=== PATIENT | male | born 1935 | race Caucasian/White ===

== ENCOUNTER → 2017-06-28 | Outpatient (CLI) | payer MEDICARE ==
--- NOTE | 2017-06-28 10:22 | US ---
EXAMINATION TYPE: US kidneys/renal and bladder DATE OF EXAM: 06/28/2017 COMPARISON: NONE CLINICAL HISTORY: Hematuria R31.9. Patient stated had hematuria few weeks ago; self catheterizes x 1 2 years due to bladder muscle weakness. EXAM MEASUREMENTS: Right Kidney: 13.3 x 8.0 x 5.9cm Left Kidney: 11.1 x 4.9 x 6.0cm Post Void Residual Volume: (not assessed as patient self catheterizes and did not bring equipment to do so) Right Kidney: enlarged with multiple renal cysts and largest at lower pole = 6.8 x 42 x 4.1cm Left Kidney: multiple renal cysts with largest at lower pole = 5.3 x 4.5 x 3.7cm; hyperechoic paralle l wall calcification noted at lower pole suspected vascular. Bladder: enlarges prostate is noted posterior wall Bilateral Jets seen: no, only right jet was seen multiple times There is enlarged prostate gland bulging into bladder base. There are multiple simple appearing cysts scattered throughout both kidneys. IMPRESSION: Enlarged prostate gland consistent with BPH. No significant finding is seen to account for patient's symptoms. Multiple simple appearing cysts are scattered throughout both kidneys.
== END | disposition home or self-care (01) ==
LOC: RADUSWWP 09:23
PROVIDERS: ATTEND Urology
DX: N28.1 Cyst of kidney, acquired (principal); N40.0 Benign prostatic hyperplasia without lower urinary tract symptoms
CPT/HCPCS: 76770

== ENCOUNTER 2019-09-27 15:28 | Inpatient (IN) | payer MEDICARE ==
[2019-09-27] MEDS ORDERED: ONDANSETRON 4 MG/2 ML VIAL IVP STA ×2 (16:01→16:33)
[2019-09-27] MEDS ORDERED: SODIUM CHLORIDE 0.9% 2,000 ML IV STA (16:01)
[2019-09-27 16:22] LABS: MCHC 32.3 g/dL (31.0-37.0); MCV 95.8 fL (80.0-100.0); Mean Platelet Volume 8.6; Platelet Count 327 k/uL (150-450); RBC 6.58 m/uL (4.30-5.90); RDW 12.2 % (11.5-15.5); WBC 17.8 k/uL (3.8-10.6)
[2019-09-27 16:24] LABS: HGB 20.4 gm/dL (13.0-17.5)
[2019-09-27 16:30] LABS: Albumin 5.1 g/dL (3.5-5.0); Calcium 11.3 mg/dL (8.4-10.2); Potassium 4.3 mmol/L (3.5-5.1); Total Bilirubin 1.6 mg/dL (0.2-1.3); Total Protein 8.7 g/dL (6.3-8.2)
--- NOTE | 2019-09-27 16:44 | ED ---
General Adult HPI - General Chief complaint: Weakness Stated complaint: Weakness, Abd pain Time Seen by Provider: 09/27/19 15:30 Source: patient, RN notes reviewed, old records reviewed Mode of arrival: EMS Limitations: no limitations - History of Present Illness Initial comments: This is a 83-year-old male presents emergency room complaining of persistent vomiting since Tuesday night. Patient denies any diarrhea. Patient states the only abdominal surgeries had in the past as an inguinal hernia 40 years ago. Patient denies any chest pain or difficulty breathing. Patient states he is very lightheaded if he gets up. Patient states he has some abdominal pain but is mostly epigastric abdominal pain. Patient denies any dysuria hematuria urinary frequency. Patient denies any recent fever or chills. Patient states he just has epigastric abdominal pain with persistent uncontrollable vomiting. - Related Data Allergies Allergy/AdvReac Type Severity Reaction Status Date / Time No Known Allergies Allergy Verified 09/27/19 16:07 Review of Systems ROS Statement: Those systems with pertinent positive or pertinent negative responses have been documented in the HPI. ROS Other: All systems not noted in ROS Statement are negative. Past Medical History Past Medical History: Hyperlipidemia, Hypertension History of Any Multi-Drug Resistant Organisms: None Reported Additional Past Surgical History / Comment(s): cyst removed. Past Psychological History: No Psychological Hx Reported Smoking Status: Current every day smoker Past Alcohol Use History: None Reported Past Drug Use History: None Reported General Exam - General Exam Comments Initial Comments: GENERAL: Patient is well-developed and well-nourished. Patient is nontoxic and well- hydrated and is in moderate distress ENT: Neck is soft and supple. No significant lymphadenopathy is noted. Oropharynx is clear. Moist mucous membranes. Neck has full range of motion without eliciting any pain. EYES: The sclera were anicteric and conjunctiva were pink and moist. Extraocular movements were intact and pupils were equal round and reactive to light. Eyelids were unremarkable. PULMONARY: Unlabored respirations. Good breath sounds bilaterally. No audible rales rhonchi or wheezing was noted. CARDIOVASCULAR: There is a regular rate and rhythm without any murmurs gallops or rubs. ABDOMEN: Mild epigastric abdominal pain SKIN: Skin is clear with no lesions or rashes and otherwise unremarkable. NEUROLOGIC: Patient is alert and oriented x3. Cranial nerves II through XII are grossly intact. Motor and sensory are also intact. Normal speech, volume and content. Symmetrical smile. MUSCULOSKELETAL: Normal extremities with adequate strength and full range of motion. LYMPHATICS: No significant lymphadenopathy is noted PSYCHIATRIC: Normal psychiatric evaluation. . Patient has a large right-sided inguinal hernia Limitations: no limitations Course Vital Signs 09/27/19 09/27/19 09/27/19 15:31 15:45 16:32 Temperature 97.4 F L Pulse Rate 93 110 H Respiratory 20 24 26 H Rate Blood Pressure 84/53 68/57 O2 Sat by Pulse 92 L Oximetry 09/27/19 09/27/19 09/27/19 16:39 17:42 18:12 Temperature 96.8 F L 97.4 F L Pulse Rate 84 93 82 Respiratory 30 H 20 18 Rate Blood Pressure 97/57 88/40 107/53 O2 Sat by Pulse 93 L 96 96 Oximetry 09/27/19 09/27/19 09/27/19 18:21 18:43 19:00 Temperature Pulse Rate 90 92 93 Respiratory 20 20 20 Rate Blood Pressure 118/61 108/57 107/62 O2 Sat by Pulse 97 95 98 Oximetry Medical Decision Making - Medical Decision Making EKG shows a sinus rhythm with frequent premature ventricular complexes 92 bpm SD interval is 156 dresses 76 QT interval 376 QTC is 464. Computed tomography scan of the abdomen and pelvis shows small bowel instruction with an incarcerated hernia on the right but no strangulation noted. I could reduce most of the hernia on the right and the patient was relatively comfortable why did the procedure. I spoke with Dr. Zelaya he agreed to see the patient in the hospital. Spoke with Dr. Anderson he also agreed to see the patient hospital. I wrote admitting orders. - Lab Data Result diagrams: 09/27/19 15:45 09/27/19 15:45 Lab Results 09/27/19 09/27/19 09/27/19 Range/Units 15:45 15:45 15:45 WBC 17.8 H (3.8-10.6) k/uL RBC 6.58 H (4.30-5.90) m/uL Hgb 20.4 H* (13.0-17.5) gm/dL Hct 63.0 H* (39.0-53.0) % MCV 95.8 (80.0-100.0) fL MCH 31.0 (25.0-35.0) pg MCHC 32.3 (31.0-37.0) g/dL RDW 12.2 (11.5-15.5) % Plt Count 327 (150-450) k/uL Neutrophils % (Manual) 71 % Band Neutrophils % 15 % Lymphocytes % (Manual) 7 % Monocytes % (Manual) 7 % Neutrophils # (Manual) 15.30 H (1.3-7.7) k/uL Lymphocytes # (Manual) 1.25 (1.0-4.8) k/uL Monocytes # (Manual) 1.25 H (0-1.0) k/uL Nucleated RBCs 0 (0-0) /100 WBC Manual Slide Review Performed PT (9.0-12.0) sec INR (<1.2) APTT (22.0-30.0) sec Sodium 145 (137-145) mmol/L Potassium 4.3 (3.5-5.1) mmol/L Chloride 101 (98-107) mmol/L Carbon Dioxide 22 (22-30) mmol/L Anion Gap 22 mmol/L BUN 36 H (9-20) mg/dL Creatinine 2.67 H (0.66-1.25) mg/dL Est GFR (CKD-EPI)AfAm 25 (>60 ml/min/1.73 sqM) Est GFR (CKD-EPI)NonAf 21 (>60 ml/min/1.73 sqM) Glucose 135 H (74-99) mg/dL Lactic Ac Sepsis Rflx Plasma Lactic Acid Ramsey 7.2 H* (0.7-2.0) mmol/L Calcium 11.3 H (8.4-10.2) mg/dL Total Bilirubin 1.6 H (0.2-1.3) mg/dL AST 24 (17-59) U/L ALT 14 (4-49) U/L Alkaline Phosphatase 103 (38-126) U/L Total Protein 8.7 H (6.3-8.2) g/dL Albumin 5.1 H (3.5-5.0) g/dL Amylase 144 H (30-110) U/L Lipase 114 (23-300) U/L Urine Color Urine Appearance (Clear) Urine pH (5.0-8.0) Ur Specific [place] (1.001-1.035) Urine Protein (Negative) Urine Glucose (UA) (Negative) Urine Ketones (Negative) Urine Blood (Negative) Urine Nitrite (Negative) Urine Bilirubin (Negative) Urine Urobilinogen (<2.0) mg/dL Ur Leukocyte Esterase (Negative) Urine RBC (0-5) /hpf Urine WBC (0-5) /hpf Ur Squamous Epith Cells (0-4) /hpf Urine Bacteria (None) /hpf Gastric Occult Blood (Negative) 09/27/19 09/27/19 09/27/19 Range/Units 16:20 16:35 16:35 WBC (3.8-10.6) k/uL RBC (4.30-5.90) m/uL Hgb (13.0-17.5) gm/dL Hct (39.0-53.0) % MCV (80.0-100.0) fL MCH (25.0-35.0) pg MCHC (31.0-37.0) g/dL RDW (11.5-15.5) % Plt Count (150-450) k/uL Neutrophils % (Manual) % Band Neutrophils % % Lymphocytes % (Manual) % Monocytes % (Manual) % Neutrophils # (Manual) (1.3-7.7) k/uL Lymphocytes # (Manual) (1.0-4.8) k/uL Monocytes # (Manual) (0-1.0) k/uL Nucleated RBCs (0-0) /100 WBC Manual Slide Review PT 11.0 (9.0-12.0) sec INR 1.0 (<1.2) APTT 23.5 (22.0-30.0) sec Sodium (137-145) mmol/L Potassium (3.5-5.1) mmol/L Chloride (98-107) mmol/L Carbon Dioxide (22-30) mmol/L Anion Gap mmol/L BUN (9-20) mg/dL Creatinine (0.66-1.25) mg/dL Est GFR (CKD-EPI)AfAm (>60 ml/min/1.73 sqM) Est GFR (CKD-EPI)NonAf (>60 ml/min/1.73 sqM) Glucose (74-99) mg/dL Lactic Ac Sepsis Rflx Y Plasma Lactic Acid Ramsey (0.7-2.0) mmol/L Calcium (8.4-10.2) mg/dL Total Bilirubin (0.2-1.3) mg/dL AST (17-59) U/L ALT (4-49) U/L Alkaline Phosphatase (38-126) U/L Total Protein (6.3-8.2) g/dL Albumin (3.5-5.0) g/dL Amylase (30-110) U/L Lipase (23-300) U/L Urine Color Yellow Urine Appearance Cloudy (Clear) Urine pH 5.5 (5.0-8.0) Ur Specific [place] 1.024 (1.001-1.035) Urine Protein 1+ H (Negative) Urine Glucose (UA) Negative (Negative) Urine Ketones Negative (Negative) Urine Blood Moderate H (Negative) Urine Nitrite Positive (Negative) Urine Bilirubin Negative (Negative) Urine Urobilinogen <2.0 (<2.0) mg/dL Ur Leukocyte Esterase Large H (Negative) Urine RBC 125 H (0-5) /hpf Urine WBC 49 H (0-5) /hpf Ur Squamous Epith Cells 1 (0-4) /hpf Urine Bacteria Rare H (None) /hpf Gastric Occult Blood (Negative) 09/27/19 Range/Units 20:12 WBC (3.8-10.6) k/uL RBC (4.30-5.90) m/uL Hgb (13.0-17.5) gm/dL Hct (39.0-53.0) % MCV (80.0-100.0) fL MCH (25.0-35.0) pg MCHC (31.0-37.0) g/dL RDW (11.5-15.5) % Plt Count (150-450) k/uL Neutrophils % (Manual) % Band Neutrophils % % Lymphocytes % (Manual) % Monocytes % (Manual) % Neutrophils # (Manual) (1.3-7.7) k/uL Lymphocytes # (Manual) (1.0-4.8) k/uL Monocytes # (Manual) (0-1.0) k/uL Nucleated RBCs (0-0) /100 WBC Manual Slide Review PT (9.0-12.0) sec INR (<1.2) APTT (22.0-30.0) sec Sodium (137-145) mmol/L Potassium (3.5-5.1) mmol/L Chloride (98-107) mmol/L Carbon Dioxide (22-30) mmol/L Anion Gap mmol/L BUN (9-20) mg/dL Creatinine (0.66-1.25) mg/dL Est GFR (CKD-EPI)AfAm (>60 ml/min/1.73 sqM) Est GFR (CKD-EPI)NonAf (>60 ml/min/1.73 sqM) Glucose (74-99) mg/dL Lactic Ac Sepsis Rflx Plasma Lactic Acid [place] (0.7-2.0) mmol/L Calcium (8.4-10.2) mg/dL Total Bilirubin (0.2-1.3) mg/dL AST (17-59) U/L ALT (4-49) U/L Alkaline Phosphatase (38-126) U/L Total Protein (6.3-8.2) g/dL Albumin (3.5-5.0) g/dL Amylase (30-110) U/L Lipase (23-300) U/L Urine Color Urine Appearance (Clear) Urine pH (5.0-8.0) Ur Specific [place] (1.001-1.035) Urine Protein (Negative) Urine Glucose (UA) (Negative) Urine Ketones (Negative) Urine Blood (Negative) Urine Nitrite (Negative) Urine Bilirubin (Negative) Urine Urobilinogen (<2.0) mg/dL Ur Leukocyte Esterase (Negative) Urine RBC (0-5) /hpf Urine WBC (0-5) /hpf Ur Squamous Epith Cells (0-4) /hpf Urine Bacteria (None) /hpf Gastric Occult Blood Positive (Negative) Disposition Clinical Impression: Small bowel obstruction, Incarcerated inguinal hernia, Dehydration, Renal insufficiency Disposition: ADMITTED IP TO THIS HOSP Is patient prescribed a controlled substance at d/c from ED?: No Referrals: Zack Rao MD [Primary Care Provider] - 1-2 days Time of Disposition: 20:32
[2019-09-27 17:03] LABS: Partial Thromboplastin Time 23.5 sec (22.0-30.0)
[2019-09-27 17:06] LABS: Appearance,Urine Cloudy (Clear); Bacteria,Urine Rare /hpf; Bilirubin,Urine Negative (Negative); Blood,Urine Moderate (Negative); Color,Urine Yellow; Glucose,Urine (UA) Negative (Negative); Ketones,Urine Negative (Negative); Leukocyte Esterase,Urine Large (Negative); Nitrite,Urine Positive (Negative); PH, Urine 5.5 (5.0-8.0); Protein,Urine 1+ (Negative); RBC,Urine 125 /hpf (0-5); Specific Gravity,Urine 1.024 (1.001-1.035); Squamous Epithelial Cell,Urine 1 /hpf (0-4); Urobilinogen,Urine <2.0 mg/dL (<2.0); WBC,Urine 49 /hpf (0-5)
[2019-09-27 17:16] LABS: Band Neutrophils % 15 %; Lymphocytes # (M) 1.25 k/uL (1.0-4.8); Monocytes # (M) 1.25 k/uL (0-1.0); Neutrophils % (M) 71 %; Nucleated Red Blood Cells 0 /100 WBC (0-0); Total Cells Counted 100
[2019-09-27] MEDS ORDERED: SODIUM CHLORIDE 0.9% 1,000 ML IV ONE ×3 (18:13→20:49)
--- NOTE | 2019-09-27 19:03 | CT ---
EXAMINATION TYPE: CT abdomen pelvis wo con DATE OF EXAM: 09/27/2019 COMPARISON: None HISTORY: Epigastric pain. CT DLP: 659 mGycm Automated exposure control for dose reduction was used. TECHNIQUE: Helical acquisition of images was performed from the lung bases through the pelvis. FINDINGS: Within the limitations of noncontrast CT, the following observations are made. LUNG BASES: No acute findings. Left and right coronary calcifications and mitral and aortic valve plane calcifications noted. LIVER/GB: No significant abnormality is appreciated. PANCREAS: No significant abnormality is seen. SPLEEN: No significant abnormality is seen. ADRENALS: No significant abnormality is seen. KIDNEYS: No acute process, but multifocal renal cysts noted. BOWEL: There is moderate marked gastric distention with a gas fluid level. The jejunum and ileum smal l bowel loops are dilated from 3.5 cm to 5.0 cm. This is secondary to incarcerated right inguinal her niation of several bowel loops, including the ileocecal anastomosis. There is no evidence of bowel wall thickening. No pneumatosis. No pneumoperitoneum. No peritoneal fluid. The ascending colon, transverse colon, descending colon and right colon is collapsed. There is left i nguinal herniation of a sigmoid loop of bowel which has normal appearance. This appears incarcerated but not strangulated. RETROPERITONEAL ADENOPATHY: None visualized REPRODUCTIVE ORGANS: No significant abnormality is seen URINARY BLADDER: No significant abnormality is seen. PELVIC ADENOPATHY: None visualized. OSSEOUS STRUCTURES: No significant abnormality is seen. Just now discussed results with ordering provider. IMPRESSION: MODERATE-MARKED SMALL BOWEL OBSTRUCTION SECONDARY TO RIGHT INGUINAL HERNIATION.
--- NOTE | 2019-09-27 20:07 | XR ---
EXAMINATION: XR chest 1V DATE AND TIME: 09/27/2019 7:22 PM CLINICAL INDICATION: PHH; NG placement TECHNIQUE: AP upright portable COMPARISON: 07/18/2014 FINDINGS: NG tube is present, coursing over the expected thoracic esophagus and over the body and fundus of the stomach, to have its tip superimposed over the left frontal margin. Pleural spaces are negative. There is a mild bilateral interstitial pattern noted which appears coarsened, suggesting chronic inte rstitial lung change. However, clinical exclusion of mild interstitial phase pulmonary edema is reque sted. Mildly enlarged cardiac silhouette and tortuosity of the thoracic aorta noted. No acute skeletal findings. No pneumoperitoneum; dilated small bowel loops noted. IMPRESSION: NG-tube.
[2019-09-27 21:19] LABS: HCT 53.6 % (39.0-53.0); HGB 17.6 gm/dL (13.0-17.5); MCH 31.2 pg (25.0-35.0); MCHC 32.9 g/dL (31.0-37.0); MCV 94.8 fL (80.0-100.0); Mean Platelet Volume 9.1; Platelet Count 246 k/uL (150-450); RBC 5.65 m/uL (4.30-5.90); RDW 12.4 % (11.5-15.5); WBC 3.8 k/uL (3.8-10.6)
[2019-09-27 21:45] LABS: Band Neutrophils % 16 %; Lymphocytes # (M) 0.76 k/uL (1.0-4.8); Monocytes # (M) 0.23 k/uL (0-1.0); Neutrophils % (M) 58 %; Nucleated Red Blood Cells 0 /100 WBC (0-0); Total Cells Counted 100
[2019-09-28] MEDS ORDERED: HYDROmorphone 0.5 MG/0.5 ML SYRINGE IVP PRN (08:55)
[2019-09-28] MEDS ORDERED: ONDANSETRON 4 MG/2 ML VIAL IVP PRN (08:56)
--- NOTE | 2019-09-28 08:58 | P.GSCN ---
<Mohini Brown - Last Filed: 09/28/19 08:53> History of Present Illness Consult date: 09/28/19 Reason for Consult: small bowel obstruction Requesting physician: Enrrique Ramirez History of present illness: CHIEF COMPLAINT: abdominal pain HISTORY OF PRESENT ILLNESS: 83-year-old male who presents to emergency room chief complaint abdominal pain. Patient reports he has been having bilateral lower quadrant abdominal pain since Tuesday. He reports he began vomiting on Tuesday. He states he thought it would go away on its own so he waited to come to the emergency room, however he was still throwing up yesterday and finally decided to come to the ER for evaluation. Patient reports history of right inguinal hernia for approximately 5 years and states it has never caused him any problems in the past so he did not seek surgical evaluation to have it repaired. PAST MEDICAL HISTORY: See list. PAST SURGICAL HISTORY: See list. SOCIAL HISTORY: No illicit drug use. REVIEW OF SYSTEMS: CONSTITUTIONAL: Denies fever or chills. HEENT: Denies blurred vision, vision changes, or eye pain. Denies hemoptysis CARDIOVASCULAR: Denies chest pain or pressure. RESPIRATORY: No shortness of breath. GASTROINTESTINAL: Refer to HPI for pertinent findings HEMATOLOGIC: Denies bleeding disorders. GENITOURINARY: Denies any blood in urine. SKIN: Denies pruitis. Denies rash. PHYSICAL EXAM: VITAL SIGNS: Reviewed. GENERAL: Well-developed in no acute distress. HEENT: No sclera icterus. Extraocular movements grossly intact. Moist buccal mucosa. Head is atraumatic, normocephalic. ABDOMEN: NG tube to low intermittent suction with bilious drainage. Soft. Nondistended. Tenderness with palpation to right lower quadrant. Large right inguinal hernia noted. NEUROLOGIC: Alert and oriented. Cranial nerves II through XII grossly intact. LABORATORY DATA: WBC 3.8. Hemoglobin 17.6. Platelet count 246. Lactic acid 2.3. Repeat 1.7. Sodium 145. Potassium 4.3. BUN 36. Creatinine 2.67. IMAGING: CT abdomen and pelvis: Moderate-marked small bowel obstruction secondary to right inguinal hernia. ASSESSMENT: 1. Abdominal pain 2. Nausea and vomiting 3. Small bowel obstruction secondary to incarcerated right inguinal hernia PLAN: NPO. Continue IV fluids GI/DVT prophylaxis Pain control. Continue IV Dilaudid PRN. Patient to undergo repair of incarcerated right recurrent inguinal hernia with possible mesh today with Dr. Zelaya Nurse practitioner note has been reviewed by physician. Signing provider agrees with the documented findings, assessment, and plan of care. Past Medical History Past Medical History: Hyperlipidemia, Hypertension History of Any Multi-Drug Resistant Organisms: None Reported Additional Past Surgical History / Comment(s): cyst removed. Past Anesthesia/Blood Transfusion Reactions: No Reported Reaction Past Psychological History: No Psychological Hx Reported Smoking Status: Current every day smoker Past Alcohol Use History: None Reported Past Drug Use History: None Reported Medications and Allergies Home Medications Medication Instructions Recorded Confirmed Type Ascorbic Acid [Vitamin C] 1,000 mg PO DAILY 09/27/19 09/27/19 History Aspirin EC [Ecotrin Low Dose] 81 mg PO DAILY 09/27/19 09/27/19 History Calcium Carbonate [Calcium] 600 mg PO DAILY 09/27/19 09/27/19 History Cyanocobalamin (Vitamin B-12) 1,000 mcg PO DAILY 09/27/19 09/27/19 History [Vitamin B-12] Lisinopril [Zestril] 20 mg PO DAILY 09/27/19 09/27/19 History Magnesium(Unknown Dose) 1 tab PO DAILY 09/27/19 09/27/19 History Tatum-3 Fatty Acids/Fish Oil [Fish 1 cap PO DAILY 09/27/19 09/27/19 History Oil 1,000 mg Softgel] Simvastatin 40 mg PO HS 09/27/19 09/27/19 History Thiamine [Vitamin B-1] 100 mg PO DAILY 09/27/19 09/27/19 History Allergies Allergy/AdvReac Type Severity Reaction Status Date / Time No Known Allergies Allergy Verified 09/27/19 20:41 Surgical - Exam Vital Signs Temp Pulse Resp BP Pulse Ox 97.4 F L 93 20 84/53 92 L 09/27/19 15:31 09/27/19 15:31 09/27/19 15:31 09/27/19 15:31 09/27/19 15:31 Results - Labs 09/27/19 20:54 09/27/19 15:45 Abnormal Lab Results - Last 24 Hours (Table) 09/27/19 09/27/19 09/27/19 Range/Units 15:45 15:45 15:45 WBC 17.8 H (3.8-10.6) k/uL RBC 6.58 H (4.30-5.90) m/uL Hgb 20.4 H* (13.0-17.5) gm/dL Hct 63.0 H* (39.0-53.0) % Neutrophils # (Manual) 15.30 H (1.3-7.7) k/uL Lymphocytes # (Manual) (1.0-4.8) k/uL Monocytes # (Manual) 1.25 H (0-1.0) k/uL BUN 36 H (9-20) mg/dL Creatinine 2.67 H (0.66-1.25) mg/dL Glucose 135 H (74-99) mg/dL Plasma Lactic Acid Ramsey 7.2 H* (0.7-2.0) mmol/L Calcium 11.3 H (8.4-10.2) mg/dL Total Bilirubin 1.6 H (0.2-1.3) mg/dL Total Protein 8.7 H (6.3-8.2) g/dL Albumin 5.1 H (3.5-5.0) g/dL Amylase 144 H (30-110) U/L Urine Protein (Negative) Urine Blood (Negative) Ur Leukocyte Esterase (Negative) Urine RBC (0-5) /hpf Urine WBC (0-5) /hpf Urine Bacteria (None) /hpf 09/27/19 09/27/19 09/27/19 Range/Units 16:20 20:37 20:54 WBC (3.8-10.6) k/uL RBC (4.30-5.90) m/uL Hgb 17.6 H (13.0-17.5) gm/dL Hct 53.6 H (39.0-53.0) % Neutrophils # (Manual) (1.3-7.7) k/uL Lymphocytes # (Manual) 0.76 L (1.0-4.8) k/uL Monocytes # (Manual) (0-1.0) k/uL BUN (9-20) mg/dL Creatinine (0.66-1.25) mg/dL Glucose (74-99) mg/dL Plasma Lactic Acid Ramsey 4.3 H* (0.7-2.0) mmol/L Calcium (8.4-10.2) mg/dL Total Bilirubin (0.2-1.3) mg/dL Total Protein (6.3-8.2) g/dL Albumin (3.5-5.0) g/dL Amylase (30-110) U/L Urine Protein 1+ H (Negative) Urine Blood Moderate H (Negative) Ur Leukocyte Esterase Large H (Negative) Urine RBC 125 H (0-5) /hpf Urine WBC 49 H (0-5) /hpf Urine Bacteria Rare H (None) /hpf 09/28/19 Range/Units 00:35 WBC (3.8-10.6) k/uL RBC (4.30-5.90) m/uL Hgb (13.0-17.5) gm/dL Hct (39.0-53.0) % Neutrophils # (Manual) (1.3-7.7) k/uL Lymphocytes # (Manual) (1.0-4.8) k/uL Monocytes # (Manual) (0-1.0) k/uL BUN (9-20) mg/dL Creatinine (0.66-1.25) mg/dL Glucose (74-99) mg/dL Plasma Lactic Acid Ramsey 2.3 H* (0.7-2.0) mmol/L Calcium (8.4-10.2) mg/dL Total Bilirubin (0.2-1.3) mg/dL Total Protein (6.3-8.2) g/dL Albumin (3.5-5.0) g/dL Amylase (30-110) U/L Urine Protein (Negative) Urine Blood (Negative) Ur Leukocyte Esterase (Negative) Urine RBC (0-5) /hpf Urine WBC (0-5) /hpf Urine Bacteria (None) /hpf Microbiology - Last 24 Hours (Table) 09/27/19 16:20 Urine Culture - Preliminary Urine,Voided Diabetes panel 09/27/19 Range/Units 15:45 Sodium 145 (137-145) mmol/L Potassium 4.3 (3.5-5.1) mmol/L Chloride 101 (98-107) mmol/L Carbon Dioxide 22 (22-30) mmol/L BUN 36 H (9-20) mg/dL Creatinine 2.67 H (0.66-1.25) mg/dL Glucose 135 H (74-99) mg/dL Calcium 11.3 H (8.4-10.2) mg/dL AST 24 (17-59) U/L ALT 14 (4-49) U/L Alkaline Phosphatase 103 (38-126) U/L Total Protein 8.7 H (6.3-8.2) g/dL Albumin 5.1 H (3.5-5.0) g/dL Calcium panel 09/27/19 Range/Units 15:45 Calcium 11.3 H (8.4-10.2) mg/dL Albumin 5.1 H (3.5-5.0) g/dL Pituitary panel 09/27/19 Range/Units 15:45 Sodium 145 (137-145) mmol/L Potassium 4.3 (3.5-5.1) mmol/L Chloride 101 (98-107) mmol/L Carbon Dioxide 22 (22-30) mmol/L BUN 36 H (9-20) mg/dL Creatinine 2.67 H (0.66-1.25) mg/dL Glucose 135 H (74-99) mg/dL Calcium 11.3 H (8.4-10.2) mg/dL Adrenal panel 09/27/19 Range/Units 15:45 Sodium 145 (137-145) mmol/L Potassium 4.3 (3.5-5.1) mmol/L Chloride 101 (98-107) mmol/L Carbon Dioxide 22 (22-30) mmol/L BUN 36 H (9-20) mg/dL Creatinine 2.67 H (0.66-1.25) mg/dL Glucose 135 H (74-99) mg/dL Calcium 11.3 H (8.4-10.2) mg/dL Total Bilirubin 1.6 H (0.2-1.3) mg/dL AST 24 (17-59) U/L ALT 14 (4-49) U/L Alkaline Phosphatase 103 (38-126) U/L Total Protein 8.7 H (6.3-8.2) g/dL Albumin 5.1 H (3.5-5.0) g/dL <Elio Zelaya - Last Filed: 09/28/19 11:32> History of Present Illness History of present illness: As above. 9-year-old male with intractable vomiting. Patient states he has had this recurrent right inguinal hernia for several years. Has had increasing size and pain recently. Over the last 3-4 days has had intractable vomiting and pain. CAT scan shows small bowel obstruction which appears to be in the right hernia sac. This is a very large hernia. On exam unable to reduce. Small moderate sized reducible hernia on the left-hand side containing colon without obstruction. Overlying skin on the right side appears free of erythema, tenderness is mild to moderate. Options reviewed with the patient. Recommend repair recurrent incarcerated right inguinal hernia with possible mesh, possible bowel resection, possible need for laparotomy. We'll plan likely orchiectomy at the time of the procedure given the large size of this hernia. Risks of bleeding, infection, recurrence, bladder and bowel injury, numbness, nerve injury were discussed with the patient. The patient understands and wishes to proceed. Surgical - Exam Vital Signs Temp Pulse Resp BP Pulse Ox 97.4 F L 93 20 84/53 92 L 09/27/19 15:31 09/27/19 15:31 09/27/19 15:31 09/27/19 15:31 09/27/19 15:31 Results - Labs 09/27/19 20:54 09/27/19 15:45 Abnormal Lab Results - Last 24 Hours (Table) 09/27/19 09/27/19 09/27/19 Range/Units 15:45 15:45 15:45 WBC 17.8 H (3.8-10.6) k/uL RBC 6.58 H (4.30-5.90) m/uL Hgb 20.4 H* (13.0-17.5) gm/dL Hct 63.0 H* (39.0-53.0) % Neutrophils # (Manual) 15.30 H (1.3-7.7) k/uL Lymphocytes # (Manual) (1.0-4.8) k/uL Monocytes # (Manual) 1.25 H (0-1.0) k/uL BUN 36 H (9-20) mg/dL Creatinine 2.67 H (0.66-1.25) mg/dL Glucose 135 H (74-99) mg/dL Plasma Lactic Acid Ramsey 7.2 H* (0.7-2.0) mmol/L Calcium 11.3 H (8.4-10.2) mg/dL Total Bilirubin 1.6 H (0.2-1.3) mg/dL Total Protein 8.7 H (6.3-8.2) g/dL Albumin 5.1 H (3.5-5.0) g/dL Amylase 144 H (30-110) U/L Urine Protein (Negative) Urine Blood (Negative) Ur Leukocyte Esterase (Negative) Urine RBC (0-5) /hpf Urine WBC (0-5) /hpf Urine Bacteria (None) /hpf 09/27/19 09/27/19 09/27/19 Range/Units 16:20 20:37 20:54 WBC (3.8-10.6) k/uL RBC (4.30-5.90) m/uL Hgb 17.6 H (13.0-17.5) gm/dL Hct 53.6 H (39.0-53.0) % Neutrophils # (Manual) (1.3-7.7) k/uL Lymphocytes # (Manual) 0.76 L (1.0-4.8) k/uL Monocytes # (Manual) (0-1.0) k/uL BUN (9-20) mg/dL Creatinine (0.66-1.25) mg/dL Glucose (74-99) mg/dL Plasma Lactic Acid Ramsey 4.3 H* (0.7-2.0) mmol/L Calcium (8.4-10.2) mg/dL Total Bilirubin (0.2-1.3) mg/dL Total Protein (6.3-8.2) g/dL Albumin (3.5-5.0) g/dL Amylase (30-110) U/L Urine Protein 1+ H (Negative) Urine Blood Moderate H (Negative) Ur Leukocyte Esterase Large H (Negative) Urine RBC 125 H (0-5) /hpf Urine WBC 49 H (0-5) /hpf Urine Bacteria Rare H (None) /hpf 09/28/19 Range/Units 00:35 WBC (3.8-10.6) k/uL RBC (4.30-5.90) m/uL Hgb (13.0-17.5) gm/dL Hct (39.0-53.0) % Neutrophils # (Manual) (1.3-7.7) k/uL Lymphocytes # (Manual) (1.0-4.8) k/uL Monocytes # (Manual) (0-1.0) k/uL BUN (9-20) mg/dL Creatinine (0.66-1.25) mg/dL Glucose (74-99) mg/dL Plasma Lactic Acid Ramsey 2.3 H* (0.7-2.0) mmol/L Calcium (8.4-10.2) mg/dL Total Bilirubin (0.2-1.3) mg/dL Total Protein (6.3-8.2) g/dL Albumin (3.5-5.0) g/dL Amylase (30-110) U/L Urine Protein (Negative) Urine Blood (Negative) Ur Leukocyte Esterase (Negative) Urine RBC (0-5) /hpf Urine WBC (0-5) /hpf Urine Bacteria (None) /hpf Microbiology - Last 24 Hours (Table) 09/27/19 16:20 Urine Culture - Preliminary Urine,Voided Diabetes panel 09/27/19 Range/Units 15:45 Sodium 145 (137-145) mmol/L Potassium 4.3 (3.5-5.1) mmol/L Chloride 101 (98-107) mmol/L Carbon Dioxide 22 (22-30) mmol/L BUN 36 H (9-20) mg/dL Creatinine 2.67 H (0.66-1.25) mg/dL Glucose 135 H (74-99) mg/dL Calcium 11.3 H (8.4-10.2) mg/dL AST 24 (17-59) U/L ALT 14 (4-49) U/L Alkaline Phosphatase 103 (38-126) U/L Total Protein 8.7 H (6.3-8.2) g/dL Albumin 5.1 H (3.5-5.0) g/dL Calcium panel 09/27/19 Range/Units 15:45 Calcium 11.3 H (8.4-10.2) mg/dL Albumin 5.1 H (3.5-5.0) g/dL Pituitary panel 09/27/19 Range/Units 15:45 Sodium 145 (137-145) mmol/L Potassium 4.3 (3.5-5.1) mmol/L Chloride 101 (98-107) mmol/L Carbon Dioxide 22 (22-30) mmol/L BUN 36 H (9-20) mg/dL Creatinine 2.67 H (0.66-1.25) mg/dL Glucose 135 H (74-99) mg/dL Calcium 11.3 H (8.4-10.2) mg/dL Adrenal panel 09/27/19 Range/Units 15:45 Sodium 145 (137-145) mmol/L Potassium 4.3 (3.5-5.1) mmol/L Chloride 101 (98-107) mmol/L Carbon Dioxide 22 (22-30) mmol/L BUN 36 H (9-20) mg/dL Creatinine 2.67 H (0.66-1.25) mg/dL Glucose 135 H (74-99) mg/dL Calcium 11.3 H (8.4-10.2) mg/dL Total Bilirubin 1.6 H (0.2-1.3) mg/dL AST 24 (17-59) U/L ALT 14 (4-49) U/L Alkaline Phosphatase 103 (38-126) U/L Total Protein 8.7 H (6.3-8.2) g/dL Albumin 5.1 H (3.5-5.0) g/dL
[2019-09-28] MEDS ORDERED: SODIUM CHLORIDE 0.9% 1,000 ML IV SCH (09:00)
[2019-09-28] MEDS: PANTOPRAZOLE 40 MG/10 ML VIAL IVP SCH (09:38)
[2019-09-28] MEDS: SODIUM CHLORIDE 0.9% 1,000 ML IV SCH ×2 (11:49→23:32)
[2019-09-28] MEDS ORDERED: IV FLUID CONTINUATION 800 ML IV ONE (13:53)
[2019-09-28] MEDS ORDERED: ALBUTEROL NEBULIZED 2.5 MG/3 ML INHALATION STA (14:09)
--- NOTE | 2019-09-28 15:31 | P.HPIM ---
History of Present Illness H&P Date: 09/28/19 Chief Complaint: Vomiting since Tuesday night This is an 83-year-old male patient of Dr. Rao with past medical history of hypertension, hyperlipidemia, chronic urinary retention for 10 years status post recath at home, tobacco use and dependence. Patient states he started having vomiting on Tuesday as well as lower abdominal pain. He denies having any shortness of breath, no chest pain. He denies having any diarrhea. Patient came into [facility] emergency center for evaluation where he was found to be afebrile, blood pressure initially 84/53, heart rate 93-110, pulse ox 92% on room air. WBC 17.8, hemoglobin 20.4. BUN 36 creatinine 2.67, lactic acid 7.2, total bilirubin 1.6, AST 24, ALT 14, alkaline phosphatase 103, amylase 144. Urinalysis moderate blood, leukoesterase large, RBCs 124 WBC 49. Stool for occult blood positive. CAT scan of the abdomen and pelvis revealed moderately marked small bowel obstruction secondary to right inguinal hernia. Patient was made nothing by mouth, IV fluids were started and consult with Dr. gonzalez with plan for repair of incarcerated right inguinal hernia this afternoon. Family members are at bedside and have been updated. Review of Systems Constitutional: Reports poor appetite, Denies chills, Denies fatigue, Denies fever Eyes: denies blurred vision, denies pain Ears, nose, mouth and throat: Denies dysphagia, Denies headache, Denies nasal congestion, Denies nasal discharge, Denies sore throat Cardiovascular: Denies chest pain, Denies dyspnea on exertion, Denies edema, Denies shortness of breath Respiratory: Denies cough, Denies cough with sputum, Denies dyspnea, Denies sleep apnea Gastrointestinal: Reports abdominal pain, Reports loss of appetite, Reports nausea, Reports vomiting, Denies diarrhea Genitourinary: Reports urinary retention, Denies dysuria Musculoskeletal: Denies frequent falls, Denies gait dysfunction, Denies muscle weakness, Denies myalgias Integumentary: Denies pruritus, Denies rash, Denies wounds Neurological: Denies change in mentation, Denies change in speech, Denies numbness, Denies weakness Psychiatric: Denies anxiety, Denies depression Endocrine: Denies fatigue, Denies weight change Past Medical History Past Medical History: Hyperlipidemia, Hypertension History of Any Multi-Drug Resistant Organisms: None Reported Additional Past Surgical History / Comment(s): cyst removed. Past Anesthesia/Blood Transfusion Reactions: No Reported Reaction Past Psychological History: No Psychological Hx Reported Smoking Status: Current every day smoker Past Alcohol Use History: None Reported Additional Past Alcohol Use History / Comment(s): Patient is a smoker of one pack per day since he was 21 years of age. He states he drinks 1 beer per week. No marijuana use or illicit drug use. Patient lives at home alone. Past Drug Use History: None Reported - Past Family History Father Additional Family Medical History / Comment(s): Patient is adopted and does not know any history on his parents or siblings. Patient has 2 daughters and one has diverticulitis Medications and Allergies Home Medications Medication Instructions Recorded Confirmed Type Ascorbic Acid [Vitamin C] 1,000 mg PO DAILY 09/27/19 09/27/19 History Aspirin EC [Ecotrin Low Dose] 81 mg PO DAILY 09/27/19 09/27/19 History Calcium Carbonate [Calcium] 600 mg PO DAILY 09/27/19 09/27/19 History Cyanocobalamin (Vitamin B-12) 1,000 mcg PO DAILY 09/27/19 09/27/19 History [Vitamin B-12] Lisinopril [Zestril] 20 mg PO DAILY 09/27/19 09/27/19 History Magnesium(Unknown Dose) 1 tab PO DAILY 09/27/19 09/27/19 History Dugger-3 Fatty Acids/Fish Oil [Fish 1 cap PO DAILY 09/27/19 09/27/19 History Oil 1,000 mg Softgel] Simvastatin 40 mg PO HS 09/27/19 09/27/19 History Thiamine [Vitamin B-1] 100 mg PO DAILY 09/27/19 09/27/19 History Allergies Allergy/AdvReac Type Severity Reaction Status Date / Time No Known Allergies Allergy Verified 09/27/19 20:41 Physical Exam Vitals: Vital Signs Temp Pulse Pulse Resp BP BP Pulse Ox 09/28/19 08:44 98.2 F 102 H 20 135/52 91 L 09/28/19 01:50 98.9 F 89 18 153/77 91 L 09/28/19 00:00 96 18 09/27/19 22:43 98.4 F 102 H 17 106/63 90 L 09/27/19 22:20 101 H 20 90/50 93 L 09/27/19 21:50 103 H 20 120/61 95 09/27/19 21:18 98.9 F 76 18 129/68 96 09/27/19 19:00 93 20 107/62 98 09/27/19 18:43 92 20 108/57 95 09/27/19 18:21 90 20 118/61 97 09/27/19 18:12 82 18 107/53 96 09/27/19 17:42 97.4 F L 93 20 88/40 96 09/27/19 16:39 96.8 F L 84 30 H 97/57 93 L 09/27/19 16:32 110 H 26 H 68/57 09/27/19 15:45 24 09/27/19 15:31 97.4 F L 93 20 84/53 92 L Intake and Output 09/27/19 09/28/19 09/28/19 22:59 06:59 14:59 Other: Voiding Method Urinal # Voids 0 Weight 77.111 kg Gen: This is an 83-year-old male. He is resting in bed appears to be comfortable and in no acute distress. HEENT: Head is atraumatic, normocephalic. Pupils equal, round. Sclerae is anicteric. Oral mucous membranes dry. NECK: Supple. No JVD. No lymphadenopathy. No thyromegaly. LUNGS: Clear to auscultation. No wheezes or rhonchi. No intercostal retractions. HEART: Regular rate and rhythm. No murmur. ABDOMEN: Soft. Bowel sounds are present. No masses. Right lower quadrant tenderness. EXTREMITIES: No pedal edema. No calf tenderness. Dorsalis pedis palpated bilaterally. NEUROLOGICAL: Patient is awake, alert and oriented x3. Cranial nerves 2 through 12 are grossly intact. Results CBC & Chem 7: 09/27/19 20:54 09/27/19 15:45 Labs: Abnormal Lab Results - Last 24 Hours (Table) 09/27/19 09/27/19 09/27/19 Range/Units 15:45 15:45 15:45 WBC 17.8 H (3.8-10.6) k/uL RBC 6.58 H (4.30-5.90) m/uL Hgb 20.4 H* (13.0-17.5) gm/dL Hct 63.0 H* (39.0-53.0) % Neutrophils # (Manual) 15.30 H (1.3-7.7) k/uL Lymphocytes # (Manual) (1.0-4.8) k/uL Monocytes # (Manual) 1.25 H (0-1.0) k/uL BUN 36 H (9-20) mg/dL Creatinine 2.67 H (0.66-1.25) mg/dL Glucose 135 H (74-99) mg/dL Plasma Lactic Acid Ramsey 7.2 H* (0.7-2.0) mmol/L Calcium 11.3 H (8.4-10.2) mg/dL Total Bilirubin 1.6 H (0.2-1.3) mg/dL Total Protein 8.7 H (6.3-8.2) g/dL Albumin 5.1 H (3.5-5.0) g/dL Amylase 144 H (30-110) U/L Urine Protein (Negative) Urine Blood (Negative) Ur Leukocyte Esterase (Negative) Urine RBC (0-5) /hpf Urine WBC (0-5) /hpf Urine Bacteria (None) /hpf 09/27/19 09/27/19 09/27/19 Range/Units 16:20 20:37 20:54 WBC (3.8-10.6) k/uL RBC (4.30-5.90) m/uL Hgb 17.6 H (13.0-17.5) gm/dL Hct 53.6 H (39.0-53.0) % Neutrophils # (Manual) (1.3-7.7) k/uL Lymphocytes # (Manual) 0.76 L (1.0-4.8) k/uL Monocytes # (Manual) (0-1.0) k/uL BUN (9-20) mg/dL Creatinine (0.66-1.25) mg/dL Glucose (74-99) mg/dL Plasma Lactic Acid Ramsey 4.3 H* (0.7-2.0) mmol/L Calcium (8.4-10.2) mg/dL Total Bilirubin (0.2-1.3) mg/dL Total Protein (6.3-8.2) g/dL Albumin (3.5-5.0) g/dL Amylase (30-110) U/L Urine Protein 1+ H (Negative) Urine Blood Moderate H (Negative) Ur Leukocyte Esterase Large H (Negative) Urine RBC 125 H (0-5) /hpf Urine WBC 49 H (0-5) /hpf Urine Bacteria Rare H (None) /hpf 09/28/19 Range/Units 00:35 WBC (3.8-10.6) k/uL RBC (4.30-5.90) m/uL Hgb (13.0-17.5) gm/dL Hct (39.0-53.0) % Neutrophils # (Manual) (1.3-7.7) k/uL Lymphocytes # (Manual) (1.0-4.8) k/uL Monocytes # (Manual) (0-1.0) k/uL BUN (9-20) mg/dL Creatinine (0.66-1.25) mg/dL Glucose (74-99) mg/dL Plasma Lactic Acid Ramsey 2.3 H* (0.7-2.0) mmol/L Calcium (8.4-10.2) mg/dL Total Bilirubin (0.2-1.3) mg/dL Total Protein (6.3-8.2) g/dL Albumin (3.5-5.0) g/dL Amylase (30-110) U/L Urine Protein (Negative) Urine Blood (Negative) Ur Leukocyte Esterase (Negative) Urine RBC (0-5) /hpf Urine WBC (0-5) /hpf Urine Bacteria (None) /hpf Microbiology - Last 24 Hours (Table) 09/27/19 16:20 Urine Culture - Preliminary Urine,Voided Thrombosis Risk Factor Assmnt - DVT/VTE Prophylaxis DVT/VTE Prophylaxis: Pharmacologic Prophylaxis ordered - Choose All That Apply Any of the Below Risk Factors Present?: No Other Risk Factors: Yes Each Risk Factor Represents 3 Points: Age 75 years or older Other congenital or acquired thrombophilia - If yes, enter type in comment: No Thrombosis Risk Factor Assessment Total Risk Factor Score: 3 Thrombosis Risk Factor Assessment Level: Moderate Risk Assessment and Plan Plan: 1. Small bowel obstruction secondary to right inguinal hernia. Patient has been seen by Dr. Zelaya with plan for surgical intervention this afternoon. Patient is currently nothing by mouth, IV fluids increased 125 mL per hour. 2. Acute kidney injury secondary to vomiting and poor oral intake. Hold lisinopril. Avoid nephrotoxic agents. Continue IV fluid 125 mL per hour. 3. Lactic acidosis secondary to acute kidney injury. 4. Possible Acute urinary tract infection secondary to self catheterization. Urine culture in progress. 5. Hypertension. Lisinopril on hold. 6. GI prophylaxis. Protonix. 7. DVT prophylaxis. Heparin subcu 8. Tobacco use and dependence. Nicotine patch. 9. Chronic urinary retention with self-catheterization. Castro catheter to be placed possibly during OR. Initial attempt was unsuccessful. Patient will be admitted to the hospital for a minimum of 3 night stay. Discharge plan: To be determined. Most likely return home. Impression and plan of care have been directed as dictated by the signing physician. Kinsey De Anda nurse practitioner acting as scribe for signing physician.
[2019-09-28] MEDS: HEPARIN SODIUM,PORCINE 5,000 UNIT/ML 1 ML VIAL SQ SCH (15:38)
[2019-09-28] MEDS ORDERED: ROCURONIUM BROMIDE 10 MG/ML 10 ML VIAL IV ONE (15:55)
[2019-09-28] MEDS ORDERED: PHENYLEPHRINE-0.9% NACL SYG 1 MG/10 ML SYRINGE ONE (15:55)
[2019-09-28] MEDS ORDERED: SUCCINYLCHOLINE CHLORIDE VIAL 200 MG/10 ML VIAL IV ONE (15:55)
[2019-09-28] MEDS ORDERED: NEOSTIGMINE 1 MG/ML 10 ML VIAL ONE (15:55)
[2019-09-28] MEDS ORDERED: ePHEDrine SULFATE/0.9% NACL/PF 50 MG/5 ML SYRINGE IV ONE (15:55)
[2019-09-28] MEDS ORDERED: fentaNYL (PF) 50 MCG/ML 2 ML AMP ONE (15:55)
[2019-09-28] MEDS ORDERED: PROPOFOL 10 MG/ML 20 ML VIAL IV ONE (15:55)
[2019-09-28] MEDS ORDERED: HYDROmorphone (PF) 1 MG/ML ONE (15:55)
[2019-09-28] MEDS ORDERED: GLYCOPYRROLATE 0.2 MG/ML 2 ML VIAL ONE (15:55)
[2019-09-28] MEDS ORDERED: LIDOCAINE 1% INJ 10MG/ML (20 ML MDV) ONE (15:55)
[2019-09-28] MEDS ORDERED: HEPARIN SODIUM,PORCINE 5,000 UNIT/ML 1 ML VIAL SQ ONE (15:57)
[2019-09-28] MEDS ORDERED: LACTATED RINGERS 1,000 ML IV ONE ×2 (15:58→17:09)
[2019-09-28] MEDS ORDERED: SODIUM CHLORIDE 0.9% 100 ML with ceFAZolin 2,000 MG IV ONE ×2 (16:00)
[2019-09-28] MEDS ORDERED: NALOXONE 0.4 MG/ML 1 ML VIAL IV PRN (18:34)
--- NOTE | 2019-09-28 18:40 | P.OP ---
Date of Procedure: 09/28/19 Procedure(s) Performed: PREOPERATIVE DIAGNOSIS: Recurrent right incarcerated inguinal hernia with bowel obstruction POSTOPERATIVE DIAGNOSIS: Same PROCEDURE: Right colectomy, repair recurrent right inguinal hernia with orchiectomy SURGEON: Nathalie EBL: 50 mL ANESTHESIA: Gen. COMPLICATIONS: None OPERATIVE PROCEDURE: Patient was placed on the operating table in the supine position. A Castro catheter was placed. He was placed under general anesthesia prior to that. The abdomen and groin was prepped thoroughly. An oblique incision was then made through a portion of the previous scar in the right inguinal region. Dissection through the subcutaneous tissues took place using electrocautery. The large hernia sac was brought out through the operative incision site. The testicle was brought out along with this. The hernia sac was dissected away from the surrounding fat. There was scar tissue here from previous repair. The hernia sac was opened. The patient's distal ileum and cecum with ascending colon were present within the hernia. The obstruction was present about 5 cm proximal to the ileocecal valve. Initially I removed a small portion of the small intestine dividing the bowel distal and proximal to the obstruction site. However following that I was not satisfied that we had enough small bowel at the terminal ileum to make an anastomosis. I then chose to divide the ascending colon in the mid aspect of the ascending colon. The vasculature to the ileum cecum and ascending colon was divided using both the LigaSure device and also silk ties. The specimen was passed off the field. Following that a [id number] anastomosis took place between the ileum and ascending colon. The antimesenteric portion of the staple line was excised and the linear stapler was fired along the antimesenteric border. The remaining defect was closed using a TX 60 device. The bowel was then able to be reduced back into the peritoneal cavity. The patient's large hernia sac was then ligated using 2 separate running locking #2 Ethibond sutures. This was performed in 2 separate layers. In doing so the gonadal vessels were divided. The testicle was sent off to the lab as part of our hernia sac. Following that a Bassini type repair took place by reapproximated the conjoined tendon to the Jayden's ligament using interrupted [id number] Ethibond sutures. The external oblique was then reapproximated using a running 3-0 Vicryl stitch. The operative site was irrigated. No bleeding was seen. A drain was placed into the scrotal sac exiting superiorly and laterally. This is sutured to the skin using a 3-0 silk stitch. The subcutaneous tissues were closed using 3-0 Vicryl sutures. The skin was closed using jose g. A sterile dressing was applied. DISPOSITION: Stable to recovery room
[2019-09-28 18:47] LABS: Glucose,Whole Blood 96 mg/dL (75-99)
[2019-09-28] MEDS ORDERED: ACETAMINOPHEN IV (For NPO) 1,000 MG in EMPTY BAG 1 BAG IVPB ONE (19:00)
[2019-09-28 19:34] LABS: ABG Base Excess -6.6 mmol/L; ABG HCO3 23 mmol/L (21-25); ABG Oxygen Saturation 97.3 % (94-97); ABG PCO2 69 mmHg (35-45); ABG PO2 123 mmHg (83-108); ABG TCO2 25 mmol/L (19-24); Allen Test Performed? Yes
--- NOTE | 2019-09-28 19:42 | XR ---
EXAMINATION TYPE: XR chest 1V DATE OF EXAM: 09/28/2019 COMPARISON: Yesterday HISTORY: Tube placement TECHNIQUE: Single view FINDINGS: There is endotracheal tube 3.5 cm from the jazzmine. There is nasogastric tube in the stomach . There is some patchy airspace consolidation right lower lobe. Heart appears shifted slightly to the right side. There are chest leads. IMPRESSION: There is some consolidation and atelectasis in the right lower lobe that is worse than ex am yesterday. No definite heart failure.
[2019-09-28 19:51] LABS: ABG PH 7.12 (7.35-7.45)
[2019-09-28 19:54] LABS: Glucose,Whole Blood 94 mg/dL (75-99)
[2019-09-28 20:00] LABS: HCT 44.8 % (39.0-53.0); Hypochromasia Slight; MCH 30.1 pg (25.0-35.0); MCHC 30.5 g/dL (31.0-37.0); MCV 98.7 fL (80.0-100.0); Mean Platelet Volume 9.2; Platelet Count 207 k/uL (150-450); RBC 4.53 m/uL (4.30-5.90); RDW 12.6 % (11.5-15.5); WBC 13.5 k/uL (3.8-10.6)
[2019-09-28 20:03] LABS: HGB 13.7 gm/dL (13.0-17.5)
[2019-09-28 20:04] LABS: Potassium 5.1 mmol/L (3.5-5.1)
[2019-09-28] MEDS ORDERED: PROPOFOL 1,000 MG in EMPTY BAG 1 BAG IV SCH (20:15)
[2019-09-28 20:42] LABS: Band Neutrophils % 42 %; Lymphocytes # (M) 1.08 k/uL (1.0-4.8); Metamyelocytes # (M) 0.41 k/uL (0); Metamyelocytes % 3 %; Monocytes # (M) 0.81 k/uL (0-1.0); Neutrophils % (M) 42 %; Nucleated Red Blood Cells 0 /100 WBC (0-0); Total Cells Counted 200
[2019-09-28 21:01] LABS: Albumin 2.4 g/dL (3.5-5.0); Calcium 7.4 mg/dL (8.4-10.2); Potassium 5.2 mmol/L (3.5-5.1); Total Bilirubin 0.4 mg/dL (0.2-1.3); Total Protein 4.7 g/dL (6.3-8.2)
[2019-09-28] MEDS: LACTATED RINGERS 1,000 ML IV SCH ×3 (21:50→23:32)
[2019-09-28] MEDS: PIPERACILLIN-TAZOBACTAM 3.375 GM in SODIUM CHLORIDE 0.9% 100 ML IVPB SCH (23:07)
[2019-09-28] MEDS: CHLORHEXIDINE GLUCONATE 15 ML CUP MUCOUS MEM SCH (23:34)
[2019-09-29] MEDS ORDERED: ACETAMINOPHEN IV (For NPO) 1,000 MG in EMPTY BAG 1 BAG IVPB ONE
[2019-09-29] MEDS: LACTATED RINGERS 1,000 ML IV SCH ×6 (00:04→01:31)
[2019-09-29] MEDS: HEPARIN SODIUM,PORCINE 5,000 UNIT/ML 1 ML VIAL SQ SCH ×3 (01:07→17:19)
[2019-09-29] MEDS: metroNIDAZOLE-NS PMX 500 MG in SALINE 1 100ML.BAG IVPB SCH ×3 (01:08→17:18)
[2019-09-29 04:27] LABS: ABG Base Excess -2.9 mmol/L; ABG HCO3 22 mmol/L (21-25); ABG Oxygen Saturation 93.5 % (94-97); ABG PCO2 37 mmHg (35-45); ABG PH 7.39 (7.35-7.45); ABG PO2 66 mmHg (83-108); ABG TCO2 23 mmol/L (19-24); Allen Test Performed? Yes
[2019-09-29 05:46] LABS: HCT 39.9 % (39.0-53.0); HGB 12.7 gm/dL (13.0-17.5); Hypochromasia Slight; MCH 30.9 pg (25.0-35.0); MCHC 31.8 g/dL (31.0-37.0); MCV 97.1 fL (80.0-100.0); Mean Platelet Volume 9.2; Platelet Count 202 k/uL (150-450); RBC 4.11 m/uL (4.30-5.90); RDW 12.6 % (11.5-15.5); WBC 12.4 k/uL (3.8-10.6)
[2019-09-29 06:06] LABS: Albumin 2.3 g/dL (3.5-5.0); Calcium 7.2 mg/dL (8.4-10.2); Magnesium 1.7 mg/dL (1.6-2.3); Potassium 4.6 mmol/L (3.5-5.1); Total Bilirubin 0.5 mg/dL (0.2-1.3); Total Protein 4.5 g/dL (6.3-8.2)
--- NOTE | 2019-09-29 06:07 | XR ---
EXAMINATION TYPE: XR chest 1V portable DATE OF EXAM: 09/29/2019 HISTORY: Tube placement. REFERENCE: Previous study dated 09/28/2019. FINDINGS: The patient is ET tube is been withdrawn. Its tip is now 4.8 cm in the jazzmine. An NG tube i s in place. Its tip is barely within the stomach and should likely be advanced. There is worsening right basilar airspace disease. There is atelectatic change present at the left marguerite ng base. The heart is enlarged. There is a small, developing right pleural effusion. IMPRESSION: WORSENING RIGHT BASILAR AIRSPACE DISEASE WITH A SMALL, CONCOMITANT EFFUSION.
[2019-09-29] MEDS: SODIUM CHLORIDE 0.9% 1,000 ML IV SCH ×3 (07:02→18:48)
[2019-09-29] MEDS: NOREPINEPHRINE 4 MG in SODIUM CHLORIDE 0.9% 250 ML IV SCH ×2 (07:22→17:19)
--- NOTE | 2019-09-29 08:22 | P.CNPUL ---
History of Present Illness Consult date: 09/29/19 Chief complaint: Acute respiratory failure following bowel surgery History of present illness: An 83-year-old male patient intubated on a mechanical ventilator, currently postop day #1 following a right colectomy, right inguinal hernia repair with orchiectomy. The patient came into the hospital with bowel obstruction and was diagnosed having a recurrent right incarcerated inguinal hernia with bowel obstruction. He underwent his surgery yesterday. Postop, he was extubated but he was quite lethargic and he was having significant respiratory distress and he was given a blood gas that showed respiratory acidosis with a pH of 7.12 with a pCO2 of 69 and pO2 123. Based on that, the patient was reintubated. This morning, the patient is was resuscitated. Overnight he was hypotensive and he was started on pressors with norepinephrine infusion. He was given a total of 6 L of IV fluids in the form of normal saline and his pressors currently running at 0.05 g per KG per minute. He is warm. There is adequate pulses in all 4 extremities. His blood pressures improved. He is currently assist-control mode rate of 26 with a tidal volume of 500 and an FiO2 of 50% with a PEEP of 5. Chest x-ray from this morning shows that ET tube is around 2 cm above the jazzmine. The patient has a right lower lobe consolidation which was seen on pr evious chest films. He has also underlying COPD. OG tube is in a good location. He is renal failure. The chronicity of this kidney injury is not known. The patient's creatinine is at 3.0. He is producing urine output in the order of 50 mL an hour. Currently on a combination of Zosyn and Flagyl. He is on propofol which is running at 25 g per KG per minute. Review of Systems ROS unobtainable: due to endotracheal tube Past Medical History Past Medical History: COPD, Hyperlipidemia, Hypertension History of Any Multi-Drug Resistant Organisms: None Reported Additional Past Surgical History / Comment(s): cyst removed. Past Anesthesia/Blood Transfusion Reactions: No Reported Reaction Past Psychological History: No Psychological Hx Reported Smoking Status: Current every day smoker Past Alcohol Use History: None Reported Additional Past Alcohol Use History / Comment(s): Patient is a smoker of one pack per day since he was 21 years of age. He states he drinks 1 beer per week. No marijuana use or illicit drug use. Patient lives at home alone. Past Drug Use History: None Reported - Past Family History Father Additional Family Medical History / Comment(s): Patient is adopted and does not know any history on his parents or siblings. Patient has 2 daughters and one has diverticulitis Medications and Allergies Home Medications Medication Instructions Recorded Confirmed Type Ascorbic Acid [Vitamin C] 1,000 mg PO DAILY 09/27/19 09/27/19 History Aspirin EC [Ecotrin Low Dose] 81 mg PO DAILY 09/27/19 09/27/19 History Calcium Carbonate [Calcium] 600 mg PO DAILY 09/27/19 09/27/19 History Cyanocobalamin (Vitamin B-12) 1,000 mcg PO DAILY 09/27/19 09/27/19 History [Vitamin B-12] Lisinopril [Zestril] 20 mg PO DAILY 09/27/19 09/27/19 History Magnesium(Unknown Dose) 1 tab PO DAILY 09/27/19 09/27/19 History [place]-3 Fatty Acids/Fish Oil [Fish 1 cap PO DAILY 09/27/19 09/27/19 History Oil 1,000 mg Softgel] Simvastatin 40 mg PO HS 09/27/19 09/27/19 History Thiamine [Vitamin B-1] 100 mg PO DAILY 09/27/19 09/27/19 History Allergies Allergy/AdvReac Type Severity Reaction Status Date / Time No Known Allergies Allergy Verified 09/27/19 20:41 Physical Exam Vitals: Vital Signs Temp Pulse Pulse Resp BP BP Pulse Ox 09/29/19 07:00 68 26 H 120/62 94 L 09/29/19 06:00 68 26 H 117/71 96 09/29/19 05:00 72 26 H 99/56 97 09/29/19 04:00 98.2 F 74 26 H 105/59 97 09/29/19 03:00 70 26 H 85/48 98 09/29/19 02:00 66 26 H 92/49 98 09/29/19 01:00 70 26 H 67/34 99 09/29/19 00:00 97.7 F 68 26 H 75/37 100 09/28/19 23:00 64 26 H 75/44 99 09/28/19 22:11 66 26 H 95 09/28/19 14:40 94 09/28/19 14:33 92 09/28/19 14:06 18 90 L 09/28/19 14:02 98.9 F 92 17 105/56 80 L 09/28/19 08:44 98.2 F 102 H 20 135/52 91 L Intake and Output 09/28/19 09/29/19 09/29/19 22:59 06:59 14:59 Intake Total 4800 1000 125 Output Total 250 1090 100 Balance 4550 -90 25 Intake: IV 4800 1000 125 0.9 1000 125 Lactated Ringers 3500 Output: Urine 200 1090 100 Straight 800 Estimated Blood Loss 50 Other: Voiding Method Indwelling Catheter Weight 78.2 kg Appearance is calm comfortable likely distress intubated on a mechanical ventilator well sedated fortransfer the mechanical ventilator. Head exam was generally normal. There was no scleral icterus or corneal arcus. Mucous membranes were moist. Neck was supple and without jugular venous distension, thyromegaly, or carotid bruits. Carotids were easily palpable bilaterally. There was no adenopathy. Orogastric and orotracheal tube are both in place. Lungs breath other are equal and symmetrical bilaterally. No significant c rackles or wheezes or rhonchi this point in time. Cardiac exam revealed the PMI to be normally situated and sized. The rhythm was regular and no extrasystoles were noted during several minutes of auscultation. The first and second heart sounds were normal and physiologic splitting of the second heart sound was noted. There were no murmurs, rubs, clicks, or gallops. Abdominal exam revealed absence bowel sounds. The abdomen was soft, non-tender, and without masses, organomegaly, or appreciable enlargement of the abdominal aorta. She has intermittent abdominal incision which is in his right groin area. The wound is which is dry clean and intact and the patient is a JAGJIT drain in the right lower quadrant. Neurologically the patient is sedated, comfortable no acute distress and he withdraws to deep painful stimulation. Pupils are equal and reactive to light. Examination of the skin revealed no evidence of significant rashes, suspicious appearing nevi or other concerning lesions. Results - Laboratory Findings CBC and BMP: 09/29/19 04:51 09/29/19 04:51 ABG WBC 12.4 k/uL (3.8-10.6) H 09/29/19 04:51 RBC 4.11 m/uL (4.30-5.90) L 09/29/19 04:51 Hgb 12.7 gm/dL (13.0-17.5) L 09/29/19 04:51 Hct 39.9 % (39.0-53.0) 09/29/19 04:51 MCV 97.1 fL (80.0-100.0) 09/29/19 04:51 MCH 30.9 pg (25.0-35.0) 09/29/19 04:51 MCHC 31.8 g/dL (31.0-37.0) 09/29/19 04:51 RDW 12.6 % (11.5-15.5) 09/29/19 04:51 Plt Count 202 k/uL (150-450) 09/29/19 04:51 Neutrophils % (Manual) 42 % 09/28/19 19:14 Band Neutrophils % 42 % 09/28/19 19:14 Lymphocytes % (Manual) 8 % 09/28/19 19:14 Monocytes % (Manual) 6 % 09/28/19 19:14 Metamyelocytes % 3 % 09/28/19 19:14 Neutrophils # (Manual) 11.30 k/uL (1.3-7.7) H 09/28/19 19:14 Lymphocytes # (Manual) 1.08 k/uL (1.0-4.8) 09/28/19 19:14 Monocytes # (Manual) 0.81 k/uL (0-1.0) 09/28/19 19:14 Metamyelocytes # (Man) 0.41 k/uL (0) H 09/28/19 19:14 Nucleated RBCs 0 /100 WBC (0-0) 09/28/19 19:14 Manual Slide Review Performed 09/28/19 19:14 Hypochromasia Slight 09/29/19 04:51 PT 11.0 sec (9.0-12.0) 09/27/19 16:35 INR 1.0 (<1.2) 09/27/19 16:35 APTT 23.5 sec (22.0-30.0) 09/27/19 16:35 Sample Site rrad 09/29/19 04:19 ABG pH 7.39 (7.35-7.45) 09/29/19 04:19 ABG pCO2 37 mmHg (35-45) 09/29/19 04:19 ABG pO2 66 mmHg (83-108) L 09/29/19 04:19 ABG HCO3 22 mmol/L (21-25) 09/29/19 04:19 ABG Total CO2 23 mmol/L (19-24) 09/29/19 04:19 ABG O2 Saturation 93.5 % (94-97) L 09/29/19 04:19 ABG Base Excess -2.9 mmol/L 09/29/19 04:19 Jair Test Yes 09/29/19 04:19 FiO2 50 % 09/29/19 04:19 Sodium 142 mmol/L (137-145) 09/29/19 04:51 Potassium 4.6 mmol/L (3.5-5.1) 09/29/19 04:51 Chloride 112 mmol/L (98-107) H 09/29/19 04:51 Carbon Dioxide 20 mmol/L (22-30) L 09/29/19 04:51 Anion Gap 10 mmol/L 09/29/19 04:51 BUN 69 mg/dL (9-20) H 09/29/19 04:51 Creatinine 3.03 mg/dL (0.66-1.25) H 09/29/19 04:51 Est GFR (CKD-EPI)AfAm 21 (>60 ml/min/1.73 sqM) 09/29/19 04:51 Est GFR (CKD-EPI)NonAf 18 (>60 ml/min/1.73 sqM) 09/29/19 04:51 Glucose 109 mg/dL (74-99) H 09/29/19 04:51 POC Glucose (mg/dL) 94 mg/dL (75-99) 09/28/19 19:52 POC Glu Film Processor ID Gayle Garcia 09/28/19 19:52 Lactic Ac Sepsis Rflx Y 09/28/19 01:18 Plasma Lactic Acid Ramsey 1.7 mmol/L (0.7-2.0) 09/28/19 05:07 Calcium 7.2 mg/dL (8.4-10.2) L 09/29/19 04:51 Phosphorus 4.0 mg/dL (2.5-4.5) 09/29/19 04:51 Magnesium 1.7 mg/dL (1.6-2.3) 09/29/19 04:51 Total Bilirubin 0.5 mg/dL (0.2-1.3) 09/29/19 04:51 AST 27 U/L (17-59) 09/29/19 04:51 ALT 14 U/L (4-49) 09/29/19 04:51 Alkaline Phosphatase 57 U/L (38-126) 09/29/19 04:51 Total Protein 4.5 g/dL (6.3-8.2) L 09/29/19 04:51 Albumin 2.3 g/dL (3.5-5.0) L 09/29/19 04:51 Amylase 144 U/L (30-110) H 09/27/19 15:45 Lipase 114 U/L (23-300) 09/27/19 15:45 Urine Color Yellow 09/27/19 16:20 Urine Appearance Cloudy (Clear) 09/27/19 16:20 Urine pH 5.5 (5.0-8.0) 09/27/19 16:20 Ur Specific [place] 1.024 (1.001-1.035) 09/27/19 16:20 Urine Protein 1+ (Negative) H 09/27/19 16:20 Urine Glucose (UA) Negative (Negative) 09/27/19 16:20 Urine Ketones Negative (Negative) 09/27/19 16:20 Urine Blood Moderate (Negative) H 09/27/19 16:20 Urine Nitrite Positive (Negative) 09/27/19 16:20 Urine Bilirubin Negative (Negative) 09/27/19 16:20 Urine Urobilinogen <2.0 mg/dL (<2.0) 09/27/19 16:20 Ur Leukocyte Esterase Large (Negative) H 09/27/19 16:20 Urine RBC 125 /hpf (0-5) H 09/27/19 16:20 Urine WBC 49 /hpf (0-5) H 09/27/19 16:20 Ur Squamous Epith Cells 1 /hpf (0-4) 09/27/19 16:20 Urine Bacteria Rare /hpf (None) H 09/27/19 16:20 Gastric Occult Blood Positive (Negative) 09/27/19 20:12 PT/INR, D-dimer PT 11.0 sec (9.0-12.0) 09/27/19 16:35 INR 1.0 (<1.2) 09/27/19 16:35 Abnormal lab findings: Abnormal Labs 09/27/19 09/27/19 09/27/19 15:45 15:45 15:45 WBC 17.8 H RBC 6.58 H Hgb 20.4 H* Hct 63.0 H* MCHC Neutrophils # (Manual) 15.30 H Lymphocytes # (Manual) Monocytes # (Manual) 1.25 H Metamyelocytes # (Man) ABG pH ABG pCO2 ABG pO2 ABG Total CO2 ABG O2 Saturation Potassium Chloride Carbon Dioxide BUN 36 H Creatinine 2.67 H Glucose 135 H Plasma Lactic Acid Ramsey 7.2 H* Calcium 11.3 H Total Bilirubin 1.6 H Total Protein 8.7 H Albumin 5.1 H Amylase 144 H Urine Protein Urine Blood Ur Leukocyte Esterase Urine RBC Urine WBC Urine Bacteria 09/27/19 09/27/19 09/27/19 16:20 20:37 20:54 WBC RBC Hgb 17.6 H Hct 53.6 H MCHC Neutrophils # (Manual) Lymphocytes # (Manual) 0.76 L Monocytes # (Manual) Metamyelocytes # (Man) ABG pH ABG pCO2 ABG pO2 ABG Total CO2 ABG O2 Saturation Potassium Chloride Carbon Dioxide BUN Creatinine Glucose Plasma Lactic Acid Ramsey 4.3 H* Calcium Total Bilirubin Total Protein Albumin Amylase Urine Protein 1+ H Urine Blood Moderate H Ur Leukocyte Esterase Large H Urine RBC 125 H Urine WBC 49 H Urine Bacteria Rare H 09/28/19 09/28/19 09/28/19 00:35 19:14 19:14 WBC 13.5 H RBC Hgb Hct MCHC 30.5 L Neutrophils # (Manual) 11.30 H Lymphocytes # (Manual) Monocytes # (Manual) Metamyelocytes # (Man) 0.41 H ABG pH ABG pCO2 ABG pO2 ABG Total CO2 ABG O2 Saturation Potassium Chloride 113 H Carbon Dioxide 21 L BUN Creatinine Glucose Plasma Lactic Acid Ramsey 2.3 H* Calcium Total Bilirubin Total Protein Albumin Amylase Urine Protein Urine Blood Ur Leukocyte Esterase Urine RBC Urine WBC Urine Bacteria 09/28/19 09/28/19 09/29/19 19:14 19:31 04:19 WBC RBC Hgb Hct MCHC Neutrophils # (Manual) Lymphocytes # (Manual) Monocytes # (Manual) Metamyelocytes # (Man) ABG pH 7.12 L* ABG pCO2 69 H ABG pO2 123 H 66 L ABG Total CO2 25 H ABG O2 Saturation 97.3 H 93.5 L Potassium 5.2 H Chloride 114 H Carbon Dioxide 21 L BUN 67 H Creatinine 3.11 H Glucose 102 H Plasma Lactic Acid Ramsey Calcium 7.4 L Total Bilirubin Total Protein 4.7 L Albumin 2.4 L Amylase Urine Protein Urine Blood Ur Leukocyte Esterase Urine RBC Urine WBC Urine Bacteria 09/29/19 09/29/19 04:51 04:51 WBC 12.4 H RBC 4.11 L Hgb 12.7 L Hct MCHC Neutrophils # (Manual) Lymphocytes # (Manual) Monocytes # (Manual) Metamyelocytes # (Man) ABG pH ABG pCO2 ABG pO2 ABG Total CO2 ABG O2 Saturation Potassium Chloride 112 H Carbon Dioxide 20 L BUN 69 H Creatinine 3.03 H Glucose 109 H Plasma Lactic Acid Ramsey Calcium 7.2 L Total Bilirubin Total Protein 4.5 L Albumin 2.3 L Amylase Urine Protein Urine Blood Ur Leukocyte Esterase Urine RBC Urine WBC Urine Bacteria - Diagnostic Findings Chest x-ray: image reviewed Assessment and Plan Plan: 1 exploratory laparotomy, right inguinal hernia repair and right orchiectomy and right colectomy. The patient is postop day #1 2 abdominal pain and bowel obstruction secondary to above 3 acute hypoxic/hypercapnic respiratory failure following abdominal surgery. The patient to be intubated in the recovery and currently still intubated on a mechanical ventilator with improved oxygenation and acid base status 4 right lower lobe consolidation consider aspiration pneumonia 5 kidney failure, chronicity is unknown. Consider chronic kidney disease. The patient's creatinine stable at 3.0 and the patient is nonoliguric at this point 6 hypotension improved with fluid resuscitation. Consider intravascular volume depletion/dehydration. Consider sepsis 7 acute lactic acidosis, improved 8 gram-negative UTI currently on IV Zosyn 9 hypertension history of 10 hyperlipidemia, history of 11 chronic smoker Plan Continue normal saline today to 1 25 mL an hour Sedation holiday Check weaning parameters and assess candidacy to wean Continue bronchodilators Continue IV Zosyn and Flagyl Obtain sputum Gram stain and culture Abdominal wound is dry clean and intact and we'll keep the patient nothing by mouth for now Continue vent support until further notice regarding possible weaning and extubation today Monitor renal function Obtain echocardiogram We'll continue to follow Time with Patient: Greater than 30
--- NOTE | 2019-09-29 08:53 | P.PN ---
Subjective Progress Note Date: 09/29/19 Principal diagnosis: Incarcerated right inguinal hernia Patient remains in the ICU. He was extubated immediately postop however was reintubated in the recovery room and remained on the ventilator overnight. Patient was having episodes of hypotension and acidosis. Improving this morning. Better urine output. Spoke with pulmonary. They plan probable attempts at extubation today. Labs noted. He is sedated currently. Objective - Vital Signs Vital signs: Vital Signs Temp 98.2 F 09/29/19 04:00 Pulse 68 09/29/19 07:00 Resp 26 H 09/29/19 07:00 BP 120/62 09/29/19 07:00 Pulse Ox 94 L 09/29/19 07:00 Intake & Output 09/28/19 09/29/19 09/29/19 18:59 06:59 18:59 Intake Total 1500 4500 125 Output Total 650 1090 100 Balance 850 3410 25 Weight 78.2 kg Intake: IV 1500 4500 125 0.9 1000 125 Lactated Ringers 3500 Output: Urine 600 1090 100 Straight 400 800 Estimated Blood Loss 50 Other: Voiding Method Self-Catheterization Indwelling Catheter # Voids 3 - Exam Abdomen: Soft, mild distention, dressing clean and dry, drain with serosanguineous output, mild tenderness - Labs CBC & Chem 7: 09/29/19 04:51 09/29/19 04:51 Labs: Abnormal Lab Results - Last 24 Hours (Table) 09/28/19 09/28/19 09/28/19 Range/Units 19:14 19:14 19:14 WBC 13.5 H (3.8-10.6) k/uL RBC (4.30-5.90) m/uL Hgb (13.0-17.5) gm/dL MCHC 30.5 L (31.0-37.0) g/dL Neutrophils # (Manual) 11.30 H (1.3-7.7) k/uL Metamyelocytes # (Man) 0.41 H (0) k/uL ABG pH (7.35-7.45) ABG pCO2 (35-45) mmHg ABG pO2 (83-108) mmHg ABG Total CO2 (19-24) mmol/L ABG O2 Saturation (94-97) % Potassium 5.2 H (3.5-5.1) mmol/L Chloride 113 H 114 H (98-107) mmol/L Carbon Dioxide 21 L 21 L (22-30) mmol/L BUN 67 H (9-20) mg/dL Creatinine 3.11 H (0.66-1.25) mg/dL Glucose 102 H (74-99) mg/dL Calcium 7.4 L (8.4-10.2) mg/dL Total Protein 4.7 L (6.3-8.2) g/dL Albumin 2.4 L (3.5-5.0) g/dL 09/28/19 09/29/19 09/29/19 Range/Units 19:31 04:19 04:51 WBC 12.4 H (3.8-10.6) k/uL RBC 4.11 L (4.30-5.90) m/uL Hgb 12.7 L (13.0-17.5) gm/dL MCHC (31.0-37.0) g/dL Neutrophils # (Manual) (1.3-7.7) k/uL Metamyelocytes # (Man) (0) k/uL ABG pH 7.12 L* (7.35-7.45) ABG pCO2 69 H (35-45) mmHg ABG pO2 123 H 66 L (83-108) mmHg ABG Total CO2 25 H (19-24) mmol/L ABG O2 Saturation 97.3 H 93.5 L (94-97) % Potassium (3.5-5.1) mmol/L Chloride (98-107) mmol/L Carbon Dioxide (22-30) mmol/L BUN (9-20) mg/dL Creatinine (0.66-1.25) mg/dL Glucose (74-99) mg/dL Calcium (8.4-10.2) mg/dL Total Protein (6.3-8.2) g/dL Albumin (3.5-5.0) g/dL 09/29/19 Range/Units 04:51 WBC (3.8-10.6) k/uL RBC (4.30-5.90) m/uL Hgb (13.0-17.5) gm/dL MCHC (31.0-37.0) g/dL Neutrophils # (Manual) (1.3-7.7) k/uL Metamyelocytes # (Man) (0) k/uL ABG pH (7.35-7.45) ABG pCO2 (35-45) mmHg ABG pO2 (83-108) mmHg ABG Total CO2 (19-24) mmol/L ABG O2 Saturation (94-97) % Potassium (3.5-5.1) mmol/L Chloride 112 H (98-107) mmol/L Carbon Dioxide 20 L (22-30) mmol/L BUN 69 H (9-20) mg/dL Creatinine 3.03 H (0.66-1.25) mg/dL Glucose 109 H (74-99) mg/dL Calcium 7.2 L (8.4-10.2) mg/dL Total Protein 4.5 L (6.3-8.2) g/dL Albumin 2.3 L (3.5-5.0) g/dL Microbiology - Last 24 Hours (Table) 09/27/19 16:20 Urine Culture - Preliminary Urine,Voided Gram Neg Bacilli Assessment and Plan (1) Incarcerated inguinal hernia Narrative/Plan: 9-year-old male status post right colectomy through right incarcerated inguinal hernia with repair inguinal hernia. Doing better at this time. Keep nothing by mouth with nasogastric tube to suction. Weaning trials this morning. Continue IV antibiotics. Current Visit: Yes Status: Acute Code(s): K40.30 - UNIL INGUINAL HERNIA, W OBST, W/O GANGR, NOT SPCF RECUR SNOMED Code(s): 102217660
[2019-09-29 09:18] LABS: Band Neutrophils % 22 %; Lymphocytes # (M) 1.49 k/uL (1.0-4.8); Metamyelocytes # (M) 0.12 k/uL (0); Metamyelocytes % 1 %; Monocytes # (M) 0.74 k/uL (0-1.0); Myelocytes # (M) 0.12 k/uL (0); Myelocytes % 1 %; Neutrophils % (M) 60 %; Nucleated Red Blood Cells 0 /100 WBC (0-0); Total Cells Counted 200
[2019-09-29] MEDS: PANTOPRAZOLE 40 MG/10 ML VIAL IVP SCH (09:20)
[2019-09-29] MEDS: CHLORHEXIDINE GLUCONATE 15 ML CUP MUCOUS MEM SCH ×2 (09:20→21:35)
[2019-09-29] MEDS: NICOTINE 21MG/24HR PATCH TRANSDERM SCH (11:23)
[2019-09-29] MEDS: PIPERACILLIN-TAZOBACTAM 3.375 GM in SODIUM CHLORIDE 0.9% 100 ML IVPB SCH ×2 (11:23→23:14)
[2019-09-29 11:43] LABS: ABG Base Excess -2.9 mmol/L; ABG HCO3 23 mmol/L (21-25); ABG Oxygen Saturation 96.7 % (94-97); ABG PCO2 42 mmHg (35-45); ABG PH 7.34 (7.35-7.45); ABG PO2 90 mmHg (83-108); ABG TCO2 24 mmol/L (19-24); Allen Test Performed? Yes
[2019-09-29] MEDS: IPRATROPIUM-ALBUTEROL 3 ML NEB INHALATION SCH ×4 (11:59→23:23)
--- NOTE | 2019-09-29 13:22 | P.PN ---
Subjective Progress Note Date: 09/29/19 This is an 83-year-old male patient of Dr. Rao with past medical history of hypertension, hyperlipidemia, chronic urinary retention for 10 years status post recath at home, tobacco use and dependence. Patient states he started having vomiting on Tuesday as well as lower abdominal pain. He denies having any shortness of breath, no chest pain. He denies having any diarrhea. Patient came into [facility] emergency center for evaluation where he was found to be afebrile, blood pressure initially 84/53, heart rate 93-110, pulse ox 92% on room air. WBC 17.8, hemoglobin 20.4. BUN 36 creatinine 2.67, lactic acid 7.2, total bilirubin 1.6, AST 24, ALT 14, alkaline phosphatase 103, amylase 144. Urinalysis moderate blood, leukoesterase large, RBCs 124 WBC 49. Stool for occult blood positive. CAT scan of the abdomen and pelvis revealed moderately marked small bowel obstruction secondary to right inguinal hernia. Patient was made nothing by mouth, IV fluids were started and consult with Dr. gonzalez with plan for repair of incarcerated right inguinal hernia this afternoon. Family members are at bedside and have been updated. 09/29: Patient is currently intubated in ICU with NG tube in place. Patient has been weaned from sedation at this time. He is able to answer questions by shaking his head and nodding. Patient is anxious to write to communicate with family and staff. Daughters are at the bedside. Patient is able to answer majority of questions appropriately. Anticipate to be extubated sometime today. Patient has a JAGJIT drain in place a 20 mL of output, NG tube with 140 mL of output over the night. He continues to have dark urine. Blood pressure 114/69, pulse rate 84, 97% on mechanical intubation. The CBC 12.4, hemoglobin 12.7, potassium 4.6, BUN 69, creatinine 3.03. Patient has been a pack to 2 pack-a-day smoker for the last 50+ years. Family is requesting a nicotine patch at this time. Review Of Systems: Constitutional: No fever, no chills, no night sweats. No weight change. No weakness, fatigue or lethargy. No daytime sleepiness. EENT: No headache. No blurred vision or double vision, no loss of vision. No loss of Hearing, Lungs: No shortness of breath, Cardiovascular: No chest pain, no lower extremity edema. No palpitations. Abdominal: no abdominal discomfort. No nausea, vomiting. no diarrhea. No constipation. Musculoskeletal: No myalgias. No muscle weakness, no gait dysfunction, no frequent falls. No back pain. No neck pain. Neurologic: No aphasia. No facial droop. No change in mentation. No headache. No paralysis. No paresthesia. Psychiatric: No depression. No anxiety. No mood swings. Objective - Vital Signs Vital signs: Vital Signs Temp 98.8 F 09/29/19 08:00 Pulse 84 09/29/19 12:00 Resp 25 H 09/29/19 12:00 BP 114/69 09/29/19 12:00 Pulse Ox 97 09/29/19 12:00 Intake & Output 09/28/19 09/29/19 09/29/19 18:59 06:59 18:59 Intake Total 1500 4500 1061.993 Output Total 650 1090 400 Balance 850 3410 661.993 Weight 78.2 kg Intake: IV 1500 4500 950 0.9 1000 125 Lactated Ringers 3500 Piperacillin-Tazobactam 3 100 .375 gm In Sodium Chloride 0.9% 100 ml @ 25 mls/hr IVPB Q12H [facility] Rx# :[id number] Sodium Chloride 0.9% 1, 625 000 ml @ 125 mls/hr IV . Q8H [facility] Rx#:[id number] metroNIDAZOLE-NS PMX 500 100 mg In Saline 1 100ml.bag @ 100 mls/hr IVPB Q8HR [facility] Rx#:[id number] Intake, IV Titration 111.993 Amount Norepinephrine 4 mg In 52.834 Sodium Chloride 0.9% 250 ml @ 0.05 MCG/KG/MIN 14. 69 mls/hr IV .[id number] [facility] Rx#:[id number] Propofol 1,000 mg In 59.159 Empty Bag 1 bag @ Titrate IV .Q0M [facility] Rx#: [id number] Output: Urine 600 1090 400 Straight 400 800 Estimated Blood Loss 50 Other: Voiding Method Self-Catheterization Indwelling Catheter # Voids 3 - Exam General Appearance: Alert, cooperative, no distress, appears stated age. Neck HEENT: Supple, no lymphadenopathy, no thyroid enlargement, no carotid bruits. Orogastric and tracheal tubes are in place Lungs: Clear to auscultation without crackles or wheezes no rhonchi, no deformity. Chest Wall: Chest wall normal expansion with deep inspiration no tenderness and no deformity was found on exam, no costochondral pain or discomfort. Heart: Regular rate and rhythm, S1, S2 normal, no murmur, rub or gallop. Back: Symmetric, no curvature, ROM normal, no CVA tenderness. Abdomen: Soft, non-tender, no rebound or rigidity, no hepatosplenomegaly. Abdominal incision and right groin area, dry clean and intact, JAGIJT drain in the right lower quadrant Extremities: Extremities normal, atraumatic, no cyanosis 1+ edema bilateral lower extremities Pulses: 2+ and symmetric. Skin: Skin color, texture, tugor normal, no rashes or lesions. Neurologic: Alert oriented x3 cranial nerves II through XII intact, no motor deficit, no abnormal balance or gait - Labs CBC & Chem 7: 09/29/19 04:51 09/29/19 04:51 Labs: Abnormal Lab Results - Last 24 Hours (Table) 09/28/19 09/28/19 09/28/19 Range/Units 19:14 19:14 19:14 WBC 13.5 H (3.8-10.6) k/uL RBC (4.30-5.90) m/uL Hgb (13.0-17.5) gm/dL MCHC 30.5 L (31.0-37.0) g/dL Neutrophils # (Manual) 11.30 H (1.3-7.7) k/uL Metamyelocytes # (Man) 0.41 H (0) k/uL Myelocytes # (Manual) (0) k/uL ABG pH (7.35-7.45) ABG pCO2 (35-45) mmHg ABG pO2 (83-108) mmHg ABG Total CO2 (19-24) mmol/L ABG O2 Saturation (94-97) % Potassium 5.2 H (3.5-5.1) mmol/L Chloride 113 H 114 H (98-107) mmol/L Carbon Dioxide 21 L 21 L (22-30) mmol/L BUN 67 H (9-20) mg/dL Creatinine 3.11 H (0.66-1.25) mg/dL Glucose 102 H (74-99) mg/dL Calcium 7.4 L (8.4-10.2) mg/dL Total Protein 4.7 L (6.3-8.2) g/dL Albumin 2.4 L (3.5-5.0) g/dL 09/28/19 09/29/19 09/29/19 Range/Units 19:31 04:19 04:51 WBC 12.4 H (3.8-10.6) k/uL RBC 4.11 L (4.30-5.90) m/uL Hgb 12.7 L (13.0-17.5) gm/dL MCHC (31.0-37.0) g/dL Neutrophils # (Manual) 10.10 H (1.3-7.7) k/uL Metamyelocytes # (Man) 0.12 H (0) k/uL Myelocytes # (Manual) 0.12 H (0) k/uL ABG pH 7.12 L* (7.35-7.45) ABG pCO2 69 H (35-45) mmHg ABG pO2 123 H 66 L (83-108) mmHg ABG Total CO2 25 H (19-24) mmol/L ABG O2 Saturation 97.3 H 93.5 L (94-97) % Potassium (3.5-5.1) mmol/L Chloride (98-107) mmol/L Carbon Dioxide (22-30) mmol/L BUN (9-20) mg/dL Creatinine (0.66-1.25) mg/dL Glucose (74-99) mg/dL Calcium (8.4-10.2) mg/dL Total Protein (6.3-8.2) g/dL Albumin (3.5-5.0) g/dL 09/29/19 09/29/19 Range/Units 04:51 11:35 WBC (3.8-10.6) k/uL RBC (4.30-5.90) m/uL Hgb (13.0-17.5) gm/dL MCHC (31.0-37.0) g/dL Neutrophils # (Manual) (1.3-7.7) k/uL Metamyelocytes # (Man) (0) k/uL Myelocytes # (Manual) (0) k/uL ABG pH 7.34 L (7.35-7.45) ABG pCO2 (35-45) mmHg ABG pO2 (83-108) mmHg ABG Total CO2 (19-24) mmol/L ABG O2 Saturation (94-97) % Potassium (3.5-5.1) mmol/L Chloride 112 H (98-107) mmol/L Carbon Dioxide 20 L (22-30) mmol/L BUN 69 H (9-20) mg/dL Creatinine 3.03 H (0.66-1.25) mg/dL Glucose 109 H (74-99) mg/dL Calcium 7.2 L (8.4-10.2) mg/dL Total Protein 4.5 L (6.3-8.2) g/dL Albumin 2.3 L (3.5-5.0) g/dL Microbiology - Last 24 Hours (Table) 09/29/19 01:10 Sputum Culture - Preliminary Sputum 09/27/19 16:20 Urine Culture - Preliminary Urine,Voided Gram Neg Bacilli Assessment and Plan Plan: 1. Exploratory laparotomy, right humeral hernia repair with right orchiectomy and right colectomy. Patient is postop day 1. Continue JAGJIT drain, an NG tube. Patient will give sedation holiday possible extubation today. 2. Small bowel obstruction secondary to right inguinal hernia. Surgical intervention performed as noted above 3. Acute kidney injury secondary to vomiting and poor oral intake. Hold lisinopril. Avoid nephrotoxic agents. Continue IV fluid 125 mL per hour. 4. Lactic acidosis secondary to acute kidney injury. 5. Possible Acute urinary tract infection secondary to self catheterization. Urine culture in progress. 6. Hypertension. Lisinopril on hold. 7. Tobacco use and dependence. Nicotine patch. 8. Chronic urinary retention with self-catheterization. Castro catheter to be placed possibly during OR. Initial attempt was unsuccessful. 9. GI prophylaxis. Protonix. 10. DVT prophylaxis. Heparin subcu Patient will be admitted to the hospital for a minimum of 3 night stay. Discharge plan: To be determined. Most likely return home. Impression and plan of care have been directed as dictated by the signing physician. Charissa Glasgow nurse practitioner acting as scribe for signing physician.
[2019-09-29] MEDS ORDERED: DILTIAZEM DRIP BOLUS FROM BAG 1 MG SOLN IV STA (22:50)
[2019-09-29] MEDS ORDERED: DILTIAZEM 125 MG in SODIUM CHLORIDE 0.9% 100 ML IV SCH (23:00)
[2019-09-30] MEDS: HEPARIN SODIUM,PORCINE 5,000 UNIT/ML 1 ML VIAL SQ SCH ×4 (00:59→23:27)
[2019-09-30] MEDS: metroNIDAZOLE-NS PMX 500 MG in SALINE 1 100ML.BAG IVPB SCH ×4 (01:07→23:27)
[2019-09-30] MEDS: SODIUM CHLORIDE 0.9% 1,000 ML IV SCH ×3 (03:10→18:00)
[2019-09-30 05:09] LABS: Basophils # (A) 0.1 k/uL (0-0.2); Basophils % (A) 1 %; Eosinophils # (A) 0.1 k/uL (0-0.7); Eosinophils % (A) 1 %; HCT 40.7 % (39.0-53.0); HGB 12.7 gm/dL (13.0-17.5); Hypochromasia Slight; Lymphocytes # (A) 0.6 k/uL (1.0-4.8); Lymphocytes % (A) 6 %; MCH 30.6 pg (25.0-35.0); MCHC 31.2 g/dL (31.0-37.0); MCV 98.1 fL (80.0-100.0); Mean Platelet Volume 9.3; Monocytes # (A) 0.4 k/uL (0-1.0); Monocytes % (A) 4 %; Neutrophils # (A) 9.2 k/uL (1.3-7.7); Neutrophils % (A) 88 %; Platelet Count 144 k/uL (150-450); RBC 4.14 m/uL (4.30-5.90); RDW 12.8 % (11.5-15.5); WBC 10.5 k/uL (3.8-10.6)
[2019-09-30 05:24] LABS: Calcium 7.6 mg/dL (8.4-10.2)
[2019-09-30 05:30] LABS: Potassium 4.6 mmol/L (3.5-5.1)
[2019-09-30] MEDS: IPRATROPIUM-ALBUTEROL 3 ML NEB INHALATION SCH ×5 (05:37→20:38)
--- NOTE | 2019-09-30 05:54 | XR ---
EXAMINATION TYPE: XR chest 1V portable DATE OF EXAM: 09/30/2019 HISTORY: Tube placement. REFERENCE: Previous study dated 09/29/2019. FINDINGS: The patient has been extubated. The patient is NG tube remains in place. There is continuing right basilar airspace disease and there is developing left basilar airspace dise ase. Heart size is obscured. I suspect a right-sided effusion. IMPRESSION: WORSENING BIBASILAR AIRSPACE DISEASE, WORSE ON THE RIGHT THAN THE LEFT.
[2019-09-30] MEDS: NICOTINE 21MG/24HR PATCH TRANSDERM SCH (08:20)
[2019-09-30] MEDS: PANTOPRAZOLE 40 MG/10 ML VIAL IVP SCH (08:21)
--- NOTE | 2019-09-30 09:44 | P.PN ---
Subjective Progress Note Date: 09/30/19 An 83-year-old male patient intubated on a mechanical ventilator, currently postop day #1 following a right colectomy, right inguinal hernia repair with orchiectomy. The patient came into the hospital with bowel obstruction and was diagnosed having a recurrent right incarcerated inguinal hernia with bowel obstruction. He underwent his surgery yesterday. Postop, he was extubated but he was quite lethargic and he was having significant respiratory distress and he was given a blood gas that showed respiratory acidosis with a pH of 7.12 with a pCO2 of 69 and pO2 123. Based on that, the patient was reintubated. This morning, the patient is was resuscitated. Overnight he was hypotensive and he was started on pressors with norepinephrine infusion. He was given a total of 6 L of IV fluids in the form of normal saline and his pressors currently running at 0.05 g per KG per minute. He is warm. There is adequate pulses in all 4 extremities. His blood pressures improved. He is currently assist-control mode rate of 26 with a tidal volume of 500 and an FiO2 of 50% with a PEEP of 5. Chest x-ray from this morning shows that ET tube is around 2 cm above the jazzmine. The patient has a right lower lobe consolidation which was seen on previous chest films. He has also underlying COPD. OG tube is in a good location. He is renal failure. The chronicity of this kidney injury is not known. The patient's creatinine is at 3.0. He is producing urine output in the order of 50 mL an hour. Currently on a combination of Zosyn and Flagyl. He is on propofol which is running at 25 g per KG per minute. The patient is seen today 09/30/2019 in follow-up in the intensive care unit. He was successfully extubated yesterday. He is postoperative day #2 following a right colectomy, right inguinal hernia repair with orchiectomy. He is doing quite well. He is currently sitting up in a chair at the bedside. Awake and alert in no acute distress. He did have a episode of atrial fibrillation with RVR and was initiated on Cardizem drip at 5 mg per hour. He is back in normal sinus rhythm. Echocardiogram and TSH levels are pending. His chest x-ray does show increased right lower lobe pneumonia as well. Sputum sample is pending. He needs increased encouragement regarding the use of the incentive spirometer. He has a loose nonproductive cough. He is maintaining good O2 saturations in the 90s on 4 L/m per nasal cannula. Urine culture was positive for E. coli. Sputum culture reveals no growth. White count 10.5. Hemoglobin 12.7. Creatinine 1.95. Remains on Zosyn and Flagyl. Heparin for DVT prophylaxis. Objective - Vital Signs Vital signs: Vital Signs Temp 97.8 F 09/30/19 08:00 Pulse 80 09/30/19 09:22 Resp 33 H 09/30/19 09:00 BP 133/73 09/30/19 09:00 Pulse Ox 95 09/30/19 09:00 Intake & Output 09/29/19 09/30/19 09/30/19 18:59 06:59 18:59 Intake Total 2011.993 1700 475 Output Total 1020 1780 275 Balance 991.993 -80 200 Weight 80.7 kg Intake: IV 1900 1700 475 0.9 125 Piperacillin-Tazobactam 3 200 100 .375 gm In Sodium Chloride 0.9% 100 ml @ 25 mls/hr IVPB Q12H [facility] Rx# :[id number] Sodium Chloride 0.9% 1, 1375 1500 375 000 ml @ 125 mls/hr IV . Q8H [facility] Rx#:[id number] metroNIDAZOLE-NS PMX 500 200 100 100 mg In Saline 1 100ml.bag @ 100 mls/hr IVPB Q8HR [facility] Rx#:[id number] Intake, IV Titration 111.993 Amount Norepinephrine 4 mg In 52.834 Sodium Chloride 0.9% 250 ml @ 0.05 MCG/KG/MIN 14. 69 mls/hr IV .[id number] [facility] Rx#:[id number] Propofol 1,000 mg In 59.159 Empty Bag 1 bag @ Titrate IV .Q0M [facility] Rx#: [id number] Output: Drainage 55 Right Lower Abdomen 55 Urine 1020 1725 275 Other: Voiding Method Indwelling Catheter Indwelling Catheter Indwelling Catheter - Exam Appearance: Awake and alert sitting up in a chair at the bedside. Pleasant 83-year-old gentleman. On 4 L nasal cannula.. Head exam was generally normal. There was no scleral icterus or corneal arcus. Mucous membranes were moist. Neck was supple and without jugular venous distension, thyromegaly, or carotid bruits. Carotids were easily palpable bilaterally. There was no adenopathy. Orogastric and orotracheal tube are both in place. Lungs breath other are equal and symmetrical bilaterally. Scattered crackles and rhonchi more so on the right lung base Cardiac exam revealed the PMI to be normally situated and sized. The rhythm was regular and no extrasystoles were noted during several minutes of auscultation. The first and second heart sounds were normal and physiologic splitting of the second heart sound was noted. There were no murmurs, rubs, clicks, or gallops. Abdominal exam revealed absence bowel sounds. The abdomen was soft, non-tender, and without masses, organomegaly, or appreciable enlargement of the abdominal aorta. Dressing dry and intact, abdominal incision which is in his right groin area. The wound is which is dry clean and intact and the patient is a JAGJIT drain in the right lower quadrant. Neurologically the patient is awake alert oriented 3, comfortable no acute distress. Pupils are equal and reactive to light. Examination of the skin revealed no evidence of significant rashes, suspicious appearing nevi or other concerning lesions. - Labs CBC & Chem 7: 09/30/19 04:38 09/30/19 04:38 Labs: Abnormal Lab Results - Last 24 Hours (Table) 09/29/19 09/30/19 09/30/19 Range/Units 11:35 04:38 04:38 RBC 4.14 L (4.30-5.90) m/uL Hgb 12.7 L (13.0-17.5) gm/dL Plt Count 144 L (150-450) k/uL Neutrophils # 9.2 H (1.3-7.7) k/uL Lymphocytes # 0.6 L (1.0-4.8) k/uL ABG pH 7.34 L (7.35-7.45) Sodium 146 H (137-145) mmol/L Chloride 121 H (98-107) mmol/L Carbon Dioxide 18 L (22-30) mmol/L BUN 57 H (9-20) mg/dL Creatinine 1.95 H (0.66-1.25) mg/dL Glucose 66 L (74-99) mg/dL Calcium 7.6 L (8.4-10.2) mg/dL Microbiology - Last 24 Hours (Table) 09/27/19 16:20 Urine Culture - Final Urine,Voided Escherichia coli 09/29/19 01:10 Gram Stain - Preliminary Sputum Sputum Culture - Preliminary Assessment and Plan Assessment: 1 exploratory laparotomy, right inguinal hernia repair and right orchiectomy and right colectomy. The patient is postop day #2 2 abdominal pain and bowel obstruction secondary to above 3 acute hypoxic/hypercapnic respiratory failure following abdominal surgery. The patient to be intubated in the recovery and successfully extubated yesterday 4 right lower lobe consolidation consider aspiration pneumonia 5 kidney failure, chronicity is unknown. Consider chronic kidney disease. The patient's creatinine stable at 1.95 and the patient is nonoliguric at this point 6 hypotension improved with fluid resuscitation. Consider intravascular volume depletion/dehydration. Consider sepsis 7 acute lactic acidosis, improved 8 gram-negative UTI secondary to E. coli currently on IV Zosyn 9 hypertension history of 10 hyperlipidemia, history of 11 chronic smoker Plan The patient was seen and evaluated by Dr. Montes. Chest x-ray and labs reviewed. There is continued right lower lobe consolidation. Continued on Zosyn. Brief episode of atrial fibrillation with RVR. Currently on a Cardizem drip at 5 mg per hour. Back in normal sinus rhythm. Echocardiogram Check TSH Obtain sputum sample Increase his activity as tolerated Increase use of the incentive spirometer and cough and deep breathing exercises We'll continue to follow and make further recommendations based on his clinical status I, the cosigning physician, performed a history & physical examination of the patient. Lungs sounds scattered rhonchi more so in the right lung base with some crackles.. Maintaining good O2 saturations in the 90s on 4 L/m per nasal cannula. I discussed the assessment and plan of care with my nurse practitioner, Jessenia Douglas. I attest to the above note as dictated by her.
--- NOTE | 2019-09-30 09:58 | P.PN ---
Subjective Progress Note Date: 09/30/19 Principal diagnosis: Incarcerated right inguinal hernia Patient was extubated yesterday around noon. Today complaining of only mild shortness of breath. White blood cell count normal at 10.5. Creatinine improved at 1.9. No bowel function thus far. Nasogastric tube remains in place. JAGJIT draining serosanguineous. He is currently sitting up in a chair. Objective - Vital Signs Vital signs: Vital Signs Temp 97.8 F 09/30/19 08:00 Pulse 80 09/30/19 09:33 Resp 33 H 09/30/19 09:00 BP 133/73 09/30/19 09:00 Pulse Ox 95 09/30/19 09:00 Intake & Output 09/29/19 09/30/19 09/30/19 18:59 06:59 18:59 Intake Total 2011.993 1700 475 Output Total 1020 1780 275 Balance 991.993 -80 200 Weight 80.7 kg Intake: IV 1900 1700 475 0.9 125 Piperacillin-Tazobactam 3 200 100 .375 gm In Sodium Chloride 0.9% 100 ml @ 25 mls/hr IVPB Q12H [facility] Rx# :[id number] Sodium Chloride 0.9% 1, 1375 1500 375 000 ml @ 125 mls/hr IV . Q8H [facility] Rx#:[id number] metroNIDAZOLE-NS PMX 500 200 100 100 mg In Saline 1 100ml.bag @ 100 mls/hr IVPB Q8HR [facility] Rx#:[id number] Intake, IV Titration 111.993 Amount Norepinephrine 4 mg In 52.834 Sodium Chloride 0.9% 250 ml @ 0.05 MCG/KG/MIN 14. 69 mls/hr IV .[id number] [facility] Rx#:[id number] Propofol 1,000 mg In 59.159 Empty Bag 1 bag @ Titrate IV .Q0M [facility] Rx#: [id number] Output: Drainage 55 Right Lower Abdomen 55 Urine 1020 1725 275 Other: Voiding Method Indwelling Catheter Indwelling Catheter Indwelling Catheter - Exam Abdomen: Soft, mild distention, dressing clean and dry, JAGJIT drain intact - Labs CBC & Chem 7: 09/30/19 04:38 09/30/19 04:38 Labs: Abnormal Lab Results - Last 24 Hours (Table) 01/08/0809/30/19 09/30/19 Range/Units 11:35 04:38 04:38 RBC 4.14 L (4.30-5.90) m/uL Hgb 12.7 L (13.0-17.5) gm/dL Plt Count 144 L (150-450) k/uL Neutrophils # 9.2 H (1.3-7.7) k/uL Lymphocytes # 0.6 L (1.0-4.8) k/uL ABG pH 7.34 L (7.35-7.45) Sodium 146 H (137-145) mmol/L Chloride 121 H (98-107) mmol/L Carbon Dioxide 18 L (22-30) mmol/L BUN 57 H (9-20) mg/dL Creatinine 1.95 H (0.66-1.25) mg/dL Glucose 66 L (74-99) mg/dL Calcium 7.6 L (8.4-10.2) mg/dL Microbiology - Last 24 Hours (Table) 09/27/19 16:20 Urine Culture - Final Urine,Voided Escherichia coli 09/29/19 01:10 Gram Stain - Preliminary Sputum Sputum Culture - Preliminary Assessment and Plan (1) Incarcerated inguinal hernia Narrative/Plan: Continue pulmonary toilet. Continue IV antibiotics. Keep nothing by mouth. Continue nasogastric tube to suction. Current Visit: Yes Status: Acute Code(s): K40.30 - UNIL INGUINAL HERNIA, W OBST, W/O GANGR, NOT SPCF RECUR SNOMED Code(s): 302775064
[2019-09-30 09:59] LABS: Phosphorus 3.4 mg/dL (2.5-4.5)
[2019-09-30] MEDS: PIPERACILLIN-TAZOBACTAM 3.375 GM in SODIUM CHLORIDE 0.9% 100 ML IVPB SCH ×2 (10:48→18:00)
[2019-09-30] MEDS: NOREPINEPHRINE 4 MG in SODIUM CHLORIDE 0.9% 250 ML IV SCH (10:49)
--- NOTE | 2019-09-30 13:17 | P.PN ---
Subjective Progress Note Date: 09/30/19 This is an 83-year-old male patient of Dr. Rao with past medical history of hypertension, hyperlipidemia, chronic urinary retention for 10 years status post recath at home, tobacco use and dependence. Patient states he started having vomiting on Tuesday as well as lower abdominal pain. He denies having any shortness of breath, no chest pain. He denies having any diarrhea. Patient came into [facility] emergency center for evaluation where he was found to be afebrile, blood pressure initially 84/53, heart rate 93-110, pulse ox 92% on room air. WBC 17.8, hemoglobin 20.4. BUN 36 creatinine 2.67, lactic acid 7.2, total bilirubin 1.6, AST 24, ALT 14, alkaline phosphatase 103, amylase 144. Urinalysis moderate blood, leukoesterase large, RBCs 124 WBC 49. Stool for occult blood positive. CAT scan of the abdomen and pelvis revealed moderately marked small bowel obstruction secondary to right inguinal hernia. Patient was made nothing by mouth, IV fluids were started and consult with Dr. gonzalez with plan for repair of incarcerated right inguinal hernia this afternoon. Family members are at bedside and have been updated. 09/29: Patient is currently intubated in ICU with NG tube in place. Patient has been weaned from sedation at this time. He is able to answer questions by shaking his head and nodding. Patient is anxious to write to communicate with family and staff. Daughters are at the bedside. Patient is able to answer majority of questions appropriately. Anticipate to be extubated sometime today. Patient has a JAGJIT drain in place a 20 mL of output, NG tube with 140 mL of output over the night. He continues to have dark urine. Blood pressure 114/69, pulse rate 84, 97% on mechanical intubation. The CBC 12.4, hemoglobin 12.7, potassium 4.6, BUN 69, creatinine 3.03. Patient has been a pack to 2 pack-a-day smoker for the last 50+ years. Family is requesting a nicotine patch at this time. 09/30: Patient has been extubated. He is currently sitting up in a chair with NG tube in place. Patient states that he is unable to pass gas at this time. His pulse ox continued to be sluggish. He is able to questions appropriately. Patient is requesting to have some chocolate milk. He has no other complaints or concerns at this time. NG tube drainage continues to be clear. Patient remained afebrile and hemodynamically stable. W BC 10.5, hemoglobin 12.7, potassium 4.6, BUN 57, creatinine 1.95, TSH 0.688 Review Of Systems: Constitutional: No fever, no chills, no night sweats. No weight change. No weakness, fatigue or lethargy. No daytime sleepiness. EENT: No headache. No blurred vision or double vision, no loss of vision. No loss of Hearing, Lungs: No shortness of breath, Cardiovascular: No chest pain, no lower extremity edema. No palpitations. Abdominal: no abdominal discomfort. No nausea, vomiting. no diarrhea. No constipation. Musculoskeletal: No myalgias. No muscle weakness, no gait dysfunction, no frequent falls. No back pain. No neck pain. Neurologic: No aphasia. No facial droop. No change in mentation. No headache. No paralysis. No paresthesia. Psychiatric: No depression. No anxiety. No mood swings. Objective - Vital Signs Vital signs: Vital Signs Temp 97.9 F 09/30/19 12:00 Pulse 84 09/30/19 12:59 Resp 33 H 09/30/19 12:00 BP 139/67 09/30/19 12:00 Pulse Ox 93 L 09/30/19 12:00 Intake & Output 09/29/19 09/30/19 09/30/19 18:59 06:59 18:59 Intake Total 2011.993 1700 980 Output Total 1020 1780 605 Balance 991.993 -80 375 Weight 80.7 kg Intake: IV 1900 1700 950 0.9 125 Piperacillin-Tazobactam 3 200 100 100 .375 gm In Sodium Chloride 0.9% 100 ml @ 25 mls/hr IVPB Q12H [facility] Rx# :[id number] Sodium Chloride 0.9% 1, 1375 1500 750 000 ml @ 125 mls/hr IV . Q8H [facility] Rx#:[id number] metroNIDAZOLE-NS PMX 500 200 100 100 mg In Saline 1 100ml.bag @ 100 mls/hr IVPB Q8HR [facility] Rx#:[id number] Intake, IV Titration 111.993 Amount Norepinephrine 4 mg In 52.834 Sodium Chloride 0.9% 250 ml @ 0.05 MCG/KG/MIN 14. 69 mls/hr IV .[id number] [facility] Rx#:[id number] Propofol 1,000 mg In 59.159 Empty Bag 1 bag @ Titrate IV .Q0M [facility] Rx#: [id number] Oral 30 Output: Drainage 55 50 Right Lower Abdomen 55 50 Urine 1020 1725 555 Other: Voiding Method Indwelling Catheter Indwelling Catheter Indwelling Catheter - Exam General Appearance: Alert, cooperative, no distress, appears stated age. Neck HEENT: Supple, no lymphadenopathy, no thyroid enlargement, no carotid b ruits. Orogastric is in place Lungs: Clear to auscultation without crackles or wheezes no rhonchi, no deformity. Chest Wall: Chest wall normal expansion with deep inspiration no tenderness and no deformity was found on exam, no costochondral pain or discomfort. Heart: Regular rate and rhythm, S1, S2 normal, no murmur, rub or gallop. Back: Symmetric, no curvature, ROM normal, no CVA tenderness. Abdomen: Soft, non-tender, no rebound or rigidity, no hepatosplenomegaly. Abdominal incision and right groin area, dry clean and intact, JAGJIT drain in the right lower quadrant Extremities: Extremities normal, atraumatic, no cyanosis 1+ edema bilateral lower extremities Pulses: 2+ and symmetric. Skin: Skin color, texture, tugor normal, no rashes or lesions. Neurologic: Alert oriented x3 cranial nerves II through XII intact, no motor deficit, no abnormal balance or gait - Labs CBC & Chem 7: 09/30/19 04:38 09/30/19 04:38 Labs: Abnormal Lab Results - Last 24 Hours (Table) 09/30/19 09/30/19 Range/Units 04:38 04:38 RBC 4.14 L (4.30-5.90) m/uL Hgb 12.7 L (13.0-17.5) gm/dL Plt Count 144 L (150-450) k/uL Neutrophils # 9.2 H (1.3-7.7) k/uL Lymphocytes # 0.6 L (1.0-4.8) k/uL Sodium 146 H (137-145) mmol/L Chloride 121 H (98-107) mmol/L Carbon Dioxide 18 L (22-30) mmol/L BUN 57 H (9-20) mg/dL Creatinine 1.95 H (0.66-1.25) mg/dL Glucose 66 L (74-99) mg/dL Calcium 7.6 L (8.4-10.2) mg/dL Microbiology - Last 24 Hours (Table) 09/27/19 16:20 Urine Culture - Final Urine,Voided Escherichia coli 09/29/19 01:10 Gram Stain - Preliminary Sputum Sputum Culture - Preliminary Assessment and Plan Plan: 1. Exploratory laparotomy, right humeral hernia repair with right orchiectomy and right colectomy. Patient is postop day 2. Continue JAGJIT drain, an NG tube. 2. Small bowel obstruction secondary to right inguinal hernia. Surgical intervention performed as noted above 3. Acute kidney injury secondary to vomiting and poor oral intake. Hold lisinopril. Avoid nephrotoxic agents. Continue IV fluid 125 mL per hour. 4. Lactic acidosis secondary to acute kidney injury. 5. Possible Acute urinary tract infection secondary to self catheterization. Urine culture shows E. coli. Zosyn 6. Hypertension. Lisinopril on hold. 7. Tobacco use and dependence. Nicotine patch. 8. Chronic urinary retention with self-catheterization. Castro catheter in place. 9. GI prophylaxis. Protonix. 10. DVT prophylaxis. Heparin subcu Patient will be admitted to the hospital for a minimum of 3 night stay. Discharge plan: To be determined. Most likely return home. Impression and plan of care have been directed as dictated by the signing physician. Charissa Glasgow nurse practitioner acting as scribe for signing physician.
--- NOTE | 2019-09-30 15:55 | ECHOF ---
Referral Reason:AF with RVR MEASUREMENTS -------- HEIGHT: 172.7 cm WEIGHT: 80.3 kg BP: 139/67 RVIDd: 3.0 cm (< 3.3) IVSd: 1.2 cm (0.6 - 1.1) LVIDd: 4.9 cm (3.9 - 5.3) LVPWd: 1.3 cm (0.6 - 1.1) IVSs: 1.7 cm LVIDs: 3.2 cm LVPWs: 1.6 cm LA Diam: 2.9 cm (2.7 - 3.8) LAESV Index (A-L): 28.57 ml/m Ao Diam: 3.6 cm (2.0 - 3.7) AV Cusp: 2.0 cm (1.5 - 2.6) MV EXCURSION: 13.970 mm (> 18.000) MV EF SLOPE: 71 mm/s (70 - 150) EPSS: 1.6 cm MV E Danny: 1.11 m/s MV DecT: 176 ms MV A Danny: 0.91 m/s MV E/A Ratio: 1.21 RAP: 5.00 mmHg RVSP: 30.88 mmHg FINDINGS -------- Sinus rhythm with extra systolic beats. This was a technically adequate study. The left ventricular size is normal. There is mild concentric left ventricular hypertrophy. Overa ll left ventricular systolic function is normal with, an EF between 55 - 60 %. The right ventricle is normal in size. The left atrium is mildly dilated. The right atrium is normal in size. Interatrial and interventricular septum intact. There is mild aortic valve sclerosis. There is mild aortic regurgitation. The mitral valve leaflets are mildly thickened. Mild mitral annular calcification present. There is trace to mild mitral regurgitation. Mild tricuspid regurgitation present. Right ventricular systolic pressure is normal at < 35 mmHg. The pulmonic valve was not well visualized. The aortic root size is normal. Normal inferior vena cava with normal inspiratory collapse consistent with estimated right atrial pre ssure of 5 mmHg. There is no pericardial effusion. CONCLUSIONS -------- 1. Sinus rhythm with extra systolic beats. 2. This was a technically adequate study. 3. The left ventricular size is normal. 4. There is mild concentric left ventricular hypertrophy. 5. Overall left ventricular systolic function is normal with, an EF between 55 - 60 %. 6. The right ventricle is normal in size. 7. The left atrium is mildly dilated. 8. The right atrium is normal in size. 9. Interatrial and interventricular septum intact. 10. There is mild aortic valve sclerosis. 11. There is mild aortic regurgitation. 12. The mitral valve leaflets are mildly thickened. 13. Mild mitral annular calcification present. 14. There is trace to mild mitral regurgitation. 15. Mild tricuspid regurgitation present. 16. Right ventricular systolic pressure is normal at < 35 mmHg. 17. The pulmonic valve was not well visualized. 18. The aortic root size is normal. 19. Normal inferior vena cava with normal inspiratory collapse consistent with estimated right atrial pressure of 5 mmHg. 20. There is no pericardial effusion. [employer] ACT OFFICER: Elen Velazco RDCS
[2019-10-01] MEDS: IPRATROPIUM-ALBUTEROL 3 ML NEB INHALATION SCH ×7 (00:30→19:06)
[2019-10-01] MEDS ORDERED: DEXTROSE 5% IN WATER 100 ML with AMIODARONE 150 MG IV ONE (00:30)
[2019-10-01] MEDS ORDERED: AMIODARONE 360 MG in DEXTROSE 5% IN WATER 200 ML IV ONE ×2 (01:00)
[2019-10-01] MEDS: PIPERACILLIN-TAZOBACTAM 3.375 GM in SODIUM CHLORIDE 0.9% 100 ML IVPB SCH ×3 (01:02→17:42)
[2019-10-01] MEDS: SODIUM CHLORIDE 0.9% 1,000 ML IV SCH ×2 (01:02→12:24)
[2019-10-01 05:12] LABS: Basophils % (A) 0 %; Eosinophils # (A) 0.1 k/uL (0-0.7); Eosinophils % (A) 1 %; HCT 41.8 % (39.0-53.0); HGB 13.1 gm/dL (13.0-17.5); Hypochromasia Slight; Lymphocytes % (A) 9 %; MCH 30.6 pg (25.0-35.0); MCHC 31.3 g/dL (31.0-37.0); MCV 97.8 fL (80.0-100.0); Mean Platelet Volume 9.2; Monocytes # (A) 0.5 k/uL (0-1.0); Monocytes % (A) 4 %; Neutrophils # (A) 9.2 k/uL (1.3-7.7); Neutrophils % (A) 84 %; Platelet Count 175 k/uL (150-450); RBC 4.27 m/uL (4.30-5.90); RDW 12.6 % (11.5-15.5); WBC 10.9 k/uL (3.8-10.6)
[2019-10-01 05:25] LABS: Calcium 8.2 mg/dL (8.4-10.2); Potassium 3.7 mmol/L (3.5-5.1)
[2019-10-01] MEDS: NOREPINEPHRINE 4 MG in SODIUM CHLORIDE 0.9% 250 ML IV SCH ×2 (07:04→23:07)
[2019-10-01] MEDS: AMIODARONE 300 MG in DEXTROSE 5% IN WATER 250 ML IV SCH ×4 (07:19→17:38)
[2019-10-01] MEDS ORDERED: Potassium Replacement Protocol 1 EACH MISC MISCELLANE PRN (07:54)
[2019-10-01] MEDS ORDERED: POTASSIUM BICARBONATE/CIT AC 20 MEQ TABLET.EFF NG-TUBE SCH (08:00)
--- NOTE | 2019-10-01 09:25 | XR ---
EXAMINATION TYPE: XR chest 1V portable DATE OF EXAM: 10/01/2019 COMPARISON: Prior chest x-ray 09/30/2019 HISTORY: Tube placement, abnormal chest x-ray TECHNIQUE: Single frontal view of the chest is obtained. FINDINGS: There is a nasogastric tube present with the distal tip overlying the left upper quadrant. No evident pneumothorax. Pleural parenchymal changes are similar to prior exam. Heart size is not si gnificantly changed. Interstitium is increased. Possible right pleural effusion. Aorta is dense. Cent ral vascularity appears prominent. IMPRESSION: Findings are similar to prior exam. Correlate for pneumonia, atelectasis, difficult to e xclude effusion. Correlate for possible pulmonary artery hypertension.
[2019-10-01] MEDS: metroNIDAZOLE-NS PMX 500 MG in SALINE 1 100ML.BAG IVPB SCH ×3 (09:53→23:27)
[2019-10-01] MEDS: NICOTINE 21MG/24HR PATCH TRANSDERM SCH (09:53)
[2019-10-01] MEDS: PANTOPRAZOLE 40 MG/10 ML VIAL IVP SCH (09:53)
[2019-10-01] MEDS: HEPARIN SODIUM,PORCINE 5,000 UNIT/ML 1 ML VIAL SQ SCH ×3 (09:53→23:27)
--- NOTE | 2019-10-01 11:16 | P.PN ---
<KevinMohini Alley - Last Filed: 10/01/19 11:12> Subjective Progress Note Date: 10/01/19 CHIEF COMPLAINT: abdominal pain HISTORY OF PRESENT ILLNESS: Patient is status post right colectomy and repair of recurrent right inguinal hernia with orchiectomy performed on 09/28/2019. Yen angel examined this morning the intensive care unit. He is sitting up in the chair. He denies abdominal pain. NG tube was accidentally removed by patient this morning. He reports passing flatus. Denies abdominal bloating. No bowel movement. He has been tolerating ice chips. Dressings CDI. JAGJIT with serosanguineous drainage. WBC 10.9. Hemoglobin 13.1. He is afebrile. PHYSICAL EXAM: VITAL SIGNS: Reviewed. GENERAL: Well-developed in no acute distress. HEENT: No sclera icterus. Extraocular movements grossly intact. Moist buccal mucosa. Head is atraumatic, normocephalic. ABDOMEN: Soft. Nondistended. Appropriate surgical tenderness. Dressing CDI. JAGJIT with serosanguineous drainage NEUROLOGIC: Alert and oriented. Cranial nerves II through XII grossly intact. ASSESSMENT: 1. Abdominal pain 2. Nausea and vomiting 3. Small bowel obstruction secondary to incarcerated right inguinal hernia, status post right colectomy and repair of recurrent right inguinal hernia with orchiectomy PLAN: Keep NG out for now. Begin sips of clear liquids. Pain control Incentive spirometer GI/DVT prophylaxis Activity as tolerated Monitor JAGJIT drain output. Nurse practitioner note has been reviewed by physician. Signing provider agrees with the documented findings, assessment, and plan of care. Objective - Vital Signs Vital signs: Vital Signs Temp 98 F 10/01/19 08:00 Pulse 85 10/01/19 11:00 Resp 22 10/01/19 11:00 BP 170/84 10/01/19 11:00 Pulse Ox 91 L 10/01/19 11:00 Intake & Output 09/30/19 10/01/19 10/01/19 18:59 06:59 18:59 Intake Total 1930 1825.000 825 Output Total 1360 1280 380 Balance 570 545.000 445 Weight 90 kg Intake: IV 1900 1700 825 Piperacillin-Tazobactam 3 200 100 .375 gm In Sodium Chloride 0.9% 100 ml @ 25 mls/hr IVPB Q12H [facility] Rx# :[id number] Piperacillin-Tazobactam 3 100 .375 gm In Sodium Chloride 0.9% 100 ml @ 25 mls/hr IVPB Q8H [facility] Rx#: [id number] Sodium Chloride 0.9% 1, 1500 1500 625 000 ml @ 125 mls/hr IV . Q8H [facility] Rx#:[id number] metroNIDAZOLE-NS PMX 500 200 100 100 mg In Saline 1 100ml.bag @ 100 mls/hr IVPB Q8HR [facility] Rx#:[id number] Intake, IV Titration 125.000 Amount Diltiazem 125 mg In 125.000 Sodium Chloride 0.9% 100 ml @ Per Protocol IV .Q0M [facility] Rx#:[id number] Oral 30 Output: Gastric Drainage 100 Drainage 50 50 Right Lower Abdomen 50 50 Urine 1310 1180 330 Other: Voiding Method Indwelling Catheter Indwelling Catheter Indwelling Catheter - Labs CBC & Chem 7: 10/01/19 04:27 10/01/19 04:27 Labs: Abnormal Lab Results - Last 24 Hours (Table) 10/01/19 10/01/19 Range/Units 04:27 04:27 WBC 10.9 H (3.8-10.6) k/uL RBC 4.27 L (4.30-5.90) m/uL Neutrophils # 9.2 H (1.3-7.7) k/uL Sodium 149 H (137-145) mmol/L Chloride 122 H (98-107) mmol/L Carbon Dioxide 21 L (22-30) mmol/L BUN 39 H (9-20) mg/dL Creatinine 1.47 H (0.66-1.25) mg/dL Glucose 110 H (74-99) mg/dL Calcium 8.2 L (8.4-10.2) mg/dL Microbiology - Last 24 Hours (Table) 09/29/19 01:10 Gram Stain - Final Sputum Sputum Culture - Final Escherichia coli <Elio Zelaya - Last Filed: 10/01/19 16:49> Subjective As above. Patient's nasogastric tube came out. Mild shortness of breath. Possible developing right lower lobe pneumonia. Denies pain. Mild bloating. No bowel movement or flatus. Continue clears for now. Daily Dulcolax suppositories. Objective - Vital Signs Vital signs: Vital Signs Temp 97.5 F L 10/01/19 16:00 Pulse 86 10/01/19 16:00 Resp 26 H 10/01/19 16:00 BP 144/83 10/01/19 16:00 Pulse Ox 91 L 10/01/19 16:00 Intake & Output 09/30/19 10/01/19 10/01/19 18:59 06:59 18:59 Intake Total 1930 7350.732 2576 Output Total 1360 1280 1445 Balance 570 545.000 -340 Weight 90 kg 90 kg Intake: IV 1900 1700 1105 Dextrose 5% in Water 1, 180 000 ml @ 100 mls/hr IV . Q10H [facility] Rx#:[id number] Piperacillin-Tazobactam 3 200 100 .375 gm In Sodium Chloride 0.9% 100 ml @ 25 mls/hr IVPB Q12H [facility] Rx# :[id number] Piperacillin-Tazobactam 3 100 .375 gm In Sodium Chloride 0.9% 100 ml @ 25 mls/hr IVPB Q8H [facility] Rx#: [id number] Sodium Chloride 0.9% 1, 1500 1500 625 000 ml @ 125 mls/hr IV . Q8H [facility] Rx#:[id number] metroNIDAZOLE-NS PMX 500 200 100 200 mg In Saline 1 100ml.bag @ 100 mls/hr IVPB Q8HR [facility] Rx#:[id number] Intake, IV Titration 125.000 Amount Diltiazem 125 mg In 125.000 Sodium Chloride 0.9% 100 ml @ Per Protocol IV .Q0M [facility] Rx#:[id number] Oral 30 Output: Gastric Drainage 100 Drainage 50 50 Right Lower Abdomen 50 50 Urine 1310 1180 1395 Other: Voiding Method Indwelling Catheter Indwelling Catheter Indwelling Catheter - Labs CBC & Chem 7: 10/01/19 04:27 10/01/19 04:27 Labs: Abnormal Lab Results - Last 24 Hours (Table) 10/01/19 10/01/19 Range/Units 04:27 04:27 WBC 10.9 H (3.8-10.6) k/uL RBC 4.27 L (4.30-5.90) m/uL Neutrophils # 9.2 H (1.3-7.7) k/uL Sodium 149 H (137-145) mmol/L Chloride 122 H (98-107) mmol/L Carbon Dioxide 21 L (22-30) mmol/L BUN 39 H (9-20) mg/dL Creatinine 1.47 H (0.66-1.25) mg/dL Glucose 110 H (74-99) mg/dL Calcium 8.2 L (8.4-10.2) mg/dL Microbiology - Last 24 Hours (Table) 09/29/19 01:10 Gram Stain - Final Sputum Sputum Culture - Final Escherichia coli Assessment and Plan (1) Incarcerated inguinal hernia Current Visit: Yes Status: Acute Code(s): K40.30 - UNIL INGUINAL HERNIA, W OBST, W/O GANGR, NOT SPCF RECUR SNOMED Code(s): 166835638
--- NOTE | 2019-10-01 12:01 | P.PN ---
Subjective Progress Note Date: 10/01/19 Principal diagnosis: exploratory laparotomy, right inguinal hernia repair and right orchiectomy and right colectomy. The patient is postop day #3 An 83-year-old male patient intubated on a mechanical ventilator, currently postop day #1 following a right colectomy, right inguinal hernia repair with orchiectomy. The patient came into the hospital with bowel obstruction and was diagnosed having a recurrent right incarcerated inguinal hernia with bowel obstruction. He underwent his surgery yesterday. Postop, he was extubated but he was quite lethargic and he was having significant respiratory distress and he was given a blood gas that showed respiratory acidosis with a pH of 7.12 with a pCO2 of 69 and pO2 123. Based on that, the patient was reintubated. This morning, the patient is was resuscitated. Overnight he was hypotensive and he was started on pressors with norepinephrine infusion. He was given a total of 6 L of IV fluids in the form of normal saline and his pressors currently running at 0.05 g per KG per minute. He is warm. There is adequate pulses in all 4 extremities. His blood pressures improved. He is currently assist-control mode rate of 26 with a tidal volume of 500 and an FiO2 of 50% with a PEEP of 5. Chest x-ray from this morning shows that ET tube is around 2 cm above the jazzmine. The patient has a right lower lobe consolidation which was seen on previous chest films. He has also underlying COPD. OG tube is in a good location. He is renal failure. The chronicity of this kidney injury is not known. The patient's creatinine is at 3.0. He is producing urine output in the order of 50 mL an hour. Currently on a combination of Zosyn and Flagyl. He is on propofol which is running at 25 g per KG per minute. The patient is seen today 09/30/2019 in follow-up in the intensive care unit. He was successfully extubated yesterday. He is postoperative day #2 following a right colectomy, right inguinal hernia repair with orchiectomy. He is doing quite well. He is currently sitting up in a chair at the bedside. Awake and alert in no acute distress. He did have a episode of atrial fibrillation with RVR and was initiated on Cardizem drip at 5 mg per hour. He is back in normal sinus rhythm. Echocardiogram and TSH levels are pending. His chest x-ray does show increased right lower lobe pneumonia as well. Sputum sample is pending. He needs increased encouragement regarding the use of the incentive spirometer. He has a loose nonproductive cough. He is maintaining good O2 saturations in the 90s on 4 L/m per nasal cannula. Urine culture was positive for E. coli. Sputum culture reveals no growth. White count 10.5. Hemoglobin 12.7. Creatinine 1.95. Remains on Zosyn and Flagyl. Heparin for DVT prophylaxis. Patient was reevaluated today on 10/01/2019, patient remains in the ICU, continues to have significant right lower lobe consolidation/pneumonia, felt to be most likely secondary to aspiration pneumonia. He was extubated a few days ago, he is on 4 L nasal cannula. Patient is not requiring any pressors, he is hemodynamically stable, remains on broad-spectrum antibiotics for presumptive aspiration pneumonia and abdominal sepsis. CBC showed WBC count of 10.9 hemoglobin is 13.1, sodium is high at 149 BUN is down to 39 and creatinine is down to 1.47, improving. Overall the patient seems to be demonstrating steady improvement. Chest x-ray remains a bit concerning to me. Objective - Vital Signs Vital signs: Vital Signs Temp 98 F 10/01/19 08:00 Pulse 85 10/01/19 11:00 Resp 22 10/01/19 11:00 BP 170/84 10/01/19 11:00 Pulse Ox 91 L 10/01/19 11:00 Intake & Output 09/30/19 10/01/19 10/01/19 18:59 06:59 18:59 Intake Total 1930 1825.000 825 Output Total 1360 1280 380 Balance 570 545.000 445 Weight 90 kg 90 kg Intake: IV 1900 1700 825 Piperacillin-Tazobactam 3 200 100 .375 gm In Sodium Chloride 0.9% 100 ml @ 25 mls/hr IVPB Q12H [facility] Rx# :[id number] Piperacillin-Tazobactam 3 100 .375 gm In Sodium Chloride 0.9% 100 ml @ 25 mls/hr IVPB Q8H [facility] Rx#: [id number] Sodium Chloride 0.9% 1, 1500 1500 625 000 ml @ 125 mls/hr IV . Q8H [facility] Rx#:[id number] metroNIDAZOLE-NS PMX 500 200 100 100 mg In Saline 1 100ml.bag @ 100 mls/hr IVPB Q8HR [facility] Rx#:[id number] Intake, IV Titration 125.000 Amount Diltiazem 125 mg In 125.000 Sodium Chloride 0.9% 100 ml @ Per Protocol IV .Q0M [facility] Rx#:[id number] Oral 30 Output: Gastric Drainage 100 Drainage 50 50 Right Lower Abdomen 50 50 Urine 1310 1180 330 Other: Voiding Method Indwelling Catheter Indwelling Catheter Indwelling Catheter - Exam Physical Exam: Revealed a 83-year-old white male in no distress. On 4 L nasal cannula. Head: Atraumatic normocephalic. HEENT:[Neck is supple.] [No neck masses.] [No thyromegaly.] [No JVD.] PERRLA, EOMI, no icterus, no thyromegaly. Chest: [Crackles and rhonchi noted bilaterally. Especially at the right base. Symmetrical chest expansion..] Cardiac Exam: [Normal S1 and S2, no S3 gallop, 2/6 systolic murmur thought the precordium. Abdomen: he abdomen was soft, non-tender, and without masses, organomegaly, or appreciable enlargement of the abdominal aorta. Dressing dry and intact, abdominal incision which is in his right groin area. The wound is which is dry clean and intact and the patient is a JAGJIT drain in the right lower quadrant. Extremities: [No clubbing, no edema, no cyanosis.] Neurological Exam: [No focal neurologic deficit.] Alert and oriented 3. Psychiatric: Normal mood affect and normal mental status examination. Skin: No rashes. Lymphatics: No lymphadenopathy. - Labs CBC & Chem 7: 10/01/19 04:27 10/01/19 04:27 Labs: Abnormal Lab Results - Last 24 Hours (Table) 10/01/19 10/01/19 Range/Units 04:27 04:27 WBC 10.9 H (3.8-10.6) k/uL RBC 4.27 L (4.30-5.90) m/uL Neutrophils # 9.2 H (1.3-7.7) k/uL Sodium 149 H (137-145) mmol/L Chloride 122 H (98-107) mmol/L Carbon Dioxide 21 L (22-30) mmol/L BUN 39 H (9-20) mg/dL Creatinine 1.47 H (0.66-1.25) mg/dL Glucose 110 H (74-99) mg/dL Calcium 8.2 L (8.4-10.2) mg/dL Microbiology - Last 24 Hours (Table) 09/29/19 01:10 Gram Stain - Final Sputum Sputum Culture - Final Escherichia coli Assessment and Plan Assessment: Impression: Status post exploratory laparotomy, right inguinal hernia repair and right orchiectomy as well as right colectomy postoperative day #3. Acute bowel obstruction on presentation. Acute hypoxic and hypercapnic respiratory failure following abdominal surgery, and strongly suspect aspiration pneumonia. Acute aspiration pneumonia Acute kidney injury, unknown whether the patient had chronic kidney disease. E. coli urinary tract infection Hypertension Dyslipidemia Suspect underlying chronic obstructive pulmonary disease, patient is a chronic smoker. Recommendation: Discussed and reviewed the chest x-ray findings with the patient, still quite concerning to me. Continue antibiotics as ordered Continue amiodarone for atrial fibrillation Continue to monitor in the ICU. Increase activity as tolerated Increase incentive spirometry and encourage deep coughing and deep breathing Not quite ready for to transfer out of the ICU. We'll continue to follow. Monitor daily chest x-rays Time with Patient: Less than 30
[2019-10-01] MEDS ORDERED: FUROSEMIDE 10 MG/ML 4 ML VIAL IV STA (13:18)
[2019-10-01] MEDS: DEXTROSE 5% IN WATER 1,000 ML IV SCH ×2 (13:19→22:14)
[2019-10-01] MEDS ORDERED: ALBUTEROL NEBULIZED 2.5 MG/3 ML INHALATION PRN (13:44)
--- NOTE | 2019-10-01 14:51 | P.PN ---
Subjective Progress Note Date: 10/01/19 This is an 83-year-old male patient of Dr. Rao with past medical history of hypertension, hyperlipidemia, chronic urinary retention for 10 years status post recath at home, tobacco use and dependence. Patient states he started having vomiting on Tuesday as well as lower abdominal pain. He denies having any shortness of breath, no chest pain. He denies having any diarrhea. Patient came into [facility] emergency center for evaluation where he was found to be afebrile, blood pressure initially 84/53, heart rate 93-110, pulse ox 92% on room air. WBC 17.8, hemoglobin 20.4. BUN 36 creatinine 2.67, lactic acid 7.2, total bilirubin 1.6, AST 24, ALT 14, alkaline phosphatase 103, amylase 144. Urinalysis moderate blood, leukoesterase large, RBCs 124 WBC 49. Stool for occult blood positive. CAT scan of the abdomen and pelvis revealed moderately marked small bowel obstruction secondary to right inguinal hernia. Patient was made nothing by mouth, IV fluids were started and consult with Dr. Zelaya with plan for repair of incarcerated right inguinal hernia this afternoon. Family members are at bedside and have been updated. 09/29: Patient is currently intubated in ICU with NG tube in place. Patient has been weaned from sedation at this time. He is able to answer questions by shaking his head and nodding. Patient is anxious to write to communicate with family and staff. Daughters are at the bedside. Patient is able to answer majority of questions appropriately. Anticipate to be extubated sometime today. Patient has a JAGJIT drain in place a 20 mL of output, NG tube with 140 mL of output over the night. He continues to have dark urine. Blood pressure 114/69, pulse rate 84, 97% on mechanical intubation. The CBC 12.4, hemoglobin 12.7, potassium 4.6, BUN 69, creatinine 3.03. Patient has been a pack to 2 pack-a-day smoker for the last 50+ years. Family is requesting a nicotine patch at this time. 09/30: Patient has been extubated. He is currently sitting up in a chair with NG tube in place. Patient states that he is unable to pass gas at this time. His pulse ox continued to be sluggish. He is able to questions appropriately. Patient is requesting to have some chocolate milk. He has no other complaints or concerns at this time. NG tube drainage continues to be clear. Patient remained afebrile and hemodynamically stable. W BC 10.5, hemoglobin 12.7, potassium 4.6, BUN 57, creatinine 1.95, TSH 0.688 10/01: Patient remains in the intensive care unit. He did go into A. fib with RVR and was started on amiodarone drip. Within the last hour, patient has been de-sating status post a dose of Lasix IV was ordered for this morning and we will also add in a dose of IV Lasix for this evening. Solu-Medrol added for 3 doses and Pulmicort. Castro catheter is in place. Patient has been hemodynamically stable, blood pressure is stable. No vasopressors. WBC 10.9, hemoglobin 13.1, sodium 149, BUN 39 creatinine 1.47. Chest x-ray reveals similar findings. Correlate for pneumonia, atelectasis, difficult to exclude effusion. Correlate for possible pulmonary artery hypertension. General surgery has cleared the patient for sips of clear liquids. Dr. Edwards is following the patient. Review Of Systems: Constitutional: No fever, no chills, no night sweats. No weight change. No weakness, fatigue or lethargy. No daytime sleepiness. EENT: No headache. No blurred vision or double vision, no loss of vision. No loss of Hearing, Lungs: Reports shortness of breath, denies cough Cardiovascular: No chest pain, no lower extremity edema. Reports palpitations. Abdominal: no abdominal discomfort. No nausea, vomiting. no diarrhea. No constipation. , Reports poor appetite Musculoskeletal: No myalgias. No muscle weakness, no gait dysfunction, no frequent falls. No back pain. No neck pain. Neurologic: No aphasia. No facial droop. No change in mentation. No headache. No paralysis. No paresthesia. Psychiatric: No depression. No anxiety. No mood swings. Objective - Vital Signs Vital signs: Vital Signs Temp 98 F 10/01/19 12:00 Pulse 92 10/01/19 13:00 Resp 18 10/01/19 13:00 BP 139/77 10/01/19 13:00 Pulse Ox 91 L 10/01/19 13:22 Intake & Output 09/30/19 10/01/19 10/01/19 18:59 06:59 18:59 Intake Total 1930 1825.000 945 Output Total 1360 1280 505 Balance 570 545.000 440 Weight 90 kg 90 kg Intake: IV 1900 1700 945 Dextrose 5% in Water 1, 120 000 ml @ 100 mls/hr IV . Q10H JEREMIA[facility] Rx#:[id number] Piperacillin-Tazobactam 3 200 100 .375 gm In Sodium Chloride 0.9% 100 ml @ 25 mls/hr IVPB Q12H [facility]ER[facility] Rx# :[id number] Piperacillin-Tazobactam 3 100 .375 gm In Sodium Chloride 0.9% 100 ml @ 25 mls/hr IVPB Q8H JEREMIA[facility] Rx#: [id number] Sodium Chloride 0.9% 1, 1500 1500 625 000 ml @ 125 mls/hr IV . Q8H JEREMIA[facility] Rx#:[id number] metroNIDAZOLE-NS PMX 500 200 100 100 mg In Saline 1 100ml.bag @ 100 mls/hr IVPB Q8HR [facility]ER[facility]IA[facility] Rx#:[id number] Intake, IV Titration 125.000 Amount Diltiazem 125 mg In 125.000 Sodium Chloride 0.9% 100 ml @ Per Protocol IV .Q0M JEREMIA[facility] Rx#:[id number] Oral 30 Output: Gastric Drainage 100 Drainage 50 50 Right Lower Abdomen 50 50 Urine 1310 1180 455 Other: Voiding Method Indwelling Catheter Indwelling Catheter Indwelling Catheter - Exam General Appearance: Alert, cooperative, no distress, appears stated age. Neck HEENT: Supple, no lymphadenopathy, no thyroid enlargement, no carotid bruits. Orogastric is in place Lungs: Right-sided wheezing, diminished on the left side. Chest Wall: Chest wall normal expansion with deep inspiration no tenderness and no deformity was found on exam, no costochondral pain or discomfort. Heart: Regular rate and rhythm, S1, S2 normal, no murmur, rub or gallop. Back: Symmetric, no curvature, ROM normal, no CVA tenderness. Abdomen: Soft, non-tender, no rebound or rigidity, no hepatosplenomegaly. Abdo caesar incision and right groin area, dry clean and intact, JAGJIT drain in the right lower quadrant Extremities: Extremities normal, atraumatic, no cyanosis 1+ edema bilateral lower extremities Pulses: 2+ and symmetric. Skin: Skin color, texture, tugor normal, no rashes or lesions. Neurologic: Alert oriented x3 cranial nerves II through XII intact, no motor deficit, no abnormal balance or gait - Labs CBC & Chem 7: 10/01/19 04:27 10/01/19 04:27 Labs: Abnormal Lab Results - Last 24 Hours (Table) 10/01/19 10/01/19 Range/Units 04:27 04:27 WBC 10.9 H (3.8-10.6) k/uL RBC 4.27 L (4.30-5.90) m/uL Neutrophils # 9.2 H (1.3-7.7) k/uL Sodium 149 H (137-145) mmol/L Chloride 122 H (98-107) mmol/L Carbon Dioxide 21 L (22-30) mmol/L BUN 39 H (9-20) mg/dL Creatinine 1.47 H (0.66-1.25) mg/dL Glucose 110 H (74-99) mg/dL Calcium 8.2 L (8.4-10.2) mg/dL Microbiology - Last 24 Hours (Table) 09/29/19 01:10 Gram Stain - Final Sputum Sputum Culture - Final Escherichia coli Assessment and Plan Plan: 1. Small bowel obstruction secondary to right inguinal hernia status post exploratory laparotomy, right inguinal hernia repair with right orchiectomy and right colectomy. Consult with Dr. Nathalie khan. Patient start sips of clear liquids. Patient is on Zosyn and Flagyl. 2. Acute kidney injury secondary to vomiting and poor oral intake. Hold lisinopril. Avoid nephrotoxic agents. Continue IV fluid 125 mL per hour. 3. Lactic acidosis secondary to acute kidney injury. 4. Acute E. coli urinary tract infection secondary to self catheterization. Urine culture in progress. Patient is on Zosyn and Flagyl. 5. Hypertension. Lisinopril on hold. 6. GI prophylaxis. Protonix. 7. DVT prophylaxis. Heparin subcu 8. Tobacco use and dependence. Nicotine patch. 9. Chronic urinary retention with self-catheterization. Castro catheter in place. 10. Low pulse ox, possibly related to COPD, status post IV Lasix 1 and repeat dose ordered at night. Added Solu-Medrol for 3 doses and Pulmicort. Discharge plan: To be determined. Most likely return home. Impression and plan of care have been directed as dictated by the signing physician. Kinsey De Anda nurse practitioner acting as scribe for signing physician.
[2019-10-01] MEDS: methylPREDNISolone SOD SUCCI 125 MG/2 ML VIAL IV SCH ×2 (15:50→23:28)
[2019-10-01] MEDS: BISACODYL 10 MG SUPP RECTAL SCH (17:38)
[2019-10-01] MEDS: BUDESONIDE 0.5 MG/2 ML NEBU INHALATION SCH (19:06)
[2019-10-01] MEDS: FUROSEMIDE 10 MG/ML 4 ML VIAL IV SCH (20:33)
[2019-10-02] MEDS ORDERED: DEXTROSE 5% IN WATER 250 ML with AMIODARONE 300 MG IV ONE (02:11)
[2019-10-02] MEDS: PIPERACILLIN-TAZOBACTAM 3.375 GM in SODIUM CHLORIDE 0.9% 100 ML IVPB SCH ×3 (02:15→17:46)
[2019-10-02 05:17] LABS: Basophils # (A) 0.1 k/uL (0-0.2); Basophils % (A) 1 %; Eosinophils % (A) 0 %; HCT 46.3 % (39.0-53.0); HGB 13.8 gm/dL (13.0-17.5); Hypochromasia Marked; Lymphocytes # (A) 0.4 k/uL (1.0-4.8); Lymphocytes % (A) 5 %; MCH 29.8 pg (25.0-35.0); MCHC 29.8 g/dL (31.0-37.0); MCV 100.1 fL (80.0-100.0); Mean Platelet Volume 9.1; Monocytes # (A) 0.4 k/uL (0-1.0); Monocytes % (A) 5 %; Neutrophils # (A) 6.9 k/uL (1.3-7.7); Neutrophils % (A) 89 %; Platelet Count 177 k/uL (150-450); RBC 4.62 m/uL (4.30-5.90); RDW 12.7 % (11.5-15.5); WBC 7.7 k/uL (3.8-10.6)
[2019-10-02 05:28] LABS: Calcium 8.3 mg/dL (8.4-10.2); Potassium 4.3 mmol/L (3.5-5.1)
[2019-10-02] MEDS: BUDESONIDE 0.5 MG/2 ML NEBU INHALATION SCH ×2 (08:21→18:57)
[2019-10-02] MEDS: IPRATROPIUM-ALBUTEROL 3 ML NEB INHALATION SCH ×4 (08:21→18:57)
--- NOTE | 2019-10-02 08:50 | XR ---
EXAMINATION TYPE: XR chest 1V portable DATE OF EXAM: 10/02/2019 COMPARISON: Prior chest x-ray 10/01/2019 HISTORY: Tube removal, abnormal chest x-ray TECHNIQUE: Single frontal view of the chest is obtained. FINDINGS: NG tube has been removed. No evident pneumothorax. Heart is obscured but likely stable in size. Pleural parenchymal changes are not significantly changed. There are overlying cardiac leads. P atient is rotated. IMPRESSION: Interval tube removal. Correlate for pneumonia, pulmonary edema and congestive heart radha lure not excluded.
[2019-10-02] MEDS: DEXTROSE 5% IN WATER 1,000 ML IV SCH ×2 (09:31→17:46)
[2019-10-02] MEDS: methylPREDNISolone SOD SUCCI 125 MG/2 ML VIAL IV SCH (09:40)
[2019-10-02] MEDS: metroNIDAZOLE-NS PMX 500 MG in SALINE 1 100ML.BAG IVPB SCH ×2 (09:40→16:18)
[2019-10-02] MEDS: PANTOPRAZOLE 40 MG/10 ML VIAL IVP SCH (09:41)
[2019-10-02] MEDS: NICOTINE 21MG/24HR PATCH TRANSDERM SCH (09:41)
[2019-10-02] MEDS: BISACODYL 10 MG SUPP RECTAL SCH (09:41)
[2019-10-02] MEDS: HEPARIN SODIUM,PORCINE 5,000 UNIT/ML 1 ML VIAL SQ SCH ×2 (09:41→16:16)
[2019-10-02] MEDS ORDERED: FUROSEMIDE 10 MG/ML 4 ML VIAL IV STA (11:05)
--- NOTE | 2019-10-02 12:35 | P.PN ---
Subjective Progress Note Date: 10/02/19 Principal diagnosis: exploratory laparotomy, right inguinal hernia repair and right orchiectomy and right colectomy. The patient is postop day #4 An 83-year-old male patient intubated on a mechanical ventilator, currently postop day #1 following a right colectomy, right inguinal hernia repair with orchiectomy. The patient came into the hospital with bowel obstruction and was diagnosed having a recurrent right incarcerated inguinal hernia with bowel obstruction. He underwent his surgery yesterday. Postop, he was extubated but he was quite lethargic and he was having significant respiratory distress and he was given a blood gas that showed respiratory acidosis with a pH of 7.12 with a pCO2 of 69 and pO2 123. Based on that, the patient was reintubated. This morning, the patient is was resuscitated. Overnight he was hypotensive and he was started on pressors with norepinephrine infusion. He was given a total of 6 L of IV fluids in the form of normal saline and his pressors currently running at 0.05 g per KG per minute. He is warm. There is adequate pulses in all 4 extremities. His blood pressures improved. He is currently assist-control mode rate of 26 with a tidal volume of 500 and an FiO2 of 50% with a PEEP of 5. Chest x-ray from this morning shows that ET tube is around 2 cm above the jazzmine. The patient has a right lower lobe consolidation which was seen on previous chest films. He has also underlying COPD. OG tube is in a good location. He is renal failure. The chronicity of this kidney injury is not known. The patient's creatinine is at 3.0. He is producing urine output in the order of 50 mL an hour. Currently on a combination of Zosyn and Flagyl. He is on propofol which is running at 25 g per KG per minute. The patient is seen today 09/30/2019 in follow-up in the intensive care unit. He was successfully extubated yesterday. He is postoperative day #2 following a right colectomy, right inguinal hernia repair with orchiectomy. He is doing quite well. He is currently sitting up in a chair at the bedside. Awake and alert in no acute distress. He did have a episode of atrial fibrillation with RVR and was initiated on Cardizem drip at 5 mg per hour. He is back in normal sinus rhythm. Echocardiogram and TSH levels are pending. His chest x-ray does show increased right lower lobe pneumonia as well. Sputum sample is pending. He needs increased encouragement regarding the use of the incentive spirometer. He has a loose nonproductive cough. He is maintaining good O2 saturations in the 90s on 4 L/m per nasal cannula. Urine culture was positive for E. coli. Sputum culture reveals no growth. White count 10.5. Hemoglobin 12.7. Creatinine 1.95. Remains on Zosyn and Flagyl. Heparin for DVT prophylaxis. Patient was reevaluated today on 10/01/2019, patient remains in the ICU, continues to have significant right lower lobe consolidation/pneumonia, felt to be most likely secondary to aspiration pneumonia. He was extubated a few days ago, he is on 4 L nasal cannula. Patient is not requiring any pressors, he is hemodynamically stable, remains on broad-spectrum antibiotics for presumptive aspiration pneumonia and abdominal sepsis. CBC showed WBC count of 10.9 hemoglobin is 13.1, sodium is high at 149 BUN is down to 39 and creatinine is down to 1.47, improving. Overall the patient seems to be demonstrating steady improvement. Chest x-ray remains a bit concerning to me. Reevaluated today on 10/02/2019, patient remains in the ICU, his overall pulmonary status is marginal, continues to have significant right lower lobe consolidation, and possibly some component of interstitial edema. Or aspiration pneumonia. Patient is on nonrebreather mask. Denies any shortness of breath, denies any cough no wheezing no fever no chills no hemoptysis and no chest pain. He is hemodynamically stable. WBC count is 7.7 hemoglobin is 13.8. Sodium remains elevated 149 BUN is 36 coming down and the creatinine is 1.38 coming down steadily. Objective - Vital Signs Vital signs: Vital Signs Temp 97.3 F L 10/02/19 12:00 Pulse 85 10/02/19 12:18 Resp 22 10/02/19 12:00 BP 155/74 10/02/19 12:00 Pulse Ox 96 10/02/19 12:00 Intake & Output 10/01/19 10/02/19 10/02/19 18:59 06:59 18:59 Intake Total 1395 440 320 Output Total 2019 7609 995 Balance -896 -0 -011 Weight 90 kg 81 kg Intake: IV 1145 440 320 Dextrose 5% in Water 1, 220 240 120 000 ml @ 100 mls/hr IV . Q10H [facility]ER[facility] Rx#:[id number] Piperacillin-Tazobactam 3 100 100 100 .375 gm In Sodium Chloride 0.9% 100 ml @ 25 mls/hr IVPB Q8H [facility] Rx#: [id number] Sodium Chloride 0.9% 1, 625 000 ml @ 125 mls/hr IV . Q8H [facility]ER[facility] Rx#:[id number] metroNIDAZOLE-NS PMX 500 200 100 100 mg In Saline 1 100ml.bag @ 100 mls/hr IVPB Q8HR [facility]ER[facility]IA[facility] Rx#:[id number] Intake, IV Titration 250 Amount Amiodarone 300 mg In 250 Dextrose 5% in Water 250 ml @ 0.5 MG/MIN 25 mls/hr IV .Q10H [facility]ER[facility]IA[facility] Rx#: [id number] Output: Drainage 100 40 30 Right Lower Abdomen 100 40 30 Urine 1920 2460 545 Other: Voiding Method Indwelling Catheter Indwelling Catheter Indwelling Catheter - Exam Physical Exam: Revealed a 83-year-old white male on nonrebreather mask. Head: Atraumatic normocephalic. HEENT:[Neck is supple.] [No neck masses.] [No thyromegaly.] [No JVD.] PERRLA, EOMI, no icterus, no thyromegaly. Chest: [Crackles persist bilaterally. Right more so than left] Cardiac Exam: [Normal S1 and S2, no S3 gallop, 2/6 systolic murmur thought the precordium. Abdomen: he abdomen was soft, non-tender, and without masses, organomegaly, or appreciable enlargement of the abdominal aorta. Dressing dry and intact, abdominal incision which is in his right groin area. The wound is which is dry clean and intact and the patient is a JAGJIT drain in the right lower quadrant. Extremities: [No clubbing, no edema, no cyanosis.] Neurological Exam: [No focal neurologic deficit.] Alert and oriented 3. Psychiatric: Normal mood affect and normal mental status examination. Skin: No rashes. Lymphatics: No lymphadenopathy. - Labs CBC & Chem 7: 10/02/19 04:27 10/02/19 04:27 Labs: Abnormal Lab Results - Last 24 Hours (Table) 10/02/19 10/02/19 Range/Units 04:27 04:27 MCV 100.1 H (80.0-100.0) fL MCHC 29.8 L (31.0-37.0) g/dL Lymphocytes # 0.4 L (1.0-4.8) k/uL Sodium 149 H (137-145) mmol/L Chloride 117 H (98-107) mmol/L BUN 36 H (9-20) mg/dL Creatinine 1.38 H (0.66-1.25) mg/dL Glucose 171 H (74-99) mg/dL Calcium 8.3 L (8.4-10.2) mg/dL Microbiology - Last 24 Hours (Table) 09/29/19 01:10 Gram Stain - Final Sputum Sputum Culture - Final Escherichia coli Assessment and Plan Assessment: Impression: Status post exploratory laparotomy, right inguinal hernia repair and right orchiectomy as well as right colectomy postoperative day #4 Acute bowel obstruction on presentation. Acute hypoxic and hypercapnic respiratory failure unexpected. Mostly secondary to aspiration pneumonia. Acute aspiration pneumonia Acute kidney injury, unknown whether the patient had chronic kidney disease. E. coli urinary tract infection Hypertension Dyslipidemia Suspect underlying chronic obstructive pulmonary disease, patient is a chronic smoker. Recommendation: Continue oxygen and titrate accordingly. Continue antibiotics Continue amiodarone for atrial fibrillation Continue to monitor in the ICU. Physical therapy. Continue incentive spirometry deep coughing and deep breathing Not quite ready for to transfer out of the ICU. We'll continue to follow. Time with Patient: Less than 30
--- NOTE | 2019-10-02 14:14 | P.PN ---
Subjective Progress Note Date: 10/02/19 This is an 83-year-old male patient of Dr. Rao with past medical history of hypertension, hyperlipidemia, chronic urinary retention for 10 years status post recath at home, tobacco use and dependence. Patient states he started having vomiting on Tuesday as well as lower abdominal pain. He denies having any shortness of breath, no chest pain. He denies having any diarrhea. Patient came into [facility] emergency center for evaluation where he was found to be afebrile, blood pressure initially 84/53, heart rate 93-110, pulse ox 92% on room air. WBC 17.8, hemoglobin 20.4. BUN 36 creatinine 2.67, lactic acid 7.2, total bilirubin 1.6, AST 24, ALT 14, alkaline phosphatase 103, amylase 144. Urinalysis moderate blood, leukoesterase large, RBCs 124 WBC 49. Stool for occult blood positive. CAT scan of the abdomen and pelvis revealed moderately marked small bowel obstruction secondary to right inguinal hernia. Patient was made nothing by mouth, IV fluids were started and consult with Dr. Zelaya with plan for repair of incarcerated right inguinal hernia this afternoon. Family members are at bedside and have been updated. 09/29: Patient is currently intubated in ICU with NG tube in place. Patient has been weaned from sedation at this time. He is able to answer questions by shaking his head and nodding. Patient is anxious to write to communicate with family and staff. Daughters are at the bedside. Patient is able to answer majority of questions appropriately. Anticipate to be extubated sometime today. Patient has a JAGJIT drain in place a 20 mL of output, NG tube with 140 mL of output over the night. He continues to have dark urine. Blood pressure 114/69, pulse rate 84, 97% on mechanical intubation. The CBC 12.4, hemoglobin 12.7, potassium 4.6, BUN 69, creatinine 3.03. Patient has been a pack to 2 pack-a-day smoker for the last 50+ years. Family is requesting a nicotine patch at this time. 09/30: Patient has been extubated. He is currently sitting up in a chair with NG tube in place. Patient states that he is unable to pass gas at this time. His pulse ox continued to be sluggish. He is able to questions appropriately. Patient is requesting to have some chocolate milk. He has no other complaints or concerns at this time. NG tube drainage continues to be clear. Patient remained afebrile and hemodynamically stable. W BC 10.5, hemoglobin 12.7, potassium 4.6, BUN 57, creatinine 1.95, TSH 0.688 10/01: Patient remains in the intensive care unit. He did go into A. fib with RVR and was started on amiodarone drip. Within the last hour, patient has been de-sating status post a dose of Lasix IV was ordered for this morning and we will also add in a dose of IV Lasix for this evening. Solu-Medrol added for 3 doses and Pulmicort. Castro catheter is in place. Patient has been hemodynamically stable, blood pressure is stable. No vasopressors. WBC 10.9, hemoglobin 13.1, sodium 149, BUN 39 creatinine 1.47. Chest x-ray reveals similar findings. Correlate for pneumonia, atelectasis, difficult to exclude effusion. Correlate for possible pulmonary artery hypertension. General surgery has cleared the patient for sips of clear liquids. Dr. Edwards is following the patient. 10/02: Patient remains in the intensive care unit, afebrile, heart rate 77, blood pressure 155/74, patient is currently on a nonrebreather pulse oxing 96%. Patient received 1 dose of IV Lasix this morning. He has been on amiodarone drip was started by Dr. Montes on the weekend. There is no cardiology consult in place and we will add a cardiology consult at this time. Patient has been cleared for a clear liquid diet by general surgery. Repeat chest x-ray reveals interval tube removal. Correlate for pneumonia, pulmonary edema or congestive heart failure not excluded. Patient is on Zosyn and Flagyl. WBC 7.7, hemoglobin 13.8, sodium 149, BUN 36 and creatinine 1.38. Patient is raised Sheen 800 on incentive spirometry. personnel monitor is a sinus rhythm. Review Of Systems: Constitutional: No fever, no chills, no night sweats. No weight change. reports generalized weakness, fatigue or lethargy. No daytime sleepiness. EENT: No headache. No blurred vision or double vision, no loss of vision. No loss of Hearing, Lungs: Reports shortness of breath, denies cough Cardiovascular: No chest pain, no lower extremity edema. Reports palpitations. Abdominal: no abdominal discomfort. No nausea, vomiting. no diarrhea. No co nstipation. , Reports poor appetite Musculoskeletal: No myalgias. No muscle weakness, no gait dysfunction, no frequent falls. No back pain. No neck pain. Neurologic: No aphasia. No facial droop. No change in mentation. No headache. No paralysis. No paresthesia. Psychiatric: No depression. No anxiety. No mood swings. Objective - Vital Signs Vital signs: Vital Signs Temp 97.3 F L 10/02/19 12:00 Pulse 85 10/02/19 12:18 Resp 22 10/02/19 12:00 BP 155/74 10/02/19 12:00 Pulse Ox 96 10/02/19 12:00 Intake & Output 10/01/19 10/02/19 10/02/19 18:59 06:59 18:59 Intake Total 1395 440 320 Output Total 2019 5239 575 Balance -625 -2060 -255 Weight 90 kg 81 kg Intake: IV 1145 440 320 Dextrose 5% in Water 1, 220 240 120 000 ml @ 100 mls/hr IV . Q10H JEREMIA[facility] Rx#:[id number] Piperacillin-Tazobactam 3 100 100 100 .375 gm In Sodium Chloride 0.9% 100 ml @ 25 mls/hr IVPB Q8H JER[facility] Rx#: [id number] Sodium Chloride 0.9% 1, 625 000 ml @ 125 mls/hr IV . Q8H JEREMIA[facility] Rx#:[id number] metroNIDAZOLE-NS PMX 500 200 100 100 mg In Saline 1 100ml.bag @ 100 mls/hr IVPB Q8HR JEREMIA[facility] Rx#:[id number] Intake, IV Titration 250 Amount Amiodarone 300 mg In 250 Dextrose 5% in Water 250 ml @ 0.5 MG/MIN 25 mls/hr IV .Q10H JEREMIAH Rx#: [id number] Output: Drainage 100 40 30 Right Lower Abdomen 100 40 30 Urine 1920 2460 545 Other: Voiding Method Indwelling Catheter Indwelling Catheter Indwelling Catheter - Exam General Appearance: Alert, cooperative, no distress, appears stated age. Neck HEENT: Supple, no lymphadenopathy, no thyroid enlargement, no carotid bruits. Lungs: Right-sided wheezing, diminished on the left side. Chest Wall: Chest wall normal expansion with deep inspiration no tenderness and no deformity was found on exam, no costochondral pain or discomfort. Heart: Regular rate and rhythm, S1, S2 normal, no murmur, rub or gallop. Back: Symmetric, no curvature, ROM normal, no CVA tenderness. Abdomen: Soft, non-tender, no rebound or rigidity, no hepatosplenomegaly. Abdominal incision and right groin area, dry clean and intact, JAGJIT drain in the right lower quadrant Extremities: Extremities normal, atraumatic, no cyanosis 1+ edema bilateral lower extremities Pulses: 2+ and symmetric. Skin: Skin color, texture, tugor normal, no rashes or lesions. Neurologic: Alert oriented x3 cranial nerves II through XII intact, no motor deficit, no abnormal balance or gait - Labs CBC & Chem 7: 10/02/19 04:27 10/02/19 04:27 Labs: Abnormal Lab Results - Last 24 Hours (Table) 10/02/19 10/02/19 Range/Units 04:27 04:27 MCV 100.1 H (80.0-100.0) fL MCHC 29.8 L (31.0-37.0) g/dL Lymphocytes # 0.4 L (1.0-4.8) k/uL Sodium 149 H (137-145) mmol/L Chloride 117 H (98-107) mmol/L BUN 36 H (9-20) mg/dL Creatinine 1.38 H (0.66-1.25) mg/dL Glucose 171 H (74-99) mg/dL Calcium 8.3 L (8.4-10.2) mg/dL Microbiology - Last 24 Hours (Table) 09/29/19 01:10 Gram Stain - Final Sputum Sputum Culture - Final Escherichia coli Assessment and Plan Plan: 1. Small bowel obstruction secondary to right inguinal hernia status post exploratory laparotomy, right inguinal hernia repair with right orchiectomy and right colectomy. Consult with Dr. Nathalie khan. Patient start sips of clear liquids. Patient is on Zosyn and Flagyl. 2. Acute kidney injury secondary to vomiting and poor oral intake. Hold lisinopril. Avoid nephrotoxic agents. Continue IV fluid 125 mL per hour. 3. Lactic acidosis secondary to acute kidney injury. 4. Acute E. coli urinary tract infection secondary to self catheterization. Urine culture in progress. Patient is on Zosyn and Flagyl. 5. Hypertension. Lisinopril on hold. 6. GI prophylaxis. Protonix. 7. DVT prophylaxis. Heparin subcu 8. Tobacco use and dependence. Nicotine patch. 9. Chronic urinary retention with self-catheterization. Catsro catheter in place. 10. Acute hypoxic and hypercapnic respiratory failure secondary to aspiration pneumonia. Continue Zosyn, Solu-Medrol for 3 doses and Pulmicort. 11. Onset atrial fibrillation, paroxysmal atrial fibrillation. Patient is on amiodarone drip that was started on the weekend. Consult will be placed with cardiology for recommendations for medications. Discharge plan: To be determined. Most likely return home. Impression and plan of care have been directed as dictated by the signing physician. Kinsey De Anda nurse practitioner acting as scribe for signing physician.
[2019-10-02] MEDS: AMIODARONE 300 MG in DEXTROSE 5% IN WATER 250 ML IV SCH ×2 (14:43)
[2019-10-02] MEDS: NOREPINEPHRINE 4 MG in SODIUM CHLORIDE 0.9% 250 ML IV SCH (16:13)
[2019-10-02] MEDS ORDERED: DEXTROSE 5% IN WATER 100 ML with AMIODARONE 150 MG IV ONE (17:10)
--- NOTE | 2019-10-02 18:34 | P.PN ---
Subjective Progress Note Date: 10/02/19 Principal diagnosis: Incarcerated right inguinal hernia Patient doing fairly well today. He had a large bowel movement. Complains of mild abdominal discomfort he says slightly increased from yesterday. White blood cell count 7.7. Had another episode today of atrial fibrillation with rapid ventricular response. Shortness of breath about the same. Tolerating some of his full liquids. Objective - Vital Signs Vital signs: Vital Signs Temp 97.3 F L 10/02/19 16:00 Pulse 137 H 10/02/19 18:00 Resp 18 10/02/19 18:00 BP 166/88 10/02/19 18:00 Pulse Ox 95 10/02/19 18:00 Intake & Output 10/01/19 10/02/19 10/02/19 18:59 06:59 18:59 Intake Total 3010 455 1654 Output Total 2020 9462 2325 Balance -625 -2060 -1285 Weight 90 kg 81 kg Intake: IV 1145 440 540 Dextrose 5% in Water 1, 220 240 240 000 ml @ 20 mls/hr IV . Q24H [facility]ER[facility] Rx#:[id number] Piperacillin-Tazobactam 3 100 100 200 .375 gm In Sodium Chloride 0.9% 100 ml @ 25 mls/hr IVPB Q8H [facility]ER[facility] Rx#: [id number] Sodium Chloride 0.9% 1, 625 000 ml @ 125 mls/hr IV . Q8H [facility]EREM[facility] Rx#:[id number] metroNIDAZOLE-NS PMX 500 200 100 100 mg In Saline 1 100ml.bag @ 100 mls/hr IVPB Q8HR JER[facility] Rx#:[id number] Intake, IV Titration 250 Amount Amiodarone 300 mg In 250 Dextrose 5% in Water 250 ml @ 0.5 MG/MIN 25 mls/hr IV .Q10H JEREMIA[facility] Rx#: [id number] Oral 500 Output: Drainage 100 40 30 Right Lower Abdomen 100 40 30 Urine 1920 2460 2295 Other: Voiding Method Indwelling Catheter Indwelling Catheter Indwelling Catheter - Exam Abdomen: Soft, mild distention, mild tenderness at incision site dressing clean and dry - Labs CBC & Chem 7: 10/02/19 04:27 10/02/19 04:27 Labs: Abnormal Lab Results - Last 24 Hours (Table) 10/02/19 10/02/19 Range/Units 04:27 04:27 MCV 100.1 H (80.0-100.0) fL MCHC 29.8 L (31.0-37.0) g/dL Lymphocytes # 0.4 L (1.0-4.8) k/uL Sodium 149 H (137-145) mmol/L Chloride 117 H (98-107) mmol/L BUN 36 H (9-20) mg/dL Creatinine 1.38 H (0.66-1.25) mg/dL Glucose 171 H (74-99) mg/dL Calcium 8.3 L (8.4-10.2) mg/dL Assessment and Plan (1) Incarcerated inguinal hernia Narrative/Plan: Overall patient doing fairly well. Will advance diet for tomorrow morning. Continue optimizing pulmonary status. Continue physical therapy. Current Visit: Yes Status: Acute Code(s): K40.30 - UNIL INGUINAL HERNIA, W OBST, W/O GANGR, NOT SPCF RECUR SNOMED Code(s): 464654871
[2019-10-02] MEDS: FUROSEMIDE 10 MG/ML 4 ML VIAL IV SCH (20:32)
[2019-10-03] MEDS: HEPARIN SODIUM,PORCINE 5,000 UNIT/ML 1 ML VIAL SQ SCH ×2 (00:42→07:56)
[2019-10-03] MEDS: metroNIDAZOLE-NS PMX 500 MG in SALINE 1 100ML.BAG IVPB SCH ×4 (00:43→23:13)
[2019-10-03] MEDS: AMIODARONE 300 MG in DEXTROSE 5% IN WATER 250 ML IV SCH ×6 (00:43→21:40)
[2019-10-03] MEDS: PIPERACILLIN-TAZOBACTAM 3.375 GM in SODIUM CHLORIDE 0.9% 100 ML IVPB SCH ×3 (02:09→18:04)
[2019-10-03 05:18] LABS: Basophils # (A) 0.1 k/uL (0-0.2); Basophils % (A) 1 %; Eosinophils # (A) 0.1 k/uL (0-0.7); Eosinophils % (A) 0 %; HGB 13.5 gm/dL (13.0-17.5); Lymphocytes # (A) 0.8 k/uL (1.0-4.8); Lymphocytes % (A) 6 %; MCH 29.4 pg (25.0-35.0); MCHC 30.8 g/dL (31.0-37.0); MCV 95.6 fL (80.0-100.0); Mean Platelet Volume 9.2; Monocytes # (A) 0.8 k/uL (0-1.0); Monocytes % (A) 6 %; Neutrophils # (A) 11.2 k/uL (1.3-7.7); Neutrophils % (A) 85 %; Platelet Count 173 k/uL (150-450); RDW 12.6 % (11.5-15.5); WBC 13.1 k/uL (3.8-10.6)
[2019-10-03 05:32] LABS: Calcium 8.1 mg/dL (8.4-10.2); Potassium 3.1 mmol/L (3.5-5.1)
[2019-10-03] MEDS: POTASSIUM CHLORIDE ER 20 MEQ TAB.ER PO SCH ×2 (06:17→07:55)
[2019-10-03] MEDS ORDERED: DILTIAZEM DRIP BOLUS FROM BAG 1 MG SOLN IV ONE (07:14)
[2019-10-03] MEDS ORDERED: DILTIAZEM 125 MG in SODIUM CHLORIDE 0.9% 100 ML IV SCH (07:15)
[2019-10-03] MEDS: NICOTINE 21MG/24HR PATCH TRANSDERM SCH (07:55)
[2019-10-03] MEDS: PANTOPRAZOLE 40 MG/10 ML VIAL IVP SCH (07:56)
--- NOTE | 2019-10-03 08:07 | CONS ---
CONSULTATION REASON FOR CONSULTATION: Atrial fib, rapid ventricular rate. Mr. Deandre Wooten is an 83-year-old gentleman who came in with what seems to be a bowel obstruction, went on to have surgery for a recurrent right incarcerated inguinal hernia with bowel obstruction. He had extensive surgery including orchiectomy. Postoperatively, he has been in and out of atrial fibrillation, but since the last 24 hours he seems to be at least in a persistent atrial fib with a fairly rapid ventricular rate and I am seeing him in this regard. His thyroid functions are normal. Echo from the of this month revealed preserved systolic function without pulmonary hypertension. This patient does have a past medical history that includes hypertension and hyperlipidemia. At the time of my evaluation, he is comfortable. Denies any chest pain. He does feel some palpitations. Heart rate is in the 140s atrial fib with a rapid ventricular rate. PAST MEDICAL HISTORY: Hypertension, hyperlipidemia, status post surgery for incarcerated right inguinal hernia including bowel obstruction. PHYSICAL EXAMINATION: Blood pressure is 128/70, pulse rate about 138 per minute. HEENT: Unremarkable. Fundus was not examined by me. NECK: Supple. There is JVD of 1 cm. No carotid bruit. HEART: Exam reveals S1, S2 with tachycardia. There is a short systolic murmur at the base. LUNGS: Reveal diminished air entry. ABDOMEN: Is soft. LOWER EXTREMITIES: Reveal diminished pulses. CENTRAL NERVOUS SYSTEM: Generalized weakness. No focal deficits. IMPRESSION: 1. Atrial fibrillation, rapid ventricular rate. 2. Hypokalemia. 3. Status post right inguinal hernia repair for incarcerated hernia and bowel obstruction. RECOMMENDATIONS: I am recommending that we supplement potassium. Continue the IV amiodarone which he received additional bolus yesterday. I am also recommending 10 mg of Cardizem bolus with 10 mg drip. Hopefully this will bring his heart rate down in the 120s, which would be acceptable under the circumstances. Discussed my thoughts in detail with the patient. Thank you very much for the consult. MMODL / IJN: [id number] /
[2019-10-03] MEDS: BISACODYL 10 MG SUPP RECTAL SCH (08:14)
[2019-10-03] MEDS: IPRATROPIUM-ALBUTEROL 3 ML NEB INHALATION SCH ×4 (08:39→20:07)
[2019-10-03] MEDS: BUDESONIDE 0.5 MG/2 ML NEBU INHALATION SCH ×2 (08:39→20:07)
--- NOTE | 2019-10-03 08:42 | XR ---
EXAMINATION TYPE: XR chest 1V portable DATE OF EXAM: 10/03/2019 COMPARISON: Prior chest x-ray 10/02/2019 HISTORY: Abnormal chest x-ray TECHNIQUE: Single frontal view of the chest is obtained. FINDINGS: Pleural-parenchymal changes are similar to prior exam. Heart size is obscured but thought to be enlarged. Aorta is dense. There are overlying cardiac leads. IMPRESSION: There is not a significant interval change. Correlate for congestive heart failure, volu me overload, pneumonia
[2019-10-03] MEDS: NOREPINEPHRINE 4 MG in SODIUM CHLORIDE 0.9% 250 ML IV SCH (10:07)
--- NOTE | 2019-10-03 10:41 | US ---
EXAMINATION TYPE: US chest DATE OF EXAM: 10/03/2019 COMPARISON: CXR same date CLINICAL HISTORY: Markings for thoracentesis by pulmonary staff. Pleural effusion TECHNIQUE: Targeted ultrasound of the posterior lower bilateral hemithoraces EXAM MEASUREMENTS: Right Pleural Effusion pocket size: 5.4 cm Right skin surface to fluid distance: 3.2 cm Right side marked for possible thoracentesis outside the dept. Pulmonologists are able to review the images in the patient?s EMR. No significant effusion noted on the left. IMPRESSIONS: Right pleural effusion
--- NOTE | 2019-10-03 12:16 | XR ---
EXAMINATION TYPE: XR chest 1V portable DATE OF EXAM: 10/03/2019 COMPARISON: 10/03/2019 INDICATION: Right thoracentesis TECHNIQUE: Single frontal view of the chest is obtained. FINDINGS: The heart size is normal. The pulmonary vasculature is normal. There is consolidation to the right mid and lower lung field compatible with the resolving atelectasi s. Underlying pneumonia could be considered. Previous right pleural effusion has largely resolved . N o pneumothorax is evident post thoracentesis. IMPRESSION: 1. No pneumothorax postthoracentesis. 2. Resolving infiltrate to the right lung and left base.
--- NOTE | 2019-10-03 12:44 | P.PN ---
Subjective Progress Note Date: 10/03/19 Principal diagnosis: exploratory laparotomy, right inguinal hernia repair and right orchiectomy and right colectomy. The patient is postop day #5 An 83-year-old male patient intubated on a mechanical ventilator, currently postop day #1 following a right colectomy, right inguinal hernia repair with orchiectomy. The patient came into the hospital with bowel obstruction and was diagnosed having a recurrent right incarcerated inguinal hernia with bowel obstruction. He underwent his surgery yesterday. Postop, he was extubated but he was quite lethargic and he was having significant respiratory distress and he was given a blood gas that showed respiratory acidosis with a pH of 7.12 with a pCO2 of 69 and pO2 123. Based on that, the patient was reintubated. This morning, the patient is was resuscitated. Overnight he was hypotensive and he was started on pressors with norepinephrine infusion. He was given a total of 6 L of IV fluids in the form of normal saline and his pressors currently running at 0.05 g per KG per minute. He is warm. There is adequate pulses in all 4 extremities. His blood pressures improved. He is currently assist-control mode rate of 26 with a tidal volume of 500 and an FiO2 of 50% with a PEEP of 5. Chest x-ray from this morning shows that ET tube is around 2 cm above the jazzmine. The patient has a right lower lobe consolidation which was seen on previous chest films. He has also underlying COPD. OG tube is in a good location. He is renal failure. The chronicity of this kidney injury is not known. The patient's creatinine is at 3.0. He is producing urine output in the order of 50 mL an hour. Currently on a combination of Zosyn and Flagyl. He is on propofol which is running at 25 g per KG per minute. The patient is seen today 09/30/2019 in follow-up in the intensive care unit. He was successfully extubated yesterday. He is postoperative day #2 following a right colectomy, right inguinal hernia repair with orchiectomy. He is doing quite well. He is currently sitting up in a chair at the bedside. Awake and alert in no acute distress. He did have a episode of atrial fibrillation with RVR and was initiated on Cardizem drip at 5 mg per hour. He is back in normal sinus rhythm. Echocardiogram and TSH levels are pending. His chest x-ray does show increased right lower lobe pneumonia as well. Sputum sample is pending. He needs increased encouragement regarding the use of the incentive spirometer. He has a loose nonproductive cough. He is maintaining good O2 saturations in the 90s on 4 L/m per nasal cannula. Urine culture was positive for E. coli. Sputum culture reveals no growth. White count 10.5. Hemoglobin 12.7. Creatinine 1.95. Remains on Zosyn and Flagyl. Heparin for DVT prophylaxis. Patient was reevaluated today on 10/01/2019, patient remains in the ICU, continues to have significant right lower lobe consolidation/pneumonia, felt to be most likely secondary to aspiration pneumonia. He was extubated a few days ago, he is on 4 L nasal cannula. Patient is not requiring any pressors, he is hemodynamically stable, remains on broad-spectrum antibiotics for presumptive aspiration pneumonia and abdominal sepsis. CBC showed WBC count of 10.9 hemoglobin is 13.1, sodium is high at 149 BUN is down to 39 and creatinine is down to 1.47, improving. Overall the patient seems to be demonstrating steady improvement. Chest x-ray remains a bit concerning to me. Reevaluated today on 10/02/2019, patient remains in the ICU, his overall pulmonary status is marginal, continues to have significant right lower lobe consolidation, and possibly some component of interstitial edema. Or aspiration pneumonia. Patient is on nonrebreather mask. Denies any shortness of breath, denies any cough no wheezing no fever no chills no hemoptysis and no chest pain. He is hemodynamically stable. WBC count is 7.7 hemoglobin is 13.8. Sodium remains elevated 149 BUN is 36 coming down and the creatinine is 1.38 coming down steadily. Patient was reevaluated today on 10/03/2019, remains in the ICU, presently in atrial fibrillation with RVR, placed on amiodarone and on Cardizem drip by cardiology. He is also on heparin. When I saw him earlier today, I reviewed his chest x-ray and there is evidence of good sized right-sided pleural effusion, performed ultrasound-guided thoracentesis, and I was able to retrieve 850 mL of fluid from the right pleural space slightly serosanguineous but seems to be likely transudative in nature labs are pending on the fluid. Clinically the patient is better, remains on high flow nasal cannula, O2 saturation is marginal. And again he is in atrial fibrillation with RVR at present WBC count is 13.1 hemoglobin is 13.5 electrolyte showed low potassium of 3.1 being corrected as per protocol. Renal functioning remains marginal but improved compared to a few days ago, creatinine is 1.41. Objective - Vital Signs Vital signs: Vital Signs Temp 98 F 10/03/19 08:00 Pulse 141 H 10/03/19 12:36 Resp 22 10/03/19 11:00 BP 128/82 10/03/19 11:00 Pulse Ox 92 L 10/03/19 11:00 Intake & Output 10/02/19 10/03/19 10/03/19 18:59 06:59 18:59 Intake Total 1040 690 215.833 Output Total 2325 2550 360 Balance -1285 -1860 -144.167 Weight 79.5 kg Intake: IV 540 440 200 Dextrose 5% in Water 1, 240 240 100 000 ml @ 20 mls/hr IV . Q24H [facility] Rx#:[id number] Piperacillin-Tazobactam 3 200 100 .375 gm In Sodium Chloride 0.9% 100 ml @ 25 mls/hr IVPB Q8H [facility] Rx#: [id number] metroNIDAZOLE-NS PMX 500 100 100 100 mg In Saline 1 100ml.bag @ 100 mls/hr IVPB Q8HR [facility] Rx#:[id number] Intake, IV Titration 250 15.833 Amount Amiodarone 300 mg In 250 Dextrose 5% in Water 250 ml @ 0.5 MG/MIN 25 mls/hr IV .Q10H [facility] Rx#: [id number] Diltiazem 125 mg In 15.833 Sodium Chloride 0.9% 100 ml @ 10 MG/HR 10 mls/hr IV .[id number] [facility]ER[facility]IA[facility] Rx#: [id number] Oral 500 Output: Drainage 30 40 Right Lower Abdomen 30 40 Urine 2295 2550 320 Other: Voiding Method Indwelling Catheter Indwelling Catheter Indwelling Catheter - Exam Physical Exam: Revealed a 83-year-old white male on high flow nasal cannula, in no distress. Head: Atraumatic normocephalic. HEENT:[Neck is supple.] [No neck masses.] [No thyromegaly.] [No JVD.] PERRLA, EOMI, no icterus, no thyromegaly. Chest: [Crackles persist bilaterally. Right more so than left] Cardiac Exam: Irregular irregular rhythm. [Normal S1 and S2, no S3 gallop, 2/6 systolic murmur thought the precordium. Abdomen: abdomen was soft, non-tender, and without masses, organomegaly, or appreciable enlargement of the abdominal aorta. Dressing dry and intact, abdominal incision which is in his right groin area. The wound is which is dry clean and intact and the patient is a JAGJIT drain in the right lower quadrant. Extremities: [No clubbing, no edema, no cyanosis.] Neurological Exam: [No focal neurologic deficit.] Alert and oriented 3. Psychiatric: Normal mood affect and normal mental status examination. Skin: No rashes. Lymphatics: No lymphadenopathy. - Labs CBC & Chem 7: 10/03/19 05:06 10/03/19 05:06 Labs: Abnormal Lab Results - Last 24 Hours (Table) 10/03/19 10/03/19 Range/Units 05:06 05:06 WBC 13.1 H (3.8-10.6) k/uL MCHC 30.8 L (31.0-37.0) g/dL Neutrophils # 11.2 H (1.3-7.7) k/uL Lymphocytes # 0.8 L (1.0-4.8) k/uL Potassium 3.1 L (3.5-5.1) mmol/L Chloride 110 H (98-107) mmol/L BUN 39 H (9-20) mg/dL Creatinine 1.41 H (0.66-1.25) mg/dL Glucose 152 H (74-99) mg/dL Calcium 8.1 L (8.4-10.2) mg/dL Assessment and Plan Assessment: Impression: Status post exploratory laparotomy, right inguinal hernia repair and right orchiectomy as well as right colectomy postoperative day # 5 Acute bowel obstruction on presentation. Acute hypoxic and hypercapnic respiratory failure unexpected. Mostly secondary to aspiration pneumonia. Acute aspiration pneumonia, significantly improved appearance of the chest x-ray after right-sided thoracentesis be Acute kidney injury, unknown whether the patient had chronic kidney disease. Atrial fibrillation with RVR, being addressed by cardiology. E. coli urinary tract infection Hypertension Dyslipidemia Suspect underlying chronic obstructive pulmonary disease, patient is a chronic smoker. Right pleural effusion, status post thoracentesis on 10/03/2019 Recommendation: Right thoracentesis was performed. Continue oxygen and titrate accordingly. Continue antibiotics Continue amiodarone for atrial fibrillation, continue Cardizem drip as per cardiology. Continue to monitor in the ICU. Physical therapy. Continue incentive spirometry deep coughing and deep breathing We'll continue to monitor in the ICU We'll continue to follow. Time with Patient: Less than 30
--- NOTE | 2019-10-03 12:49 | PCN ---
PROCEDURE NOTE PROCEDURE NOTE: Right-sided thoracentesis. PREOPERATIVE DIAGNOSIS: Pleural effusion. POSTOPERATIVE DIAGNOSIS: Pleural effusion. ANESTHESIA USED: 2 mL of 1% lidocaine. PROCEDURE: The patient was placed in a sitting upright position, the area below the right scapula was prepared in a sterile fashion and drapes were applied. To remind you, the area was earlier localized by ultrasound guidance. After adequate topical lidocaine applied in the area of the eighth intercostal space and tip of the scapula, a 26-gauge needle was inserted into the pleural space and the fluid was localized with the needle. Then a small tiny incision was made, and a standard thoracentesis catheter and needle were used, advanced into the pleural space until fluid was obtained. Then the catheter was advanced over the needle and the needle was pulled out of the pleural space. Freely flowing fluid was removed, the fluid was slightly serosanguineous, and roughly 850 mL of fluid was drained from the right pleural space. The fluid was sent for different diagnostic studies. No evidence of any immediate complications. Chest x-ray done showed no evidence of pneumothorax. MMODL / IJN: [id number] /
--- NOTE | 2019-10-03 13:17 | P.PN ---
Subjective Progress Note Date: 10/03/19 Principal diagnosis: Incarcerated right inguinal hernia Patient doing about the same today. Denies abdominal pain. Had a large liquid stool this morning. Tolerating regular food. Remains tachycardic. He had 8 50 mL pulled out of the right pleural cavity today. JAGJIT drain 50 mL. White blood cell count 13.1 today. Objective - Vital Signs Vital signs: Vital Signs Temp 98 F 10/03/19 12:00 Pulse 156 H 10/03/19 13:00 Resp 22 10/03/19 13:00 BP 133/84 10/03/19 13:00 Pulse Ox 94 L 10/03/19 13:00 Intake & Output 10/02/19 10/03/19 10/03/19 18:59 06:59 18:59 Intake Total 1040 690 255.833 Output Total 2325 2550 460 Balance -1285 -1860 -204.167 Weight 79.5 kg Intake: IV 540 440 240 Dextrose 5% in Water 1, 240 240 140 000 ml @ 20 mls/hr IV . Q24H [facility] Rx#:[id number] Piperacillin-Tazobactam 3 200 100 .375 gm In Sodium Chloride 0.9% 100 ml @ 25 mls/hr IVPB Q8H [facility] Rx#: [id number] metroNIDAZOLE-NS PMX 500 100 100 100 mg In Saline 1 100ml.bag @ 100 mls/hr IVPB Q8HR [facility] Rx#:[id number] Intake, IV Titration 250 15.833 Amount Amiodarone 300 mg In 250 Dextrose 5% in Water 250 ml @ 0.5 MG/MIN 25 mls/hr IV .Q10H [facility] Rx#: [id number] Diltiazem 125 mg In 15.833 Sodium Chloride 0.9% 100 ml @ 10 MG/HR 10 mls/hr IV .[id number] [facility] Rx#: [id number] Oral 500 Output: Drainage 30 40 Right Lower Abdomen 30 40 Urine 2295 2550 420 Other: Voiding Method Indwelling Catheter Indwelling Catheter Indwelling Catheter - Exam Abdomen: Soft, minimal distention, mild tympany, nontender, dressing clean and dry - Labs CBC & Chem 7: 10/03/19 05:06 10/03/19 05:06 Labs: Abnormal Lab Results - Last 24 Hours (Table) 10/03/19 10/03/19 Range/Units 05:06 05:06 WBC 13.1 H (3.8-10.6) k/uL MCHC 30.8 L (31.0-37.0) g/dL Neutrophils # 11.2 H (1.3-7.7) k/uL Lymphocytes # 0.8 L (1.0-4.8) k/uL Potassium 3.1 L (3.5-5.1) mmol/L Chloride 110 H (98-107) mmol/L BUN 39 H (9-20) mg/dL Creatinine 1.41 H (0.66-1.25) mg/dL Glucose 152 H (74-99) mg/dL Calcium 8.1 L (8.4-10.2) mg/dL Assessment and Plan (1) Incarcerated inguinal hernia Narrative/Plan: Continue regular diet. Increase activity as tolerated. Continue trying to convert out of A. fib. Will follow. Current Visit: Yes Status: Acute Code(s): K40.30 - UNIL INGUINAL HERNIA, W OBST, W/O GANGR, NOT SPCF RECUR SNOMED Code(s): 682227571
[2019-10-03] MEDS: ESMOLOL IN SODIUM CHLORIDE PMX 2.5 GM in SALINE 1 250ML.BAG IV SCH ×2 (13:23→19:01)
[2019-10-03] MEDS: HEPARIN SOD,PORK IN 0.45% NACL 25,000 UNIT in 0.45% NACL 1 250ML.BAG IV SCH (13:30)
--- NOTE | 2019-10-03 13:56 | P.PN ---
Subjective Progress Note Date: 10/03/19 This is an 83-year-old male patient of Dr. Rao with past medical history of hypertension, hyperlipidemia, chronic urinary retention for 10 years status post recath at home, tobacco use and dependence. Patient states he started having vomiting on Tuesday as well as lower abdominal pain. He denies having any shortness of breath, no chest pain. He denies having any diarrhea. Patient came into [facility] emergency center for evaluation where he was found to be afebrile, blood pressure initially 84/53, heart rate 93-110, pulse ox 92% on room air. WBC 17.8, hemoglobin 20.4. BUN 36 creatinine 2.67, lactic acid 7.2, total bilirubin 1.6, AST 24, ALT 14, alkaline phosphatase 103, amylase 144. Urinalysis moderate blood, leukoesterase large, RBCs 124 WBC 49. Stool for occult blood positive. CAT scan of the abdomen and pelvis revealed moderately marked small bowel obstruction secondary to right inguinal hernia. Patient was made nothing by mouth, IV fluids were started and consult with Dr. Zelaya with plan for repair of incarcerated right inguinal hernia this afternoon. Family members are at bedside and have been updated. 09/29: Patient is currently intubated in ICU with NG tube in place. Patient has been weaned from sedation at this time. He is able to answer questions by shaking his head and nodding. Patient is anxious to write to communicate with family and staff. Daughters are at the bedside. Patient is able to answer majority of questions appropriately. Anticipate to be extubated sometime today. Patient has a JAGJIT drain in place a 20 mL of output, NG tube with 140 mL of output over the night. He continues to have dark urine. Blood pressure 114/69, pulse rate 84, 97% on mechanical intubation. The CBC 12.4, hemoglobin 12.7, potassium 4.6, BUN 69, creatinine 3.03. Patient has been a pack to 2 pack-a-day smoker for the last 50+ years. Family is requesting a nicotine patch at this time. 09/30: Patient has been extubated. He is currently sitting up in a chair with NG tube in place. Patient states that he is unable to pass gas at this time. His pulse ox continued to be sluggish. He is able to questions appropriately. Patient is requesting to have some chocolate milk. He has no other complaints or concerns at this time. NG tube drainage continues to be clear. Patient remained afebrile and hemodynamically stable. W BC 10.5, hemoglobin 12.7, potassium 4.6, BUN 57, creatinine 1.95, TSH 0.688 10/01: Patient remains in the intensive care unit. He did go into A. fib with RVR and was started on amiodarone drip. Within the last hour, patient has been de-sating status post a dose of Lasix IV was ordered for this morning and we will also add in a dose of IV Lasix for this evening. Solu-Medrol added for 3 doses and Pulmicort. Castro catheter is in place. Patient has been hemodynamically stable, blood pressure is stable. No vasopressors. WBC 10.9, hemoglobin 13.1, sodium 149, BUN 39 creatinine 1.47. Chest x-ray reveals similar findings. Correlate for pneumonia, atelectasis, difficult to exclude effusion. Correlate for possible pulmonary artery hypertension. General surgery has cleared the patient for sips of clear liquids. Dr. Edwards is following the patient. 10/02: Patient remains in the intensive care unit, afebrile, heart rate 77, blood pressure 155/74, patient is currently on a nonrebreather pulse oxing 96%. Patient received 1 dose of IV Lasix this morning. He has been on amiodarone drip was started by Dr. Montes on the weekend. There is no cardiology consult in place and we will add a cardiology consult at this time. Patient has been cleared for a clear liquid diet by general surgery. Repeat chest x-ray reveals interval tube removal. Correlate for pneumonia, pulmonary edema or congestive heart failure not excluded. Patient is on Zosyn and Flagyl. WBC 7.7, hemoglobin 13.8, sodium 149, BUN 36 and creatinine 1.38. Patient is raised Sheen 800 on incentive spirometry. 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 10/03: Repeat chest x-ray reveals no significant change. Correlate for conge stive heart failure, volume overload, pneumonia. Dr. Hayes has ordered an ultrasound of the chest and he is status post thoracentesis with removal of 850 mL. Lasix will be discontinued.. Patient has been seen by Dr. THU Edwards with plan to continue IV amiodarone and recommended a 10 mg Cardizem bolus with 10 mg drip and started on heparin drip. Patient's heart rate has been running in the 140s and 150s and he is scheduled for SHIRA and cardioversion tomorrow. Blood pressure 120/82, pulse ox 93% on high flow nasal cannula. Patient's diet has been advanced to low fiber this morning by Dr. Zelaya. Patient states that he is not sleeping. Melatonin added. Review Of Systems: Constitutional: No fever, no chills, no night sweats. No weight change. reports generalized weakness, fatigue or lethargy. No daytime sleepiness. EENT: No headache. No blurred vision or double vision, no loss of vision. No loss of Hearing, Lungs: Reports shortness of breath, denies cough Cardiovascular: No chest pain, no lower extremity edema. Reports palpitations. Abdominal: no abdominal discomfort. No nausea, vomiting. no diarrhea. No constipation. , Reports poor appetite Musculoskeletal: No myalgias. No muscle weakness, no gait dysfunction, no frequent falls. No back pain. No neck pain. Neurologic: No aphasia. No facial droop. No change in mentation. No headache. No paralysis. No paresthesia. Psychiatric: No depression. No anxiety. No mood swings. Reports insomnia Objective - Vital Signs Vital signs: Vital Signs Temp 98 F 10/03/19 08:00 Pulse 140 H 10/03/19 08:52 Resp 22 10/03/19 08:00 BP 154/86 10/03/19 08:00 Pulse Ox 96 10/03/19 08:00 Intake & Output 10/02/19 10/03/19 10/03/19 18:59 06:59 18:59 Intake Total 1040 690 140 Output Total 3298 2550 175 Balance -1285 -1860 -35 Weight 79.5 kg Intake: IV 540 440 140 Dextrose 5% in Water 1, 240 240 40 000 ml @ 20 mls/hr IV . Q24H [facility] Rx#:[id number] Piperacillin-Tazobactam 3 200 100 .375 gm In Sodium Chloride 0.9% 100 ml @ 25 mls/hr IVPB Q8H [facility] Rx#: [id number] metroNIDAZOLE-NS PMX 500 100 100 100 mg In Saline 1 100ml.bag @ 100 mls/hr IVPB Q8HR [facility] Rx#:[id number] Intake, IV Titration 250 Amount Amiodarone 300 mg In 250 Dextrose 5% in Water 250 ml @ 0.5 MG/MIN 25 mls/hr IV .Q10H [facility] Rx#: [id number] Oral 500 Output: Drainage 30 40 Right Lower Abdomen 30 40 Urine 2295 2550 135 Other: Voiding Method Indwelling Catheter Indwelling Catheter Indwelling Catheter - Exam General Appearance: Alert, cooperative, no distress, appears stated age. Neck HEENT: Supple, no lymphadenopathy, no thyroid enlargement, no carotid bruits. Lungs: Right-sided wheezing, diminished on the left side. Chest Wall: Chest wall normal expansion with deep inspiration no tenderness and no deformity was found on exam, no costochondral pain or discomfort. Heart: Irregular rate and rhythm, S1, S2 normal, no murmur, rub or gallop. Heart monitor atrial fibrillation with rate 140s and 150s Back: Symmetric, no curvature, ROM normal, no CVA tenderness. Abdomen: Soft, non-tender, no rebound or rigidity, no hepatosplenomegaly. Abdominal incision and right groin area, dry clean and intact, JAGJIT drain in the right lower quadrant Extremities: Extremities normal, atraumatic, no cyanosis 1+ edema bilateral lower extremities Pulses: 2+ and symmetric. Skin: Skin color, texture, tugor normal, no rashes or lesions. Neurologic: Alert oriented x3 cranial nerves II through XII intact, no motor deficit, no abnormal balance or gait - Labs CBC & Chem 7: 10/03/19 05:06 10/03/19 05:06 Labs: Abnormal Lab Results - Last 24 Hours (Table) 10/03/19 10/03/19 Range/Units 05:06 05:06 WBC 13.1 H (3.8-10.6) k/uL MCHC 30.8 L (31.0-37.0) g/dL Neutrophils # 11.2 H (1.3-7.7) k/uL Lymphocytes # 0.8 L (1.0-4.8) k/uL Potassium 3.1 L (3.5-5.1) mmol/L Chloride 110 H (98-107) mmol/L BUN 39 H (9-20) mg/dL Creatinine 1.41 H (0.66-1.25) mg/dL Glucose 152 H (74-99) mg/dL Calcium 8.1 L (8.4-10.2) mg/dL Assessment and Plan Plan: 1. Small bowel obstruction secondary to right inguinal hernia status post exploratory laparotomy, right inguinal hernia repair with right orchiectomy and right colectomy. Consult with Dr. Zelaya appreciated. Diet advance to low fiber. Patient is on Zosyn and Flagyl. 2. Acute kidney injury secondary to vomiting and poor oral intake. Hold lisinopril. Avoid nephrotoxic agents. 3. Lactic acidosis secondary to acute kidney injury. 4. Acute E. coli urinary tract infection secondary to self catheterization. Urine culture in progress. Patient is on Zosyn and Flagyl. 5. Hypertension. Lisinopril on hold. 6. GI prophylaxis. Protonix. 7. DVT prophylaxis. Heparin subcu 8. Tobacco use and dependence. Nicotine patch. 9. Chronic urinary retention with self-catheterization. Castro catheter in place. 10. Acute hypoxic and hypercapnic respiratory failure secondary to aspiration pneumonia and pleural effusion status post thoracentesis. Continue Zosyn. 11. Onset atrial fibrillation, paroxysmal atrial fibrillation, uncontrolled rate. Patient is on amiodarone drip and Cardizem drip. Cardiology consult appreciated. Patient is scheduled for SHIRA and cardioversion tomorrow. 12. Suspected COPD. Discharge plan: To be determined. Most likely return home. Impression and plan of care have been directed as dictated by the signing physician. Kinsey De Anda nurse practitioner acting as scribe for signing ph ysician.
[2019-10-03 17:08] LABS: Appearance,BF Cloudy; Color,BF Yellow; Nucleated Cells, Body Fluid 22 /uL; RBC, Body Fluid 1255 /uL
[2019-10-03 17:10] LABS: Mononuclear WBC,Body Fluid 25 %; Polynuclear WBC,Body Fluid 75 %; Total Cells Counted,Body Fluid 100
[2019-10-03] MEDS: MELATONIN 3 MG TABLET PO SCH (20:29)
[2019-10-03] MEDS ORDERED: HEPARIN SODIUM,PORCINE 5,000 UNIT/ML 1 ML VIAL IV PRN (22:56)
[2019-10-04 01:47] LABS: Glucose, BF Source Pleural Fluid; Glucose, Body Fluid 196 mg/dL
[2019-10-04] MEDS: PIPERACILLIN-TAZOBACTAM 3.375 GM in SODIUM CHLORIDE 0.9% 100 ML IVPB SCH ×3 (02:46→19:18)
[2019-10-04] MEDS: NOREPINEPHRINE 4 MG in SODIUM CHLORIDE 0.9% 250 ML IV SCH ×2 (02:58→20:27)
[2019-10-04] MEDS: DEXTROSE 5% IN WATER 1,000 ML IV SCH ×2 (03:31→19:09)
[2019-10-04 05:38] LABS: Basophils % (A) 0 %; Eosinophils # (A) 0.1 k/uL (0-0.7); Eosinophils % (A) 0 %; HCT 44.4 % (39.0-53.0); HGB 14.3 gm/dL (13.0-17.5); Hypochromasia Slight; Lymphocytes # (A) 1.3 k/uL (1.0-4.8); Lymphocytes % (A) 8 %; MCHC 32.3 g/dL (31.0-37.0); Mean Platelet Volume 9.6; Monocytes # (A) 0.5 k/uL (0-1.0); Monocytes % (A) 3 %; Neutrophils # (A) 14.2 k/uL (1.3-7.7); Neutrophils % (A) 87 %; Platelet Count 245 k/uL (150-450); RBC 4.62 m/uL (4.30-5.90); RDW 12.6 % (11.5-15.5); WBC 16.3 k/uL (3.8-10.6)
[2019-10-04] MEDS ORDERED: AMIODARONE 300 MG in DEXTROSE 5% IN WATER 250 ML IV SCH ×2 (05:45)
[2019-10-04 06:09] LABS: Calcium 7.9 mg/dL (8.4-10.2); Potassium 3.9 mmol/L (3.5-5.1)
--- NOTE | 2019-10-04 07:56 | XR ---
EXAMINATION TYPE: XR chest 1V portable DATE OF EXAM: 10/04/2019 COMPARISON: 10/03/2019 HISTORY: Shortness of breath TECHNIQUE: Single frontal view of the chest is obtained. FINDINGS: A persistent extensive interstitial pattern bilateral consolidation and pleural effusion g reater on the right. Heart size stable. Underlying COPD suspected. Linear lucency along the medial ma rgin of the right lung. IMPRESSION: 1. COPD with bilateral infiltrate and pleural effusion correlate for pneumonia versus CHF. Underlying neoplasm in the right lung excluded. 2. There is a linear lucency along the medial margin of the right lung. Recommend PA and lateral view s of the chest to exclude a anterior small pneumothorax.
[2019-10-04] MEDS: IPRATROPIUM-ALBUTEROL 3 ML NEB INHALATION SCH ×4 (08:41→20:15)
[2019-10-04] MEDS: BUDESONIDE 0.5 MG/2 ML NEBU INHALATION SCH ×2 (08:41→20:15)
[2019-10-04] MEDS: ESMOLOL IN SODIUM CHLORIDE PMX 2.5 GM in SALINE 1 250ML.BAG IV SCH ×2 (09:03→20:27)
[2019-10-04] MEDS: metroNIDAZOLE-NS PMX 500 MG in SALINE 1 100ML.BAG IVPB SCH ×2 (09:03→16:58)
[2019-10-04] MEDS: NICOTINE 21MG/24HR PATCH TRANSDERM SCH (09:03)
[2019-10-04] MEDS: BISACODYL 10 MG SUPP RECTAL SCH (09:04)
[2019-10-04] MEDS: PANTOPRAZOLE 40 MG/10 ML VIAL IVP SCH (09:04)
--- NOTE | 2019-10-04 09:11 | PN ---
PROGRESS NOTE Mr. Deandre Wooten is in atrial fib, rate about 120 to 130 on esmolol drip and amiodarone drip. Hemodynamically stable. He has been in persistent rhythm of this nature for 48 hours. He is on heparin for 24 hours. I am recommending a transesophageal echo and electrical cardioversion. Hopefully, Dr. Ella Deng will perform procedure today. I discussed the details of the procedure, rationale risks, benefits and options. Patient understands and wishes to proceed. Blood pressure is 120/70, pulse rate is about 130 per minute, irregular. JVD of 1 cm. No carotid bruit. S1, S2 with tachycardia noted. Short systolic murmur noted. Lungs reveal diminished air entry. Abdomen and lower extremity exam is unchanged. PLAN: We are planning for SHIRA and electrical cardioversion today. MMODL / IJN: [id number] /
[2019-10-04] MEDS ORDERED: PROPOFOL 10 MG/ML 20 ML VIAL IV ONE (11:50)
[2019-10-04] MEDS ORDERED: DEXTROSE 5% IN WATER 100 ML with AMIODARONE 150 MG IV ONE (12:01)
[2019-10-04] MEDS ORDERED: AMIODARONE 360 MG in DEXTROSE 5% IN WATER 200 ML IV ONE ×2 (12:01)
--- NOTE | 2019-10-04 12:01 | P.PN ---
<Mohini Brown Alley - Last Filed: 10/04/19 11:49> Subjective Progress Note Date: 10/04/19 CHIEF COMPLAINT: abdominal pain HISTORY OF PRESENT ILLNESS: Patient is status post right colectomy and repair of recurrent right inguinal hernia with orchiectomy performed on 09/28/2019. Yen angel examined this morning the intensive care unit. He reports shortness of breath this morning. On 15L NC. NPO for SHIRA today, but was previously tolerating diet. No nausea or vomiting. WBC 16.3. PHYSICAL EXAM: VITAL SIGNS: Reviewed. GENERAL: Well-developed in no acute distress-mildly SOB. HEENT: No sclera icterus. Extraocular movements grossly intact. Moist buccal mucosa. Head is atraumatic, normocephalic. ABDOMEN: Soft. Minimal distention. Appropriate surgical tenderness. Dressing CDI. JAGJIT with serosanguineous drainage NEUROLOGIC: Alert and oriented. Cranial nerves II through XII grossly intact. ASSESSMENT: 1. Abdominal pain 2. Nausea and vomiting 3. Small bowel obstruction secondary to incarcerated right inguinal hernia, status post right colectomy and repair of recurrent right inguinal hernia with orchiectomy PLAN: NPO for SHIRA today. May resume regular diet after. Pain control Incentive spirometer GI/DVT prophylaxis Activity as tolerated Monitor JAGJIT drain output. Nurse practitioner note has been reviewed by physician. Signing provider agrees with the documented findings, assessment, and plan of care. Objective - Vital Signs Vital signs: Vital Signs Temp 97.7 F 10/04/19 08:00 Pulse 122 H 10/04/19 09:00 Resp 20 10/04/19 09:00 BP 115/76 10/04/19 09:00 Pulse Ox 95 10/04/19 09:00 Intake & Output 10/03/19 10/04/19 10/04/19 18:59 06:59 18:59 Intake Total 605.833 932.22 160 Output Total 750 670 120 Balance -144.167 262.22 40 Weight 79.5 kg 80.9 kg Intake: IV 340 340 160 Dextrose 5% in Water 1, 240 240 60 000 ml @ 20 mls/hr IV . Q24H [facility] Rx#:[id number] metroNIDAZOLE-NS PMX 500 100 100 100 mg In Saline 1 100ml.bag @ 100 mls/hr IVPB Q8HR [facility] Rx#:[id number] Intake, IV Titration 265.833 592.22 Amount Amiodarone 300 mg In 250 Dextrose 5% in Water 250 ml @ 0.5 MG/MIN 25 mls/hr IV .Q10H [facility] Rx#: [id number] Diltiazem 125 mg In 15.833 Sodium Chloride 0.9% 100 ml @ 10 MG/HR 10 mls/hr IV .[id number] [facility] Rx#: [id number] Esmolol in Sodium 250.000 250.00 Chloride Pmx 2.5 gm In Saline 1 250ml.bag @ 50 MCG/KG/MIN 23.85 mls/hr IV .[id number] [facility] Rx#: [id number] Heparin Sod,Pork in 0.45% 92.22 NaCl 25,000 unit In 0.45 % NaCl 1 250ml.bag @ 12 UNITS/KG/HR 9.54 mls/hr IV .Q24H [facility] Rx#: [id number] Output: Drainage 40 Right Lower Abdomen 40 Urine 710 670 120 Other: Voiding Method Indwelling Catheter Indwelling Catheter # Bowel Movements 1 - Labs CBC & Chem 7: 10/04/19 05:20 10/04/19 05:20 Labs: Abnormal Lab Results - Last 24 Hours (Table) 10/03/19 10/04/19 10/04/19 Range/Units 21:45 05:20 05:20 WBC 16.3 H (3.8-10.6) k/uL Neutrophils # 14.2 H (1.3-7.7) k/uL APTT 38.6 H 49.9 H (22.0-30.0) sec Chloride (98-107) mmol/L BUN (9-20) mg/dL Creatinine (0.66-1.25) mg/dL Glucose (74-99) mg/dL Calcium (8.4-10.2) mg/dL 10/04/19 Range/Units 05:20 WBC (3.8-10.6) k/uL Neutrophils # (1.3-7.7) k/uL APTT (22.0-30.0) sec Chloride 112 H (98-107) mmol/L BUN 42 H (9-20) mg/dL Creatinine 1.29 H (0.66-1.25) mg/dL Glucose 141 H (74-99) mg/dL Calcium 7.9 L (8.4-10.2) mg/dL Microbiology - Last 24 Hours (Table) 10/03/19 15:00 Gram Stain - Preliminary Pleural Fluid Body Fluid Culture - Preliminary <LulElio moreland - Last Filed: 10/04/19 18:27> Subjective As above. Patient denies abdominal pain. Tolerating diet. 2 bowel movement so far today. SHIRA thus far seems to be successful. Continue ICU observation. Resume physical therapy now that heart rate controlled. Objective - Vital Signs Vital signs: Vital Signs Temp 97.7 F 10/04/19 08:00 Pulse 68 10/04/19 13:17 Resp 20 10/04/19 09:00 BP 115/76 10/04/19 09:00 Pulse Ox 95 10/04/19 09:00 Intake & Output 10/03/19 10/04/19 10/04/19 18:59 06:59 18:59 Intake Total 605.833 932.22 317.78 Output Total 750 670 120 Balance -144.167 262.22 197.78 Weight 79.5 kg 80.9 kg Intake: IV 340 340 160 Dextrose 5% in Water 1, 240 240 60 000 ml @ 20 mls/hr IV . Q24H [facility] Rx#:[id number] metroNIDAZOLE-NS PMX 500 100 100 100 mg In Saline 1 100ml.bag @ 100 mls/hr IVPB Q8HR [facility] Rx#:[id number] Intake, IV Titration 265.833 592.22 157.78 Amount Amiodarone 300 mg In 250 Dextrose 5% in Water 250 ml @ 0.5 MG/MIN 25 mls/hr IV .Q10H [facility] Rx#: [id number] Diltiazem 125 mg In 15.833 Sodium Chloride 0.9% 100 ml @ 10 MG/HR 10 mls/hr IV .[id number] [facility] Rx#: [id number] Esmolol in Sodium 250.000 250.00 Chloride Pmx 2.5 gm In Saline 1 250ml.bag @ 50 MCG/KG/MIN 23.85 mls/hr IV .[id number] [facility] Rx#: [id number] Heparin Sod,Pork in 0.45% 92.22 157.78 NaCl 25,000 unit In 0.45 % NaCl 1 250ml.bag @ 12 UNITS/KG/HR 9.54 mls/hr IV .Q24H [facility] Rx#: [id number] Output: Drainage 40 Right Lower Abdomen 40 Urine 710 670 120 Other: Voiding Method Indwelling Catheter Indwelling Catheter # Bowel Movements 1 - Labs CBC & Chem 7: 10/04/19 05:20 10/04/19 05:20 Labs: Abnormal Lab Results - Last 24 Hours (Table) 10/03/19 10/04/19 10/04/19 Range/Units 21:45 05:20 05:20 WBC 16.3 H (3.8-10.6) k/uL Neutrophils # 14.2 H (1.3-7.7) k/uL APTT 38.6 H 49.9 H (22.0-30.0) sec Chloride (98-107) mmol/L BUN (9-20) mg/dL Creatinine (0.66-1.25) mg/dL Glucose (74-99) mg/dL Calcium (8.4-10.2) mg/dL 10/04/19 Range/Units 05:20 WBC (3.8-10.6) k/uL Neutrophils # (1.3-7.7) k/uL APTT (22.0-30.0) sec Chloride 112 H (98-107) mmol/L BUN 42 H (9-20) mg/dL Creatinine 1.29 H (0.66-1.25) mg/dL Glucose 141 H (74-99) mg/dL Calcium 7.9 L (8.4-10.2) mg/dL Microbiology - Last 24 Hours (Table) 10/03/19 15:00 Gram Stain - Preliminary Pleural Fluid Body Fluid Culture - Preliminary Assessment and Plan (1) Incarcerated inguinal hernia Current Visit: Yes Status: Acute Code(s): K40.30 - UNIL INGUINAL HERNIA, W OBST, W/O GANGR, NOT SPCF RECUR SNOMED Code(s): 374917061
--- NOTE | 2019-10-04 12:15 | P.PN ---
Subjective Progress Note Date: 10/04/19 Principal diagnosis: exploratory laparotomy, right inguinal hernia repair and right orchiectomy and right colectomy. The patient is postop day #6 An 83-year-old male patient intubated on a mechanical ventilator, currently postop day #1 following a right colectomy, right inguinal hernia repair with orchiectomy. The patient came into the hospital with bowel obstruction and was diagnosed having a recurrent right incarcerated inguinal hernia with bowel obstruction. He underwent his surgery yesterday. Postop, he was extubated but he was quite lethargic and he was having significant respiratory distress and he was given a blood gas that showed respiratory acidosis with a pH of 7.12 with a pCO2 of 69 and pO2 123. Based on that, the patient was reintubated. This morning, the patient is was resuscitated. Overnight he was hypotensive and he was started on pressors with norepinephrine infusion. He was given a total of 6 L of IV fluids in the form of normal saline and his pressors currently running at 0.05 g per KG per minute. He is warm. There is adequate pulses in all 4 extremities. His blood pressures improved. He is currently assist-control mode rate of 26 with a tidal volume of 500 and an FiO2 of 50% with a PEEP of 5. Chest x-ray from this morning shows that ET tube is around 2 cm above the jazzmine. The patient has a right lower lobe consolidation which was seen on previous chest films. He has also underlying COPD. OG tube is in a good location. He is renal failure. The chronicity of this kidney injury is not known. The patient's creatinine is at 3.0. He is producing urine output in the order of 50 mL an hour. Currently on a combination of Zosyn and Flagyl. He is on propofol which is running at 25 g per KG per minute. The patient is seen today 09/30/2019 in follow-up in the intensive care unit. He was successfully extubated yesterday. He is postoperative day #2 following a right colectomy, right inguinal hernia repair with orchiectomy. He is doing quite well. He is currently sitting up in a chair at the bedside. Awake and alert in no acute distress. He did have a episode of atrial fibrillation with RVR and was initiated on Cardizem drip at 5 mg per hour. He is back in normal sinus rhythm. Echocardiogram and TSH levels are pending. His chest x-ray does show increased right lower lobe pneumonia as well. Sputum sample is pending. He needs increased encouragement regarding the use of the incentive spirometer. He has a loose nonproductive cough. He is maintaining good O2 saturations in the 90s on 4 L/m per nasal cannula. Urine culture was positive for E. coli. Sputum culture reveals no growth. White count 10.5. Hemoglobin 12.7. Creatinine 1.95. Remains on Zosyn and Flagyl. Heparin for DVT prophylaxis. Patient was reevaluated today on 10/01/2019, patient remains in the ICU, continues to have significant right lower lobe consolidation/pneumonia, felt to be most likely secondary to aspiration pneumonia. He was extubated a few days ago, he is on 4 L nasal cannula. Patient is not requiring any pressors, he is hemodynamically stable, remains on broad-spectrum antibiotics for presumptive aspiration pneumonia and abdominal sepsis. CBC showed WBC count of 10.9 hemoglobin is 13.1, sodium is high at 149 BUN is down to 39 and creatinine is down to 1.47, improving. Overall the patient seems to be demonstrating steady improvement. Chest x-ray remains a bit concerning to me. Reevaluated today on 10/02/2019, patient remains in the ICU, his overall pulmonary status is marginal, continues to have significant right lower lobe consolidation, and possibly some component of interstitial edema. Or aspiration pneumonia. Patient is on nonrebreather mask. Denies any shortness of breath, denies any cough no wheezing no fever no chills no hemoptysis and no chest pain. He is hemodynamically stable. WBC count is 7.7 hemoglobin is 13.8. Sodium remains elevated 149 BUN is 36 coming down and the creatinine is 1.38 coming down steadily. Patient was reevaluated today on 10/03/2019, remains in the ICU, presently in atrial fibrillation with RVR, placed on amiodarone and on Cardizem drip by cardiology. He is also on heparin. When I saw him earlier today, I reviewed his chest x-ray and there is evidence of good sized right-sided pleural effusion, performed ultrasound-guided thoracentesis, and I was able to retrieve 850 mL of fluid from the right pleural space slightly serosanguineous but seems to be likely transudative in nature labs are pending on the fluid. Clinically the patient is better, remains on high flow nasal cannula, O2 saturation is marginal. And again he is in atrial fibrillation with RVR at present WBC count is 13.1 hemoglobin is 13.5 electrolyte showed low potassium of 3.1 being corrected as per protocol. Renal functioning remains marginal but improved compared to a few days ago, creatinine is 1.41. Reevaluated today on 10/04/2019. Patient remains on high flow nasal cannula at 15 L/m. Relatively asymptomatic. No cough no wheezing no shortness of breath no chest pain. Continues to have atrial fibrillation with RVR in spite of maximal therapy presently on amiodarone drip and esmolol drip. Patient will undergo SHIRA and cardioversion by cardiology today. This is pending. Chest x- ray is showing reactivity will a the right pleural effusion. And some cons olidation in the right midlung. It is mostly consistent with congestive heart failure. The pleural effusion was transudative in nature hence it is cardiogenic unless for otherwise. CBC is relatively normal today. Hemoglobin is 14.3 electrolytes are normal renal profile showed a BUN of 42 creatinine of 1.29, steadily improving since admission Objective - Vital Signs Vital signs: Vital Signs Temp 97.7 F 10/04/19 08:00 Pulse 122 H 10/04/19 09:00 Resp 20 10/04/19 09:00 BP 115/76 10/04/19 09:00 Pulse Ox 95 10/04/19 09:00 Intake & Output 10/03/19 10/04/19 10/04/19 18:59 06:59 18:59 Intake Total 605.833 932.22 160 Output Total 750 670 120 Balance -144.167 262.22 40 Weight 79.5 kg 80.9 kg Intake: IV 340 340 160 Dextrose 5% in Water 1, 240 240 60 000 ml @ 20 mls/hr IV . Q24H JEREMIAH Rx#:[id number] metroNIDAZOLE-NS PMX 500 100 100 100 mg In Saline 1 100ml.bag @ 100 mls/hr IVPB Q8HR JEREMIAH Rx#:[id number] Intake, IV Titration 265.833 592.22 Amount Amiodarone 300 mg In 250 Dextrose 5% in Water 250 ml @ 0.5 MG/MIN 25 mls/hr IV .Q10H JEREMIAH Rx#: [id number] Diltiazem 125 mg In 15.833 Sodium Chloride 0.9% 100 ml @ 10 MG/HR 10 mls/hr IV .[id number] JEREMIAH Rx#: [id number] Esmolol in Sodium 250.000 250.00 Chloride Pmx 2.5 gm In Saline 1 250ml.bag @ 50 MCG/KG/MIN 23.85 mls/hr IV .[id number] JEREMIAH Rx#: [id number] Heparin Sod,Pork in 0.45% 92.22 NaCl 25,000 unit In 0.45 % NaCl 1 250ml.bag @ 12 UNITS/KG/HR 9.54 mls/hr IV .Q24H JEREMIAH Rx#: [id number] Output: Drainage 40 Right Lower Abdomen 40 Urine 710 670 120 Other: Voiding Method Indwelling Catheter Indwelling Catheter # Bowel Movements 1 - Exam Physical Exam: Revealed a 83-year-old white male on high flow nasal cannula, in no distress. Head: Atraumatic normocephalic. HEENT:[Neck is supple.] [No neck masses.] [No thyromegaly.] [No JVD.] PERRLA, EOMI, no icterus, no thyromegaly. Chest: [Minimal fine crackles at the right base, diminished breath sounds at the left base Cardiac Exam: Tachycardic, Irregular irregular rhythm. [Normal S1 and S2, no S3 gallop, 2/6 systolic murmur thought the precordium. Abdomen: abdomen was soft, non-tender, and without masses, organomegaly, or appreciable enlargement of the abdominal aorta. Dressing dry and intact, abdominal incision which is in his right groin area. The wound is which is dry clean and intact and the patient is a JAGJIT drain in the right lower quadrant. Extremities: [No clubbing, no edema, no cyanosis.] Neurological Exam: [No focal neurologic deficit.] Alert and oriented 3. Psychiatric: Normal mood affect and normal mental status examination. Skin: No rashes. Lymphatics: No lymphadenopathy. - Labs CBC & Chem 7: 10/04/19 05:20 10/04/19 05:20 Labs: Abnormal Lab Results - Last 24 Hours (Table) 10/03/19 10/04/19 10/04/19 Range/Units 21:45 05:20 05:20 WBC 16.3 H (3.8-10.6) k/uL Neutrophils # 14.2 H (1.3-7.7) k/uL APTT 38.6 H 49.9 H (22.0-30.0) sec Chloride (98-107) mmol/L BUN (9-20) mg/dL Creatinine (0.66-1.25) mg/dL Glucose (74-99) mg/dL Calcium (8.4-10.2) mg/dL 10/04/19 Range/Units 05:20 WBC (3.8-10.6) k/uL Neutrophils # (1.3-7.7) k/uL APTT (22.0-30.0) sec Chloride 112 H (98-107) mmol/L BUN 42 H (9-20) mg/dL Creatinine 1.29 H (0.66-1.25) mg/dL Glucose 141 H (74-99) mg/dL Calcium 7.9 L (8.4-10.2) mg/dL Microbiology - Last 24 Hours (Table) 10/03/19 15:00 Gram Stain - Preliminary Pleural Fluid Body Fluid Culture - Preliminary Assessment and Plan Assessment: Impression: Status post exploratory laparotomy, right inguinal hernia repair and right orchiectomy as well as right colectomy postoperative day #6 Acute bowel obstruction on presentation. Acute hypoxic and hypercapnic respiratory failure unexpected. Mostly secondary to aspiration pneumonia. Acute aspiration pneumonia, significantly improved appearance of the chest x-ray after right-sided thoracentesis be Acute kidney injury, unknown whether the patient had chronic kidney disease. Atrial fibrillation with RVR, being addressed by cardiology. Patient is undergoing cardioversion today. Failed to respond to maximal therapy for atrial fibrillation/RVR. E. coli urinary tract infection Hypertension Dyslipidemia Suspect underlying chronic obstructive pulmonary disease, patient is a chronic smoker. Right pleural effusion, status post thoracentesis on 10/03/2019, fluid was transudate of in nature. Recommendation: Agree with cardioversion today. Continue oxygen and titrate accordingly. Continue antibiotics Continue amiodarone and esmolo, as per cardiology. Physical therapy. Continue incentive spirometry deep coughing and deep breathing We'll continue to monitor in the ICU We'll continue to follow. Time with Patient: Less than 30
--- NOTE | 2019-10-04 13:24 | ECHOT ---
TRANSESOPHAGEAL ECHOCARDIOGRAM PREOPERATIVE DIAGNOSIS: Recent onset of atrial fibrillation. This transesophageal echocardiogram was performed to rule out any cardiac thrombi prior to cardioversion. The patient was given intravenous sedation with nurse lawn care worker and transesophageal echocardiogram was performed without any complications. FINDINGS: The left ventricular chamber is normal in size with normal left ventricular systolic functions. There is a mild thickening of the aortic leaflets noted. Mitral and tricuspid valve morphology is normal. There is a mild mitral regurgitation noted. Left atrium is normal in size. Left atrial appendage is clear. There is no evidence of any thrombus. There is no evidence of smoke in the left atrium. FINAL IMPRESSION: 1. There is no evidence of thrombus in left atrial appendage. 2. Left ventricular systolic function is normal. 3. Aortic valve is sclerotic without evidence of aortic stenosis. 4. There is a mild mitral regurgitation. PLAN: We will proceed with a cardioversion. AXEL / SHAINA: [id number] /
--- NOTE | 2019-10-04 13:30 | CE ---
CARDIAC ELECTROPHYSIOLOGY REPORT PROCEDURE: Elective cardioversion. Patient was given intravenous sedation with propofol by the nurse work car operator and the patient subsequently was cardioverted with 360 joules in synchronized mode to the normal sinus rhythm. Patient's vital signs remained stable. Intermittent PACs were noted in the post cardioversion. AXEL / SHAINA: [id number] /
[2019-10-04] MEDS: HEPARIN SOD,PORK IN 0.45% NACL 25,000 UNIT in 0.45% NACL 1 250ML.BAG IV SCH (13:34)
--- NOTE | 2019-10-04 14:46 | P.PN ---
Subjective Progress Note Date: 10/04/19 This is an 83-year-old male patient of Dr. Rao with past medical history of hypertension, hyperlipidemia, chronic urinary retention for 10 years status post recath at home, tobacco use and dependence. Patient states he started having vomiting on Tuesday as well as lower abdominal pain. He denies having any shortness of breath, no chest pain. He denies having any diarrhea. Patient came into [facility] for evaluation where he was found to be afebrile, blood pressure initially 84/53, heart rate 93-110, pulse ox 92% on room air. WBC 17.8, hemoglobin 20.4. BUN 36 creatinine 2.67, lactic acid 7.2, total bilirubin 1.6, AST 24, ALT 14, alkaline phosphatase 103, amylase 144. Urinalysis moderate blood, leukoesterase large, RBCs 124 WBC 49. Stool for occult blood positive. CAT scan of the abdomen and pelvis revealed moderately marked small bowel obstruction secondary to right inguinal hernia. Patient was made nothing by mouth, IV fluids were started and consult with Dr. Zelaya with plan for repair of incarcerated right inguinal hernia this afternoon. Family members are at bedside and have been updated. 09/29: Patient is currently intubated in ICU with NG tube in place. Patient has been weaned from sedation at this time. He is able to answer questions by shaking his head and nodding. Patient is anxious to write to communicate with family and staff. Daughters are at the bedside. Patient is able to answer majority of questions appropriately. Anticipate to be extubated sometime today. Patient has a JAGJIT drain in place a 20 mL of output, NG tube with 140 mL of output over the night. He continues to have dark urine. Blood pressure 114/69, pulse rate 84, 97% on mechanical intubation. The CBC 12.4, hemoglobin 12.7, potassium 4.6, BUN 69, creatinine 3.03. Patient has been a pack to 2 pack-a-day smoker for the last 50+ years. Family is requesting a nicotine patch at this time. 09/30: Patient has been extubated. He is currently sitting up in a chair with NG tube in place. Patient states that he is unable to pass gas at this time. His pulse ox continued to be sluggish. He is able to questions appropriately. Patient is requesting to have some chocolate milk. He has no other complaints or concerns at this time. NG tube drainage continues to be clear. Patient remained afebrile and hemodynamically stable. W BC 10.5, hemoglobin 12.7, potassium 4.6, BUN 57, creatinine 1.95, TSH 0.688 10/01: Patient remains in the intensive care unit. He did go into A. fib with RVR and was started on amiodarone drip. Within the last hour, patient has been de-sating status post a dose of Lasix IV was ordered for this morning and we will also add in a dose of IV Lasix for this evening. Solu-Medrol added for 3 doses and Pulmicort. Castro catheter is in place. Patient has been hemodynamically stable, blood pressure is stable. No vasopressors. WBC 10.9, hemoglobin 13.1, sodium 149, BUN 39 creatinine 1.47. Chest x-ray reveals similar findings. Correlate for pneumonia, atelectasis, difficult to exclude effusion. Correlate for possible pulmonary artery hypertension. General surgery has cleared the patient for sips of clear liquids. Dr. Edwards is following the patient. 10/02: Patient remains in the intensive care unit, afebrile, heart rate 77, blood pressure 155/74, patient is currently on a nonrebreather pulse oxing 96%. Patient received 1 dose of IV Lasix this morning. He has been on amiodarone drip was started by Dr. Montes on the weekend. There is no cardiology consult in place and we will add a cardiology consult at this time. Patient has been cleared for a clear liquid diet by general surgery. Repeat chest x-ray reveals interval tube removal. Correlate for pneumonia, pulmonary edema or congestive heart failure not excluded. Patient is on Zosyn and Flagyl. WBC 7.7, hemoglobin 13.8, sodium 149, BUN 36 and creatinine 1.38. Patient is raised Sheen 800 on incentive spirometry. monitoring specialist is a sinus rhythm. 10/03: Repeat chest x-ray reveals no significant change. Correlate for conge stive heart failure, volume overload, pneumonia. Dr. Hayes has ordered an ultrasound of the chest and he is status post thoracentesis with removal of 850 mL. Lasix will be discontinued.. Patient has been seen by Dr. THU Edwards with plan to continue IV amiodarone and recommended a 10 mg Cardizem bolus with 10 mg drip and started on heparin drip. Patient's heart rate has been running in the 140s and 150s and he is scheduled for SHIRA and cardioversion tomorrow. Blood pressure 120/82, pulse ox 93% on high flow nasal cannula. Patient's diet has been advanced to low fiber this morning by Dr. Zelaya. Patient states that he is not sleeping. Melatonin added. 10/04: Patient remains in intensive care unit. He underwent SHIRA and successful cardioversion this morning and has converted to normal sinus rhythm. He did receive amiodarone bolus followed by a drip on protocol and on heparin. Repeat blood work is WBC 16.3, BUN 42 and creatinine 1.29. Sputum culture is positive for E. coli as well as urine culture. Pleural fluid culture is in progress. Patient is on Flagyl and Zosyn. Patient has been tolerating his diet. No nausea or vomiting. He is having daily bowel movements and last night it was on the looser side and stool softener was held this morning. Patient's shortness of breath is much improved following cardioversion. Review Of Systems: Constitutional: No fever, no chills, no night sweats. No weight change. reports generalized weakness, fatigue or lethargy. No daytime sleepiness. EENT: No headache. No blurred vision or double vision, no loss of vision. No loss of Hearing, Lungs: Denies shortness of breath, denies cough Cardiovascular: No chest pain, no lower extremity edema. Denies palpitations. Abdominal: no abdominal discomfort. No nausea, vomiting. no diarrhea. No constipation. , Reports poor appetite Musculoskeletal: No myalgias. No muscle weakness, no gait dysfunction, no frequent falls. No back pain. No neck pain. Neurologic: No aphasia. No facial droop. No change in mentation. No headache. No paralysis. No paresthesia. Psychiatric: No depression. No anxiety. No mood swings. Reports insomnia Objective - Vital Signs Vital signs: Vital Signs Temp 97.7 F 10/04/19 08:00 Pulse 122 H 10/04/19 09:00 Resp 20 10/04/19 09:00 BP 115/76 10/04/19 09:00 Pulse Ox 95 10/04/19 09:00 Intake & Output 01/10/04/19 10/04/19 18:59 06:59 18:59 Intake Total 605.833 932.22 160 Output Total 750 670 120 Balance -144.167 262.22 40 Weight 79.5 kg 80.9 kg Intake: IV 340 340 160 Dextrose 5% in Water 1, 240 240 60 000 ml @ 20 mls/hr IV . Q24H JEREMIAH Rx#:[id number] metroNIDAZOLE-NS PMX 500 100 100 100 mg In Saline 1 100ml.bag @ 100 mls/hr IVPB Q8HR JEREMIAH Rx#:[id number] Intake, IV Titration 265.833 592.22 Amount Amiodarone 300 mg In 250 Dextrose 5% in Water 250 ml @ 0.5 MG/MIN 25 mls/hr IV .Q10H JEREMIAH Rx#: [id number] Diltiazem 125 mg In 15.833 Sodium Chloride 0.9% 100 ml @ 10 MG/HR 10 mls/hr IV .[id number] JEREMIAH Rx#: [id number] Esmolol in Sodium 250.000 250.00 Chloride Pmx 2.5 gm In Saline 1 250ml.bag @ 50 MCG/KG/MIN 23.85 mls/hr IV .[id number] JEREMIAH Rx#: [id number] Heparin Sod,Pork in 0.45% 92.22 NaCl 25,000 unit In 0.45 % NaCl 1 250ml.bag @ 12 UNITS/KG/HR 9.54 mls/hr IV .Q24H JEREMIAH Rx#: [id number] Output: Drainage 40 Right Lower Abdomen 40 Urine 710 670 120 Other: Voiding Method Indwelling Catheter Indwelling Catheter # Bowel Movements 1 - Exam General Appearance: Alert, cooperative, no distress, appears stated age. Neck HEENT: Supple, no lymphadenopathy, no thyroid enlargement, no carotid bruits. Lungs: Right-sided wheezing, diminished on the left side. Chest Wall: Chest wall normal expansion with deep inspiration no tenderness and no deformity was found on exam, no costochondral pain or discomfort. Heart: Irregular rate and rhythm, S1, S2 normal, no murmur, rub or gallop. Heart monitor sinus rhythm Back: Symmetric, no curvature, ROM normal, no CVA tenderness. Abdomen: Soft, non-tender, no rebound or rigidity, no hepatosplenomegaly. Abdominal incision and right groin area, dry clean and intact, JAGJIT drain in the right lower quadrant Extremities: Extremities normal, atraumatic, no cyanosis 1+ edema bilateral lo wer extremities Pulses: 2+ and symmetric. Skin: Skin color, texture, tugor normal, no rashes or lesions. Neurologic: Alert oriented x3 cranial nerves II through XII intact, no motor deficit, no abnormal balance or gait - Labs CBC & Chem 7: 10/04/19 05:20 10/04/19 05:20 Labs: Abnormal Lab Results - Last 24 Hours (Table) 10/03/19 10/04/19 10/04/19 Range/Units 21:45 05:20 05:20 WBC 16.3 H (3.8-10.6) k/uL Neutrophils # 14.2 H (1.3-7.7) k/uL APTT 38.6 H 49.9 H (22.0-30.0) sec Chloride (98-107) mmol/L BUN (9-20) mg/dL Creatinine (0.66-1.25) mg/dL Glucose (74-99) mg/dL Calcium (8.4-10.2) mg/dL 10/04/19 Range/Units 05:20 WBC (3.8-10.6) k/uL Neutrophils # (1.3-7.7) k/uL APTT (22.0-30.0) sec Chloride 112 H (98-107) mmol/L BUN 42 H (9-20) mg/dL Creatinine 1.29 H (0.66-1.25) mg/dL Glucose 141 H (74-99) mg/dL Calcium 7.9 L (8.4-10.2) mg/dL Microbiology - Last 24 Hours (Table) 10/03/19 15:00 Gram Stain - Preliminary Pleural Fluid Body Fluid Culture - Preliminary Assessment and Plan Plan: 1. Small bowel obstruction secondary to right inguinal hernia status post exploratory laparotomy, right inguinal hernia repair with right orchiectomy and right colectomy. Consult with Dr. Zelaya appreciated. Diet advance to low fiber. Patient is on Zosyn and Flagyl. 2. Acute kidney injury secondary to vomiting and poor oral intake. Hold li sinopril. Avoid nephrotoxic agents. 3. Lactic acidosis secondary to acute kidney injury. 4. Acute E. coli urinary tract infection secondary to self catheterization. Urine culture in progress. Patient is on Zosyn and Flagyl. 5. Hypertension. Lisinopril on hold. 6. GI prophylaxis. Protonix. 7. DVT prophylaxis. Heparin subcu 8. Tobacco use and dependence. Nicotine patch. 9. Chronic urinary retention with self-catheterization. Castro catheter in place. 10. Acute hypoxic and hypercapnic respiratory failure secondary to aspiration pneumonia and pleural effusion status post thoracentesis. Continue Zosyn. 11. Onset atrial fibrillation, paroxysmal atrial fibrillation, uncontrolled rate. Patient is on amiodarone drip and Cardizem drip. Cardiology consult appreciated. Patient is scheduled for SHIRA and cardioversion tomorrow. 12. Suspected COPD. Discharge plan: To be determined. Most likely return home. Impression and plan of care have been directed as dictated by the signing physician. Kinsey De Anda nurse practitioner acting as scribe for signing physician.
[2019-10-04] MEDS: AMIODARONE 300 MG in DEXTROSE 5% IN WATER 250 ML IV SCH ×2 (20:13)
[2019-10-04] MEDS: MELATONIN 3 MG TABLET PO SCH (21:15)
[2019-10-05] MEDS: metroNIDAZOLE-NS PMX 500 MG in SALINE 1 100ML.BAG IVPB SCH ×3 (00:31→17:00)
[2019-10-05] MEDS: PIPERACILLIN-TAZOBACTAM 3.375 GM in SODIUM CHLORIDE 0.9% 100 ML IVPB SCH ×3 (02:32→17:01)
[2019-10-05] MEDS: AMIODARONE 300 MG in DEXTROSE 5% IN WATER 250 ML IV SCH ×2 (05:13)
[2019-10-05] MEDS: HEPARIN SOD,PORK IN 0.45% NACL 25,000 UNIT in 0.45% NACL 1 250ML.BAG IV SCH (05:14)
[2019-10-05 05:35] LABS: Basophils % (A) 0 %; Eosinophils # (A) 0.1 k/uL (0-0.7); Eosinophils % (A) 1 %; HCT 40.4 % (39.0-53.0); HGB 12.9 gm/dL (13.0-17.5); Hypochromasia Slight; Lymphocytes # (A) 1.2 k/uL (1.0-4.8); Lymphocytes % (A) 11 %; MCH 30.9 pg (25.0-35.0); MCV 96.6 fL (80.0-100.0); Mean Platelet Volume 9.8; Monocytes # (A) 0.3 k/uL (0-1.0); Monocytes % (A) 3 %; Neutrophils # (A) 9.3 k/uL (1.3-7.7); Neutrophils % (A) 83 %; Platelet Count 188 k/uL (150-450); RBC 4.18 m/uL (4.30-5.90); RDW 12.6 % (11.5-15.5); WBC 11.2 k/uL (3.8-10.6)
[2019-10-05] MEDS ORDERED: Potassium Replacement Protocol 1 EACH MISC MISCELLANE PRN (05:41)
[2019-10-05 05:51] LABS: Calcium 7.5 mg/dL (8.4-10.2); Potassium 3.7 mmol/L (3.5-5.1)
[2019-10-05] MEDS: ESMOLOL IN SODIUM CHLORIDE PMX 2.5 GM in SALINE 1 250ML.BAG IV SCH (06:04)
[2019-10-05] MEDS: BUDESONIDE 0.5 MG/2 ML NEBU INHALATION SCH ×2 (07:44→21:32)
[2019-10-05] MEDS: IPRATROPIUM-ALBUTEROL 3 ML NEB INHALATION SCH ×4 (07:44→21:32)
[2019-10-05] MEDS: BISACODYL 10 MG SUPP RECTAL SCH (08:10)
[2019-10-05] MEDS: NICOTINE 21MG/24HR PATCH TRANSDERM SCH (08:18)
[2019-10-05] MEDS: PANTOPRAZOLE 40 MG/10 ML VIAL IVP SCH (08:19)
[2019-10-05] MEDS ORDERED: POTASSIUM CHLORIDE ER 20 MEQ TAB.ER PO SCH (09:00)
--- NOTE | 2019-10-05 09:38 | PN ---
PROGRESS NOTE Mr. Wooten underwent electrical cardioversion and SHIRA and is now in sinus rhythm. He is hemodynamically stable doing well. He is still hypoxic requiring high-flow oxygen. I am recommending that we discontinue IV heparin, place him on Eliquis 5 mg b.i.d. renal function is acceptable and weight is 83 kg. I will switch him from IV to oral amiodarone and start him on metoprolol tartrate 25 mg b.i.d. Vitals are stable. Blood pressure is 140/80, pulse rate is 70, sinus with occasional PACs. JVD is 1 cm. No carotid bruit. S1, S2 heard normally, short systolic murmur noted. Lungs reveal scattered rhonchi. Abdomen and lower extremities exam is unchanged. MMODL / IJN: [id number] /
[2019-10-05] MEDS: AMIODARONE 200 MG TAB PO SCH ×3 (09:40→21:11)
[2019-10-05] MEDS: APIXABAN 5 MG TAB PO SCH ×2 (09:40→21:11)
[2019-10-05] MEDS: METOPROLOL TARTRATE 25 MG TAB PO SCH ×2 (09:40→21:11)
--- NOTE | 2019-10-05 09:51 | XR ---
EXAMINATION TYPE: XR chest 1V portable DATE OF EXAM: 10/05/2019 COMPARISON: 10/04/2019 HISTORY: Shortness of breath TECHNIQUE: Single frontal view of the chest is obtained. FINDINGS: Bilateral consolidation and pleural effusion with interstitial pattern stable. No definite pneumothorax on today's exam heart size stable. IMPRESSION: 1. Diffuse pleural-parenchymal changes stable correlate for pneumonia versus pulmonary edema.
--- NOTE | 2019-10-05 11:39 | P.PN ---
Subjective Progress Note Date: 10/05/19 Principal diagnosis: exploratory laparotomy, right inguinal hernia repair and right orchiectomy and right colectomy. The patient is postop day #7 An 83-year-old male patient intubated on a mechanical ventilator, currently postop day #1 following a right colectomy, right inguinal hernia repair with orchiectomy. The patient came into the hospital with bowel obstruction and was diagnosed having a recurrent right incarcerated inguinal hernia with bowel obstruction. He underwent his surgery yesterday. Postop, he was extubated but he was quite lethargic and he was having significant respiratory distress and he was given a blood gas that showed respiratory acidosis with a pH of 7.12 with a pCO2 of 69 and pO2 123. Based on that, the patient was reintubated. This morning, the patient is was resuscitated. Overnight he was hypotensive and he was started on pressors with norepinephrine infusion. He was given a total of 6 L of IV fluids in the form of normal saline and his pressors currently running at 0.05 g per KG per minute. He is warm. There is adequate pulses in all 4 extremities. His blood pressures improved. He is currently assist-control mode rate of 26 with a tidal volume of 500 and an FiO2 of 50% with a PEEP of 5. Chest x-ray from this morning shows that ET tube is around 2 cm above the jazzmine. The patient has a right lower lobe consolidation which was seen on previous chest films. He has also underlying COPD. OG tube is in a good location. He is renal failure. The chronicity of this kidney injury is not known. The patient's creatinine is at 3.0. He is producing urine output in the order of 50 mL an hour. Currently on a combination of Zosyn and Flagyl. He is on propofol which is running at 25 g per KG per minute. The patient is seen today 09/30/2019 in follow-up in the intensive care unit. He was successfully extubated yesterday. He is postoperative day #2 following a right colectomy, right inguinal hernia repair with orchiectomy. He is doing quite well. He is currently sitting up in a chair at the bedside. Awake and alert in no acute distress. He did have a episode of atrial fibrillation with RVR and was initiated on Cardizem drip at 5 mg per hour. He is back in normal sinus rhythm. Echocardiogram and TSH levels are pending. His chest x-ray does show increased right lower lobe pneumonia as well. Sputum sample is pending. He needs increased encouragement regarding the use of the incentive spirometer. He has a loose nonproductive cough. He is maintaining good O2 saturations in the 90s on 4 L/m per nasal cannula. Urine culture was positive for E. coli. Sputum culture reveals no growth. White count 10.5. Hemoglobin 12.7. Creatinine 1.95. Remains on Zosyn and Flagyl. Heparin for DVT prophylaxis. Patient was reevaluated today on 10/01/2019, patient remains in the ICU, continues to have significant right lower lobe consolidation/pneumonia, felt to be most likely secondary to aspiration pneumonia. He was extubated a few days ago, he is on 4 L nasal cannula. Patient is not requiring any pressors, he is hemodynamically stable, remains on broad-spectrum antibiotics for presumptive aspiration pneumonia and abdominal sepsis. CBC showed WBC count of 10.9 hemoglobin is 13.1, sodium is high at 149 BUN is down to 39 and creatinine is down to 1.47, improving. Overall the patient seems to be demonstrating steady improvement. Chest x-ray remains a bit concerning to me. Reevaluated today on 10/02/2019, patient remains in the ICU, his overall pulmonary status is marginal, continues to have significant right lower lobe consolidation, and possibly some component of interstitial edema. Or aspiration pneumonia. Patient is on nonrebreather mask. Denies any shortness of breath, denies any cough no wheezing no fever no chills no hemoptysis and no chest pain. He is hemodynamically stable. WBC count is 7.7 hemoglobin is 13.8. Sodium remains elevated 149 BUN is 36 coming down and the creatinine is 1.38 coming down steadily. Patient was reevaluated today on 10/03/2019, remains in the ICU, presently in atrial fibrillation with RVR, placed on amiodarone and on Cardizem drip by cardiology. He is also on heparin. When I saw him earlier today, I reviewed his chest x-ray and there is evidence of good sized right-sided pleural effusion, performed ultrasound-guided thoracentesis, and I was able to retrieve 850 mL of fluid from the right pleural space slightly serosanguineous but seems to be likely transudative in nature labs are pending on the fluid. Clinically the patient is better, remains on high flow nasal cannula, O2 saturation is marginal. And again he is in atrial fibrillation with RVR at present WBC count is 13.1 hemoglobin is 13.5 electrolyte showed low potassium of 3.1 being corrected as per protocol. Renal functioning remains marginal but improved compared to a few days ago, creatinine is 1.41. Reevaluated today on 10/04/2019. Patient remains on high flow nasal cannula at 15 L/m. Relatively asymptomatic. No cough no wheezing no shortness of breath no chest pain. Continues to have atrial fibrillation with RVR in spite of maximal therapy presently on amiodarone drip and esmolol drip. Patient will undergo SHIRA and cardioversion by cardiology today. This is pending. Chest x- ray is showing reactivity will a the right pleural effusion. And some cons olidation in the right midlung. It is mostly consistent with congestive heart failure. The pleural effusion was transudative in nature hence it is cardiogenic unless for otherwise. CBC is relatively normal today. Hemoglobin is 14.3 electrolytes are normal renal profile showed a BUN of 42 creatinine of 1.29, steadily improving since admission Patient was reevaluated today on 10/05/2019, patient is feeling better, he is now in sinus rhythm, responded well to the cardioversion yesterday. His O2 saturation is up to 95%, hence instructed on and to titrate his FiO2 down and hopefully switch him eventually to a normal nasal cannula, and lower FiO2. Patient denies any specific complaints, denies any shortness of breath, no cough, no wheezing, no nausea, no vomiting, he is now on amiodarone orally as per cardiology recommendation. Off the drip, and he remains in normal sinus rhythm. Chest x-ray is suggestive of mild edema, hence I have recommended Lasix 20 mg IV push every 12 hours. WBC count is 11.2 hemoglobin is 12.90 Normal BUN is down to 37 and creatinine is down to 1.25, significantly improved. Objective - Vital Signs Vital signs: Vital Signs Temp 98.1 F 10/05/19 08:00 Pulse 71 10/05/19 11:01 Resp 18 10/05/19 11:01 BP 161/75 10/05/19 10:00 Pulse Ox 94 L 10/05/19 10:00 Intake & Output 10/04/19 10/05/19 10/05/19 18:59 06:59 18:59 Intake Total 797.78 1059.37 260 Output Total 600 965 260 Balance 197.78 94.37 0 Weight 83 kg Intake: IV 640 460 260 Dextrose 5% in Water 1, 240 260 60 000 ml @ 20 mls/hr IV . Q24H [facility] Rx#:[id number] Piperacillin-Tazobactam 3 200 100 100 .375 gm In Sodium Chloride 0.9% 100 ml @ 25 mls/hr IVPB Q8H [facility] Rx#: [id number] metroNIDAZOLE-NS PMX 500 200 100 100 mg In Saline 1 100ml.bag @ 100 mls/hr IVPB Q8HR [facility] Rx#:[id number] Intake, IV Titration 157.78 399.37 Amount Amiodarone 300 mg In 225 Dextrose 5% in Water 250 ml @ 0.5 MG/MIN 25 mls/hr IV .Q10H [facility] Rx#: [id number] Heparin Sod,Pork in 0.45% 157.78 174.37 NaCl 25,000 unit In 0.45 % NaCl 1 250ml.bag @ 12 UNITS/KG/HR 9.54 mls/hr IV .Q24H [facility] Rx#: [id number] Oral 200 Output: Gastric Drainage 70 Drainage 40 Right Lower Abdomen 40 Urine 530 925 260 Other: Voiding Method Indwelling Catheter Indwelling Catheter # Voids 1 # Bowel Movements 1 - Exam Physical Exam: Revealed a 83-year-old white male on high flow nasal cannula, being titrated down. He was on 15 L/m flow Head: Atraumatic normocephalic. HEENT:[Neck is supple.] [No neck masses.] [No thyromegaly.] [No JVD.] PERRLA, EOMI, no icterus, no thyromegaly. Chest: Crackles at the right base no rhonchi no wheezes. Cardiac Exam: Normal S1 and S2, 2/6 systolic murmur thought the precordium. Abdomen: abdomen was soft, non-tender, and without masses, organomegaly, Dressing dry and intact, abdominal incision which is in his right groin area. The wound is which is dry clean and intact and the patient is a JAGJIT drain in the right lower quadrant. Extremities: [No clubbing, no edema, no cyanosis.] Neurological Exam: [No focal neurologic deficit.] Alert and oriented 3. Psychiatric: Normal mood affect and normal mental status examination. Skin: No rashes. Lymphatics: No lymphadenopathy. - Labs CBC & Chem 7: 10/05/19 05:03 10/05/19 05:03 Labs: Abnormal Lab Results - Last 24 Hours (Table) 10/05/19 10/05/19 10/05/19 Range/Units 05:03 05:03 05:03 WBC 11.2 H (3.8-10.6) k/uL RBC 4.18 L (4.30-5.90) m/uL Hgb 12.9 L (13.0-17.5) gm/dL Neutrophils # 9.3 H (1.3-7.7) k/uL APTT 43.5 H (22.0-30.0) sec Chloride 111 H (98-107) mmol/L BUN 37 H (9-20) mg/dL Glucose 137 H (74-99) mg/dL Calcium 7.5 L (8.4-10.2) mg/dL Microbiology - Last 24 Hours (Table) 10/03/19 15:00 Gram Stain - Preliminary Pleural Fluid Body Fluid Culture - Preliminary Assessment and Plan Assessment: Impression: Status post exploratory laparotomy, right inguinal hernia repair and right orchiectomy as well as right colectomy postoperative day #7 Acute bowel obstruction on presentation. Acute hypoxic and hypercapnic respiratory failure unexpected. Mostly secondary to aspiration pneumonia. Also suspect some component of diastolic congestive heart failure Acute aspiration pneumonia, hence the patient remains on antibiotics. Acute kidney injury, unknown whether the patient had chronic kidney disease. Improving over the last few days. Atrial fibrillation with RVR, status post cardioversion which was successful on 10/04/2019. E. coli urinary tract infection Hypertension Dyslipidemia Suspect underlying chronic obstructive pulmonary disease, patient is a chronic smoker. Right pleural effusion, status post thoracentesis on 10/03/2019, fluid was transudate of in nature. Suspect diastolic congestive heart failure hence we will try the patient on a maintenance dose of diuretics/Lasix 40 mg IV push twice a day. Recommendation: Continue oxygen and titrate accordingly. Continue antibiotics Continue amiodarone orally as per cardiology. Physical therapy. Continue incentive spirometry deep coughing and deep breathing Consider transferring the patient to a monitor bed on the cardiac floor in the next 24 hours. We'll continue to follow. Time with Patient: Less than 30
[2019-10-05] MEDS: FUROSEMIDE 10 MG/ML 2 ML VIAL IV SCH ×2 (11:55→21:11)
--- NOTE | 2019-10-05 12:34 | P.CONS ---
History of Present Illness - Chief Complaint Medical debility - History of Present Illness I had the opportunity to see patient for inpatient rehab consultation with regard to medical debility. Patient admitted to [facility] September 27 with nausea and emesis and abdominal discomfort. CT abdomen demonstrated right inguinal hernia incarceration. Patient seen and medically by Drs. keke hays, cardiology and Freddy. Seen by Dr. swift: September 28 performed right hemicolectomy, herniorrhaphy and right orchiectomy. Chest x-rays followed for parenchymal change. PT and OT were ordered September 28 but appear to be on hold as of October 02. I have reordered them at this time. Previous functional history as elicited from patient and corroborated by daughter: 83-year-old right-handed white male who is aware lives in one floor home with basement, alone. Works full-time. Patient independent with own cooking, laundry, driving, standing shower and gait without device. Dr. Mendez is regular doctor. Patient smokes slightly less than a pack per day and has perhaps of beer per week. Family history: Adopted but adopted father was a smoker. Review of Systems Review of systems: ENT: Denies sneezes or discharge. Eyes: Denies discharge or photophobia. Cardiac: Denies chest pain or palpitation. Pulmonary: Denies cough or shortness of breath. Gastrointestinal: Abdominal discomfort but much improved. Genitourinary: Denies discharge or frequency. Musculoskeletal: Denies muscle or bone aches. Neurologic: General weakness. Endocrine: Denies shakes or sweats. Oncology: Denies cancers. Dermatologic: Denies rash, itching, pruritus. ALLERGY/immunology: Denies sneezes, rashes. Past Medical History Past Medical History: COPD, Hyperlipidemia, Hypertension History of Any Multi-Drug Resistant Organisms: None Reported Additional Past Surgical History / Comment(s): cyst removed. Past Anesthesia/Blood Transfusion Reactions: No Reported Reaction Past Psychological History: No Psychological Hx Reported Smoking Status: Current every day smoker Past Alcohol Use History: None Reported Additional Past Alcohol Use History / Comment(s): Patient is a smoker of one pa ck per day since he was 21 years of age. He states he drinks 1 beer per week. No marijuana use or illicit drug use. Patient lives at home alone. Past Drug Use History: None Reported - Past Family History Father Additional Family Medical History / Comment(s): Patient is adopted and does not know any history on his parents or siblings. Patient has 2 daughters and one has diverticulitis Medications and Allergies Home Medications Medication Instructions Recorded Confirmed Type Ascorbic Acid [Vitamin C] 1,000 mg PO DAILY 09/27/19 09/27/19 History Aspirin EC [Ecotrin Low Dose] 81 mg PO DAILY 09/27/19 09/27/19 History Calcium Carbonate [Calcium] 600 mg PO DAILY 09/27/19 09/27/19 History Cyanocobalamin (Vitamin B-12) 1,000 mcg PO DAILY 09/27/19 09/27/19 History [Vitamin B-12] Lisinopril [Zestril] 20 mg PO DAILY 09/27/19 09/27/19 History Magnesium(Unknown Dose) 1 tab PO DAILY 09/27/19 09/27/19 History [place]-3 Fatty Acids/Fish Oil [Fish 1 cap PO DAILY 09/27/19 09/27/19 History Oil 1,000 mg Softgel] Simvastatin 40 mg PO HS 09/27/19 09/27/19 History Thiamine [Vitamin B-1] 100 mg PO DAILY 09/27/19 09/27/19 History Allergies Allergy/AdvReac Type Severity Reaction Status Date / Time No Known Allergies Allergy Verified 09/27/19 20:41 Physical Exam Vitals: Vital Signs Temp Pulse Resp BP Pulse Ox 10/05/19 12:00 98.2 F 71 24 162/76 91 L 10/05/19 11:01 71 18 10/05/19 11:00 67 32 H 149/69 96 10/05/19 10:52 71 28 H 10/05/19 10:00 85 16 161/75 94 L 10/05/19 09:00 70 12 157/82 95 10/05/19 08:01 69 18 10/05/19 08:00 98.1 F 68 23 174/82 92 L 10/05/19 07:45 72 16 10/05/19 07:00 74 25 H 152/90 92 L 10/05/19 06:00 68 29 H 134/64 94 L 10/05/19 05:00 64 29 H 125/64 92 L 10/05/19 04:00 98.0 F 71 15 144/67 94 L 10/05/19 03:00 77 26 H 139/66 94 L 10/05/19 02:00 70 21 142/74 94 L 10/05/19 01:00 67 24 126/69 90 L 10/05/19 00:25 69 26 H 126/69 92 L 10/05/19 00:00 98.1 F 68 26 H 116/58 92 L 10/04/19 23:00 67 22 126/52 92 L 10/04/19 22:00 69 24 94 L 10/04/19 21:00 68 33 H 162/84 93 L 10/04/19 20:34 68 10/04/19 20:16 71 10/04/19 20:00 97.8 F 76 28 H 127/67 94 L 10/04/19 19:00 98.3 F 74 26 H 135/75 95 10/04/19 18:00 67 20 130/65 90 L 10/04/19 17:00 71 34 H 130/64 89 L 10/04/19 16:00 97.8 F 66 26 H 136/67 90 L 10/04/19 15:00 69 34 H 131/63 90 L 10/04/19 14:00 67 28 H 127/67 92 L 10/04/19 13:17 68 10/04/19 13:09 66 10/04/19 13:00 64 38 H 118/66 94 L Intake and Output 10/04/19 10/05/19 10/05/19 22:59 06:59 14:59 Intake Total 360 979.37 300 Output Total 365 790 405 Balance -5 189.37 -105 Intake: IV 360 380 300 Dextrose 5% in Water 1, 160 180 100 000 ml @ 20 mls/hr IV . Q24H [facility] Rx#:[id number] Piperacillin-Tazobactam 3 100 100 100 .375 gm In Sodium Chloride 0.9% 100 ml @ 25 mls/hr IVPB Q8H [facility] Rx#: [id number] metroNIDAZOLE-NS PMX 500 100 100 100 mg In Saline 1 100ml.bag @ 100 mls/hr IVPB Q8HR [facility] Rx#:[id number] Intake, IV Titration 399.37 Amount Amiodarone 300 mg In 225 Dextrose 5% in Water 250 ml @ 0.5 MG/MIN 25 mls/hr IV .Q10H [facility] Rx#: [id number] Heparin Sod,Pork in 0.45% 174.37 NaCl 25,000 unit In 0.45 % NaCl 1 250ml.bag @ 12 UNITS/KG/HR 9.54 mls/hr IV .Q24H [facility] Rx#: [id number] Oral 200 Output: Drainage 40 Right Lower Abdomen 40 Urine 365 750 405 Other: Voiding Method Indwelling Catheter Indwelling Catheter # Voids 1 # Bowel Movements 1 Weight 83 kg Skin: Atrophic, intact. General: Medium build and comfortable appearance. Head: Normocephalic, atraumatic. Eyes: Symmetric. Pupils equal round. Ears: Symmetric. Hearing within normal limits. Mouth: Clear. Neck: Supple. Carotid without bruit. Cardiac: Regular rate and rhythm. Lungs: Clear anteriorly and posteriorly. Abdomen: Soft active nontender. Extremities: Normal tone. Shoulders with limited range of motion. Neurological: Mental status: Alert, cooperative, pleasant. Cranial nerves: Symmetric facial tone and trapezius. Motor: Normal strength and isolation all 4 limbs. But with limitations and shoulders. Sensation: Intact throughout. DTRs: Symmetric and equal throughout. Mobility: Sitting in Shannon chair at time of this exam. Results CBC & Chem 7: 10/05/19 05:03 10/05/19 05:03 Labs: Abnormal Lab Results - Last 24 Hours (Table) 10/05/19 10/05/19 10/05/19 Range/Units 05:03 05:03 05:03 WBC 11.2 H (3.8-10.6) k/uL RBC 4.18 L (4.30-5.90) m/uL Hgb 12.9 L (13.0-17.5) gm/dL Neutrophils # 9.3 H (1.3-7.7) k/uL APTT 43.5 H (22.0-30.0) sec Chloride 111 H (98-107) mmol/L BUN 37 H (9-20) mg/dL Glucose 137 H (74-99) mg/dL Calcium 7.5 L (8.4-10.2) mg/dL Microbiology - Last 24 Hours (Table) 10/03/19 15:00 Gram Stain - Preliminary Pleural Fluid Body Fluid Culture - Preliminary Assessment and Plan (1) Incarcerated inguinal hernia Current Visit: Yes Status: Acute Code(s): K40.30 - UNIL INGUINAL HERNIA, W OBST, W/O GANGR, NOT SPCF RECUR SNOMED Code(s): 656674369 (2) Small bowel obstruction Current Visit: Yes Status: Acute Code(s): K56.609 - UNSP INTESTNL OBST, UNSP TO PARTIAL VERSUS COMPLETE OBST SNOMED Code(s): 427346962 Plan: Impression: 1. Medical debility. 2. Right inguinal hernia with result in small bowel obstruction status post res ection/repair. 3. COPD. 4. Hypertension. 5. Dyslipidemia. Constant plan: PT and OT appear to be handholds as of October 02. I reordered them at this time will follow therapy benefit and safety concerns with yourself.
--- NOTE | 2019-10-05 13:24 | P.PN ---
Subjective Progress Note Date: 10/05/19 This is an 83-year-old male patient of Dr. Rao with past medical history of hypertension, hyperlipidemia, chronic urinary retention for 10 years status post recath at home, tobacco use and dependence. Patient states he started having vomiting on Tuesday as well as lower abdominal pain. He denies having any shortness of breath, no chest pain. He denies having any diarrhea. Patient came into [facility] emergency center for evaluation where he was found to be afebrile, blood pressure initially 84/53, heart rate 93-110, pulse ox 92% on room air. WBC 17.8, hemoglobin 20.4. BUN 36 creatinine 2.67, lactic acid 7.2, total bilirubin 1.6, AST 24, ALT 14, alkaline phosphatase 103, amylase 144. Urinalysis moderate blood, leukoesterase large, RBCs 124 WBC 49. Stool for occult blood positive. CAT scan of the abdomen and pelvis revealed moderately marked small bowel obstruction secondary to right inguinal hernia. Patient was made nothing by mouth, IV fluids were started and consult with Dr. Zelaya with plan for repair of incarcerated right inguinal hernia this afternoon. Family members are at bedside and have been updated. 09/29: Patient is currently intubated in ICU with NG tube in place. Patient has been weaned from sedation at this time. He is able to answer questions by shaking his head and nodding. Patient is anxious to write to communicate with family and staff. Daughters are at the bedside. Patient is able to answer majority of questions appropriately. Anticipate to be extubated sometime today. Patient has a JAGJIT drain in place a 20 mL of output, NG tube with 140 mL of output over the night. He continues to have dark urine. Blood pressure 114/69, pulse rate 84, 97% on mechanical intubation. The CBC 12.4, hemoglobin 12.7, potassium 4.6, BUN 69, creatinine 3.03. Patient has been a pack to 2 pack-a-day smoker for the last 50+ years. Family is requesting a nicotine patch at this time. 09/30: Patient has been extubated. He is currently sitting up in a chair with NG tube in place. Patient states that he is unable to pass gas at this time. His pulse ox continued to be sluggish. He is able to questions appropriately. Patient is requesting to have some chocolate milk. He has no other complaints or concerns at this time. NG tube drainage continues to be clear. Patient remained afebrile and hemodynamically stable. W BC 10.5, hemoglobin 12.7, potassium 4.6, BUN 57, creatinine 1.95, TSH 0.688 10/01: Patient remains in the intensive care unit. He did go into A. fib with RVR and was started on amiodarone drip. Within the last hour, patient has been de-sating status post a dose of Lasix IV was ordered for this morning and we will also add in a dose of IV Lasix for this evening. Solu-Medrol added for 3 doses and Pulmicort. Castro catheter is in place. Patient has been hemodynamically stable, blood pressure is stable. No vasopressors. WBC 10.9, hemoglobin 13.1, sodium 149, BUN 39 creatinine 1.47. Chest x-ray reveals similar findings. Correlate for pneumonia, atelectasis, difficult to exclude effusion. Correlate for possible pulmonary artery hypertension. General surgery has cleared the patient for sips of clear liquids. Dr. Edwards is following the patient. 10/02: Patient remains in the intensive care unit, afebrile, heart rate 77, blood pressure 155/74, patient is currently on a nonrebreather pulse oxing 96%. Patient received 1 dose of IV Lasix this morning. He has been on amiodarone drip was started by Dr. Montes on the weekend. There is no cardiology consult in place and we will add a cardiology consult at this time. Patient has been cleared for a clear liquid diet by general surgery. Repeat chest x-ray reveals interval tube removal. Correlate for pneumonia, pulmonary edema or congestive heart failure not excluded. Patient is on Zosyn and Flagyl. WBC 7.7, hemoglobin 13.8, sodium 149, BUN 36 and creatinine 1.38. Patient is raised Sheen 800 on incentive spirometry. child monitor is a sinus rhythm. 10/03: Repeat chest x-ray reveals no significant change. Correlate for conge stive heart failure, volume overload, pneumonia. Dr. Hayes has ordered an ultrasound of the chest and he is status post thoracentesis with removal of 850 mL. Lasix will be discontinued.. Patient has been seen by Dr. THU Edwards with plan to continue IV amiodarone and recommended a 10 mg Cardizem bolus with 10 mg drip and started on heparin drip. Patient's heart rate has been running in the 140s and 150s and he is scheduled for SHIRA and cardioversion tomorrow. Blood pressure 120/82, pulse ox 93% on high flow nasal cannula. Patient's diet has been advanced to low fiber this morning by Dr. Zelaya. Patient complains of insomnia. Melatonin added. 10/04: Patient remains in intensive care unit. He underwent SHIRA and successful cardioversion this morning and has converted to normal sinus rhythm. He did receive amiodarone bolus followed by a drip on protocol and on heparin. Repeat blood work is WBC 16.3, BUN 42 and creatinine 1.29. Sputum culture is positive for E. coli as well as urine culture. Pleural fluid culture is in progress. Patient is on Flagyl and Zosyn. Patient has been tolerating his diet. No nausea or vomiting. He is having daily bowel movements and last night it was on the looser side and stool softener was held this morning. Patient's shortness of breath is much improved following cardioversion. 10/05: Patient remains in the intensive care unit. He is currently off amiodarone and running a sinus rhythm in the 60s. He has been transitioned off heparin drip and started on eliquis 5 mg twice daily. O2 saturation is 91% on high flow nasal cannula at 6 L. Nursing is attempting to wean oxygen down and if this works well, patient will be transferred out of the intensive care unit. Repeat chest x-ray reveals diffuse pleural parenchymal changes stable correlate for pneumonia versus pulmonary edema. Patient has been afebrile, heart rate 71, respiratory rate 24, blood pressure 162/76, pulse ox 91% on 6 L high flow nasal cannula. Castro catheter remains in place for chronic urinary retention/self- catheterization at home. Patient is tolerating a low fiber diet, no nausea or vomiting. Patient has been seen this morning by Dr. Khan and patient is ag reeable for inpatient rehab at [facility]. Anticipate he will be ready for discharge by Tuesday. Review Of Systems: Constitutional: No fever, no chills, no night sweats. No weight change. reports generalized weakness, fatigue or lethargy. Reports daytime sleepiness. EENT: No headache. No blurred vision or double vision, no loss of vision. No loss of Hearing, Lungs: Denies shortness of breath, denies cough Cardiovascular: No chest pain, no lower extremity edema. Denies palpitations. Abdominal: no abdominal discomfort. No nausea, vomiting. no diarrhea. No constipation. , Reports poor appetite Musculoskeletal: No myalgias. No muscle weakness, no gait dysfunction, no frequent falls. No back pain. No neck pain. Neurologic: No aphasia. No facial droop. No change in mentation. No headache. No paralysis. No paresthesia. Psychiatric: No depression. No anxiety. No mood swings. Reports insomnia Objective - Vital Signs Vital signs: Vital Signs Temp 98.1 F 10/05/19 08:00 Pulse 69 10/05/19 08:01 Resp 18 10/05/19 08:01 BP 174/82 10/05/19 08:00 Pulse Ox 92 L 10/05/19 08:00 Intake & Output 10/04/19 10/05/19 10/05/19 18:59 06:59 18:59 Intake Total 797.78 1059.37 120 Output Total 600 965 125 Balance 197.78 94.37 -5 Weight 83 kg Intake: IV 640 460 120 Dextrose 5% in Water 1, 240 260 20 000 ml @ 20 mls/hr IV . Q24H JEREMIAH Rx#:[id number] Piperacillin-Tazobactam 3 200 100 .375 gm In Sodium Chloride 0.9% 100 ml @ 25 mls/hr IVPB Q8H JEREMIAH Rx#: [id number] metroNIDAZOLE-NS PMX 500 200 100 100 mg In Saline 1 100ml.bag @ 100 mls/hr IVPB Q8HR JEREMIAH Rx#:[id number] Intake, IV Titration 157.78 399.37 Amount Amiodarone 300 mg In 225 Dextrose 5% in Water 250 ml @ 0.5 MG/MIN 25 mls/hr IV .Q10H JEREMIAH Rx#: [id number] Heparin Sod,Pork in 0.45% 157.78 174.37 NaCl 25,000 unit In 0.45 % NaCl 1 250ml.bag @ 12 UNITS/KG/HR 9.54 mls/hr IV .Q24H JEREMIAH Rx#: [id number] Oral 200 Output: Gastric Drainage 70 Drainage 40 Right Lower Abdomen 40 Urine 530 925 125 Other: Voiding Method Indwelling Catheter Indwelling Catheter # Voids 1 # Bowel Movements 1 - Exam General Appearance: Alert, cooperative, no distress, appears stated age. Patient is on commode chair. Neck HEENT: Supple, no lymphadenopathy, no thyroid enlargement, no carotid bruits. Lungs: Right-sided wheezing, diminished on the left side. Chest Wall: Chest wall normal expansion with deep inspiration no tenderness, no costochondral pain or discomfort. Heart: Irregular rate and rhythm, S1, S2 normal, no murmur, rub or gallop. Heart monitor sinus rhythm Back: Symmetric, no curvature, ROM normal, no CVA tenderness. Abdomen: Soft, non-tender, no rebound or rigidity, no hepatosplenomegaly. Abdominal incision and right groin area, dry clean and intact, JAGJIT drain in the right lower quadrant Extremities: Extremities normal, atraumatic, no cyanosis 1+ edema bilateral lower extremities Pulses: 2+ and symmetric. Skin: Skin color, texture, tugor normal, no rashes or lesions. Neurologic: Alert oriented x3 cranial nerves II through XII intact, no motor deficit, no abnormal balance or gait - Labs CBC & Chem 7: 10/05/19 05:03 10/05/19 05:03 Labs: Abnormal Lab Results - Last 24 Hours (Table) 10/05/19 10/05/19 10/05/19 Range/Units 05:03 05:03 05:03 WBC 11.2 H (3.8-10.6) k/uL RBC 4.18 L (4.30-5.90) m/uL Hgb 12.9 L (13.0-17.5) gm/dL Neutrophils # 9.3 H (1.3-7.7) k/uL APTT 43.5 H (22.0-30.0) sec Chloride 111 H (98-107) mmol/L BUN 37 H (9-20) mg/dL Glucose 137 H (74-99) mg/dL Calcium 7.5 L (8.4-10.2) mg/dL Microbiology - Last 24 Hours (Table) 10/03/19 15:00 Gram Stain - Preliminary Pleural Fluid Body Fluid Culture - Preliminary Assessment and Plan Plan: 1. Small bowel obstruction secondary to right inguinal hernia status post exploratory laparotomy, right inguinal hernia repair with right orchiectomy and right colectomy. Consult with Dr. Zelaya appreciated. Tolerating a low fiber diet. Patient is on Zosyn and Flagyl. 2. Acute kidney injury secondary to vomiting and poor oral intake. Hold lis inopril. Avoid nephrotoxic agents. 3. Lactic acidosis secondary to acute kidney injury. 4. Acute E. coli urinary tract infection secondary to self catheterization. Urine culture in progress. Patient is on Zosyn and Flagyl. 5. Hypertension. Lisinopril on hold. Continue Lopressor, Lasix. 6. GI prophylaxis. Protonix. 7. DVT prophylaxis. Heparin subcu 8. Tobacco use and dependence. Nicotine patch. 9. Chronic urinary retention with self-catheterization. Castro catheter in plac e. 10. Acute hypoxic and hypercapnic respiratory failure secondary to aspiration pneumonia and pleural effusion status post thoracentesis. Continue Zosyn. Patient is currently on Lasix 20 mg IV every 12 hours. 11. New onset atrial fibrillation with RVR, paroxysmal atrial fibrillation. Patient is off amiodarone drip, Cardizem drip, heparin drip. Continue Lopressor 25 mg twice daily, eliquis 5 mg twice daily. Cardiology consult appreciated. Patient is status post SHIRA and cardioversion. 12. Suspected COPD. continue DuoNeb treatments 4 times daily, Pulmicort 0.5 mg twice daily Discharge plan: [facility] for inpatient rehab on Tuesday. Consult with Dr. Khan appreciated. Impression and plan of care have been directed as dictated by the signing physician. Kinsey De Anda nurse practitioner acting as scribe for signing physician.
--- NOTE | 2019-10-05 13:35 | P.PN ---
<KevinMohini Alley - Last Filed: 10/05/19 13:32> Subjective Progress Note Date: 10/05/19 CHIEF COMPLAINT: abdominal pain HISTORY OF PRESENT ILLNESS: Patient is status post right colectomy and repair of recurrent right inguinal hernia with orchiectomy performed on 09/28/2019. Yen ortiz examined this morning the intensive care unit. He underwent SHIRA with cardioversion yesterday. Remains in SR. is on 6 L nasal cannula. Tolerating without nausea or vomiting. Abdominal pain is tolerable. JAGJIT drain with serous fluid. Reports BM today. WBC 11.2. PHYSICAL EXAM: VITAL SIGNS: Reviewed. GENERAL: Well-developed in no acute distress HEENT: No sclera icterus. Extraocular movements grossly intact. Moist buccal mucosa. Head is atraumatic, normocephalic. ABDOMEN: Soft. Nondistended. Appropriate surgical tenderness. Dressing CDI. JAGJIT with serous drainage NEUROLOGIC: Alert and oriented. Cranial nerves II through XII grossly intact. ASSESSMENT: 1. Abdominal pain 2. Nausea and vomiting 3. Small bowel obstruction secondary to incarcerated right inguinal hernia, status post right colectomy and repair of recurrent right inguinal hernia with orchiectomy PLAN: Continue diet as tolerated Pain control Incentive spirometer Activity as tolerated. Dr. Khan consulted for inpatient rehab at time of DC Monitor JAGJIT drain output Nurse practitioner note has been reviewed by physician. Signing provider agrees with the documented findings, assessment, and plan of care. Objective - Vital Signs Vital signs: Vital Signs Temp 98.2 F 10/05/19 12:00 Pulse 71 10/05/19 12:00 Resp 24 10/05/19 12:00 BP 162/76 10/05/19 12:00 Pulse Ox 91 L 10/05/19 12:00 Intake & Output 10/04/19 10/05/19 10/05/19 18:59 06:59 18:59 Intake Total 797.78 1059.37 300 Output Total 600 965 405 Balance 197.78 94.37 -105 Weight 83 kg 83 kg Intake: IV 640 460 300 Dextrose 5% in Water 1, 240 260 100 000 ml @ 20 mls/hr IV . Q24H JEREMIAH Rx#:[id number] Piperacillin-Tazobactam 3 200 100 100 .375 gm In Sodium Chloride 0.9% 100 ml @ 25 mls/hr IVPB Q8H JEREMIAH Rx#: [id number] metroNIDAZOLE-NS PMX 500 200 100 100 mg In Saline 1 100ml.bag @ 100 mls/hr IVPB Q8HR JEREMIAH Rx#:[id number] Intake, IV Titration 157.78 399.37 Amount Amiodarone 300 mg In 225 Dextrose 5% in Water 250 ml @ 0.5 MG/MIN 25 mls/hr IV .Q10H JEREMIAH Rx#: [id number] Heparin Sod,Pork in 0.45% 157.78 174.37 NaCl 25,000 unit In 0.45 % NaCl 1 250ml.bag @ 12 UNITS/KG/HR 9.54 mls/hr IV .Q24H JEREMIAH Rx#: [id number] Oral 200 Output: Gastric Drainage 70 Drainage 40 Right Lower Abdomen 40 Urine 530 925 405 Other: Voiding Method Indwelling Catheter Indwelling Catheter Indwelling Catheter # Voids 1 # Bowel Movements 1 - Labs CBC & Chem 7: 10/05/19 05:03 10/05/19 05:03 Labs: Abnormal Lab Results - Last 24 Hours (Table) 10/05/19 10/05/19 10/05/19 Range/Units 05:03 05:03 05:03 WBC 11.2 H (3.8-10.6) k/uL RBC 4.18 L (4.30-5.90) m/uL Hgb 12.9 L (13.0-17.5) gm/dL Neutrophils # 9.3 H (1.3-7.7) k/uL APTT 43.5 H (22.0-30.0) sec Chloride 111 H (98-107) mmol/L BUN 37 H (9-20) mg/dL Glucose 137 H (74-99) mg/dL Calcium 7.5 L (8.4-10.2) mg/dL Microbiology - Last 24 Hours (Table) 10/03/19 15:00 Gram Stain - Preliminary Pleural Fluid Body Fluid Culture - Preliminary <Elio Zelaya - Last Filed: 10/05/19 16:01> Subjective As above. Patient feels well. JAGJIT still 100 mL last 24 hours. Tolerating diet. He is having stools. Continue physical therapy. Objective - Vital Signs Vital signs: Vital Signs Temp 98.2 F 10/05/19 12:00 Pulse 70 10/05/19 15:49 Resp 28 H 01/17/20 15:00 BP 151/71 10/05/19 15:00 Pulse Ox 90 L 10/05/19 15:00 Intake & Output 10/04/19 10/05/19 10/05/19 18:59 06:59 18:59 Intake Total 797.78 1059.37 340 Output Total 130 759 3816 Balance 197.78 94.37 -1205 Weight 83 kg 83 kg Intake: IV 640 460 340 Dextrose 5% in Water 1, 240 260 140 000 ml @ 20 mls/hr IV . Q24H JEREMIAH Rx#:[id number] Piperacillin-Tazobactam 3 200 100 100 .375 gm In Sodium Chloride 0.9% 100 ml @ 25 mls/hr IVPB Q8H JEREMIAH Rx#: [id number] metroNIDAZOLE-NS PMX 500 200 100 100 mg In Saline 1 100ml.bag @ 100 mls/hr IVPB Q8HR JEREMIAH Rx#:[id number] Intake, IV Titration 157.78 399.37 Amount Amiodarone 300 mg In 225 Dextrose 5% in Water 250 ml @ 0.5 MG/MIN 25 mls/hr IV .Q10H JEREMIAH Rx#: [id number] Heparin Sod,Pork in 0.45% 157.78 174.37 NaCl 25,000 unit In 0.45 % NaCl 1 250ml.bag @ 12 UNITS/KG/HR 9.54 mls/hr IV .Q24H JEREMIAH Rx#: [id number] Oral 200 Output: Gastric Drainage 70 Drainage 40 40 Right Lower Abdomen 40 40 Urine 753 860 7503 Other: Voiding Method Indwelling Catheter Indwelling Catheter Indwelling Catheter # Voids 1 # Bowel Movements 1 - Labs CBC & Chem 7: 10/05/19 05:03 10/05/19 05:03 Labs: Abnormal Lab Results - Last 24 Hours (Table) 10/05/19 10/05/19 10/05/19 Range/Units 05:03 05:03 05:03 WBC 11.2 H (3.8-10.6) k/uL RBC 4.18 L (4.30-5.90) m/uL Hgb 12.9 L (13.0-17.5) gm/dL Neutrophils # 9.3 H (1.3-7.7) k/uL APTT 43.5 H (22.0-30.0) sec Chloride 111 H (98-107) mmol/L BUN 37 H (9-20) mg/dL Glucose 137 H (74-99) mg/dL Calcium 7.5 L (8.4-10.2) mg/dL Microbiology - Last 24 Hours (Table) 10/03/19 15:00 Gram Stain - Preliminary Pleural Fluid Body Fluid Culture - Preliminary Assessment and Plan (1) Incarcerated inguinal hernia Current Visit: Yes Status: Acute Code(s): K40.30 - UNIL INGUINAL HERNIA, W OBST, W/O GANGR, NOT SPCF RECUR SNOMED Code(s): 925980590
[2019-10-05] MEDS: MELATONIN 3 MG TABLET PO SCH (21:10)
[2019-10-06] MEDS: metroNIDAZOLE-NS PMX 500 MG in SALINE 1 100ML.BAG IVPB SCH ×4 (00:11→23:25)
[2019-10-06] MEDS: PIPERACILLIN-TAZOBACTAM 3.375 GM in SODIUM CHLORIDE 0.9% 100 ML IVPB SCH ×3 (02:39→17:27)
[2019-10-06] MEDS: BUDESONIDE 0.5 MG/2 ML NEBU INHALATION SCH ×2 (08:30→20:03)
[2019-10-06] MEDS: IPRATROPIUM-ALBUTEROL 3 ML NEB INHALATION SCH ×4 (08:30→20:03)
[2019-10-06] MEDS: BISACODYL 10 MG SUPP RECTAL SCH (09:42)
[2019-10-06] MEDS: NICOTINE 21MG/24HR PATCH TRANSDERM SCH (09:46)
[2019-10-06] MEDS: PANTOPRAZOLE 40 MG TABLET PO SCH (09:48)
[2019-10-06] MEDS: METOPROLOL TARTRATE 25 MG TAB PO SCH ×2 (09:48→20:46)
[2019-10-06] MEDS: AMIODARONE 200 MG TAB PO SCH ×3 (09:48→23:23)
[2019-10-06] MEDS: APIXABAN 5 MG TAB PO SCH ×2 (09:48→20:46)
[2019-10-06] MEDS: FUROSEMIDE 10 MG/ML 2 ML VIAL IV SCH ×2 (09:50→20:46)
--- NOTE | 2019-10-06 10:10 | PN ---
PROGRESS NOTE DATE OF SERVICE: October 06, 2019. The patient underwent a SHIRA and cardioversion yesterday. He continues to be in normal sinus mechanism. The heart rate is slightly high and his pressure continues to be elevated. Because of that, I am going to increase the dose of metoprolol to 50 mg p.o. b.i.d. He is also on Lasix IV. PHYSICAL EXAMINATION: GENERAL APPEARANCE: He is not in any pain or distress. RESPIRATORY: Examination showed diminished breathing sounds bilaterally. CARDIOVASCULAR: Examination shows regular rate and rhythm. EXTREMITIES: Examination no pedal edema was noted. ASSESSMENT: 1. Paroxysmal atrial fibrillation. The patient is in sinus rhythm. 2. Hypertension. PLAN: 1. Increase the dose of metoprolol to 50 mg p.o. b.i.d. 2. The patient is going to be discharged into an extended care facility this coming Tuesday. AXEL / SHAINA: [id number] /
--- NOTE | 2019-10-06 11:46 | P.PN ---
Progress Note - Text Progress Note Date: 10/06/19 The patient is resting comfortably in his bed. He denies any significant pain. He is tolerating his diet. His JAGJIT drain has some serosanguineous drainage. On exam his vital signs are stable. Abdomen soft. Right groin incision is clean dry intact. Status post repair of right inguinal hernia. Patient will be discharged to [facility] per medicine.
--- NOTE | 2019-10-06 11:49 | US ---
EXAMINATION TYPE: US venous doppler duplex UE RT DATE OF EXAM: 10/06/2019 COMPARISON: NONE CLINICAL HISTORY: pain redness and swelling to RUE. Right upper arm and forearm swelling and redness; I.V was here and relocated to left arm 2 days ago. SIDE PERFORMED: right Right Arm: Negative for DVT; is positive for superficial Vein Thrombosis in Right Cephalic Vein at m id Brachial level to just distal to Brachial Fossa as is non compressible here, internal vein echoes are seen and, no color flow is seen within Cephalic Vein at this location. Patient's RN, Dilia, was notified of US Tech findings at exam's end. IMPRESSION: 1. THIS EXAMINATION IS NEGATIVE FOR DVT IN THE RIGHT ARM. 2. THIS EXAMINATION IS POSITIVE FOR SUPERFICIAL PHLEBITIS IN THE CEPHALIC VEIN.
--- NOTE | 2019-10-06 12:51 | P.PN ---
Subjective Progress Note Date: 10/06/19 Principal diagnosis: Exploratory laparotomy, right inguinal hernia repair right orchiectomy with right colectomy. An 83-year-old male patient intubated on a mechanical ventilator, currently postop day #1 following a right colectomy, right inguinal hernia repair with orchiectomy. The patient came into the hospital with bowel obstruction and was diagnosed having a recurrent right incarcerated inguinal hernia with bowel obstruction. He underwent his surgery yesterday. Postop, he was extubated but he was quite lethargic and he was having significant respiratory distress and he was given a blood gas that showed respiratory acidosis with a pH of 7.12 with a pCO2 of 69 and pO2 123. Based on that, the patient was reintubated. This morning, the patient is was resuscitated. Overnight he was hypotensive and he was started on pressors with norepinephrine infusion. He was given a total of 6 L of IV fluids in the form of normal saline and his pressors currently running at 0.05 g per KG per minute. He is warm. There is adequate pulses in all 4 extremities. His blood pressures improved. He is currently assist-control mode rate of 26 with a tidal volume of 500 and an FiO2 of 50% with a PEEP of 5. Chest x-ray from this morning shows that ET tube is around 2 cm above the jazzmine. The patient has a right lower lobe consolidation which was seen on previous chest films. He has also underlying COPD. OG tube is in a good location. He is renal failure. The chronicity of this kidney injury is not known. The patient's creatinine is at 3.0. He is producing urine output in the order of 50 mL an hour. Currently on a combination of Zosyn and Flagyl. He is on propofol which is running at 25 g per KG per minute. The patient is seen today 09/30/2019 in follow-up in the intensive care unit. He was successfully extubated yesterday. He is postoperative day #2 following a right colectomy, right inguinal hernia repair with orchiectomy. He is doing quite well. He is currently sitting up in a chair at the bedside. Awake and alert in no acute distress. He did have a episode of atrial fibrillation with RVR and was initiated on Cardizem drip at 5 mg per hour. He is back in normal sinus rhythm. Echocardiogram and TSH levels are pending. His chest x-ray does show increased right lower lobe pneumonia as well. Sputum sample is pending. He needs increased encouragement regarding the use of the incentive spirometer. He has a loose nonproductive cough. He is maintaining good O2 saturations in the 90s on 4 L/m per nasal cannula. Urine culture was positive for E. coli. Sputum culture reveals no growth. White count 10.5. Hemoglobin 12.7. Creatini ne 1.95. Remains on Zosyn and Flagyl. Heparin for DVT prophylaxis. Patient was reevaluated today on 10/01/2019, patient remains in the ICU, continues to have significant right lower lobe consolidation/pneumonia, felt to be most likely secondary to aspiration pneumonia. He was extubated a few days ago, he is on 4 L nasal cannula. Patient is not requiring any pressors, he is hemodynamically stable, remains on broad-spectrum antibiotics for presumptive aspiration pneumonia and abdominal sepsis. CBC showed WBC count of 10.9 hemoglobin is 13.1, sodium is high at 149 BUN is down to 39 and creatinine is down to 1.47, improving. Overall the patient seems to be demonstrating steady improvement. Chest x-ray remains a bit concerning to me. Reevaluated today on 10/02/2019, patient remains in the ICU, his overall pulmonary status is marginal, continues to have significant right lower lobe con solidation, and possibly some component of interstitial edema. Or aspiration pneumonia. Patient is on nonrebreather mask. Denies any shortness of breath, denies any cough no wheezing no fever no chills no hemoptysis and no chest pain. He is hemodynamically stable. WBC count is 7.7 hemoglobin is 13.8. Sodium remains elevated 149 BUN is 36 coming down and the creatinine is 1.38 coming down steadily. Patient was reevaluated today on 10/03/2019, remains in the ICU, presently in atrial fibrillation with RVR, placed on amiodarone and on Cardizem drip by cardiology. He is also on heparin. When I saw him earlier today, I reviewed his chest x-ray and there is evidence of good sized right-sided pleural effusion, performed ultrasound-guided thoracentesis, and I was able to retrieve 850 mL of fluid from the right pleural space slightly serosanguineous but seems to be likely transudative in nature labs are pending on the fluid. Clinically the patient is better, remains on high flow nasal cannula, O2 saturation is marginal. And again he is in atrial fibrillation with RVR at present WBC count is 13.1 hemoglobin is 13.5 electrolyte showed low potassium of 3.1 being corrected as per protocol. Renal functioning remains marginal but improved compared to a few days ago, creatinine is 1.41. Reevaluated today on 10/04/2019. Patient remains on high flow nasal cannula at 15 L/m. Relatively asymptomatic. No cough no wheezing no shortness of breath no chest pain. Continues to have atrial fibrillation with RVR in spite of maximal therapy presently on amiodarone drip and esmolol drip. Patient will undergo SHIRA and cardioversion by cardiology today. This is pending. Chest x- ray is showing reactivity will a the right pleural effusion. And some consolidation in the right midlung. It is mostly consistent with congestive heart failure. The pleural effusion was transudative in nature hence it is cardiogenic unless for otherwise. CBC is relatively normal today. Hemoglobin is 14.3 electrolytes are normal renal profile showed a BUN of 42 creatinine of 1.29, steadily improving since admission Patient was reevaluated today on 10/05/2019, patient is feeling better, he is now in sinus rhythm, responded well to the cardioversion yesterday. His O2 saturation is up to 95%, hence instructed on and to titrate his FiO2 down and hopefully switch him eventually to a normal nasal cannula, and lower FiO2. Patient denies any specific complaints, denies any shortness of breath, no cou gh, no wheezing, no nausea, no vomiting, he is now on amiodarone orally as per cardiology recommendation. Off the drip, and he remains in normal sinus rhythm. Chest x-ray is suggestive of mild edema, hence I have recommended Lasix 20 mg IV push every 12 hours. WBC count is 11.2 hemoglobin is 12.90 Normal BUN is down to 37 and creatinine is down to 1.25, significantly improved. The patient is seen today 10/06/2019 in follow-up on the selective care unit. He is still on 10 L high flow nasal cannula to maintain O2 saturations in the 90s. He is currently afebrile. Hemodynamically stable. Sputum and urine cultures had previously been positive for E. coli. Remains on Zosyn and Flagyl. Continued on bronchodilators. Remains on IV diuretics. Anticoagulated with Eliquis. Doppler of the right upper extremity was negative for DVT. There is some superficial phlebitis and the cephalic vein. Objective - Vital Signs Vital signs: Vital Signs Temp 97.7 F 10/06/19 11:53 Pulse 68 10/06/19 11:53 Resp 24 10/06/19 11:53 BP 145/62 10/06/19 11:53 Pulse Ox 94 L 10/06/19 11:53 Intake & Output 10/05/19 10/06/19 10/06/19 18:59 06:59 18:59 Intake Total 340 500 Output Total 1545 2170 Balance -1205 -1670 Weight 83 kg 78.1 kg Intake: IV 340 200 Dextrose 5% in Water 1, 140 000 ml @ 20 mls/hr IV . Q24H [facility]ER[facility] Rx#:[id number] Piperacillin-Tazobactam 3 100 100 .375 gm In Sodium Chloride 0.9% 100 ml @ 25 mls/hr IVPB Q8H [facility] Rx#: [id number] metroNIDAZOLE-NS PMX 500 100 100 mg In Saline 1 100ml.bag @ 100 mls/hr IVPB Q8HR [facility] Rx#:[id number] Oral 300 Output: Drainage 40 20 Right Lower Abdomen 40 20 Urine 1505 2150 Other: Voiding Method Indwelling Catheter Indwelling Catheter - Exam Appearance: Awake and alert pleasant 83-year-old gentleman. On 10 L nasal cannula.. Head exam was generally normal. There was no scleral icterus or corneal arcus. Mucous membranes were moist. Neck was supple and without jugular venous distension, thyromegaly, or carotid bruits. Carotids were easily palpable bilaterally. There was no adenopathy. Orogastric and orotracheal tube are both in place. Lungs breath other are equal and symmetrical bilaterally. Scattered crackles and rhonchi more so on the right lung base Cardiac exam revealed the PMI to be normally situated and sized. The rhythm was regular and no extrasystoles were noted during several minutes of auscultation. The first and second heart sounds were normal and physiologic splitting of the second heart sound was noted. There were no murmurs, rubs, clicks, or gallops. Abdominal exam revealed absence bowel sounds. The abdomen was soft, non-tender, and without masses, organomegaly, or appreciable enlargement of the abdominal aorta. Dressing dry and intact, abdominal incision which is in his right groin area. The wound is which is dry clean and intact and the patient is a JAGJIT drain in the right lower quadrant. Neurologically the patient is awake alert oriented 3, comfortable no acute distress. Pupils are equal and reactive to light. Examination of the skin revealed no evidence of significant rashes, suspicious appearing nevi or other concerning lesions. - Labs CBC & Chem 7: 10/05/19 05:03 10/05/19 05:03 Labs: Microbiology - Last 24 Hours (Table) 10/03/19 15:00 Gram Stain - Preliminary Pleural Fluid Body Fluid Culture - Preliminary Assessment and Plan Assessment: 1 exploratory laparotomy, right inguinal hernia repair and right orchiectomy and right colectomy. 2 abdominal pain and bowel obstruction secondary to above 3 acute hypoxic/hypercapnic respiratory failure following abdominal surgery. The patient to be intubated in the recovery and successfully extubated 4 right lower lobe consolidation consider aspiration pneumonia on Zosyn. 5 kidney failure, chronicity is unknown. Consider chronic kidney disease. The patient's creatinine stable at 1.25 and the patient is nonoliguric at this point 6 hypotension improved with fluid resuscitation. Consider intravascular volume depletion/dehydration. Consider sepsis 7 acute lactic acidosis, improved 8 UTI secondary to E. coli currently on IV Zosyn 9 hypertension history of 10 hyperlipidemia, history of 11 chronic smoker Plan The patient was seen and evaluated by Dr. Edwards Remains on 10 L high flow nasal cannula. Continued on Zosyn and Flagyl. Increase his activity as tolerated Increase use of the incentive spirometer and cough and deep breathing exercises We'll continue to follow and make further recommendations based on his clinical status I, the cosigning physician, performed a history & physical examination of the patient. Lungs sounds scattered rhonchi more so in the right lung base with some crackles.. Maintaining good O2 saturations in the 90s on 10 L/m per nasal cannula. I discussed the assessment and plan of care with my nurse practitioner, Jessenia Douglas. I attest to the above note as dictated by her.
--- NOTE | 2019-10-06 17:17 | P.PN ---
Subjective Progress Note Date: 10/06/19 This is an 83-year-old male patient of Dr. Rao with past medical history of hypertension, hyperlipidemia, chronic urinary retention for 10 years status post recath at home, tobacco use and dependence. Patient states he started having vomiting on Tuesday as well as lower abdominal pain. He denies having any shortness of breath, no chest pain. He denies having any diarrhea. Patient came into emergency center for evaluation where he was found to be afebrile, blood pressure initially 84/53, heart rate 93-110, pulse ox 92% on room air. WBC 17.8, hemoglobin 20.4. BUN 36 creatinine 2.67, lactic acid 7.2, total bilirubin 1.6, AST 24, ALT 14, alkaline phosphatase 103, amylase 144. Urinalysis moderate blood, leukoesterase large, RBCs 124 WBC 49. Stool for occult blood positive. CAT scan of the abdomen and pelvis revealed moderately marked small bowel obstruction secondary to right inguinal hernia. Patient was made nothing by mouth, IV fluids were started and consult with Dr. Zelaya with plan for repair of incarcerated right inguinal hernia this afternoon. Family members are at bedside and have been updated. 09/29: Patient is currently intubated in ICU with NG tube in place. Patient has been weaned from sedation at this time. He is able to answer questions by shaking his head and nodding. Patient is anxious to write to communicate with family and staff. Daughters are at the bedside. Patient is able to answer majority of questions appropriately. Anticipate to be extubated sometime today. Patient has a JAGJIT drain in place a 20 mL of output, NG tube with 140 mL of output over the night. He continues to have dark urine. Blood pressure 114/69, pulse rate 84, 97% on mechanical intubation. The CBC 12.4, hemoglobin 12.7, potassium 4.6, BUN 69, creatinine 3.03. Patient has been a pack to 2 pack-a-day smoker for the last 50+ years. Family is requesting a nicotine patch at this time. 09/30: Patient has been extubated. He is currently sitting up in a chair with NG tube in place. Patient states that he is unable to pass gas at this time. His pulse ox continued to be sluggish. He is able to questions appropriately. Patient is requesting to have some chocolate milk. He has no other complaints or concerns at this time. NG tube drainage continues to be clear. Patient remained afebrile and hemodynamically stable. W BC 10.5, hemoglobin 12.7, potassium 4.6, BUN 57, creatinine 1.95, TSH 0.688 10/01: Patient remains in the intensive care unit. He did go into A. fib with RVR and was started on amiodarone drip. Within the last hour, patient has been de-sating status post a dose of Lasix IV was ordered for this morning and we will also add in a dose of IV Lasix for this evening. Solu-Medrol added for 3 doses and Pulmicort. Castro catheter is in place. Patient has been hemodynamically stable, blood pressure is stable. No vasopressors. WBC 10.9, hemoglobin 13.1, sodium 149, BUN 39 creatinine 1.47. Chest x-ray reveals similar findings. Correlate for pneumonia, atelectasis, difficult to exclude effusion. Correlate for possible pulmonary artery hypertension. General surgery has cleared the patient for sips of clear liquids. Dr. Edwards is following the patient. 10/02: Patient remains in the intensive care unit, afebrile, heart rate 77, blood pressure 155/74, patient is currently on a nonrebreather pulse oxing 96%. Patient received 1 dose of IV Lasix this morning. He has been on amiodarone drip was started by Dr. Montes on the weekend. There is no cardiology consult in place and we will add a cardiology consult at this time. Patient has been cleared for a clear liquid diet by general surgery. Repeat chest x-ray reveals interval tube removal. Correlate for pneumonia, pulmonary edema or congestive heart failure not excluded. Patient is on Zosyn and Flagyl. WBC 7.7, hemoglobin 13.8, sodium 149, BUN 36 and creatinine 1.38. Patient is raised Sheen 800 on incentive spirometry. 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 10/03: Repeat chest x-ray reveals no significant change. Correlate for conge stive heart failure, volume overload, pneumonia. Dr. Hayes has ordered an ultrasound of the chest and he is status post thoracentesis with removal of 850 mL. Lasix will be discontinued.. Patient has been seen by Dr. THU Edwards with plan to continue IV amiodarone and recommended a 10 mg Cardizem bolus with 10 mg drip and started on heparin drip. Patient's heart rate has been running in the 140s and 150s and he is scheduled for SHIRA and cardioversion tomorrow. Blood pressure 120/82, pulse ox 93% on high flow nasal cannula. Patient's diet has been advanced to low fiber this morning by Dr. Zelaya. Patient complains of insomnia. Melatonin added. 10/04: Patient remains in intensive care unit. He underwent SHIRA and successful cardioversion this morning and has converted to normal sinus rhythm. He did receive amiodarone bolus followed by a drip on protocol and on heparin. Repeat blood work is WBC 16.3, BUN 42 and creatinine 1.29. Sputum culture is positive for E. coli as well as urine culture. Pleural fluid culture is in progress. Patient is on Flagyl and Zosyn. Patient has been tolerating his diet. No nausea or vomiting. He is having daily bowel movements and last night it was on the looser side and stool softener was held this morning. Patient's shortness of breath is much improved following cardioversion. 10/05: Patient remains in the intensive care unit. He is currently off amiodarone and running a sinus rhythm in the 60s. He has been transitioned off heparin drip and started on eliquis 5 mg twice daily. O2 saturation is 91% on high flow nasal cannula at 6 L. Nursing is attempting to wean oxygen down and if this works well, patient will be transferred out of the intensive care unit. Repeat chest x-ray reveals diffuse pleural parenchymal changes stable correlate for pneumonia versus pulmonary edema. Patient has been afebrile, heart rate 71, respiratory rate 24, blood pressure 162/76, pulse ox 91% on 6 L high flow nasal cannula. Castro catheter remains in place for chronic urinary retention/self- catheterization at home. Patient is tolerating a low fiber diet, no nausea or vomiting. Patient has been seen this morning by Dr. Khan and patient is ag reeable for inpatient rehab at [facility]. Anticipate he will be ready for discharge by Tuesday. 10/06: Patient has right arm swelling and underwent an ultrasound that revealed superficial phlebitis in the cephalic vein. Patient is on eliquis. Patient states the JAGJIT drain is to be removed. He has a Castro in which we are maintaining due to chronic urinary retention. He states he is eating well and drinking well and having bowel movements. Patient is scheduled for discharge on Tuesday. Review Of Systems: Constitutional: No fever, no chills, no night sweats. No weight change. reports generalized weakness, fatigue or lethargy. Reports daytime sleepiness. EENT: No headache. No blurred vision or double vision, no loss of vision. No loss of Hearing, Lungs: Denies shortness of breath, denies cough Cardiovascular: No chest pain, no lower extremity edema. Denies palpitations. Abdominal: no abdominal discomfort. No nausea, vomiting. no diarrhea. No constipation. Denies poor appetite Musculoskeletal: No myalgias. No muscle weakness, no gait dysfunction, no fr equent falls. No back pain. No neck pain. Neurologic: No aphasia. No facial droop. No change in mentation. No headache. No paralysis. No paresthesia. Psychiatric: No depression. No anxiety. No mood swings. Reports insomnia Objective - Vital Signs Vital signs: Vital Signs Temp 97.7 F 10/06/19 11:53 Pulse 68 10/06/19 11:53 Resp 24 10/06/19 11:53 BP 145/62 10/06/19 11:53 Pulse Ox 94 L 10/06/19 11:53 Intake & Output 10/05/19 10/06/19 10/06/19 18:59 06:59 18:59 Intake Total 340 500 Output Total 1545 2170 Balance -1205 -1670 Weight 83 kg 78.1 kg Intake: IV 340 200 Dextrose 5% in Water 1, 140 000 ml @ 20 mls/hr IV . Q24H [facility] Rx#:[id number] Piperacillin-Tazobactam 3 100 100 .375 gm In Sodium Chloride 0.9% 100 ml @ 25 mls/hr IVPB Q8H [facility] Rx#: [id number] metroNIDAZOLE-NS PMX 500 100 100 mg In Saline 1 100ml.bag @ 100 mls/hr IVPB Q8HR [facility] Rx#:[id number] Oral 300 Output: Drainage 40 20 Right Lower Abdomen 40 20 Urine 1505 2150 Other: Voiding Method Indwelling Catheter Indwelling Catheter - Exam General Appearance: Alert, cooperative, no distress, appears stated age. Patient is resting comfortably in bed. Neck HEENT: Supple, no lymphadenopathy, no thyroid enlargement, no carotid bruits. Lungs: Right-sided wheezing, diminished on the left side. Chest Wall: Chest wall normal expansion with deep inspiration no tenderness, no costochondral pain or discomfort. Heart: Irregular rate and rhythm, S1, S2 normal, no murmur, rub or gallop. Heart monitor sinus rhythm Back: Symmetric, no curvature, ROM normal, no CVA tenderness. Abdomen: Soft, non-tender, no rebound or rigidity, no hepatosplenomegaly. A bdominal incision and right groin area, dry clean and intact, JAGJIT drain in the right lower quadrant Extremities: Extremities normal, atraumatic, no cyanosis no lower extremity edema. Patient has edema to the right upper extremity Pulses: 2+ and symmetric. Skin: Skin color, texture, tugor normal, no rashes or lesions. Neurologic: Alert oriented x3 cranial nerves II through XII intact, no motor deficit, no abnormal balance or gait - Labs CBC & Chem 7: 10/05/19 05:03 10/05/19 05:03 Labs: Microbiology - Last 24 Hours (Table) 10/03/19 15:00 Gram Stain - Preliminary Pleural Fluid Body Fluid Culture - Preliminary Assessment and Plan Plan: 1. Small bowel obstruction secondary to right inguinal hernia status post exploratory laparotomy, right inguinal hernia repair with right orchiectomy and right colectomy. Consult with Dr. Zelaya appreciated. Tolerating a low fiber diet. Patient is on Zosyn and Flagyl. 2. Acute kidney injury secondary to vomiting and poor oral intake. Hold lisinopril. Avoid nephrotoxic agents. 3. Lactic acidosis secondary to acute kidney injury. 4. Acute E. coli urinary tract infection secondary to self catheterization. Urine culture in progress. Patient is on Zosyn and Flagyl. 5. Hypertension. Lisinopril on hold. Continue Lopressor, Lasix. 6. GI prophylaxis. Protonix. 7. DVT prophylaxis. Heparin subcu 8. Tobacco use and dependence. Nicotine patch. 9. Chronic urinary retention with self-catheterization. Castro catheter in place. 10. Acute hypoxic and hypercapnic respiratory failure secondary to aspiration pneumonia and pleural effusion status post thoracentesis. Continue Zosyn. Patient is currently on Lasix 20 mg IV every 12 hours. 11. New onset atrial fibrillation with RVR, paroxysmal atrial fibrillation. Patient is off amiodarone drip, Cardizem drip, heparin drip. Continue Lopressor 25 mg twice daily, eliquis 5 mg twice daily. Cardiology consult appreciated. Patient is status post SHIRA and cardioversion. 12. Suspected COPD. continue DuoNeb treatments 4 times daily, Pulmicort 0.5 mg twice daily 13. Right upper extremity superficial phlebitis. Continue eliquis. Discharge plan: [facility] for inpatient rehab on Tuesday. Consult with Dr. Khan appreciated. Impression and plan of care have been directed as dictated by the signing physician. Kinsey De Anda nurse practitioner acting as scribe for signing physician.
[2019-10-06] MEDS: MELATONIN 3 MG TABLET PO SCH (20:46)
[2019-10-07] MEDS: PIPERACILLIN-TAZOBACTAM 3.375 GM in SODIUM CHLORIDE 0.9% 100 ML IVPB SCH ×3 (02:27→17:50)
[2019-10-07] MEDS: IPRATROPIUM-ALBUTEROL 3 ML NEB INHALATION SCH ×4 (08:00→20:06)
[2019-10-07] MEDS: BUDESONIDE 0.5 MG/2 ML NEBU INHALATION SCH ×2 (08:00→20:06)
[2019-10-07] MEDS: NICOTINE 21MG/24HR PATCH TRANSDERM SCH (08:59)
[2019-10-07] MEDS: metroNIDAZOLE-NS PMX 500 MG in SALINE 1 100ML.BAG IVPB SCH (08:59)
[2019-10-07] MEDS: FUROSEMIDE 10 MG/ML 2 ML VIAL IV SCH ×2 (09:00→21:12)
[2019-10-07] MEDS: METOPROLOL TARTRATE 25 MG TAB PO SCH ×2 (09:01→21:12)
[2019-10-07] MEDS: APIXABAN 5 MG TAB PO SCH ×2 (09:01→21:12)
[2019-10-07] MEDS: PANTOPRAZOLE 40 MG TABLET PO SCH (09:01)
[2019-10-07] MEDS: AMIODARONE 200 MG TAB PO SCH ×3 (09:01→21:12)
[2019-10-07] MEDS: BISACODYL 10 MG SUPP RECTAL SCH (09:04)
--- NOTE | 2019-10-07 11:05 | P.PN ---
Subjective Progress Note Date: 10/07/19 Principal diagnosis: Colectomy Patient continued to be modalities stable no major events reported by nursing staff patient is tolerating diet without difficulty and had multiple bowel movements over the last 3 days. Patient continued to require high flow oxygen currently sitting up in chair for the first time in the last 24 hours and seems to be more motivated Objective - Vital Signs Vital signs: Vital Signs Temp 97.4 F L 10/07/19 04:00 Pulse 82 10/07/19 08:15 Resp 18 10/07/19 04:00 BP 153/80 10/07/19 04:00 Pulse Ox 92 L 10/07/19 04:00 Intake & Output 10/06/19 10/07/19 10/07/19 18:59 06:59 18:59 Intake Total 1812 Output Total 2575 Balance 1812 -2575 Weight 76.6 kg Intake: IV 270 Dextrose 5% in Water 1, 70 000 ml @ 20 mls/hr IV . Q24H JEREMIAH Rx#:[id number] Piperacillin-Tazobactam 3 100 .375 gm In Sodium Chloride 0.9% 100 ml @ 25 mls/hr IVPB Q8H JEREMIAH Rx#: [id number] metroNIDAZOLE-NS PMX 500 100 mg In Saline 1 100ml.bag @ 100 mls/hr IVPB Q8HR JEREMAIH Rx#:[id number] Oral 1542 Output: Urine 2575 Other: Voiding Method Indwelling Catheter Indwelling Catheter - Exam Gen.: in stated age, no acute distress Heart: Normal S1-S2 Lungs: Diminished bilaterally with decreased air entry Abdomen: Soft, no tenderness, positive bowel sounds in all 4 quadrant no guarding or rebound Skin: No new rash Psych: Alert and oriented 3 Neuro: No focal deficit - Labs CBC & Chem 7: 10/05/19 05:03 10/05/19 05:03 Assessment and Plan Assessment: 1. Status post complicated hernia repair on the right with right colectomy and right orchiectomy. Patient is tolerating diet bowel movement reported by [facility] staff will continue supportive care and follow-up with general surgery recommendation. 2. Acute respiratory failure with hypoxia. Patient had history of COPD currently dealing with postsurgical atelectasis, COPD and fluid overloaded status. Would continue Lasix daily, monitor fluid status closely, maintain negative fluid balance, continue aggressive pulmonary hygiene including breathing treatment scheduled and as needed, patient currently is not using incentive spirometer and I would like to introduce flutter valve, encourage ambulation and said patient in chair for the whole day except for going to sleep. We'll decrease oxygen high flow slowly and gradually and consider discharge to a rehab facility once patient on nasal cannula. Plan discussed with nursing staff and patient at the bedside. 3. Blood loss anemia. Seems to be stable continue monitoring. 4. Hypertension. Fairly controlled he did 5. Debility and deconditioning area to follow-up with physical medicine and re hab recommendation regarding discharge planning
--- NOTE | 2019-10-07 11:35 | P.PN ---
Subjective Progress Note Date: 10/07/19 Principal diagnosis: Paroxysmal atrial fibrillation This is a pleasant 83-year-old gentleman who was admitted to the hospital with small bowel obstruction and underwent exploratory laparotomy. The patient subsequently went into atrial fibrillation with RVR and then he underwent a SHIRA and cardioversion. He was seen this morning. He is feeling better in terms of shortness of breath but history requiring high flow oxygen. On examination he does have bilateral rhonchi. He is on Lasix IV. I'm going to obtain a chest x-ray. Continue IV Lasix. Continue monitor the kidney function and electrolytes. We'll continue following up with him. Objective - Vital Signs Vital signs: Vital Signs Temp 97.4 F L 10/07/19 04:00 Pulse 82 10/07/19 08:15 Resp 18 10/07/19 04:00 BP 153/80 10/07/19 04:00 Pulse Ox 92 L 10/07/19 04:00 Intake & Output 10/06/19 10/07/19 10/07/19 18:59 06:59 18:59 Intake Total 1812 Output Total 2575 Balance 1812 -2575 Weight 76.6 kg Intake: IV 270 Dextrose 5% in Water 1, 70 000 ml @ 20 mls/hr IV . Q24H JEREMIAH Rx#:[id number] Piperacillin-Tazobactam 3 100 .375 gm In Sodium Chloride 0.9% 100 ml @ 25 mls/hr IVPB Q8H JEREMIAH Rx#: [id number] metroNIDAZOLE-NS PMX 500 100 mg In Saline 1 100ml.bag @ 100 mls/hr IVPB Q8HR JEREMIAH Rx#:[id number] Oral 1542 Output: Urine 2575 Other: Voiding Method Indwelling Catheter Indwelling Catheter - Constitutional General appearance: Present: no acute distress - Respiratory Respiratory: bilateral: rales - Cardiovascular Rhythm: regular Heart sounds: normal: S1, S2 - Labs CBC & Chem 7: 10/05/19 05:03 10/05/19 05:03 Assessment and Plan Assessment: Assessment #1 small bowel obstruction and status post exploratory laparotomy #2 paroxysmal atrial fibrillation and status post SHIRA cardioversion Plan #1 continue the current medical regimen #2 continue IV Lasix for additional 24 hours #3 obtain a chest x-ray #4 follow-up with the patient
--- NOTE | 2019-10-07 11:54 | P.PN ---
Progress Note - Text Progress Note Date: 10/07/19 Patient's tolerance diet. He's had multiple bowel movements. He still has some shortness of breath. On exam is lesser stable. His abdomen soft. Status post repair of incarcerated large right inguinal hernia. Patient will continue to have supportive care. He'll be discharged home per medicine.
--- NOTE | 2019-10-07 11:55 | XR ---
EXAMINATION TYPE: XR chest 2V DATE OF EXAM: 10/07/2019 HISTORY: oxygen demands high. REFERENCE: Previous study dated 10/05/1999. FINDINGS: There has been partial clearing of the right lung. There is developing density at the left lung base. There are small, bilateral effusions, greater on the right than the left. Heart size is mi ldly prominent. IMPRESSION: 1. IMPROVED AERATION RIGHT LUNG. 2. WORSENING AIRSPACE DISEASE, LEFT LUNG BASE. 3. BILATERAL EFFUSIONS, GREATER ON THE RIGHT THAN THE LEFT.
--- NOTE | 2019-10-07 13:59 | P.PN ---
Subjective Progress Note Date: 10/07/19 Principal diagnosis: Exploratory laparotomy, right inguinal hernia repair right orchiectomy with right colectomy. An 83-year-old male patient intubated on a mechanical ventilator, currently postop day #1 following a right colectomy, right inguinal hernia repair with orchiectomy. The patient came into the hospital with bowel obstruction and was diagnosed having a recurrent right incarcerated inguinal hernia with bowel obstruction. He underwent his surgery yesterday. Postop, he was extubated but he was quite lethargic and he was having significant respiratory distress and he was given a blood gas that showed respiratory acidosis with a pH of 7.12 with a pCO2 of 69 and pO2 123. Based on that, the patient was reintubated. This morning, the patient is was resuscitated. Overnight he was hypotensive and he was started on pressors with norepinephrine infusion. He was given a total of 6 L of IV fluids in the form of normal saline and his pressors currently running at 0.05 g per KG per minute. He is warm. There is adequate pulses in all 4 extremities. His blood pressures improved. He is currently assist-control mode rate of 26 with a tidal volume of 500 and an FiO2 of 50% with a PEEP of 5. Chest x-ray from this morning shows that ET tube is around 2 cm above the jazzmine. The patient has a right lower lobe consolidation which was seen on previous chest films. He has also underlying COPD. OG tube is in a good location. He is renal failure. The chronicity of this kidney injury is not known. The patient's creatinine is at 3.0. He is producing urine output in the order of 50 mL an hour. Currently on a combination of Zosyn and Flagyl. He is on propofol which is running at 25 g per KG per minute. The patient is seen today 09/30/2019 in follow-up in the intensive care unit. He was successfully extubated yesterday. He is postoperative day #2 following a right colectomy, right inguinal hernia repair with orchiectomy. He is doing quite well. He is currently sitting up in a chair at the bedside. Awake and alert in no acute distress. He did have a episode of atrial fibrillation with RVR and was initiated on Cardizem drip at 5 mg per hour. He is back in normal sinus rhythm. Echocardiogram and TSH levels are pending. His chest x-ray does show increased right lower lobe pneumonia as well. Sputum sample is pending. He needs increased encouragement regarding the use of the incentive spirometer. He has a loose nonproductive cough. He is maintaining good O2 saturations in the 90s on 4 L/m per nasal cannula. Urine culture was positive for E. coli. Sputum culture reveals no growth. White count 10.5. Hemoglobin 12.7. Creatini ne 1.95. Remains on Zosyn and Flagyl. Heparin for DVT prophylaxis. Patient was reevaluated today on 10/01/2019, patient remains in the ICU, continues to have significant right lower lobe consolidation/pneumonia, felt to be most likely secondary to aspiration pneumonia. He was extubated a few days ago, he is on 4 L nasal cannula. Patient is not requiring any pressors, he is hemodynamically stable, remains on broad-spectrum antibiotics for presumptive aspiration pneumonia and abdominal sepsis. CBC showed WBC count of 10.9 hemoglobin is 13.1, sodium is high at 149 BUN is down to 39 and creatinine is down to 1.47, improving. Overall the patient seems to be demonstrating steady improvement. Chest x-ray remains a bit concerning to me. Reevaluated today on 10/02/2019, patient remains in the ICU, his overall pulmonary status is marginal, continues to have significant right lower lobe con solidation, and possibly some component of interstitial edema. Or aspiration pneumonia. Patient is on nonrebreather mask. Denies any shortness of breath, denies any cough no wheezing no fever no chills no hemoptysis and no chest pain. He is hemodynamically stable. WBC count is 7.7 hemoglobin is 13.8. Sodium remains elevated 149 BUN is 36 coming down and the creatinine is 1.38 coming down steadily. Patient was reevaluated today on 10/03/2019, remains in the ICU, presently in atrial fibrillation with RVR, placed on amiodarone and on Cardizem drip by cardiology. He is also on heparin. When I saw him earlier today, I reviewed his chest x-ray and there is evidence of good sized right-sided pleural effusion, performed ultrasound-guided thoracentesis, and I was able to retrieve 850 mL of fluid from the right pleural space slightly serosanguineous but seems to be likely transudative in nature labs are pending on the fluid. Clinically the patient is better, remains on high flow nasal cannula, O2 saturation is marginal. And again he is in atrial fibrillation with RVR at present WBC count is 13.1 hemoglobin is 13.5 electrolyte showed low potassium of 3.1 being corrected as per protocol. Renal functioning remains marginal but improved compared to a few days ago, creatinine is 1.41. Reevaluated today on 10/04/2019. Patient remains on high flow nasal cannula at 15 L/m. Relatively asymptomatic. No cough no wheezing no shortness of breath no chest pain. Continues to have atrial fibrillation with RVR in spite of maximal therapy presently on amiodarone drip and esmolol drip. Patient will undergo SHIRA and cardioversion by cardiology today. This is pending. Chest x- ray is showing reactivity will a the right pleural effusion. And some consolidation in the right midlung. It is mostly consistent with congestive heart failure. The pleural effusion was transudative in nature hence it is cardiogenic unless for otherwise. CBC is relatively normal today. Hemoglobin is 14.3 electrolytes are normal renal profile showed a BUN of 42 creatinine of 1.29, steadily improving since admission Patient was reevaluated today on 10/05/2019, patient is feeling better, he is now in sinus rhythm, responded well to the cardioversion yesterday. His O2 saturation is up to 95%, hence instructed on and to titrate his FiO2 down and hopefully switch him eventually to a normal nasal cannula, and lower FiO2. Patient denies any specific complaints, denies any shortness of breath, no cou gh, no wheezing, no nausea, no vomiting, he is now on amiodarone orally as per cardiology recommendation. Off the drip, and he remains in normal sinus rhythm. Chest x-ray is suggestive of mild edema, hence I have recommended Lasix 20 mg IV push every 12 hours. WBC count is 11.2 hemoglobin is 12.90 Normal BUN is down to 37 and creatinine is down to 1.25, significantly improved. The patient is seen today 10/06/2019 in follow-up on the selective care unit. He is still on 10 L high flow nasal cannula to maintain O2 saturations in the 90s. He is currently afebrile. Hemodynamically stable. Sputum and urine cultures had previously been positive for E. coli. Remains on Zosyn and Flagyl. Continued on bronchodilators. Remains on IV diuretics. Anticoagulated with Eliquis. Doppler of the right upper extremity was negative for DVT. There is some superficial phlebitis and the cephalic vein. The patient is seen today 10/07/2019 in follow-up on the selective care unit. He is awake and alert in no acute distress. He does remain on 10 L high flow nasal cannula. He is afebrile. Hemodynamically stable. Today's chest x-ray reveals improved aeration of the right lung. There is worsening airspace disease in the left lung base. Bilateral effusions right greater than left. Continued on Zosyn along with Flagyl. Objective - Vital Signs Vital signs: Vital Signs Temp 97.8 F 10/07/19 12:00 Pulse 71 10/07/19 12:00 Resp 14 10/07/19 12:00 BP 142/64 10/07/19 12:00 Pulse Ox 96 10/07/19 12:00 Intake & Output 10/06/19 10/07/19 10/07/19 18:59 06:59 18:59 Intake Total 1812 Output Total 2575 Balance 1812 -2575 Weight 76.6 kg Intake: IV 270 Dextrose 5% in Water 1, 70 000 ml @ 20 mls/hr IV . Q24H JEREMIAH Rx#:[id number] Piperacillin-Tazobactam 3 100 .375 gm In Sodium Chloride 0.9% 100 ml @ 25 mls/hr IVPB Q8H JEREMIA[facility] Rx#: [id number] metroNIDAZOLE-NS PMX 500 100 mg In Saline 1 100ml.bag @ 100 mls/hr IVPB Q8HR JEREMIAH Rx#:[id number] Oral 1542 Output: Urine 2575 Other: Voiding Method Indwelling Catheter Indwelling Catheter Indwelling Catheter - Exam Appearance: Alert pleasant 83-year-old gentleman. On 10 L nasal cannula. O2 saturation 92%. Head exam was generally normal. There was no scleral icterus or corneal arcus. Mucous membranes were moist. Neck was supple and without jugular venous distension, thyromegaly, or carotid bruits. Carotids were easily palpable bilaterally. There was no adenopathy. Orogastric and orotracheal tube are both in place. Lungs breath other are equal and symmetrical bilaterally. Scattered crackles and rhonchi more so on the right lung base Cardiac exam revealed the PMI to be normally situated and sized. The rhythm was regular and no extrasystoles were noted during several minutes of auscultation. The first and second heart sounds were normal and physiologic splitting of the second heart sound was noted. There were no murmurs, rubs, clicks, or gallops. Abdominal exam revealed absence bowel sounds. The abdomen was soft, non-tender, and without masses, organomegaly, or appreciable enlargement of the abdominal aorta. Dressing dry and intact, abdominal incision which is in his right groin area. The wound is which is dry clean and intact Neurologically the patient is awake alert oriented 3, comfortable no acute distress. Pupils are equal and reactive to light. Examination of the skin revealed no evidence of significant rashes, suspicious appearing nevi or other concerning lesions. - Labs CBC & Chem 7: 10/05/19 05:03 10/05/19 05:03 Assessment and Plan Assessment: 1 exploratory laparotomy, right inguinal hernia repair and right orchiectomy and right colectomy. 2 abdominal pain and bowel obstruction secondary to above, recovered 3 acute hypoxic/hypercapnic respiratory failure following abdominal surgery. The patient to be intubated in the recovery and successfully extubated 4 right lower lobe consolidation consider aspiration pneumonia on Zosyn. 5 kidney failure, chronicity is unknown. Consider chronic kidney disease. The patient's creatinine stable at 1.25 and the patient is nonoliguric at this point 6 hypotension improved with fluid resuscitation. Consider intravascular volume depletion/dehydration. Consider sepsis 7 acute lactic acidosis, improved 8 UTI secondary to E. coli currently on IV Zosyn 9 hypertension history of 10 hyperlipidemia, history of 11 chronic smoker Plan The patient was seen and evaluated by Dr. Edwards Chest x-ray reviewed, improved aeration of the right, airspace disease in the left lung base Remains on 10 L high flow nasal cannula. Continued on Zosyn and Flagyl. Increase his activity as tolerated, up in chair Increase use of the incentive spirometer and cough and deep breathing exercises We'll continue to follow and make further recommendations based on his clinical status I, the cosigning physician, performed a history & physical examination of the patient. Lungs sounds scattered rhonchi more so in the left lung base with some crackles.. Maintaining good O2 saturations in the 90s on 10 L/m per nasal cannula. I discussed the assessment and plan of care with my nurse practitioner, Jessenia Douglas. I attest to the above note as dictated by her.
[2019-10-07] MEDS: metroNIDAZOLE 500 MG TAB PO SCH ×2 (16:38→22:37)
[2019-10-07] MEDS: MELATONIN 3 MG TABLET PO SCH (21:12)
[2019-10-08] MEDS: PIPERACILLIN-TAZOBACTAM 3.375 GM in SODIUM CHLORIDE 0.9% 100 ML IVPB SCH ×3 (03:23→17:05)
[2019-10-08] MEDS: metroNIDAZOLE 500 MG TAB PO SCH ×3 (08:37→20:13)
[2019-10-08] MEDS: PANTOPRAZOLE 40 MG TABLET PO SCH (08:37)
[2019-10-08] MEDS: AMIODARONE 200 MG TAB PO SCH ×3 (08:37→20:13)
[2019-10-08] MEDS: FUROSEMIDE 10 MG/ML 2 ML VIAL IV SCH (08:37)
[2019-10-08] MEDS: METOPROLOL TARTRATE 25 MG TAB PO SCH ×2 (08:37→20:14)
[2019-10-08] MEDS: BISACODYL 10 MG SUPP RECTAL SCH (08:37)
[2019-10-08] MEDS: APIXABAN 5 MG TAB PO SCH ×2 (08:37→20:13)
[2019-10-08] MEDS: NICOTINE 21MG/24HR PATCH TRANSDERM SCH (08:38)
[2019-10-08] MEDS: BUDESONIDE 0.5 MG/2 ML NEBU INHALATION SCH ×2 (09:31→20:27)
[2019-10-08] MEDS: IPRATROPIUM-ALBUTEROL 3 ML NEB INHALATION SCH ×4 (09:31→20:27)
[2019-10-08 10:25] LABS: Calcium 8.5 mg/dL (8.4-10.2); Potassium 4.2 mmol/L (3.5-5.1)
--- NOTE | 2019-10-08 12:00 | P.PN ---
Subjective Progress Note Date: 10/08/19 This is a pleasant 83-year-old gentleman who was admitted to the hospital with small bowel obstruction and underwent exploratory laparotomy. The patient subsequently went into atrial fibrillation with RVR and then he underwent a SHIRA and cardioversion. Patient was also on IV Lasix for some mild heart failure. He was seen and examined this morning, his weight is down 3 kg today. He is remaining in normal sinus rhythm. Blood pressure 120/60 with a heart rate in the 60s, 93% on 6 L of oxygen. Sodium 141, potassium 4.2, BUN 31, creatinine 1.0. Objective - Vital Signs Vital signs: Vital Signs Temp 98.1 F 10/08/19 08:00 Pulse 66 10/08/19 11:50 Resp 18 10/08/19 11:50 BP 121/58 10/08/19 11:50 Pulse Ox 93 L 10/08/19 11:50 Intake & Output 10/07/19 10/08/19 10/08/19 18:59 06:59 18:59 Intake Total 120 240 Output Total 690 3205 Balance -570 -3205 240 Weight 73.7 kg Intake: Oral 120 240 Output: Drainage 40 5 Right Lower Abdomen 40 5 Urine 650 3200 Other: Voiding Method Indwelling Catheter Indwelling Catheter Indwelling Catheter # Voids 850 - Exam Appearance: Alert pleasant 83-year-old gentleman. On 10 L nasal cannula. O2 saturation 92%. Head exam was generally normal. There was no scleral icterus or corneal arcus. Mucous membranes were moist. Neck was supple and without jugular venous distension, thyromegaly, or carotid bruits. Carotids were easily palpable bilaterally. There was no adenopathy. Oc gastric and orotracheal tube are both in place. Lungs breath other are equal and symmetrical bilaterally. Scattered crackles and rhonchi more so on the right lung base, diminished bilaterally right greater than left Cardiac exam revealed the PMI to be normally situated and sized. The rhythm was regular and no extrasystoles were noted during several minutes of auscultation. The first and second heart sounds were normal and physiologic splitting of the second heart sound was noted. There were no murmurs, rubs, clicks, or gallops. Abdominal exam revealed absence bowel sounds. The abdomen was soft, non-tender, and without masses, organomegaly, or appreciable enlargement of the abdominal aorta. Dressing dry and intact, abdominal incision which is in his right groin area. The wound is which is dry clean and intact Neurologically the patient is awake alert oriented 3, comfortable no acute distress. Pupils are equal and reactive to light. Examination of the skin revealed no evidence of significant rashes, suspicious appearing nevi or other concerning lesions. - Labs CBC & Chem 7: 10/05/19 05:03 10/08/19 09:52 Labs: Abnormal Lab Results - Last 24 Hours (Table) 10/08/19 Range/Units 09:52 Chloride 97 L (98-107) mmol/L Carbon Dioxide 37 H (22-30) mmol/L BUN 31 H (9-20) mg/dL Glucose 161 H (74-99) mg/dL Microbiology - Last 24 Hours (Table) 10/03/19 15:00 Gram Stain - Final Pleural Fluid Body Fluid Culture - Final Assessment and Plan Plan: Assessment and plan 1 exploratory laparotomy, right inguinal hernia repair and right orchiectomy and right colectomy. 2 abdominal pain and bowel obstruction secondary to above, recovered 3 acute hypoxic/hypercapnic respiratory failure following abdominal surgery. The patient to be intubated in the recovery and successfully extubated 4 right lower lobe consolidation, possible pneumonia, aspiration. 5 kidney failure, chronicity is unknown. Consider chronic kidney disease. 6 hypotension improved with fluid resuscitation. Consider intravascular volume depletion/dehydration. Consider sepsis 7 acute lactic acidosis, improved 8 UTI secondary to E. coli currently on IV Zosyn 9 hypertension 10 hyperlipidemia 11 chronic smoker 12 paroxysmal atrial fibrillation, status post SHIRA and cardioversion, remaining in normal sinus rhythm 13 diastolic congestive heart failure, acute Plan We'll discontinue the IV Lasix today and change patient over to oral diuretics. Continue the rest of the patient's medications. DNP note has been reviewed, I agree with a documented findings and plan of care. Patient was seen and examined.
--- NOTE | 2019-10-08 15:06 | P.PN ---
Subjective Progress Note Date: 10/08/19 Principal diagnosis: Exploratory laparotomy, right inguinal hernia repair right orchiectomy and right colectomy An 83-year-old male patient intubated on a mechanical ventilator, currently postop day #1 following a right colectomy, right inguinal hernia repair with orchiectomy. The patient came into the hospital with bowel obstruction and was diagnosed having a recurrent right incarcerated inguinal hernia with bowel obstruction. He underwent his surgery yesterday. Postop, he was extubated but he was quite lethargic and he was having significant respiratory distress and he was given a blood gas that showed respiratory acidosis with a pH of 7.12 with a pCO2 of 69 and pO2 123. Based on that, the patient was reintubated. This morning, the patient is was resuscitated. Overnight he was hypotensive and he was started on pressors with norepinephrine infusion. He was given a total of 6 L of IV fluids in the form of normal saline and his pressors currently running at 0.05 g per KG per minute. He is warm. There is adequate pulses in all 4 extremities. His blood pressures improved. He is currently assist-control mode rate of 26 with a tidal volume of 500 and an FiO2 of 50% with a PEEP of 5. Chest x-ray from this morning shows that ET tube is around 2 cm above the jazzmine. The patient has a right lower lobe consolidation which was seen on previous chest films. He has also underlying COPD. OG tube is in a good location. He is renal failure. The chronicity of this kidney injury is not known. The patient's creatinine is at 3.0. He is producing urine output in the order of 50 mL an hour. Currently on a combination of Zosyn and Flagyl. He is on propofol which is running at 25 g per KG per minute. The patient is seen today 09/30/2019 in follow-up in the intensive care unit. He was successfully extubated yesterday. He is postoperative day #2 following a right colectomy, right inguinal hernia repair with orchiectomy. He is doing quite well. He is currently sitting up in a chair at the bedside. Awake and alert in no acute distress. He did have a episode of atrial fibrillation with RVR and was initiated on Cardizem drip at 5 mg per hour. He is back in normal sinus rhythm. Echocardiogram and TSH levels are pending. His chest x-ray does show increased right lower lobe pneumonia as well. Sputum sample is pending. He needs increased encouragement regarding the use of the incentive spirometer. He has a loose nonproductive cough. He is maintaining good O2 saturations in the 90s on 4 L/m per nasal cannula. Urine culture was positive for E. coli. Sputum culture reveals no growth. White count 10.5. Hemoglobin 12.7. Creatinine 1.95. Remains on Zosyn and Flagyl. Heparin for DVT prophylaxis. Patient was reevaluated today on 10/01/2019, patient remains in the ICU, continues to have significant right lower lobe consolidation/pneumonia, felt to be most likely secondary to aspiration pneumonia. He was extubated a few days ago, he is on 4 L nasal cannula. Patient is not requiring any pressors, he is hemodynamically stable, remains on broad-spectrum antibiotics for presumptive aspiration pneumonia and abdominal sepsis. CBC showed WBC count of 10.9 hemoglobin is 13.1, sodium is high at 149 BUN is down to 39 and creatinine is down to 1.47, improving. Overall the patient seems to be demonstrating steady improvement. Chest x-ray remains a bit concerning to me. Reevaluated today on 10/02/2019, patient remains in the ICU, his overall pulmonary status is marginal, continues to have significant right lower lobe consolidation, and possibly some component of interstitial edema. Or aspiration pneumonia. Patient is on nonrebreather mask. Denies any shortness of breath, denies any cough no wheezing no fever no chills no hemoptysis and no chest pain. He is hemodynamically stable. WBC count is 7.7 hemoglobin is 13.8. Sodium remains elevated 149 BUN is 36 coming down and the creatinine is 1.38 coming down steadily. Patient was reevaluated today on 10/03/2019, remains in the ICU, presently in atrial fibrillation with RVR, placed on amiodarone and on Cardizem drip by cardiology. He is also on heparin. When I saw him earlier today, I reviewed his chest x-ray and there is evidence of good sized right-sided pleural effusion, performed ultrasound-guided thoracentesis, and I was able to retrieve 850 mL of fluid from the right pleural space slightly serosanguineous but seems to be likely transudative in nature labs are pending on the fluid. Clinically the patient is better, remains on high flow nasal cannula, O2 saturation is marginal. And again he is in atrial fibrillation with RVR at present WBC count is 13.1 hemoglobin is 13.5 electrolyte showed low potassium of 3.1 being corrected as per protocol. Renal functioning remains marginal but improved compared to a few days ago, creatinine is 1.41. Reevaluated today on 10/04/2019. Patient remains on high flow nasal cannula at 15 L/m. Relatively asymptomatic. No cough no wheezing no shortness of breath no chest pain. Continues to have atrial fibrillation with RVR in spite of maximal therapy presently on amiodarone drip and esmolol drip. Patient will undergo SHIRA and cardioversion by cardiology today. This is pending. Chest x- ray is showing reactivity will a the right pleural effusion. And some consolidation in the right midlung. It is mostly consistent with congestive heart failure. The pleural effusion was transudative in nature hence it is cardiogenic unless for otherwise. CBC is relatively normal today. Hemoglobin is 14.3 electrolytes are normal renal profile showed a BUN of 42 creatinine of 1.29, steadily improving since admission Patient was reevaluated today on 10/05/2019, patient is feeling better, he is now in sinus rhythm, responded well to the cardioversion yesterday. His O2 saturation is up to 95%, hence instructed on and to titrate his FiO2 down and hopefully switch him eventually to a normal nasal cannula, and lower FiO2. Patient denies any specific complaints, denies any shortness of breath, no coug h, no wheezing, no nausea, no vomiting, he is now on amiodarone orally as per cardiology recommendation. Off the drip, and he remains in normal sinus rhythm. Chest x-ray is suggestive of mild edema, hence I have recommended Lasix 20 mg IV push every 12 hours. WBC count is 11.2 hemoglobin is 12.90 Normal BUN is down to 37 and creatinine is down to 1.25, significantly improved. The patient is seen today 10/06/2019 in follow-up on the selective care unit. He is still on 10 L high flow nasal cannula to maintain O2 saturations in the 90s. He is currently afebrile. Hemodynamically stable. Sputum and urine cultures had previously been positive for E. coli. Remains on Zosyn and Flagyl. Continued on bronchodilators. Remains on IV diuretics. Anticoagulated with Eliquis. Doppler of the right upper extremity was negative for DVT. There is some superficial phlebitis and the cephalic vein. The patient is seen today 10/07/2019 in follow-up on the selective care unit. He is awake and alert in no acute distress. He does remain on 10 L high flow nasal cannula. He is afebrile. Hemodynamically stable. Today's chest x-ray reveals improved aeration of the right lung. There is worsening airspace disease in the left lung base. Bilateral effusions right greater than left. Continued on Zosyn along with Flagyl. On 10/08/2019 patient seen in follow-up on selective care unit, he is resting comfortably in bed, in no acute distress. Currently on 6 L of oxygen with a pulse ox of 93%, afebrile, hemodynamically stable, doing better, feeling better, lung sounds reveal minimal wheezes, no signs of respiratory distress, does report some exertional dyspnea. No significant cough or congestion. Patient is status post repair of incarcerated large right inguinal hernia. he continues on oral diuretics, and he is maintaining negative fluid balance Objective - Vital Signs Vital signs: Vital Signs Temp 98.1 F 10/08/19 08:00 Pulse 84 10/08/19 13:18 Resp 18 10/08/19 12:00 BP 121/58 10/08/19 11:50 Pulse Ox 93 L 10/08/19 11:50 Intake & Output 10/07/19 10/08/19 10/08/19 18:59 06:59 18:59 Intake Total 120 480 Output Total 690 3205 Balance -570 -3205 480 Weight 73.7 kg Intake: Oral 120 480 Output: Drainage 40 5 Right Lower Abdomen 40 5 Urine 650 3200 Other: Voiding Method Indwelling Catheter Indwelling Catheter Indwelling Catheter # Voids 850 - Exam GENERAL EXAM: Alert, very pleasant, 83-year-old white male, in 6 L of oxygen the pulse ox 93%, comfortable in no apparent distress. HEAD: Normocephalic/atraumatic. EYES: Normal reaction of pupils, equal size. Conjunctiva pink, sclera white. NOSE: Clear with pink turbinates. THROAT: No erythema or exudates. NECK: No masses, no JVD, no thyroid enlargement, no adenopathy. CHEST: No chest wall deformity. Symmetrical expansion. LUNGS: Equal air entry with no crackles, wheeze, rhonchi or dullness. CVS: Regular rate and rhythm, normal S1 and S2, no gallops, no murmurs, no rubs ABDOMEN: Soft, nontender. Abdominal incision is clean dry and intact, right groin incision is clean dry and intact, JAGJIT drain in the right lower quadrant No hepatosplenomegaly, normal bowel sounds, no guarding or rigidity. EXTREMITIES: No clubbing, no edema, no cyanosis, 2+ pulses and upper and lower extremities. MUSCULOSKELETAL: Muscle strength and tone normal. SPINE: No scoliosis or deformity SKIN: No rashes CENTRAL NERVOUS SYSTEM: Alert and oriented -3. No focal deficits, tone is normal in all 4 extremities. PSYCHIATRIC: Alert and oriented -3. Appropriate affect. Intact judgment and insight. - Labs CBC & Chem 7: 10/05/19 05:03 10/08/19 09:52 Labs: Abnormal Lab Results - Last 24 Hours (Table) 10/08/19 Range/Units 09:52 Chloride 97 L (98-107) mmol/L Carbon Dioxide 37 H (22-30) mmol/L BUN 31 H (9-20) mg/dL Glucose 161 H (74-99) mg/dL Microbiology - Last 24 Hours (Table) 10/03/19 15:00 Gram Stain - Final Pleural Fluid Body Fluid Culture - Final Assessment and Plan Plan: Assessment: 1 exploratory laparotomy, right inguinal hernia repair and right orchiectomy and right colectomy. 2 abdominal pain and bowel obstruction secondary to above, recovered 3 acute hypoxic/hypercapnic respiratory failure following abdominal surgery. The patient to be intubated in the recovery and successfully extubated 4 right lower lobe consolidation consider aspiration pneumonia on Zosyn. 5 kidney failure, chronicity is unknown. Consider chronic kidney disease. Recovered 6 hypotension improved with fluid resuscitation. Consider intravascular volume depletion/dehydration. Consider sepsis 7 acute lactic acidosis, improved 8 UTI secondary to E. coli currently on IV Zosyn 9 hypertension history of 10 hyperlipidemia, history of 11 chronic smoker Plan: Continue oral Lasix, continue antibiotics, wean FiO2, encourage deep breathing and coughing. Increase activity as tolerated. Last chest x-ray from yesterday showed improved aeration in the right lung, and some worsening airspace disease in the left lung base, bilateral pleural effusions greater on the right. Tomer martinez is maintaining negative fluid balance, will continue with diuretics I performed a history & physical examination of the patient and discussed their management with my nurse practitioner, Ameriac Woods. I reviewed the nurse practitioner's note and agree with the documented findings and plan of care. Lung sounds are positive for diffuse wheezes throughout the lung velazco. The findings and the impression was discussed with the patient. I attest to the documentation by the nurse practitioner. Time with Patient: Less than 30
[2019-10-08] MEDS: FUROSEMIDE 20 MG TAB PO SCH (15:47)
--- NOTE | 2019-10-08 15:58 | P.PN ---
Subjective Progress Note Date: 10/08/19 This is an 83-year-old male patient of Dr. Rao with past medical history of hypertension, hyperlipidemia, chronic urinary retention for 10 years status post recath at home, tobacco use and dependence. Patient states he started having vomiting on Tuesday as well as lower abdominal pain. He denies having any shortness of breath, no chest pain. He denies having any diarrhea. Patient came into [facility] emergency center for evaluation where he was found to be afebrile, blood pressure initially 84/53, heart rate 93-110, pulse ox 92% on room air. WBC 17.8, hemoglobin 20.4. BUN 36 creatinine 2.67, lactic acid 7.2, total bilirubin 1.6, AST 24, ALT 14, alkaline phosphatase 103, amylase 144. Urinalysis moderate blood, leukoesterase large, RBCs 124 WBC 49. Stool for occult blood positive. CAT scan of the abdomen and pelvis revealed moderately marked small bowel obstruction secondary to right inguinal hernia. Patient was made nothing by mouth, IV fluids were started and consult with Dr. Zelaya with plan for repair of incarcerated right inguinal hernia this afternoon. Family members are at bedside and have been updated. 09/29: Patient is currently intubated in ICU with NG tube in place. Patient has been weaned from sedation at this time. He is able to answer questions by shaking his head and nodding. Patient is anxious to write to communicate with family and staff. Daughters are at the bedside. Patient is able to answer majority of questions appropriately. Anticipate to be extubated sometime today. Patient has a JAGJIT drain in place a 20 mL of output, NG tube with 140 mL of output over the night. He continues to have dark urine. Blood pressure 114/69, pulse rate 84, 97% on mechanical intubation. The CBC 12.4, hemoglobin 12.7, potassium 4.6, BUN 69, creatinine 3.03. Patient has been a pack to 2 pack-a-day smoker for the last 50+ years. Family is requesting a nicotine patch at this time. 09/30: Patient has been extubated. He is currently sitting up in a chair with NG tube in place. Patient states that he is unable to pass gas at this time. His pulse ox continued to be sluggish. He is able to questions appropriately. Patient is requesting to have some chocolate milk. He has no other complaints or concerns at this time. NG tube drainage continues to be clear. Patient remained afebrile and hemodynamically stable. W BC 10.5, hemoglobin 12.7, potassium 4.6, BUN 57, creatinine 1.95, TSH 0.688 10/01: Patient remains in the intensive care unit. He did go into A. fib with RVR and was started on amiodarone drip. Within the last hour, patient has been de-sating status post a dose of Lasix IV was ordered for this morning and we will also add in a dose of IV Lasix for this evening. Solu-Medrol added for 3 doses and Pulmicort. Castro catheter is in place. Patient has been hemodynamically stable, blood pressure is stable. No vasopressors. WBC 10.9, hemoglobin 13.1, sodium 149, BUN 39 creatinine 1.47. Chest x-ray reveals similar findings. Correlate for pneumonia, atelectasis, difficult to exclude effusion. Correlate for possible pulmonary artery hypertension. General surgery has cleared the patient for sips of clear liquids. Dr. Edwards is following the patient. 10/02: Patient remains in the intensive care unit, afebrile, heart rate 77, blood pressure 155/74, patient is currently on a nonrebreather pulse oxing 96%. Patient received 1 dose of IV Lasix this morning. He has been on amiodarone drip was started by Dr. Montes on the weekend. There is no cardiology consult in place and we will add a cardiology consult at this time. Patient has been cleared for a clear liquid diet by general surgery. Repeat chest x-ray reveals interval tube removal. Correlate for pneumonia, pulmonary edema or congestive heart failure not excluded. Patient is on Zosyn and Flagyl. WBC 7.7, hemoglobin 13.8, sodium 149, BUN 36 and creatinine 1.38. Patient is raised Sheen 800 on incentive spirometry. composition teacher is a sinus rhythm. 10/03: Repeat chest x-ray reveals no significant change. Correlate for conge stive heart failure, volume overload, pneumonia. Dr. Hayes has ordered an ultrasound of the chest and he is status post thoracentesis with removal of 850 mL. Lasix will be discontinued.. Patient has been seen by Dr. THU Edwards with plan to continue IV amiodarone and recommended a 10 mg Cardizem bolus with 10 mg drip and started on heparin drip. Patient's heart rate has been running in the 140s and 150s and he is scheduled for SHIRA and cardioversion tomorrow. Blood pressure 120/82, pulse ox 93% on high flow nasal cannula. Patient's diet has been advanced to low fiber this morning by Dr. Zelaya. Patient complains of insomnia. Melatonin added. 10/04: Patient remains in intensive care unit. He underwent SHIRA and successful cardioversion this morning and has converted to normal sinus rhythm. He did receive amiodarone bolus followed by a drip on protocol and on heparin. Repeat blood work is WBC 16.3, BUN 42 and creatinine 1.29. Sputum culture is positive for E. coli as well as urine culture. Pleural fluid culture is in progress. Patient is on Flagyl and Zosyn. Patient has been tolerating his diet. No nausea or vomiting. He is having daily bowel movements and last night it was on the looser side and stool softener was held this morning. Patient's shortness of breath is much improved following cardioversion. 10/05: Patient remains in the intensive care unit. He is currently off amiodarone and running a sinus rhythm in the 60s. He has been transitioned off heparin drip and started on eliquis 5 mg twice daily. O2 saturation is 91% on high flow nasal cannula at 6 L. Nursing is attempting to wean oxygen down and if this works well, patient will be transferred out of the intensive care unit. Repeat chest x-ray reveals diffuse pleural parenchymal changes stable correlate for pneumonia versus pulmonary edema. Patient has been afebrile, heart rate 71, respiratory rate 24, blood pressure 162/76, pulse ox 91% on 6 L high flow nasal cannula. Castro catheter remains in place for chronic urinary retention/self- catheterization at home. Patient is tolerating a low fiber diet, no nausea or vomiting. Patient has been seen this morning by Dr. Khan and patient is ag reeable for inpatient rehab at [facility]. Anticipate he will be ready for discharge by Tuesday. 10/06: Patient has right arm swelling and underwent an ultrasound that revealed superficial phlebitis in the cephalic vein. Patient is on eliquis. Patient states the JAGJIT drain is to be removed. He has a Castro in which we are maintaining due to chronic urinary retention. He states he is eating well and drinking well and having bowel movements. Patient is scheduled for discharge on Tuesday. 10/08 patient examined bedside is feeling comfortable but is currently requiring 6 L of oxygen with pulse of 88 respiratory rate 18 blood pressure 121/58. Blood work suggests a chloride of 97 carbon dioxide 37 BUN 31 creatinine 1.02, bicarb decreased from 29-37 chloride 97. Arterial blood gas ordered to evaluate for primary or secondary metabolic alkalosis. Chest x-ray suggestive of worsening in infiltrate in the left lower base. Pro-calcitonin ordered continue Zosyn and Flagyl. Lasix reduced to 20 by mouth twice a day. Hold for discharge to inpatient rehab and titrate down oxygen Review Of Systems: Constitutional: No fever, no chills, no night sweats. No weight change. rep orts generalized weakness, fatigue or lethargy. Reports daytime sleepiness. EENT: No headache. No blurred vision or double vision, no loss of vision. No loss of Hearing, Lungs: Denies shortness of breath, denies cough Cardiovascular: No chest pain, no lower extremity edema. Denies palpitations. Abdominal: no abdominal discomfort. No nausea, vomiting. no diarrhea. No constipation. Denies poor appetite Musculoskeletal: No myalgias. No muscle weakness, no gait dysfunction, no frequent falls. No back pain. No neck pain. Neurologic: No aphasia. No facial droop. No change in mentation. No headache. No paralysis. No paresthesia. Psychiatric: No depression. No anxiety. No mood swings. Reports insomnia Objective - Vital Signs Vital signs: Vital Signs Temp 98.1 F 10/08/19 08:00 Pulse 84 10/08/19 13:18 Resp 18 10/08/19 12:00 BP 121/58 10/08/19 11:50 Pulse Ox 93 L 10/08/19 11:50 Intake & Output 10/07/19 10/08/19 10/08/19 18:59 06:59 18:59 Intake Total 120 480 Output Total 690 3205 Balance -570 -3205 480 Weight 73.7 kg Intake: Oral 120 480 Output: Drainage 40 5 Right Lower Abdomen 40 5 Urine 650 3200 Other: Voiding Method Indwelling Catheter Indwelling Catheter Indwelling Catheter # Voids 850 - Exam - Constitutional General appearance: cooperative, no acute distress, obese - EENT Eyes: anicteric sclerae, PERRLA, normal appearance ENT: hearing grossly normal - Neck Neck: no lymphadenopathy, normal ROM, no other, no rigidity, no stridor, no thyromegaly - Respiratory Respiratory: bilateral: Decreased air entry no crackles or wheezing heard - Cardiovascular Rhythm: regular Heart sounds: normal: S1, S2 Abnormal Heart Sounds: no systolic murmur, no diastolic murmur, no rub, no S3 Gallop, no S4 Gallop, no click, no other - Gastrointestinal General gastrointestinal: normal bowel sounds, soft nontender - Integumentary Integumentary: no rash - Neurologic Neurologic: CNII-XII intact - Musculoskeletal Musculoskeletal: gait normal, strength equal bilaterally - Psychiatric Psychiatric: A&O x's 3, appropriate affect - Labs CBC & Chem 7: 10/05/19 05:03 10/08/19 09:52 Labs: Abnormal Lab Results - Last 24 Hours (Table) 10/08/19 Range/Units 09:52 Chloride 97 L (98-107) mmol/L Carbon Dioxide 37 H (22-30) mmol/L BUN 31 H (9-20) mg/dL Glucose 161 H (74-99) mg/dL Microbiology - Last 24 Hours (Table) 10/03/19 15:00 Gram Stain - Final Pleural Fluid Body Fluid Culture - Final Assessment and Plan Plan: 1. Small bowel obstruction secondary to right inguinal hernia status post exploratory laparotomy, right inguinal hernia repair with right orchiectomy and right colectomy. Consult with Dr. Zelaya appreciated. Tolerating a low fiber diet. Patient is on Zosyn and Flagyl. 2. Acute kidney injury secondary to vomiting and poor oral intake. Hold lisinopril. Avoid nephrotoxic agents. 3. Lactic acidosis secondary to acute kidney injury. 4. Acute E. coli urinary tract infection secondary to self catheterization. Urine culture in progress. Patient is on Zosyn and Flagyl. 5. Hypertension. Lisinopril on hold. Continue Lopressor, Lasix. 6. GI prophylaxis. Protonix. 7. DVT prophylaxis. Heparin subcu 8. Tobacco use and dependence. Nicotine patch. 9. Chronic urinary retention with self-catheterization. Castro catheter in place. 10. Acute hypoxic and hypercapnic respiratory failure secondary to aspiration pneumonia and pleural effusion status post thoracentesis. Continue Zosyn and Flagyl. Patient is currently on Lasix 20 mg po every 12 hours. 11. New onset atrial fibrillation with RVR, paroxysmal atrial fibrillation. Patient is off amiodarone drip, Cardizem drip, heparin drip. Continue Lopressor 25 mg twice daily, eliquis 5 mg twice daily. Cardiology consult appreciated. Patient is status post SHIRA and cardioversion. 12. Suspected COPD. continue DuoNeb treatments 4 times daily, Pulmicort 0.5 mg twice daily 13. Right upper extremity superficial phlebitis. Continue eliquis. Discharge plan: [facility] for inpatient rehab likely tomorrow. Consult with Dr. Khan appreciated.
--- NOTE | 2019-10-08 16:38 | P.PN ---
Subjective Progress Note Date: 10/08/19 Principal diagnosis: Incarcerated right inguinal hernia Patient doing well at this time. Shortness of breath is mostly resolved. He is tolerating his diet. Good bowel function. JAGJIT drain now is scant. Objective - Vital Signs Vital signs: Vital Signs Temp 97.5 F L 10/08/19 16:00 Pulse 64 10/08/19 16:00 Resp 18 10/08/19 16:00 BP 134/63 10/08/19 16:00 Pulse Ox 96 10/08/19 16:00 Intake & Output 10/07/19 10/08/19 10/08/19 18:59 06:59 18:59 Intake Total 120 480 Output Total 690 3205 10 Balance -570 -3205 470 Weight 73.7 kg Intake: Oral 120 480 Output: Drainage 40 5 10 Right Lower Abdomen 40 5 10 Urine 650 3200 Other: Voiding Method Indwelling Catheter Indwelling Catheter Indwelling Catheter # Voids 850 - Exam Abdomen: Soft, nondistended, nontender, incision clean and dry, scrotum without swelling - Labs CBC & Chem 7: 10/05/19 05:03 10/08/19 09:52 Labs: Abnormal Lab Results - Last 24 Hours (Table) 10/08/19 Range/Units 09:52 Chloride 97 L (98-107) mmol/L Carbon Dioxide 37 H (22-30) mmol/L BUN 31 H (9-20) mg/dL Glucose 161 H (74-99) mg/dL Microbiology - Last 24 Hours (Table) 10/03/19 15:00 Gram Stain - Final Pleural Fluid Body Fluid Culture - Final Assessment and Plan (1) Incarcerated inguinal hernia Narrative/Plan: We'll remove JAGJIT drain this time. Continue diet as tolerated. Agree with plans for rehab. Current Visit: Yes Status: Acute Code(s): K40.30 - UNIL INGUINAL HERNIA, W OBST, W/O GANGR, NOT SPCF RECUR SNOMED Code(s): 579391250
[2019-10-08 17:11] LABS: ABG Base Excess 19.6 mmol/L; ABG Oxygen Saturation 94.6 % (94-97); ABG PCO2 57 mmHg (35-45); ABG PH 7.48 (7.35-7.45); ABG PO2 68 mmHg (83-108); ABG TCO2 45 mmol/L (19-24); Allen Test Performed? Yes
[2019-10-08 17:16] LABS: ABG HCO3 43 mmol/L (21-25)
[2019-10-08] MEDS: acetaZOLAMIDE 250 MG TAB PO SCH (17:33)
[2019-10-08] MEDS: MELATONIN 3 MG TABLET PO SCH (20:14)
[2019-10-09] MEDS: PIPERACILLIN-TAZOBACTAM 3.375 GM in SODIUM CHLORIDE 0.9% 100 ML IVPB SCH ×2 (03:05→09:21)
--- NOTE | 2019-10-09 08:22 | XR ---
EXAMINATION TYPE: XR chest 2V DATE OF EXAM: 10/09/2019 COMPARISON: Prior chest x-ray 10/07/2019 HISTORY: Infiltrate, abnormal chest x-ray TECHNIQUE: Frontal and lateral views of the chest are obtained. FINDINGS: Pleural-parenchymal changes are similar to prior exam. No evident pneumothorax. Heart is s table. There are overlying cardiac leads. Interstitium is mildly increased. Patchy density present wi thin the lungs right greater than left lung base. IMPRESSION: Findings are similar to prior exam. Correlate for pneumonia. Follow-up to resolution.
[2019-10-09] MEDS: IPRATROPIUM-ALBUTEROL 3 ML NEB INHALATION SCH ×3 (09:01→15:44)
[2019-10-09] MEDS: BUDESONIDE 0.5 MG/2 ML NEBU INHALATION SCH (09:01)
[2019-10-09] MEDS: metroNIDAZOLE 500 MG TAB PO SCH ×2 (09:21→16:19)
[2019-10-09] MEDS: APIXABAN 5 MG TAB PO SCH (09:21)
[2019-10-09] MEDS: AMIODARONE 200 MG TAB PO SCH ×2 (09:21→16:19)
[2019-10-09] MEDS: PANTOPRAZOLE 40 MG TABLET PO SCH (09:21)
[2019-10-09] MEDS: METOPROLOL TARTRATE 25 MG TAB PO SCH (09:21)
[2019-10-09] MEDS: acetaZOLAMIDE 250 MG TAB PO SCH (09:21)
[2019-10-09] MEDS: FUROSEMIDE 20 MG TAB PO SCH ×2 (09:21→16:19)
[2019-10-09] MEDS: NICOTINE 21MG/24HR PATCH TRANSDERM SCH (09:22)
[2019-10-09] MEDS: BISACODYL 10 MG SUPP RECTAL SCH (09:29)
[2019-10-09 09:51] VITALS: BP 136/64; RESP 16; TEMP 98
--- NOTE | 2019-10-09 10:05 | P.DS ---
Providers Date of admission: 09/27/19 20:32 Expected date of discharge: 10/09/19 Attending physician: Liyah Anderson Consults: 09/27/19 20:32 Consult Physician Urgent Consulting Provider: Elio Zelaya Consult Reason/Comments: Small bowel obstruction, inguinal hernia incarcerated Do you want consulting provider notified?: Yes 09/28/19 19:04 Consult Physician Stat Consulting Provider: Jodee Montes Consult Reason/Comments: ICU Management Do you want consulting provider notified?: Already Contacted 10/02/19 13:05 Consult Physician Routine Consulting Provider: Roberto Edwards Consult Reason/Comments: afib new onset, on amio Do you want consulting provider notified?: Yes 10/05/19 11:54 Consult Physician Routine Consulting Provider: Jordon Khan Consult Reason/Comments: IPR Do you want consulting provider notified?: Yes Primary care physician: [facility] Course: This is an 83-year-old male patient of Dr. Rao with past medical history of hypertension, hyperlipidemia, chronic urinary retention for 10 years status post recath at home, tobacco use and dependence. Patient states he started having vomiting on Tuesday as well as lower abdominal pain. He denies having any shortness of breath, no chest pain. He denies having any diarrhea. Patient came into [facility] emergency center for evaluation where he was found to be afebrile, blood pressure initially 84/53, heart rate 93-110, pulse ox 92% on room air. WBC 17.8, hemoglobin 20.4. BUN 36 creatinine 2.67, lactic acid 7.2, total bilirubin 1.6, AST 24, ALT 14, alkaline phosphatase 103, amylase 144. Urinalysis moderate blood, leukoesterase large, RBCs 124 WBC 49. Stool for occult blood positive. CAT scan of the abdomen and pelvis revealed moderately marked small bowel obstruction secondary to right inguinal hernia. Patient was made nothing by mouth, IV fluids were started and consult with Dr. Zelaya with plan for repair of incarcerated right inguinal hernia this afternoon. Family members are at bedside and have been updated. 09/29: Patient is currently intubated in ICU with NG tube in place. Patient has been weaned from sedation at this time. He is able to answer questions by shaking his head and nodding. Patient is anxious to write to communicate with family and staff. Daughters are at the bedside. Patient is able to answer majority of questions appropriately. Anticipate to be extubated sometime today. Patient has a JAGJIT drain in place a 20 mL of output, NG tube with 140 mL of output over the night. He continues to have dark urine. Blood pressure 114/69, pulse rate 84, 97% on mechanical intubation. The CBC 12.4, hemoglobin 12.7, potassium 4.6, BUN 69, creatinine 3.03. Patient has been a pack to 2 pack-a-day smoker for the last 50+ years. Family is requesting a nicotine patch at this time. 09/30: Patient has been extubated. He is currently sitting up in a chair with NG tube in place. Patient states that he is unable to pass gas at this time. His pulse ox continued to be sluggish. He is able to questions appropriately. Patient is requesting to have some chocolate milk. He has no other complaints or concerns at this time. NG tube drainage continues to be clear. Patient remained afebrile and hemodynamically stable. W BC 10.5, hemoglobin 12.7, potassium 4.6, BUN 57, creatinine 1.95, TSH 0.688 10/01: Patient remains in the intensive care unit. He did go into A. fib with RVR and was started on amiodarone drip. Within the last hour, patient has been de-sating status post a dose of Lasix IV was ordered for this morning and we will also add in a dose of IV Lasix for this evening. Solu-Medrol added for 3 doses and Pulmicort. Castro catheter is in place. Patient has been hemodynamically stable, blood pressure is stable. No vasopressors. WBC 10.9, hemoglobin 13.1, sodium 149, BUN 39 creatinine 1.47. Chest x-ray reveals similar findings. Correlate for pneumonia, atelectasis, difficult to exclude effusion. Correlate for possible pulmonary artery hypertension. General surgery has cleared the patient for sips of clear liquids. Dr. Edwards is following the patient. 10/02: Patient remains in the intensive care unit, afebrile, heart rate 77, blood pressure 155/74, patient is currently on a nonrebreather pulse oxing 96%. Patient received 1 dose of IV Lasix this morning. He has been on amiodarone drip was started by Dr. Montes on the weekend. There is no cardiology consult in place and we will add a cardiology consult at this time. Patient has been cleared for a clear liquid diet by general surgery. Repeat chest x-ray reveals interval tube removal. Correlate for pneumonia, pulmonary edema or congestive heart failure not excluded. Patient is on Zosyn and Flagyl. WBC 7.7, h emoglobin 13.8, sodium 149, BUN 36 and creatinine 1.38. Patient is raised Sheen 800 on incentive spirometry. 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 10/03: Repeat chest x-ray reveals no significant change. Correlate for congestive heart failure, volume overload, pneumonia. Dr. Hayes has ordered an ultrasound of the chest and he is status post thoracentesis with removal of 850 mL. Lasix will be discontinued.. Patient has been seen by Dr. THU Edwards with plan to continue IV amiodarone and recommended a 10 mg Cardizem bolus with 10 mg drip and started on heparin drip. Patient's heart rate has been running in the 140s and 150s and he is scheduled for SHIRA and cardioversion tomorrow. Blood pressure 120/82, pulse ox 93% on high flow nasal cannula. Patient's diet has been advanced to low fiber this morning by Dr. Zelaya. Patient complains of insomnia. Melatonin added. 10/04: Patient remains in intensive care unit. He underwent SHIRA and successful cardioversion this morning and has converted to normal sinus rhythm. He did receive amiodarone bolus followed by a drip on protocol and on heparin. Repeat blood work is WBC 16.3, BUN 42 and creatinine 1.29. Sputum culture is positive for E. coli as well as urine culture. Pleural fluid culture is in progress. Patient is on Flagyl and Zosyn. Patient has been tolerating his diet. No nausea or vomiting. He is having daily bowel movements and last night it was on the looser side and stool softener was held this morning. Patient's shortness of breath is much improved following cardioversion. 10/05: Patient remains in the intensive care unit. He is currently off amiodarone and running a sinus rhythm in the 60s. He has been transitioned off heparin drip and started on eliquis 5 mg twice daily. O2 saturation is 91% on high flow nasal cannula at 6 L. Nursing is attempting to wean oxygen down and if this works well, patient will be transferred out of the intensive care unit. Repeat chest x-ray reveals diffuse pleural parenchymal changes stable correlate for pneumonia versus pulmonary edema. Patient has been afebrile, heart rate 71, respiratory rate 24, blood pressure 162/76, pulse ox 91% on 6 L high flow nasal cannula. Castro catheter remains in place for chronic urinary retention/self- catheterization at home. Patient is tolerating a low fiber diet, no nausea or vomiting. Patient has been seen this morning by Dr. Khan and patient is agreeable for inpatient rehab at [facility]. Anticipate he will be ready for discharge by Tuesday. 10/06: Patient has right arm swelling and underwent an ultrasound that revealed superficial phlebitis in the cephalic vein. Patient is on eliquis. Patient states the JAGJIT drain is to be removed. He has a Castro in which we are maintaining due to chronic urinary retention. He states he is eating well and drinking well and having bowel movements. Patient is scheduled for discharge on Tuesday. 10/08 patient examined bedside is feeling comfortable but is currently requiring 6 L of oxygen with pulse of 88 respiratory rate 18 blood pressure 121/58. Blood work suggests a chloride of 97 carbon dioxide 37 BUN 31 creatinine 1.02, bicarb decreased from 29-37 chloride 97. Arterial blood gas ordered to evaluate for primary or secondary metabolic alkalosis. Chest x-ray suggestive of worsening in infiltrate in the left lower base. Pro-calcitonin ordered continue Zosyn and Flagyl. Lasix reduced to 20 by mouth twice a day. Hold for discharge to inpatient rehab and titrate down oxygen 10/09: [id number] evaluation has been done with the patient's insurance company and Dr. Valverde and inpatient rehab was denied. Insurance has arthritis subacute rehab. Patient is willing to go to subacute rehab. Patient was started on Diamox yesterday. Castro cath remains in place which will be discontinued. Pro- calcitonin came back at 0.4. Lasix will be transitioned to once oral daily. Antibiotics will be continued for 7 days. Repeat chest x-ray reveals findings similar to prior exam. Correlate for pneumonia. The patient will be discharged to subacute rehab once all arrangements are completed. Discharge Diagnoses: 1. Small bowel obstruction secondary to right inguinal hernia status post exploratory laparotomy, right inguinal hernia repair with right orchiectomy and right colectomy. 2. Acute kidney injury secondary to vomiting and poor oral intake. 3. Lactic acidosis secondary to acute kidney injury. 4. Acute E. coli urinary tract infection secondary to self catheterization. 5. Hypertension. 6. Chronic urinary retention with self-catheterization. 7. Acute hypoxic and hypercapnic respiratory failure secondary to aspiration pneumonia and pleural effusion status post thoracentesis. 8. Tobacco use and dependence. Nicotine patch. 9. New onset atrial fibrillation with RVR, paroxysmal atrial fibrillation. Patient is status post SHIRA and cardioversion. 12. COPD. 13. Right upper extremity superficial phlebitis. Discharge plan: Subacute rehab Impression and plan of care have been directed as dictated by the signing physician. Kinsey De Anda nurse practitioner acting as scribe for signing physi yuliana. Patient Condition at Discharge: Good Plan - Discharge Summary Discharge Rx Participant: No New Discharge Prescriptions: New Amoxic-Pot Clav 875-125Mg [Augmentin 875-125] 1 tab PO Q12HR #14 tablet Amiodarone [Cordarone] 200 mg PO TID tab acetaZOLAMIDE [Diamox] 250 mg PO DAILY tab Bisacodyl [Dulcolax] 10 mg RECTAL DAILY supp Ipratropium-Albuterol Nebulize [Duoneb 0.5 mg-3 mg/3 ml Soln] 3 ml INHALATION RT-QID ampul.neb Apixaban [Eliquis] 5 mg PO BID tab Nicotine 21Mg/24Hr Patch [Habitrol] 1 patch TRANSDERM DAILY patch Furosemide [Lasix] 20 mg PO DAILY tab Metoprolol Tartrate [Lopressor] 25 mg PO BID tab Melatonin 6 mg PO HS tablet Budesonide [Pulmicort] 0.5 mg INHALATION RT-BID nebu Continue Thiamine [Vitamin B-1] 100 mg PO DAILY Cyanocobalamin (Vitamin B-12) [Vitamin B-12] 1,000 mcg PO DAILY Simvastatin 40 mg PO HS Calcium Carbonate [Calcium] 600 mg PO DAILY Ascorbic Acid [Vitamin C] 1,000 mg PO DAILY Discontinued Aspirin EC [Ecotrin Low Dose] 81 mg PO DAILY Lisinopril [Zestril] 20 mg PO DAILY Freedom-3 Fatty Acids/Fish Oil [Fish Oil 1,000 mg Softgel] 1 cap PO DAILY Magnesium(Unknown Dose) 1 tab PO DAILY Discharge Medication List Ascorbic Acid [Vitamin C] 1,000 mg PO DAILY 09/27/19 [History] Calcium Carbonate [Calcium] 600 mg PO DAILY 09/27/19 [History] Cyanocobalamin (Vitamin B-12) [Vitamin B-12] 1,000 mcg PO DAILY 09/27/19 [History] Simvastatin 40 mg PO HS 09/27/19 [History] Thiamine [Vitamin B-1] 100 mg PO DAILY 09/27/19 [History] Amiodarone [Cordarone] 200 mg PO TID tab 10/09/19 [Rx] Amoxic-Pot Clav 875-125Mg [Augmentin 875-125] 1 tab PO Q12HR #14 tablet 10/09/19 [Rx] Apixaban [Eliquis] 5 mg PO BID tab 10/09/19 [Rx] Bisacodyl [Dulcolax] 10 mg RECTAL DAILY supp 10/09/19 [Rx] Budesonide [Pulmicort] 0.5 mg INHALATION RT-BID nebu 10/09/19 [Rx] Furosemide [Lasix] 20 mg PO DAILY tab 10/09/19 [Rx] Ipratropium-Albuterol Nebulize [Duoneb 0.5 mg-3 mg/3 ml Soln] 3 ml INHALATION RT-QID ampul.neb 10/09/19 [Rx] Melatonin 6 mg PO HS tablet 10/09/19 [Rx] Metoprolol Tartrate [Lopressor] 25 mg PO BID tab 10/09/19 [Rx] Nicotine 21Mg/24Hr Patch [Habitrol] 1 patch TRANSDERM DAILY patch 10/09/19 [Rx] acetaZOLAMIDE [Diamox] 250 mg PO DAILY tab 10/09/19 [Rx] Follow up Appointment(s)/Referral(s): Elio Zelaya MD [Medical Doctor] - 1 Week Zack Rao MD [Primary Care Provider] - 1 Week (after discharge from rehab) Discharge Disposition: TRANSFER TO SNF/ECF
[2019-10-09 11:04] VITALS: BMI 24.3
--- NOTE | 2019-10-09 11:49 | P.PN ---
Subjective Progress Note Date: 10/09/19 Principal diagnosis: Exploratory laparotomy, right inguinal hernia repair right orchiectomy and right colectomy An 83-year-old male patient intubated on a mechanical ventilator, currently postop day #1 following a right colectomy, right inguinal hernia repair with orchiectomy. The patient came into the hospital with bowel obstruction and was diagnosed having a recurrent right incarcerated inguinal hernia with bowel obstruction. He underwent his surgery yesterday. Postop, he was extubated but he was quite lethargic and he was having significant respiratory distress and he was given a blood gas that showed respiratory acidosis with a pH of 7.12 with a pCO2 of 69 and pO2 123. Based on that, the patient was reintubated. This morning, the patient is was resuscitated. Overnight he was hypotensive and he was started on pressors with norepinephrine infusion. He was given a total of 6 L of IV fluids in the form of normal saline and his pressors currently running at 0.05 g per KG per minute. He is warm. There is adequate pulses in all 4 extremities. His blood pressures improved. He is currently assist-control mode rate of 26 with a tidal volume of 500 and an FiO2 of 50% with a PEEP of 5. Chest x-ray from this morning shows that ET tube is around 2 cm above the jazzmine. The patient has a right lower lobe consolidation which was seen on previous chest films. He has also underlying COPD. OG tube is in a good location. He is renal failure. The chronicity of this kidney injury is not known. The patient's creatinine is at 3.0. He is producing urine output in the order of 50 mL an hour. Currently on a combination of Zosyn and Flagyl. He is on propofol which is running at 25 g per KG per minute. The patient is seen today 09/30/2019 in follow-up in the intensive care unit. He was successfully extubated yesterday. He is postoperative day #2 following a right colectomy, right inguinal hernia repair with orchiectomy. He is doing quite well. He is currently sitting up in a chair at the bedside. Awake and alert in no acute distress. He did have a episode of atrial fibrillation with RVR and was initiated on Cardizem drip at 5 mg per hour. He is back in normal sinus rhythm. Echocardiogram and TSH levels are pending. His chest x-ray does show increased right lower lobe pneumonia as well. Sputum sample is pending. He needs increased encouragement regarding the use of the incentive spirometer. He has a loose nonproductive cough. He is maintaining good O2 saturations in the 90s on 4 L/m per nasal cannula. Urine culture was positive for E. coli. Sputum culture reveals no growth. White count 10.5. Hemoglobin 12.7. Creatinine 1.95. Remains on Zosyn and Flagyl. Heparin for DVT prophylaxis. Patient was reevaluated today on 10/01/2019, patient remains in the ICU, continues to have significant right lower lobe consolidation/pneumonia, felt to be most likely secondary to aspiration pneumonia. He was extubated a few days ago, he is on 4 L nasal cannula. Patient is not requiring any pressors, he is hemodynamically stable, remains on broad-spectrum antibiotics for presumptive aspiration pneumonia and abdominal sepsis. CBC showed WBC count of 10.9 hemoglobin is 13.1, sodium is high at 149 BUN is down to 39 and creatinine is down to 1.47, improving. Overall the patient seems to be demonstrating steady improvement. Chest x-ray remains a bit concerning to me. Reevaluated today on 10/02/2019, patient remains in the ICU, his overall pulmonary status is marginal, continues to have significant right lower lobe consolidation, and possibly some component of interstitial edema. Or aspiration pneumonia. Patient is on nonrebreather mask. Denies any shortness of breath, denies any cough no wheezing no fever no chills no hemoptysis and no chest pain. He is hemodynamically stable. WBC count is 7.7 hemoglobin is 13.8. Sodium remains elevated 149 BUN is 36 coming down and the creatinine is 1.38 coming down steadily. Patient was reevaluated today on 10/03/2019, remains in the ICU, presently in atrial fibrillation with RVR, placed on amiodarone and on Cardizem drip by cardiology. He is also on heparin. When I saw him earlier today, I reviewed his chest x-ray and there is evidence of good sized right-sided pleural effusion, performed ultrasound-guided thoracentesis, and I was able to retrieve 850 mL of fluid from the right pleural space slightly serosanguineous but seems to be likely transudative in nature labs are pending on the fluid. Clinically the patient is better, remains on high flow nasal cannula, O2 saturation is marginal. And again he is in atrial fibrillation with RVR at present WBC count is 13.1 hemoglobin is 13.5 electrolyte showed low potassium of 3.1 being corrected as per protocol. Renal functioning remains marginal but improved compared to a few days ago, creatinine is 1.41. Reevaluated today on 10/04/2019. Patient remains on high flow nasal cannula at 15 L/m. Relatively asymptomatic. No cough no wheezing no shortness of breath no chest pain. Continues to have atrial fibrillation with RVR in spite of maximal therapy presently on amiodarone drip and esmolol drip. Patient will undergo SHIRA and cardioversion by cardiology today. This is pending. Chest x- ray is showing reactivity will a the right pleural effusion. And some consolidation in the right midlung. It is mostly consistent with congestive heart failure. The pleural effusion was transudative in nature hence it is cardiogenic unless for otherwise. CBC is relatively normal today. Hemoglobin is 14.3 electrolytes are normal renal profile showed a BUN of 42 creatinine of 1.29, steadily improving since admission Patient was reevaluated today on 10/05/2019, patient is feeling better, he is now in sinus rhythm, responded well to the cardioversion yesterday. His O2 saturation is up to 95%, hence instructed on and to titrate his FiO2 down and hopefully switch him eventually to a normal nasal cannula, and lower FiO2. Patient denies any specific complaints, denies any shortness of breath, no coug h, no wheezing, no nausea, no vomiting, he is now on amiodarone orally as per cardiology recommendation. Off the drip, and he remains in normal sinus rhythm. Chest x-ray is suggestive of mild edema, hence I have recommended Lasix 20 mg IV push every 12 hours. WBC count is 11.2 hemoglobin is 12.90 Normal BUN is down to 37 and creatinine is down to 1.25, significantly improved. The patient is seen today 10/06/2019 in follow-up on the selective care unit. He is still on 10 L high flow nasal cannula to maintain O2 saturations in the 90s. He is currently afebrile. Hemodynamically stable. Sputum and urine cultures had previously been positive for E. coli. Remains on Zosyn and Flagyl. Continued on bronchodilators. Remains on IV diuretics. Anticoagulated with Eliquis. Doppler of the right upper extremity was negative for DVT. There is some superficial phlebitis and the cephalic vein. The patient is seen today 10/07/2019 in follow-up on the selective care unit. He is awake and alert in no acute distress. He does remain on 10 L high flow nasal cannula. He is afebrile. Hemodynamically stable. Today's chest x-ray reveals improved aeration of the right lung. There is worsening airspace disease in the left lung base. Bilateral effusions right greater than left. Continued on Zosyn along with Flagyl. On 10/08/2019 patient seen in follow-up on [facility] care unit, he is resting comfortably in bed, in no acute distress. Currently on 6 L of oxygen with a pulse ox of 93%, afebrile, hemodynamically stable, doing better, feeling better, lung sounds reveal minimal wheezes, no signs of respiratory distress, does report some exertional dyspnea. No significant cough or congestion. Patient is status post repair of incarcerated large right inguinal hernia. he continues on oral diuretics, and he is maintaining negative fluid balance On 10/09/2019 patient seen in follow-up on [facility] care unit, he is resting comfortably in bed, he is in no acute distress, lung sounds are clear, no rhonchi, no wheezing, remains on 4 L of oxygen, which is down from 6 L on yesterday's exam, his pulse ox is 93%, he is afebrile, hemodynamically patient is stable, he is now on oral Lasix, and he is on a combination of Flagyl and Zosyn, sputum culture showed E. coli, and urine culture was positive for E. coli as well, little fluid cultures showed no growth. Today's chest x-ray shows mildly increased interstitium, and patchy density in bilateralbases, right greater than left, stable findings overall. No complaints of abdominal pain, patient is passing bowel movements, he is tolerating his diet, JAGJIT drain output is minimal. He was evaluated by Dr. Manzanares, and according to the nurse patient is supposed to be discharged to [facility] rehab today Objective - Vital Signs Vital signs: Vital Signs Temp 98 F 10/09/19 08:00 Pulse 72 10/09/19 09:17 Resp 16 10/09/19 08:00 BP 136/64 10/09/19 08:00 Pulse Ox 93 L 10/09/19 08:00 Intake & Output 10/08/19 10/09/19 10/09/19 18:59 06:59 18:59 Intake Total 820 100 480 Output Total 10 1900 Balance 810 -1800 480 Weight 72.6 kg 72.6 kg Intake: IV 100 Piperacillin-Tazobactam 3 100 .375 gm In Sodium Chloride 0.9% 100 ml @ 25 mls/hr IVPB Q8H JEREMIAH Rx#: [id number] Intake, IV Titration 100 Amount Piperacillin-Tazobactam 3 100 .375 gm In Sodium Chloride 0.9% 100 ml @ 25 mls/hr IVPB Q8H JEREMIAH Rx#: [id number] Oral 720 480 Output: Drainage 10 Right Lower Abdomen 10 Urine 1900 Other: Voiding Method Indwelling Catheter Indwelling Catheter Indwelling Catheter # Voids 850 - Exam GENERAL EXAM: Alert, very pleasant, 83-year-old white male, in 4 L of oxygen the pulse ox 93%, comfortable in no apparent distress. HEAD: Normocephalic/atraumatic. EYES: Normal reaction of pupils, equal size. Conjunctiva pink, sclera white. NOSE: Clear with pink turbinates. THROAT: No erythema or exudates. NECK: No masses, no JVD, no thyroid enlargement, no adenopathy. CHEST: No chest wall deformity. Symmetrical expansion. LUNGS: Equal air entry with no crackles, wheeze, rhonchi or dullness. CVS: Regular rate and rhythm, normal S1 and S2, no gallops, no murmurs, no rubs ABDOMEN: Soft, nontender. Abdominal incision is clean dry and intact, right groin incision is clean dry and intact, JAGJIT drain in the right lower quadrant No hepatosplenomegaly, normal bowel sounds, no guarding or rigidity. EXTREMITIES: No clubbing, no edema, no cyanosis, 2+ pulses and upper and lower extremities. MUSCULOSKELETAL: Muscle strength and tone normal. SPINE: No scoliosis or deformity SKIN: No rashes CENTRAL NERVOUS SYSTEM: Alert and oriented -3. No focal deficits, tone is normal in all 4 extremities. PSYCHIATRIC: Alert and oriented -3. Appropriate affect. Intact judgment and insight. - Labs CBC & Chem 7: 10/05/19 05:03 10/08/19 09:52 Labs: Abnormal Lab Results - Last 24 Hours (Table) 10/08/19 10/08/19 Range/Units 09:52 17:07 ABG pH 7.48 H (7.35-7.45) ABG pCO2 57 H (35-45) mmHg ABG pO2 68 L (83-108) mmHg ABG HCO3 43 H* (21-25) mmol/L ABG Total CO2 45 H (19-24) mmol/L Procalcitonin 0.40 H (0.02-0.09) ng/mL Assessment and Plan Plan: Assessment: 1 exploratory laparotomy, right inguinal hernia repair and right orchiectomy and right colectomy. 2 abdominal pain and bowel obstruction secondary to above, recovered 3 acute hypoxic/hypercapnic respiratory failure following abdominal surgery. The patient to be intubated in the recovery and successfully extubated 4 right lower lobe consolidation consider aspiration pneumonia on Zosyn, with sputum culture positive for E. coli 5 kidney failure, chronicity is unknown. Consider chronic kidney disease. Recovered 6 hypotension improved with fluid resuscitation. Consider intravascular volume depletion/dehydration. Consider sepsis 7 acute lactic acidosis, improved 8 UTI secondary to E. coli currently on IV Zosyn 9 hypertension history of 10 hyperlipidemia, history of 11 chronic smoker Plan: Patient is doing well, FiO2 is down to 4 L, afebrile, remains on Zosyn and Flagyl for evidence of E. coli in the sputum and urine. Clinically stable, breathing is comfortable, tolerating his diet, good bowel function, patient is being transferred to [facility] rehab today I performed a history & physical examination of the patient and discussed their management with my nurse practitioner, America Woods. I reviewed the nurse practitioner's note and agree with the documented findings and plan of care. Lung sounds are positive for diffuse wheezes throughout the lung velazco. The findings and the impression was discussed with the patient. I attest to the documentation by the nurse practitioner. Time with Patient: Less than 30
--- NOTE | 2019-10-09 13:43 | P.PN ---
Subjective Progress Note Date: 10/09/19 Principal diagnosis: Incarcerated right inguinal hernia Patient doing fine today. Denies abdominal pain. Having bowel function. Tolerating diet. Drain was removed yesterday. Objective - Vital Signs Vital signs: Vital Signs Temp 98 F 10/09/19 08:00 Pulse 76 10/09/19 12:24 Resp 16 10/09/19 08:00 BP 136/64 10/09/19 08:00 Pulse Ox 93 L 10/09/19 08:00 Intake & Output 10/08/19 10/09/19 10/09/19 18:59 06:59 18:59 Intake Total 820 100 480 Output Total 10 1900 Balance 810 -1800 480 Weight 72.6 kg 72.6 kg Intake: IV 100 Piperacillin-Tazobactam 3 100 .375 gm In Sodium Chloride 0.9% 100 ml @ 25 mls/hr IVPB Q8H JEREMIAH Rx#: [id number] Intake, IV Titration 100 Amount Piperacillin-Tazobactam 3 100 .375 gm In Sodium Chloride 0.9% 100 ml @ 25 mls/hr IVPB Q8H JEREMIAH Rx#: [id number] Oral 720 480 Output: Drainage 10 Right Lower Abdomen 10 Urine 1900 Other: Voiding Method Indwelling Catheter Indwelling Catheter Indwelling Catheter # Voids 850 - Exam Right groin incision clean and dry, drain out - Labs CBC & Chem 7: 10/05/19 05:03 10/08/19 09:52 Labs: Abnormal Lab Results - Last 24 Hours (Table) 10/08/19 10/08/19 Range/Units 09:52 17:07 ABG pH 7.48 H (7.35-7.45) ABG pCO2 57 H (35-45) mmHg ABG pO2 68 L (83-108) mmHg ABG HCO3 43 H* (21-25) mmol/L ABG Total CO2 45 H (19-24) mmol/L Procalcitonin 0.40 H (0.02-0.09) ng/mL Assessment and Plan (1) Incarcerated inguinal hernia Narrative/Plan: Continue diet as tolerated. Monitor incision site. May discharge to rehab from my standpoint. Current Visit: Yes Status: Acute Code(s): K40.30 - UNIL INGUINAL HERNIA, W OBST, W/O GANGR, NOT SPCF RECUR SNOMED Code(s): 620507873
--- NOTE | 2019-10-09 14:47 | P.PN ---
Subjective Progress Note Date: 10/09/19 This is a pleasant 83-year-old gentleman who was admitted to the hospital with small bowel obstruction and underwent exploratory laparotomy. The patient subsequently went into atrial fibrillation with RVR and then he underwent a SHIRA and cardioversion. Patient was also on IV Lasix for some mild heart failure. He was seen and examined this morning, his weight is down 3 kg today. He is remaining in normal sinus rhythm. Blood pressure 120/60 with a heart rate in the 60s, 93% on 6 L of oxygen. Sodium 141, potassium 4.2, BUN 31, creatinine 1.0. 10/09/2019 Patient was seen and examined this morning, remaining in normal sinus rhythm, hemodynamically stable. Objective - Vital Signs Vital signs: Vital Signs Temp 98 F 10/09/19 08:00 Pulse 76 10/09/19 12:24 Resp 16 10/09/19 08:00 BP 136/64 10/09/19 08:00 Pulse Ox 93 L 10/09/19 08:00 Intake & Output 10/08/19 10/09/19 10/09/19 18:59 06:59 18:59 Intake Total 820 100 480 Output Total 10 1900 Balance 810 -1800 480 Weight 72.6 kg 72.6 kg Intake: IV 100 Piperacillin-Tazobactam 3 100 .375 gm In Sodium Chloride 0.9% 100 ml @ 25 mls/hr IVPB Q8H JEREMIAH Rx#: [id number] Intake, IV Titration 100 Amount Piperacillin-Tazobactam 3 100 .375 gm In Sodium Chloride 0.9% 100 ml @ 25 mls/hr IVPB Q8H JEREMIAH Rx#: [id number] Oral 720 480 Output: Drainage 10 Right Lower Abdomen 10 Urine 1900 Other: Voiding Method Indwelling Catheter Indwelling Catheter Indwelling Catheter # Voids 850 - Exam Appearance: Alert pleasant 83-year-old gentleman. On 10 L nasal cannula. O2 saturation 92%. Head exam was generally normal. There was no scleral icterus or corneal arcus. Mucous membranes were moist. Neck was supple and without jugular venous distension, thyromegaly, or carotid bruits. Carotids were easily palpable bilaterally. There was no adenopathy. Orogastric and orotracheal tube are both in place. Lungs breath other are equal and symmetrical bilaterally. Scattered crackles an d rhonchi more so on the right lung base, diminished bilaterally right greater than left Cardiac exam revealed the PMI to be normally situated and sized. The rhythm was regular and no extrasystoles were noted during several minutes of auscultation. The first and second heart sounds were normal and physiologic splitting of the second heart sound was noted. There were no murmurs, rubs, clicks, or gallops. Abdominal exam revealed absence bowel sounds. The abdomen was soft, non-tender, and without masses, organomegaly, or appreciable enlargement of the abdominal aorta. Dressing dry and intact, abdominal incision which is in his right groin area. The wound is which is dry clean and intact Neurologically the patient is awake alert oriented 3, comfortable no acute distress. Pupils are equal and reactive to light. Examination of the skin revealed no evidence of significant rashes, suspicious appearing nevi or other concerning lesions. - Labs CBC & Chem 7: 10/05/19 05:03 10/08/19 09:52 Labs: Abnormal Lab Results - Last 24 Hours (Table) 10/08/19 10/08/19 Range/Units 09:52 17:07 ABG pH 7.48 H (7.35-7.45) ABG pCO2 57 H (35-45) mmHg ABG pO2 68 L (83-108) mmHg ABG HCO3 43 H* (21-25) mmol/L ABG Total CO2 45 H (19-24) mmol/L Procalcitonin 0.40 H (0.02-0.09) ng/mL Assessment and Plan Plan: Assessment and plan 1 exploratory laparotomy, right inguinal hernia repair and right orchiectomy and right colectomy. 2 abdominal pain and bowel obstruction secondary to above, recovered 3 acute hypoxic/hypercapnic respiratory failure following abdominal surgery. The patient to be intubated in the recovery and successfully extubated 4 right lower lobe consolidation, possible pneumonia, aspiration. 5 kidney failure, chronicity is unknown. Consider chronic kidney disease. 6 hypotension improved with fluid resuscitation. Consider intravascular volume depletion/dehydration. Consider sepsis 7 acute lactic acidosis, improved 8 UTI secondary to E. coli currently on IV Zosyn 9 hypertension 10 hyperlipidemia 11 chronic smoker 12 paroxysmal atrial fibrillation, status post SHIRA and cardioversion, remaining in normal sinus rhythm 13 diastolic congestive heart failure, acute Plan Cardiology's perspective, we'll continue this patient on his current medications. Anticipate possible transferred to ECF today. DNP note has been reviewed, I agree with a documented findings and plan of care. Patient was seen and examined.
[2019-10-09 15:58] VITALS: PULSE 76
== END 2019-10-09 16:30 | DRG 329 ==
LOC: EC 15:28 → 4SSUR 20:32 → 2SICU 09-28 19:00 → 3SCARD 10-05 18:50
PROVIDERS: ADMIT Internal Medicine; ATTEND Internal Medicine
PROC: 0DTH0ZZ Resection of Cecum, Open Approach (ICD-10-PCS; principal; 2019-09-28 11:35)
PROC: 0DBB0ZZ Excision of Ileum, Open Approach (ICD-10-PCS; principal; 2019-09-28 11:35)
PROC: 0DTJ0ZZ Resection of Appendix, Open Approach (ICD-10-PCS; principal; 2019-09-28 11:35)
PROC: 0YQ50ZZ Repair Right Inguinal Region, Open Approach (ICD-10-PCS; principal; 2019-09-28 11:35)
PROC: 0DBK0ZZ Excision of Ascending Colon, Open Approach (ICD-10-PCS; principal; 2019-09-28 11:35)
PROC: 0W993ZZ Drainage of Right Pleural Cavity, Percutaneous Approach (ICD-10-PCS; 2019-10-03)
PROC: B24BZZ4 Ultrasonography of Heart with Aorta, Transesophageal (ICD-10-PCS; 2019-10-04)
PROC: 5A2204Z Restoration of Cardiac Rhythm, Single (ICD-10-PCS; 2019-10-04)
DX: K40.31 Unilateral inguinal hernia, with obstruction, without gangrene, recurrent (principal); I50.31 Acute diastolic (congestive) heart failure; J69.0 Pneumonitis due to inhalation of food and vomit; J96.02 Acute respiratory failure with hypercapnia; J96.01 Acute respiratory failure with hypoxia; T83.518A Infection and inflammatory reaction due to other urinary catheter, initial encounter; K56.609 Unspecified intestinal obstruction, unspecified as to partial versus complete obstruction; E87.2 Acidosis; I48.19 Other persistent atrial fibrillation; N17.9 Acute kidney failure, unspecified; N39.0 Urinary tract infection, site not specified; J90 Pleural effusion, not elsewhere classified; I80.8 Phlebitis and thrombophlebitis of other sites; I11.0 Hypertensive heart disease with heart failure; I95.9 Hypotension, unspecified; B96.20 Unspecified Escherichia coli [E. coli] as the cause of diseases classified elsewhere; D50.0 Iron deficiency anemia secondary to blood loss (chronic); E78.5 Hyperlipidemia, unspecified; E86.0 Dehydration; E87.6 Hypokalemia; F17.210 Nicotine dependence, cigarettes, uncomplicated; G47.00 Insomnia, unspecified; I49.3 Ventricular premature depolarization; J44.9 Chronic obstructive pulmonary disease, unspecified; M19.90 Unspecified osteoarthritis, unspecified site; R01.1 Cardiac murmur, unspecified; R33.9 Retention of urine, unspecified; Z79.899 Other long term (current) drug therapy; Z79.82 Long term (current) use of aspirin; E66.9 Obesity, unspecified; Z68.24 Body mass index [BMI] 24.0-24.9, adult; Y84.6 Urinary catheterization as the cause of abnormal reaction of the patient, or of later complication, without mention of misadventure at the time of the procedure
CPT/HCPCS: 36415; 36600; 71045; 71046; 74176; 76604; 80048; 80051; 80053; 81001; 82150; 82271; 82805; 82945; 83605; 83690; 83735; 84100; 84145; 84157; 84443; 85025; 85610; 85730; 87070; 87077; 87086; 87186; 87205; 88302; 88305; 88307; 89050; 92960; 93005; 93306; 93312; 93320; 93325; 94002; 94003; 94640; 94667; 94760; 96360; 96361; 96374; 99285

== ENCOUNTER 2020-04-21 10:59 | Observation (INO) | payer MEDICARE ==
[2020-04-21] MEDS ORDERED: SODIUM CHLORIDE 0.9% 1,000 ML IV STA (11:21)
--- NOTE | 2020-04-21 11:25 | ED ---
Dizziness HPI - General Chief Complaint: Syncope Stated Complaint: near syncope Time Seen by Provider: 04/21/20 11:17 Source: patient, EMS, RN notes reviewed Mode of arrival: EMS Limitations: no limitations - History of Present Illness Initial Comments: This an 84-year-old male resents emergency Department EMS chief complaint of dizziness. 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 Patient states EMS arrived and his blood pressure was low initially. he states currently has no symptoms and like to go home. He denies having any chest pain, shortness breath, headache, blurred vision, nausea vomiting diarrhea constipation. Patient states he self cath has had no prior infections. states he has not been eating and drinking as much as he normally would. Patient denies any fevers or chills no cough or cold like symptoms. - Related Data Home Medications Medication Instructions Recorded Confirmed Simvastatin 40 mg PO HS 09/27/19 04/21/20 Amiodarone [Cordarone] 200 mg PO Q48H 04/21/20 04/21/20 Metoprolol Tartrate [Lopressor] 25 mg PO HS 04/21/20 04/21/20 Metoprolol Tartrate [Lopressor] 50 mg PO QAM 04/21/20 04/21/20 Previous Rx's Medication Instructions Recorded Apixaban [Eliquis] 5 mg PO BID tab 10/09/19 Furosemide [Lasix] 20 mg PO DAILY tab 10/09/19 acetaZOLAMIDE [Diamox] 250 mg PO DAILY tab 10/09/19 Allergies Allergy/AdvReac Type Severity Reaction Status Date / Time No Known Allergies Allergy Verified 04/21/20 12:08 Review of Systems ROS Statement: Those systems with pertinent positive or pertinent negative responses have been documented in the HPI. ROS Other: All systems not noted in ROS Statement are negative. Past Medical History Past Medical History: COPD, Hyperlipidemia, Hypertension History of Any Multi-Drug Resistant Organisms: None Reported Additional Past Surgical History / Comment(s): cyst removed. Past Anesthesia/Blood Transfusion Reactions: No Reported Reaction Past Psychological History: No Psychological Hx Reported Smoking Status: Current some day smoker Past Alcohol Use History: Occasional Past Drug Use History: None Reported - Past Family History Father Additional Family Medical History / Comment(s): Patient is adopted and does not know any history on his parents or siblings. Patient has 2 daughters and one has diverticulitis General Exam Limitations: no limitations General appearance: alert, in no apparent distress Head exam: Present: atraumatic, normocephalic, normal inspection Eye exam: Present: normal appearance, PERRL, EOMI. Absent: scleral icterus, conjunctival injection, periorbital swelling ENT exam: Present: normal exam, normal oropharynx, mucous membranes moist Neck exam: Present: normal inspection, full ROM. Absent: tenderness, meningismus, lymphadenopathy Respiratory exam: Present: normal lung sounds bilaterally. Absent: respiratory distress, wheezes, rales, rhonchi, stridor Cardiovascular Exam: Present: normal rhythm, bradycardia, normal heart sounds. Absent: systolic murmur, diastolic murmur, rubs, gallop, clicks GI/Abdominal exam: Present: soft, normal bowel sounds. Absent: distended, tenderness, guarding, rebound, rigid Extremities exam: Absent: pedal edema Neurological exam: Present: alert, oriented X3, CN II-XII intact Skin exam: Present: warm, dry, intact, normal color. Absent: rash Course Vital Signs 04/21/20 04/21/20 11:00 11:43 Temperature 97.6 F Pulse Rate 50 L Pulse Rate [ 51 L Rn Intern ] Respiratory 14 16 Rate Blood Pressure 117/49 Blood Pressure 107/59 [Left Arm Sitting] Blood Pressure 118/60 [Left Arm Standing] Blood Pressure 118/53 [Left Arm Supine] O2 Sat by Pulse 98 Oximetry EKG Findings - EKG Comments: EKG Findings:: EKG performed at 11:03 sinus bradycardia with first-degree block rightward axis deviation with a rate of 58 CT 234 QRS 88 QT/QTC 480/437 Medical Decision Making - Medical Decision Making 84-year-old presented for near syncope, possible dehydration. Patient does have some mild patient is creatinine. Patient has been consented bradycardic in which she normally is not. Concerning presented on multiple medications. Patie nt will be admitted for further evaluation, monitoring of blood pressure, heart rate. - Lab Data Result diagrams: 04/21/20 11:24 04/21/20 11:24 Lab Results 04/21/20 04/21/20 04/21/20 Range/Units 11:24 11:24 11:24 WBC 9.7 (3.8-10.6) k/uL RBC 5.22 (4.30-5.90) m/uL Hgb 15.0 (13.0-17.5) gm/dL Hct 48.0 (39.0-53.0) % MCV 91.9 (80.0-100.0) fL MCH 28.7 (25.0-35.0) pg MCHC 31.2 (31.0-37.0) g/dL RDW 13.4 (11.5-15.5) % Plt Count 274 (150-450) k/uL Neutrophils % 61 % Lymphocytes % 27 % Monocytes % 6 % Eosinophils % 3 % Basophils % 1 % Neutrophils # 5.8 (1.3-7.7) k/uL Lymphocytes # 2.6 (1.0-4.8) k/uL Monocytes # 0.6 (0-1.0) k/uL Eosinophils # 0.3 (0-0.7) k/uL Basophils # 0.1 (0-0.2) k/uL PT 10.4 (9.0-12.0) sec INR 1.0 (<1.2) APTT 25.0 (22.0-30.0) sec Sodium 140 (137-145) mmol/L Potassium 4.8 (3.5-5.1) mmol/L Chloride 111 H (98-107) mmol/L Carbon Dioxide 26 (22-30) mmol/L Anion Gap 3 mmol/L BUN 27 H (9-20) mg/dL Creatinine 1.77 H (0.66-1.25) mg/dL Est GFR (CKD-EPI)AfAm 40 (>60 ml/min/1.73 sqM) Est GFR (CKD-EPI)NonAf 35 (>60 ml/min/1.73 sqM) Glucose 141 H (74-99) mg/dL Calcium 8.8 (8.4-10.2) mg/dL Magnesium 2.0 (1.6-2.3) mg/dL Total Bilirubin 0.7 (0.2-1.3) mg/dL AST 17 (17-59) U/L ALT 12 (4-49) U/L Alkaline Phosphatase 84 (38-126) U/L Troponin I (0.000-0.034) ng/mL Total Protein 6.1 L (6.3-8.2) g/dL Albumin 3.4 L (3.5-5.0) g/dL Urine Color Urine Appearance (Clear) Urine pH (5.0-8.0) Ur Specific [place] (1.001-1.035) Urine Protein (Negative) Urine Glucose (UA) (Negative) Urine Ketones (Negative) Urine Blood (Negative) Urine Nitrite (Negative) Urine Bilirubin (Negative) Urine Urobilinogen (<2.0) mg/dL Ur Leukocyte Esterase (Negative) Urine RBC (0-5) /hpf Urine WBC (0-5) /hpf Ur Squamous Epith Cells (0-4) /hpf Urine Bacteria (None) /hpf Urine Mucus (None) /hpf 04/21/20 04/21/20 Range/Units 11:24 12:10 WBC (3.8-10.6) k/uL RBC (4.30-5.90) m/uL Hgb (13.0-17.5) gm/dL Hct (39.0-53.0) % MCV (80.0-100.0) fL MCH (25.0-35.0) pg MCHC (31.0-37.0) g/dL RDW (11.5-15.5) % Plt Count (150-450) k/uL Neutrophils % % Lymphocytes % % Monocytes % % Eosinophils % % Basophils % % Neutrophils # (1.3-7.7) k/uL Lymphocytes # (1.0-4.8) k/uL Monocytes # (0-1.0) k/uL Eosinophils # (0-0.7) k/uL Basophils # (0-0.2) k/uL PT (9.0-12.0) sec INR (<1.2) APTT (22.0-30.0) sec Sodium (137-145) mmol/L Potassium (3.5-5.1) mmol/L Chloride (98-107) mmol/L Carbon Dioxide (22-30) mmol/L Anion Gap mmol/L BUN (9-20) mg/dL Creatinine (0.66-1.25) mg/dL Est GFR (CKD-EPI)AfAm (>60 ml/min/1.73 sqM) Est GFR (CKD-EPI)NonAf (>60 ml/min/1.73 sqM) Glucose (74-99) mg/dL Calcium (8.4-10.2) mg/dL Magnesium (1.6-2.3) mg/dL Total Bilirubin (0.2-1.3) mg/dL AST (17-59) U/L ALT (4-49) U/L Alkaline Phosphatase (38-126) U/L Troponin I <0.012 (0.000-0.034) ng/mL Total Protein (6.3-8.2) g/dL Albumin (3.5-5.0) g/dL Urine Color Light Yellow Urine Appearance Clear (Clear) Urine pH 6.0 (5.0-8.0) Ur Specific [place] 1.008 (1.001-1.035) Urine Protein 1+ H (Negative) Urine Glucose (UA) Negative (Negative) Urine Ketones Negative (Negative) Urine Blood Negative (Negative) Urine Nitrite Negative (Negative) Urine Bilirubin Negative (Negative) Urine Urobilinogen <2.0 (<2.0) mg/dL Ur Leukocyte Esterase Small H (Negative) Urine RBC 1 (0-5) /hpf Urine WBC 18 H (0-5) /hpf Ur Squamous Epith Cells <1 (0-4) /hpf Urine Bacteria Moderate H (None) /hpf Urine Mucus Rare H (None) /hpf Disposition Clinical Impression: Near syncope, Dehydration, Bradycardia, Hypotension Disposition: ADMITTED IP TO THIS HOSP Condition: Fair Referrals: Zack Rao MD [Primary Care Provider] - 1-2 days
[2020-04-21 11:31] LABS: Basophils # (A) 0.1 k/uL (0-0.2); Basophils % (A) 1 %; Eosinophils # (A) 0.3 k/uL (0-0.7); Eosinophils % (A) 3 %; Lymphocytes # (A) 2.6 k/uL (1.0-4.8); Lymphocytes % (A) 27 %; MCH 28.7 pg (25.0-35.0); MCHC 31.2 g/dL (31.0-37.0); MCV 91.9 fL (80.0-100.0); Mean Platelet Volume 7.7; Monocytes # (A) 0.6 k/uL (0-1.0); Monocytes % (A) 6 %; Neutrophils # (A) 5.8 k/uL (1.3-7.7); Neutrophils % (A) 61 %; Platelet Count 274 k/uL (150-450); RBC 5.22 m/uL (4.30-5.90); RDW 13.4 % (11.5-15.5); WBC 9.7 k/uL (3.8-10.6)
--- NOTE | 2020-04-21 11:40 | XR ---
EXAMINATION TYPE: XR chest 2V DATE OF EXAM: 04/21/2020 COMPARISON: 10/09/2019 TECHNIQUE: PA and lateral views submitted. HISTORY: Weakness FINDINGS: The lungs are clear and there is no pneumothorax, pleural effusion, or focal pneumonia. Hyperinflati on. Biapical pleural thickening. There is mild interstitial prominence likely in the basis of chronic interstitial lung disease. Heart size normal. IMPRESSION: 1. COPD correlate for chronic interstitial lung disease..
[2020-04-21 11:41] LABS: Albumin 3.4 g/dL (3.5-5.0); Calcium 8.8 mg/dL (8.4-10.2); Potassium 4.8 mmol/L (3.5-5.1); Total Bilirubin 0.7 mg/dL (0.2-1.3); Total Protein 6.1 g/dL (6.3-8.2)
[2020-04-21 12:12] LABS: Prothrombin Time 10.4 sec (9.0-12.0)
[2020-04-21 12:49] LABS: Appearance,Urine Clear (Clear); Bacteria,Urine Moderate /hpf; Bilirubin,Urine Negative (Negative); Blood,Urine Negative (Negative); Color,Urine Light Yellow; Glucose,Urine (UA) Negative (Negative); Ketones,Urine Negative (Negative); Leukocyte Esterase,Urine Small (Negative); Mucus,Urine Rare /hpf; Nitrite,Urine Negative (Negative); Protein,Urine 1+ (Negative); RBC,Urine 1 /hpf (0-5); Specific Gravity,Urine 1.008 (1.001-1.035); Squamous Epithelial Cell,Urine <1 /hpf (0-4); Urobilinogen,Urine <2.0 mg/dL (<2.0); WBC,Urine 18 /hpf (0-5)
[2020-04-21] MEDS ORDERED: NALOXONE 0.4 MG/ML 1 ML VIAL IV PRN (13:04)
[2020-04-21] MEDS: SODIUM CHLORIDE 0.9% 1,000 ML IV SCH ×2 (13:20→22:27)
[2020-04-21] MEDS: METOPROLOL TARTRATE 12.5 MG TAB PO SCH (20:25)
[2020-04-21] MEDS: APIXABAN 5 MG TAB PO SCH (20:25)
[2020-04-21 21:00] VITALS: RESP 18
[2020-04-21] MEDS ORDERED: METOPROLOL TARTRATE 25 MG TAB PO SCH (21:00)
[2020-04-21] MEDS ORDERED: ATORVASTATIN 20 MG TAB PO SCH (21:00)
--- NOTE | 2020-04-21 22:24 | P.HPIM ---
History of Present Illness H&P Date: 04/21/20 Chief Complaint: Near syncope, severe bradycardia, A. 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. He found to have significant bradycardia chest x-ray showed mild COPD with chronic interstitial change. Laboratory values showed acute kidney injury urine test was slightly bit abnormal with? Off UTI as well. Patient was started on hydration change on some of his beta abel dose patient be admitted on athletic monitor be seen cardiology. Patient has been treated for A. fib with RVR has been on amiodarone along with 75 mg of metoprolol day and anticoagulation regular basis. Review of Systems CONSTITUTIONAL: Well-developed no acute respiratory distress. EYES: No icterus sclerae, no conjunctivitis. EARS, NOSE, MOUTH, THROAT, and FACE: No sore throat, lymphadenopathy, carotid bruits or deformity. RESPIRATORY: No SOB cough or wheezes. CARDIOVASCULAR: Mild PND orthopnea palpitations and bradycardia. GASTROINTESTINAL: No Abd pain, Nausea or vomiting, no Diarrhea or constipation, No GI Bleed, no distention or masses. GENITOURINARY: Negative for Hematuria or UTI, no kidney stones. INTEGUMENT/BREAST: Negative for any muscular injury with mild osteoarthritis.. HEMATOLOGIC/LYMPHATIC: Negative for bleed or purpura. MUSCULOSKELTAL: Negative for Myalgia or arthralgia. Generalized muscle pain. NEURLOGICAL: No focal deficit positive presyncope with no sign sign of stroke or mini stroke at this point. His abnormal dizziness and equilibrium has improved some. BEHAVIORAL/PSYCH: Negative. ENDOCRINE: Negative. Past Medical History Past Medical History: Atrial Fibrillation, COPD, Eye Disorder, Hypertension, Pn eum[place] Additional Past Medical History / Comment(s): Afib with RVR, chronic urinary retention-self caths, UTI, small bowel obstruction r/t R inguinal hernia with acute hypoxic and hypercapnic respiratory fialure 2ndary to aspiration pneumonia and had pleural effusion with thoracentesis, benign colon polyps, diverticular disease, bilateral cataracts/visual difficulties. History of Any Multi-Drug Resistant Organisms: None Reported Past Surgical History: Hernia Repair Additional Past Surgical History / Comment(s): 09/2019 exploratory laparotomy with R inguinal hernia repair with R orchiectomy and R colectomy, SHIRA/cardioversion, past R inguinal hernia repair, colonoscopy with benign polypectomy, prior cyst removed from testicle. Past Anesthesia/Blood Transfusion Reactions: No Reported Reaction Smoking Status: Current every day smoker - Past Family History Father Additional Family Medical History / Comment(s): Pt is adopted and does not know parent's medical history Daughter(s) Additional Family Medical History / Comment(s): Pt has 2 faviola's. One has di verticular disease. Medications and Allergies Home Medications Medication Instructions Recorded Confirmed Type Simvastatin 40 mg PO HS 09/27/19 04/21/20 History Apixaban [Eliquis] 5 mg PO BID tab 10/09/19 04/21/20 Rx Furosemide [Lasix] 20 mg PO DAILY tab 10/09/19 04/21/20 Rx acetaZOLAMIDE [Diamox] 250 mg PO DAILY tab 10/09/19 04/21/20 Rx Amiodarone [Cordarone] 200 mg PO Q48H 04/21/20 04/21/20 History Metoprolol Tartrate [Lopressor] 25 mg PO HS 04/21/20 04/21/20 History Metoprolol Tartrate [Lopressor] 50 mg PO QAM 04/21/20 04/21/20 History Allergies Allergy/AdvReac Type Severity Reaction Status Date / Time No Known Allergies Allergy Verified 04/21/20 12:08 Physical Exam Vitals: Vital Signs Temp Pulse Pulse Resp BP BP BP 04/21/20 13:23 53 L 16 133/63 04/21/20 11:43 51 L 16 107/59 118/60 04/21/20 11:00 97.6 F 50 L 14 117/49 BP Pulse Ox 04/21/20 13:23 98 04/21/20 11:43 118/53 04/21/20 11:00 98 Intake and Output 04/21/20 04/21/20 04/21/20 06:59 14:59 22:59 Other: Weight 73.936 kg General Appearance: Alert, cooperative, no distress, appears stated age. Neck HEENT: Supple, no lymphadenopathy, no thyroid enlargement, no carotid bruits. Lungs: Clear to auscultation without crackles or wheezes no rhonchi, no deformity. Chest Wall: Chest wall normal expansion with deep inspiration no tenderness and no deformity was found on exam, no costochondral pain or discomfort. Heart: Irregular rate and rhythm, S1, S2 positive bradycardia positive S3 positive JVD. Back: Symmetric, no curvature, ROM normal, no CVA tenderness. Abdomen: Soft, non-tender, bowel sounds active all four quadrants, no masses, no organomegaly. Extremities: Extremities normal, atraumatic, no cyanosis or edema. Pulses: 2+ and symmetric. Skin: Skin color, texture, tugor normal, no rashes or lesions. Neurologic: Alert oriented x3 cranial nerves II through XII intact, no motor deficit, no abnormal balance or gait. Results CBC & Chem 7: 04/21/20 11:24 04/21/20 11:24 Labs: Abnormal Lab Results - Last 24 Hours (Table) 04/21/20 04/21/20 Range/Units 11:24 12:10 Chloride 111 H (98-107) mmol/L BUN 27 H (9-20) mg/dL Creatinine 1.77 H (0.66-1.25) mg/dL Glucose 141 H (74-99) mg/dL Total Protein 6.1 L (6.3-8.2) g/dL Albumin 3.4 L (3.5-5.0) g/dL Urine Protein 1+ H (Negative) Ur Leukocyte Esterase Small H (Negative) Urine WBC 18 H (0-5) /hpf Urine Bacteria Moderate H (None) /hpf Urine Mucus Rare H (None) /hpf Thrombosis Risk Factor Assmnt - DVT/VTE Prophylaxis DVT/VTE Prophylaxis: Pharmacologic Prophylaxis ordered, Mechanical Prophylaxis ordered - Choose All That Apply Any of the Below Risk Factors Present?: Yes Each Factor Represents 1 point: Abnormal pulmonary function (COPD) Other Risk Factors: Yes Each Risk Factor Represents 3 Points: Age 75 years or older Other congenital or acquired thrombophilia - If yes, enter type in comment: No Thrombosis Risk Factor Assessment Total Risk Factor Score: 4 Thrombosis Risk Factor Assessment Level: Moderate Risk Assessment and Plan Assessment: 1 presyncope: Combination of severe bradycardia, dehydration and UTI. 2 severe bradycardia: The patient's current medication patient metoprolol be decreased 12.5 mg twice a day continue amiodarone 200 mg every 48 hours patient to stay on anticoagulation. 3 A. fib with RVR: Has been treated with amiodarone and metoprolol continue Eliquis at 5 mg twice a day. Continue to watch for any further side effect. Patient might develop severe tachycardia with bradycardia on medication might require pacemaker eventually. 4 acute kidney injury: Continue hydration repeat BNP creatinine next 24 hours an d keep watching for any urinary retention. 5 chronic history of mild COPD: Continue O2 continue updraft treatment on as needed basis. 6 UTI aggravated by BPH and urinary retention, patient be on Rocephin 1 g daily when lab do urine culture as well. 7 diastolic congestive heart failure: Has been on furosemide which will be held acetazolamide and continue metoprolol. 8 hyperlipidemia: On simvastatin 40 mg daily. 9chronic urinary retention with self catheter doing well. 10 hypertension: Has been on metoprolol and diuretics. 11 GI prophylaxis: Patient will be on Pepcid 20 mg daily. 12 DVT prophylaxis: Patient is on anticoagulation. CODE STATUS: Full code. Admit patient to inpatient status for 1-2 nights stay.
[2020-04-22 06:32] LABS: Basophils # (A) 0.1 k/uL (0-0.2); Basophils % (A) 1 %; Eosinophils # (A) 0.3 k/uL (0-0.7); Eosinophils % (A) 4 %; HCT 44.6 % (39.0-53.0); Lymphocytes # (A) 2.5 k/uL (1.0-4.8); Lymphocytes % (A) 28 %; MCH 28.6 pg (25.0-35.0); MCHC 31.4 g/dL (31.0-37.0); MCV 90.9 fL (80.0-100.0); Mean Platelet Volume 7.4; Monocytes # (A) 0.6 k/uL (0-1.0); Monocytes % (A) 7 %; Neutrophils # (A) 5.2 k/uL (1.3-7.7); Neutrophils % (A) 59 %; Platelet Count 242 k/uL (150-450); RDW 13.2 % (11.5-15.5); WBC 8.8 k/uL (3.8-10.6)
[2020-04-22 06:42] LABS: Calcium 8.4 mg/dL (8.4-10.2); Potassium 4.7 mmol/L (3.5-5.1); Total Bilirubin 0.5 mg/dL (0.2-1.3); Total Protein 5.5 g/dL (6.3-8.2)
[2020-04-22] MEDS ORDERED: acetaZOLAMIDE 250 MG TAB PO SCH (09:00)
[2020-04-22] MEDS ORDERED: AMIODARONE 200 MG TAB PO SCH (09:00)
[2020-04-22] MEDS ORDERED: FAMOTIDINE 20 MG TAB PO SCH (09:00)
[2020-04-22] MEDS ORDERED: METOPROLOL TARTRATE 25 MG TAB PO SCH (09:00)
[2020-04-22] MEDS: METOPROLOL TARTRATE 12.5 MG TAB PO SCH (09:02)
[2020-04-22] MEDS: APIXABAN 5 MG TAB PO SCH (09:02)
--- NOTE | 2020-04-22 10:17 | P.CRDCN ---
History of Present Illness History of present illness: HISTORY OF PRESENTING ILLNESS This is a pleasant 84-year-old male past medical history significant for fibrillation status post cardioversion maintained on long-term anticoagulation, hypertension, dyslipidemia, bowel obstruction status post colectomy and COPD with chronic nicotine dependence. He follows in the office with Dr. Edwards. We have been asked to see in consultation for syncope. Patient states yesterday while working at the [employer] he was sitting down for approxim ately 10 minutes hoping to pass out food when he all of a sudden became lightheaded. He states he felt a tight like he was going to pass out however he had was a pretty sitting. He never did fully pass out. He had no associated chest pain, shortness of breath, palpitations, nausea, vomiting or diaphoresis. EMS was called and by the time they arrived he states the symptoms have subsided. According to the patient his blood pressure was 140 systolic and his blood sugar was "normal". He has had no further symptoms of feeling lightheaded since admission. Telemetry tracings reveal intermittent episodes of sinus bradycardia. No significant bradycardia arrhythmia. Orthostatic vital signs we re unremarkable. DIAGNOSTICS EKG reveals sinus bradycardia with first-degree AV block. Chest xray and underlying COPD. Laboratory reviewed, CBC unremarkable, sodium 138, potassium 4.7, creatinine 1.4 , troponin negative 1. Current cardiac medications include amiodarone 200 mg every other day, Eliquis 5 mg twice a day, Diamox 250 mg daily, Lasix 20 mg daily, Lopressor 40 mg in the morning and 25 mg at bedtime simvastatin 40 mg daily. Most recent echocardiogram obtained September 2019 revealed preserved LV systolic function with ejection fraction 55-60%. REVIEW OF SYSTEMS At the time of my exam: CONSTITUTIONAL: Denies fever or chills. CARDIOVASCULAR: Denies chest pain, shortness of breath, orthopnea, PND or palpitations. RESPIRATORY: Denies cough. GASTROINTESTINAL: Denies abdominal pain, diarrhea, constipation, nausea or vomiting. MUSCULOSKELETAL: Denies myalgias. NEUROLOGIC: Denies numbness, tingling or weakness. ENDOCRINE: Denies fatigue, weight change, polydipsia or polyurina. GENITOURINARY: Denies burning, hematuria or urgency with micturation. HEMATOLOGIC: Denies history of anemia or bleeding. PHYSICAL EXAMINATION Blood pressure 145/70 heart rate 61 afebrile and maintaining oxygen saturation on room air. CONSTITUTIONAL: No apparent distress. HEENT: Head is normocephalic. Pupils are equal, round. Sclerae anicteric. Mucous membranes of the mouth are moist. No JVD. No carotid bruit. CHEST EXAMINATION: Lungs are clear to auscultation. No chest wall tenderness is noted on palpation or with deep breathing. Diminished bilaterally. HEART EXAMINATION: Regular rate and rhythm. S1, S2 heard. No murmurs, gallops or rub. ABDOMEN: Soft, nontender. Positive bowel sounds. EXTREMITIES: 2+ peripheral pulses, no lower extremity edema and no calf tenderness. NEUROLOGIC EXAMINATION: Patient is awake, alert and oriented x3. ASSESSMENT Near syncope, cannot completely rule out bradycardia arrhythmia. Paroxysmal atrial fibrillation on long-term anticoagulation status post cardi oversion maintained on amiodarone Hypertension Dyslipidemia. COPD Chronic nicotine dependence PLAN Recommend decreasing Lopressor as this episode is likely related to a bradycardia arrhythmia. We will pursue outpatient event monitoring. Follow-up in the office with Dr. Edwards in one week. Thank you kindly for this consultation. Nurse Practitioner note has been reviewed, I agree with a documented findings and plan of care. Patient was seen and examined. Past Medical History Past Medical History: Atrial Fibrillation, COPD, Eye Disorder, Hypertension, Pneumonia Additional Past Medical History / Comment(s): Afib with RVR, chronic urinary retention-self caths, UTI, small bowel obstruction r/t R inguinal hernia with acute hypoxic and hypercapnic respiratory fialure 2ndary to aspiration pneumonia and had pleural effusion with thoracentesis, benign colon polyps, diverticular disease, bilateral cataracts/visual difficulties. History of Any Multi-Drug Resistant Organisms: None Reported Past Surgical History: Hernia Repair Additional Past Surgical History / Comment(s): 09/2019 exploratory laparotomy with R inguinal hernia repair with R orchiectomy and R colectomy, SHIRA/cardioversion, past R inguinal hernia repair, colonoscopy with benign polypectomy, prior cyst removed from testicle. Past Anesthesia/Blood Transfusion Reactions: No Reported Reaction Smoking Status: Current every day smoker - Past Family History Father Additional Family Medical History / Comment(s): Pt is adopted and does not know parent's medical history Daughter(s) Additional Family Medical History / Comment(s): Pt has 2 faviola's. One has diverticular disease. Medications and Allergies Home Medications Medication Instructions Recorded Confirmed Type Simvastatin 40 mg PO HS 09/27/19 04/21/20 History Apixaban [Eliquis] 5 mg PO BID tab 10/09/19 04/21/20 Rx Furosemide [Lasix] 20 mg PO DAILY tab 10/09/19 04/21/20 Rx acetaZOLAMIDE [Diamox] 250 mg PO DAILY tab 10/09/19 04/21/20 Rx Amiodarone [Cordarone] 100 mg PO Q24HR #0 04/22/20 04/21/20 Rx Cefuroxime [Ceftin] 250 mg PO BID 7 Days #6 tab 04/22/20 Rx Metoprolol Tartrate [Lopressor] 25 mg PO BID #0 04/22/20 04/21/20 Rx Allergies Allergy/AdvReac Type Severity Reaction Status Date / Time No Known Allergies Allergy Verified 04/21/20 12:08 Physical Exam Vitals: Vital Signs Temp Pulse Pulse Resp BP BP BP 04/22/20 03:00 97.8 F 61 18 04/21/20 22:30 04/21/20 21:00 63 18 04/21/20 20:59 97.7 F 63 18 04/21/20 15:00 97.7 F 60 16 148/77 04/21/20 13:23 53 L 16 133/63 04/21/20 11:43 51 L 16 107/59 118/60 04/21/20 11:00 97.6 F 50 L 14 117/49 BP Pulse Ox 04/22/20 03:00 145/70 92 L 04/21/20 22:30 146/64 04/21/20 21:00 04/21/20 20:59 171/74 95 04/21/20 15:00 98 04/21/20 13:23 98 04/21/20 11:43 118/53 04/21/20 11:00 98 Intake and Output 04/21/20 04/22/20 04/22/20 22:59 06:59 14:59 Intake Total 0 Output Total 300 Balance -300 0 Intake: Oral 0 Output: Urine 300 Results 04/22/20 06:03 04/22/20 06:03 Cardiac Enzymes 04/21/20 04/21/20 04/22/20 Range/Units 11:24 11:24 06:03 AST 17 12 L (17-59) U/L Troponin I <0.012 (0.000-0.034) ng/mL Coagulation 04/21/20 Range/Units 11:24 PT 10.4 (9.0-12.0) sec APTT 25.0 (22.0-30.0) sec CBC 04/21/20 04/22/20 Range/Units 11:24 06:03 WBC 9.7 8.8 (3.8-10.6) k/uL RBC 5.22 4.90 (4.30-5.90) m/uL Hgb 15.0 14.0 (13.0-17.5) gm/dL Hct 48.0 44.6 (39.0-53.0) % Plt Count 274 242 (150-450) k/uL Comprehensive Metabolic Panel 04/21/20 04/22/20 Range/Units 11:24 06:03 Sodium 140 138 (137-145) mmol/L Potassium 4.8 4.7 (3.5-5.1) mmol/L Chloride 111 H 113 H (98-107) mmol/L Carbon Dioxide 26 23 (22-30) mmol/L BUN 27 H 23 H (9-20) mg/dL Creatinine 1.77 H 1.40 H (0.66-1.25) mg/dL Glucose 141 H 86 (74-99) mg/dL Calcium 8.8 8.4 (8.4-10.2) mg/dL AST 17 12 L (17-59) U/L ALT 12 12 (4-49) U/L Alkaline Phosphatase 84 73 (38-126) U/L Total Protein 6.1 L 5.5 L (6.3-8.2) g/dL Albumin 3.4 L 3.0 L (3.5-5.0) g/dL Current Medications Generic Name Dose Route Start Last Admin Trade Name Freq PRN Reason Stop Dose Admin Acetazolamide 250 mg 04/22/20 09:00 04/22/20 09:02 Diamox PO 250 mg DAILY JEREMIAH Administration Amiodarone HCl 200 mg 04/22/20 09:00 04/22/20 09:02 Cordarone PO 200 mg Q48H JEREMIAH Administration Apixaban 5 mg 04/21/20 21:00 04/22/20 09:02 Eliquis PO 5 mg BID JEREMIAH Administration Atorvastatin Calcium 20 mg 04/21/20 21:00 04/21/20 20:25 Lipitor PO 20 mg HS JEREMIAH Administration Famotidine 20 mg 04/22/20 09:00 04/22/20 09:02 Pepcid PO 20 mg DAILY JEREMIAH Administration Sodium Chloride 1,000 mls @ 100 mls/hr 04/21/20 13:15 04/21/20 22:27 Saline 0.9% IV 100 mls/hr .Q10H JEREMIAH Administration Ceftriaxone Sodium 1 gm/ 50 mls @ 100 mls/hr 04/21/20 23:00 04/21/20 22:43 Sodium Chloride IVPB 100 mls/hr DAILY@2100 JEREMIAH Administration Metoprolol Tartrate 12.5 mg 04/21/20 21:00 04/22/20 09:02 Lopressor PO 12.5 mg BID JEREMIAH Administration Naloxone HCl 0.2 mg 04/21/20 13:04 Narcan IV Q2M PRN Opioid Reversal Intake and Output 04/21/20 04/22/20 04/22/20 22:59 06:59 14:59 Intake Total 0 Output Total 300 Balance -300 0 Intake: Oral 0 Output: Urine 300 04/22/20 06:03 04/22/20 06:03
--- NOTE | 2020-04-22 10:56 | P.DS ---
Providers Date of admission: 04/21/20 13:36 Attending physician: Anshul Titus Consults: 04/21/20 13:04 Consult Physician Urgent Consulting Provider: Tomás Henriquez Consult Reason/Comments: Bradycardia, near syncope Do you want consulting provider notified?: Yes Primary care physician: Zack [facility] Course: 84-year-old male one of Dr. Mendez patient who was working the [employer] today when developed to have severe dizziness presyncope like symptoms his coworker ended up calling 911 and patient brought [facility] by EMS found to have severe bradycardia his symptom with severe dizziness abnormal balance and gait with mild nausea has improved shortly after his arrival to [facility]. He found to have significant bradycardia chest x-ray showed mild COPD with chronic interstitial change. Laboratory values showed acute kidney injury urine test was slightly bit abnormal with? Off UTI as well. Patient was started on hydration change on some of his beta abel dose patient be admitted on traffic monitor specialist be seen cardiology. Patient has been treated for A. fib with RVR has been on amiodarone along with 75 mg of metoprolol day and anticoagulation regular basis. 04/22 patient was seen this morning resting comfortably in bed. Pulse rate has improved currently in the 60s, patient remains afebrile blood pressure this morning was 145/70 pulse ox 95% on room air. Plan to discharge home today if okay with cardiology. The Toprol was decreased to 25 mg twice a day along with amiodarone 100 mg daily. Patient to follow-up with Dr. THU Edwards as outpatient and completely a Holter monitor. Discussed with patient and eventually he may require a pacemaker. Patient to follow-up with Dr. Mendez as outpatient, and prescription for Ceftin 250 mg by mouth twice a day for 7 days for UTI. Assessment and plan 1 presyncope: 2 severe bradycardia: 3 A. fib with RVR: 4 acute kidney injury: 5 chronic history of mild COPD: 6 UTI aggravated by BPH and urinary retention 7 diastolic congestive heart failure: 8 hyperlipidemia: 9 chronic urinary retention with self catheter doing well. 10 hypertension: Discharge plan: Home with self-care Impression and plan of care have been directed as dictated by the signing physician. Sridevi Yan nurse practitioner acting as scribe for signing physician. Patient Condition at Discharge: Stable Patient Condition at Discharge: Fair Plan - Discharge Summary Discharge Rx Participant: No New Discharge Prescriptions: New Cefuroxime [Ceftin] 250 mg PO BID 7 Days #6 tab Continue Simvastatin 40 mg PO HS acetaZOLAMIDE [Diamox] 250 mg PO DAILY tab Apixaban [Eliquis] 5 mg PO BID tab Furosemide [Lasix] 20 mg PO DAILY tab Changed Amiodarone [Cordarone] 100 mg PO Q24HR #0 Metoprolol Tartrate [Lopressor] 25 mg PO BID #0 Discontinued Metoprolol Tartrate [Lopressor] 50 mg PO QAM Discharge Medication List Simvastatin 40 mg PO HS 09/27/19 [History] Apixaban [Eliquis] 5 mg PO BID tab 10/09/19 [Rx] Furosemide [Lasix] 20 mg PO DAILY tab 10/09/19 [Rx] acetaZOLAMIDE [Diamox] 250 mg PO DAILY tab 10/09/19 [Rx] Amiodarone [Cordarone] 100 mg PO Q24HR #0 04/22/20 [Rx] Cefuroxime [Ceftin] 250 mg PO BID 7 Days #6 tab 04/22/20 [Rx] Metoprolol Tartrate [Lopressor] 25 mg PO BID #0 04/22/20 [Rx] Follow up Appointment(s)/Referral(s): Roberto Edwards MD [STAFF PHYSICIAN] - 1 Week (Office will call with appointment time) Zack Rao MD [Primary Care Provider] - 04/24/20 11:00 am (appointment made for 04/24/[address] Rao ) Discharge Disposition: HOME SELF-CARE
[2020-04-22 13:38] VITALS: BP 142/65; PULSE 58; TEMP 97.6
== END 2020-04-22 14:45 | disposition home or self-care (01) ==
LOC: EC 10:59 → 3NCARDOBS 13:36
PROVIDERS: ADMIT Internal Medicine Geriatric Medicine; ATTEND Internal Medicine Geriatric Medicine
DX: R00.1 Bradycardia, unspecified (principal); E86.0 Dehydration; I44.0 Atrioventricular block, first degree; R55 Syncope and collapse; I25.10 Atherosclerotic heart disease of native coronary artery without angina pectoris; I11.0 Hypertensive heart disease with heart failure; I50.30 Unspecified diastolic (congestive) heart failure; I95.9 Hypotension, unspecified; F17.200 Nicotine dependence, unspecified, uncomplicated; H26.9 Unspecified cataract; J44.9 Chronic obstructive pulmonary disease, unspecified; E78.5 Hyperlipidemia, unspecified; I48.0 Paroxysmal atrial fibrillation; N17.9 Acute kidney failure, unspecified; Z87.01 Personal history of pneumonia (recurrent); N40.1 Benign prostatic hyperplasia with lower urinary tract symptoms; R33.8 Other retention of urine; Z87.440 Personal history of urinary (tract) infections; Z87.19 Personal history of other diseases of the digestive system; Z87.09 Personal history of other diseases of the respiratory system; Z86.010 Personal history of colon polyps; Z90.49 Acquired absence of other specified parts of digestive tract; Z98.890 Other specified postprocedural states; Z83.79 Family history of other diseases of the digestive system; Z79.01 Long term (current) use of anticoagulants; Z79.02 Long term (current) use of antithrombotics/antiplatelets; Z79.899 Other long term (current) drug therapy
CPT/HCPCS: 96365; 96361; 99285; 36415; 93005; 80053 ×2; 83735; 84484; 85025 ×2; 85610; 85730; 81001; 87086; 87077; 87186; 71046; G0378 ×2; U0003; J0696

== ENCOUNTER 2021-04-13 08:17 | Day surgery (SDC) | payer MEDICARE ==
[2021-04-09 14:10] VITALS: BMI 26.6
[~2021-04-13 08:17] MED LIST: ACETAMINOPHEN TAB 500 MG TAB PO PRN; DEXAMETHASONE SOD PHOSPHATE 4 MG/ML 1 ML VIAL IV ONE; HEPARIN SODIUM,PORCINE/PF 5,000 UNIT/0.5 ML SYRINGE SQ PRN; HYDROmorphone 0.5 MG/0.5 ML SYRINGE IVP PRN; LACTATED RINGERS 1,000 ML IV SCH; LIDOCAINE 1% (10MG/ML) FOR IV START INTRADERMA PRN; MIDAZOLAM 2 MG/2 ML VIAL IV PRN; ONDANSETRON 4 MG/2 ML VIAL IVP ONE; ONDANSETRON 4 MG/2 ML VIAL IVP PRN; fentaNYL (PF) 50 MCG/ML 2 ML AMP IVP PRN
[2021-04-13 09:42] LABS: Basophils # (A) 0.1 k/uL (0-0.2); Basophils % (A) 1 %; Calcium 9.6 mg/dL (8.4-10.2); Eosinophils # (A) 0.4 k/uL (0-0.7); Eosinophils % (A) 4 %; HCT 50.6 % (39.0-53.0); HGB 16.1 gm/dL (13.0-17.5); Lymphocytes # (A) 2.3 k/uL (1.0-4.8); Lymphocytes % (A) 23 %; MCH 30.9 pg (25.0-35.0); MCHC 31.8 g/dL (31.0-37.0); MCV 97.3 fL (80.0-100.0); Mean Platelet Volume 8.6; Monocytes # (A) 0.6 k/uL (0-1.0); Monocytes % (A) 6 %; Neutrophils # (A) 6.4 k/uL (1.3-7.7); Neutrophils % (A) 65 %; Platelet Count 266 k/uL (150-450); Potassium 4.2 mmol/L (3.5-5.1); RDW 12.6 % (11.5-15.5); WBC 9.8 k/uL (3.8-10.6)
[2021-04-13 09:53] LABS: INR 0.9 (<1.2); Prothrombin Time 10.2 sec (9.0-12.0)
[2021-04-13] MEDS ORDERED: SUCCINYLCHOLINE CHLORIDE 100 MG/5 ML SYR IV ONE (11:19)
[2021-04-13] MEDS ORDERED: ePHEDrine SULFATE/0.9% NACL/PF 50 MG/5 ML SYRINGE IV ONE (11:19)
[2021-04-13] MEDS ORDERED: ROCURONIUM 10 MG/ML (5 ML VIAL) IV ONE (11:19)
[2021-04-13] MEDS ORDERED: GLYCOPYRROLATE 0.2 MG/ML 2 ML VIAL ONE (11:19)
[2021-04-13] MEDS ORDERED: LIDOCAINE 1% INJ 10MG/ML (20 ML MDV) ONE (11:19)
[2021-04-13] MEDS ORDERED: PROPOFOL 10 MG/ML 20 ML VIAL IV ONE (11:19)
[2021-04-13] MEDS ORDERED: NEOSTIGMINE 1 MG/ML 10 ML VIAL ONE (11:19)
[2021-04-13] MEDS ORDERED: fentaNYL (PF) 50 MCG/ML 2 ML AMP ONE (11:19)
[2021-04-13] MEDS ORDERED: LACTATED RINGERS 1,000 ML IV ONE (12:56)
[2021-04-13] MEDS ORDERED: traMADol 50 MG TAB PO SCH (13:00)
--- NOTE | 2021-04-13 13:03 | P.OP ---
Date of Procedure: 04/13/21 Procedure(s) Performed: PREOPERATIVE DIAGNOSIS: Left inguinal hernia POSTOPERATIVE DIAGNOSIS: Left direct inguinal hernia PROCEDURE: Repair direct inguinal hernia with mesh SURGEON: Dr. Zelaya ANESTHESIA: General OPERATIVE PROCEDURE DETAILS: The patient is brought and placed on the operating table in the supine position. The patient was placed under general anesthesia at that time. An incision was made in an oblique fashion in the left groin. The subcutaneous tissues were dissected using electro cautery. The external oblique was incised with a scalpel. This was lengthened using a Metzenbaum scissors. The spermatic cord structures were encircled with a Parsons drain and dissected carefully. The patient had a large direct inguinal hernia. I was able to reduce the hernia without difficulty. The preperitoneal space was carefully dissected. A large Prolene hernia system was chosen. The inner circular portion of the mesh was placed within the pre-peroneal space and flattened out appropriately. The outer oval portion of mesh was slit and wrapped around the spermatic cord and sutured back to itself. The edge of the hernia was sutured to the mesh using interrupted 2-0 Nurolon sutures. The defect in the direct space was quite large measuring approximately 3 cm in diameter. This was partially closed by reapproximating the conjoined tendon to the folding edge of inguinal ligament. The mesh was then sutured to the pubic tubercle, the folding edge of the inguinal ligament, and the conjoined tendon using interrupted 2-0 Nurolon sutures. The external oblique was then reapproximated using a running 2-0 Vicryl suture. The subcutaneous tissues were reapproximated using interrupted 3-0 Vicryl sutures and the skin using a running 4-0 Monocryl stitch. Skin glue and sterile dressings then applied. At the end of the procedure the sponge needle and counts were all correct. HERNIA CHARACTERISTICS: Length: 9 cm Width: 3 cm Type: Direct inguinal TYPE OF MESH USED: Large Prolene hernia system LOCATION OF MESH: Underlay FIXATION: 2-0 Nurolon sutures DISPOSITION: Stable to recovery room
[2021-04-13 13:07] VITALS: TEMP 97.1
[2021-04-13 13:18] VITALS: RESP 16
[2021-04-13 14:39] VITALS: BP 162/69; PULSE 91
== END 2021-04-13 15:31 | disposition home or self-care (01) ==
LOC: OR 08:17
PROVIDERS: ATTEND Surgery
DX: K40.90 Unilateral inguinal hernia, without obstruction or gangrene, not specified as recurrent (principal); I10 Essential (primary) hypertension; I49.9 Cardiac arrhythmia, unspecified; E78.5 Hyperlipidemia, unspecified; I48.91 Unspecified atrial fibrillation; Z79.01 Long term (current) use of anticoagulants
CPT/HCPCS: 49505; 80048; 85025; 85610; C1781; J1100; J2710; J0690; J2405; J2001; J3010; J0330; J2704; J1644

== ENCOUNTER → 2021-11-19 | Outpatient (CLI) | payer MEDICARE ==
--- NOTE | 2021-11-19 12:43 | US ---
EXAMINATION TYPE: US kidneys/renal and bladder DATE OF EXAM: 11/19/2021 COMPARISON: CT 2019, US 2016 CLINICAL HISTORY: N18.31 STAGE 3 CHR KIDNEY DISEASE. EXAM MEASUREMENTS: Right Kidney: 12.0 x 5.8 x 5.8 cm Left Kidney: 12.3 x 4.9 x 4.9 cm Right Kidney: multiple cysts with largest measuring 7.9 x 4.1 x 5.7cm inferior pole Left Kidney: multiple cysts with largest measuring 6.4 x 4.6 x 5.3cm inferior pole Bladder: appears wnl Bilateral Jets seen: right jet seen, left jet not seen Enlarged prostate Stones in gallbladder. IMPRESSION: 1. Multiple bilateral renal cysts. 2. Cholelithiasis.
== END | disposition home or self-care (01) ==
LOC: RADUSWWP 11:53
PROVIDERS: ATTEND Internal Medicine
DX: N28.1 Cyst of kidney, acquired (principal); K80.20 Calculus of gallbladder without cholecystitis without obstruction
CPT/HCPCS: 76770

== ENCOUNTER 2024-08-09 11:18 | Emergency (ER) | payer MEDICARE ==
[2024-08-09 11:55] VITALS: RESP 18; TEMP 98
[2024-08-09 12:23] LABS: Basophils % (A) 0 %; Eosinophils # (A) 0.2 k/uL (0-0.7); Eosinophils % (A) 2 %; HCT 51.7 % (39.0-53.0); HGB 16.8 gm/dL (13.0-17.5); Lymphocytes # (A) 1.5 k/uL (1.0-4.8); Lymphocytes % (A) 18 %; MCH 30.7 pg (25.0-35.0); MCHC 32.4 g/dL (31.0-37.0); MCV 94.6 fL (80.0-100.0); Mean Platelet Volume 8.4; Monocytes # (A) 0.6 k/uL (0-1.0); Monocytes % (A) 7 %; Neutrophils % (A) 72 %; Platelet Count 219 k/uL (150-450); RBC 5.46 m/uL (4.30-5.90); RDW 12.5 % (11.5-15.5); WBC 8.4 k/uL (3.8-10.6)
[2024-08-09 12:39] LABS: Prothrombin Time 11.2 sec (10.0-12.5)
[2024-08-09 12:40] LABS: African American GFR (CKD) 63 (>60 ml/min/1.73 sqM); Albumin 3.9 g/dL (3.5-5.0); Anion Gap 3 mmol/L; Blood Urea Nitrogen 28 mg/dL (9-20); Calcium 9.5 mg/dL (8.4-10.2); Carbon Dioxide 34 mmol/L (22-30); Chloride 106 mmol/L (98-107); Glucose 136 mg/dL (74-99); Non-African American GFR(CKD) 55 (>60 ml/min/1.73 sqM); Potassium 4.6 mmol/L (3.5-5.1); Sodium 143 mmol/L (137-145); Total Protein 6.7 g/dL (6.3-8.2)
[2024-08-09 12:41] LABS: ALT 12 U/L (4-49); AST 14 U/L (17-59); Alkaline Phosphatase 75 U/L (38-126); Total Bilirubin 0.9 mg/dL (0.2-1.3)
--- NOTE | 2024-08-09 13:12 | XR ---
EXAMINATION TYPE: XR chest 2V DATE OF EXAM: 08/09/2024 12:28 PM COMPARISON: Chest radiographs from 05/18/2020 CLINICAL INDICATION: Male, 88 years old with history of syncope; [facility] TECHNIQUE: XR chest 2V Frontal and lateral views of the chest. FINDINGS: Lungs/Pleura: Prominent interstitial lung markings are seen scattered throughout the lungs. No eviden ce of focal consolidation, pneumothorax or pleural effusion. Pulmonary vascularity: Unremarkable. Heart/mediastinum: Cardiomediastinal silhouette is unremarkable. Musculoskeletal: No acute osseous pathology. Other findings: Gaseous dilation of bowel in the upper abdomen. IMPRESSION: 1. No acute cardiopulmonary disease/process. 2. Diffuse gaseous dilation of bowel in the abdomen. Further workup with CT imaging recommended. [facility], , 08/09/2024 1:10 PM
--- NOTE | 2024-08-09 13:29 | ED ---
Syncope HPI - General Chief Complaint: Syncope Stated Complaint: Syncope Time Seen by Provider: 08/09/24 13:27 Source: patient, RN notes reviewed, old records reviewed, Caregiver Mode of arrival: ambulatory Limitations: no limitations - History of Present Illness Initial Comments: FLORESITA presents to the ER today for syncopal event after getting his flu shot today. Patient has underlying history of atrial fibrillation felt palpitations in the chest but currently feels well no chest pain no shortness of breath no complaint This is an 88-year-old male for syncopal event no current complaints MD Complaint: loss of consciousness -: minutes(s) Prodromal Symptoms: none -: second(s) Witnessed: yes - by bystander Injuries Sustained Associated with Event: None Current Symptoms: back to baseline History: previous syncopal episode Treatments Prior to Arrival: none - Related Data Home Medications Medication Instructions Recorded Confirmed Atorvastatin [Lipitor] 20 mg PO DAILY 04/09/21 04/13/21 acetaZOLAMIDE [Diamox] 250 mg PO DAILY 04/09/21 04/13/21 Previous Rx's Medication Instructions Recorded Apixaban [Eliquis] 5 mg PO BID tab 10/09/19 Furosemide [Lasix] 20 mg PO DAILY tab 10/09/19 Metoprolol Tartrate [Lopressor] 25 mg PO BID #0 04/22/20 traMADol HCl [Ultram] 50 mg PO Q6H PRN #6 tab 04/13/21 Allergies Allergy/AdvReac Type Severity Reaction Status Date / Time No Known Allergies Allergy Verified 08/09/24 11:55 Review of Systems ROS Statement: Those systems with pertinent positive or pertinent negative responses have been documented in the HPI. ROS Other: All systems not noted in ROS Statement are negative. Past Medical History Past Medical History: Atrial Fibrillation, COPD, Eye Disorder, Hypertension, Pneumonia Additional Past Medical History / Comment(s): Afib with RVR, chronic urinary retention-self caths, small bowel obstruction r/t R inguinal hernia with acute hypoxic and hypercapnic respiratory failure 2ndary to aspiration pneumonia and had pleural effusion with thoracentesis, benign colon polyps, diverticular disease, bilateral cataracts/visual difficulties. History of Any Multi-Drug Resistant Organisms: None Reported Past Surgical History: Bowel Resection, Hernia Repair Additional Past Surgical History / Comment(s): 09/2019 exploratory laparotomy with R inguinal hernia repair with R orchiectomy and R colectomy, SHIRA/cardioversion, past R inguinal hernia repair, colonoscopy with benign polypectomy, prior cyst removed from testicle. Past Anesthesia/Blood Transfusion Reactions: No Reported Reaction Additional Past Anesthesia/Blood Transfusion Reaction / Comment(s): was re- intubated post rt hernia repair, r/t pleural effusion Past Psychological History: No Psychological Hx Reported Smoking Status: Current every day smoker Past Alcohol Use History: Rare Past Drug Use History: None Reported - Past Family History Father Additional Family Medical History / Comment(s): Pt is adopted and does not know parent's medical history Daughter(s) Additional Family Medical History / Comment(s): Pt has 2 faviola's. One has diverticular disease. General Exam Limitations: no limitations General appearance: alert, in no apparent distress Head exam: Present: atraumatic, normocephalic, normal inspection Eye exam: Present: normal appearance, PERRL, EOMI. Absent: scleral icterus, conjunctival injection, periorbital swelling ENT exam: Present: normal exam, mucous membranes moist Neck exam: Present: normal inspection. Absent: tenderness, meningismus, lymphadenopathy Respiratory exam: Present: normal lung sounds bilaterally. Absent: respiratory distress, wheezes, rales, rhonchi, stridor Cardiovascular Exam: Present: tachycardia, irregular rhythm, normal heart sounds. Absent: systolic murmur, diastolic murmur, rubs, gallop, clicks GI/Abdominal exam: Present: soft, normal bowel sounds. Absent: distended, tenderness, guarding, rebound, rigid Extremities exam: Present: normal inspection, full ROM, normal capillary refill. Absent: tenderness, pedal edema, joint swelling, calf tenderness Back exam: Present: normal inspection Neurological exam: Present: alert, oriented X3, CN II-XII intact Psychiatric exam: Present: normal affect, normal mood Skin exam: Present: warm, dry, intact, normal color. Absent: rash Course Vital Signs 08/09/24 11:50 Temperature 98 F Pulse Rate 134 H Respiratory 18 Rate Blood Pressure 121/71 O2 Sat by Pulse 95 Oximetry - Reevaluation(s) Reevaluation #1: 08/09/24 13:28 QN completed by myself Dr Garcia 08/09/24 14:15 Records reviewed Reevaluation #2: 08/09/24 14:15 Patient feels well back to baseline Reevaluation #3: 08/09/24 14:15 Informed of results questions answered Reevaluation #4: Was pt. sent in by a medical professional or institution ([facility], [facility], urgent care, hospital, or [facility]...) When possible be specific @ -no Did you speak to anyone other than the patient for history (EMS, parent, family, police, friend...)? What history was obtained from this source @ -no Did you review nursing and triage notes (agree or disagree)? Why? @ -agree Are old charts reviewed (outside hosp., previous admission, EMS record, old EKG, old radiological studies, urgent care reports/EKG's, [facility] records)? Report findings @ -yes Differential Diagnosis (chest pain, altered mental status, abdominal pain women, abdominal pain men, vaginal bleeding, weakness, fever, dyspnea, syncope, headache, dizziness, GI bleed, back pain, seizure, CVA, palpatations, mental health, musculoskeletal)? @ -prior EKG interpreted by me (3pts min.). @ -yes X-rays interpreted by me (1pt min.). @ -yes negative for acute disease CT interpreted by me (1pt min.). @ -no U/S interpreted by me (1pt. min.). @ -no What testing was considered but not performed or refused? (CT, X-rays, U/S, labs)? Why? @ -none What meds were considered but not given or refused? Why? @ -none Did you discuss the management of the patient with other professionals (professionals i.e. [facility], [facility], lab, RT, psych nurse, social psychologist, account executive trainee, teacher, mortgage loan officer originator, case specialist)? Give summary @ -no Was smoking cessation discussed for >3mins.? @ -no Was critical care preformed (if so, how long)? @ -no Were there social determinants of health that impacted care today? How? (Homelessness, low income, unemployed, alcoholism, drug addiction, tr ansportation, low edu. Level, literacy, decrease access to med. care, assisted, rehab)? @ -none Was there de-escalation of care discussed even if they declined (Discuss DNR or withdrawal of care, Hospice)? DNR status @ -no What co-morbidities impacted this encounter? (DM, HTN, Smoking, COPD, CAD, Canc er, CVA, ARF, Chemo, Hep., AIDS, mental health diagnosis, sleep apnea, morbid obesity)? @ -none Was patient admitted / discharged? Hospital course, mention meds given and route, prescriptions, significant lab abnormalities, going to OR and other pertinent info. @ - Undiagnosed new problem with uncertain prognosis? @ -no Drug Therapy requiring intensive monitoring for toxicity (Heparin, Nitro, Insulin, Cardizem)? @ -no Were any procedures done? @ -no Diagnosis/symptom? @ - Acute, or Chronic, or Acute on Chronic? @ -Acute Uncomplicated (without systemic symptoms) or Complicated (systemic symptoms)? @ -Complicated Side effects of treatment? @ -no Exacerbation, Progression, or Severe Exacerbation? @ -exacerbation Poses a threat to life or bodily function? How? (Chest pain, USA, SD, pneumonia, PE, COPD, DKA, ARF, appy, cholecystitis, CVA, Diverticulitis, Homicidal, Suicidal, threat to staff... and all critical care pts) @ -yes Reevaluation #5: Differential Syncope: Valvular disease, hypertrophic cardiomyopathy, pulmonary embolism, tamponade, tachycardia, bradycardia, SD, hypovolemia, hemorrhage, dissection, anemia, intracranial hemorrhage, seizure, hypoglycemia, carbon monoxide poisoning, this is not meant to be an all-inclusive list. EKG Findings - EKG Comments: EKG Findings:: EKG is atrial fibrillation with RVR 131 QRS 80 QTc 364 - EKG Results: EKG: interpreted by ERMD EKG shows: tachycardia, atrial fibrillation Medical Decision Making - Medical Decision Making 88 Male to the ER today for evaluation of a syncopal event after getting his flu shot A-fib with RVR on arrival patient symptoms are proved and he can be discharged home - Lab Data Result diagrams: 08/09/24 12:10 08/09/24 12:10 Lab Results 08/09/24 08/09/24 08/09/24 Range/Units 12:10 12:10 12:10 WBC 8.4 (3.8-10.6) k/uL RBC 5.46 (4.30-5.90) m/uL Hgb 16.8 (13.0-17.5) gm/dL Hct 51.7 (39.0-53.0) % MCV 94.6 (80.0-100.0) fL MCH 30.7 (25.0-35.0) pg MCHC 32.4 (31.0-37.0) g/dL RDW 12.5 (11.5-15.5) % Plt Count 219 (150-450) k/uL MPV 8.4 Neutrophils % 72 % Lymphocytes % 18 % Monocytes % 7 % Eosinophils % 2 % Basophils % 0 % Neutrophils # 6.0 (1.3-7.7) k/uL Lymphocytes # 1.5 (1.0-4.8) k/uL Monocytes # 0.6 (0-1.0) k/uL Eosinophils # 0.2 (0-0.7) k/uL Basophils # 0.0 (0-0.2) k/uL PT 11.2 (10.0-12.5) sec INR 1.0 (<1.2) APTT 27.0 (22.0-30.0) sec Sodium 143 (137-145) mmol/L Potassium 4.6 (3.5-5.1) mmol/L Chloride 106 (98-107) mmol/L Carbon Dioxide 34 H (22-30) mmol/L Anion Gap 3 mmol/L BUN 28 H (9-20) mg/dL Creatinine 1.19 (0.66-1.25) mg/dL Est GFR (CKD-EPI)AfAm 63 (>60 ml/min/1.73 sqM) Est GFR (CKD-EPI)NonAf 55 (>60 ml/min/1.73 sqM) Glucose 136 H (74-99) mg/dL Calcium 9.5 (8.4-10.2) mg/dL Total Bilirubin 0.9 (0.2-1.3) mg/dL AST 14 L (17-59) U/L ALT 12 (4-49) U/L Alkaline Phosphatase 75 (38-126) U/L Troponin I (0.000-0.034) ng/mL Total Protein 6.7 (6.3-8.2) g/dL Albumin 3.9 (3.5-5.0) g/dL 08/09/24 Range/Units 12:10 WBC (3.8-10.6) k/uL RBC (4.30-5.90) m/uL Hgb (13.0-17.5) gm/dL Hct (39.0-53.0) % MCV (80.0-100.0) fL MCH (25.0-35.0) pg MCHC (31.0-37.0) g/dL RDW (11.5-15.5) % Plt Count (150-450) k/uL MPV Neutrophils % % Lymphocytes % % Monocytes % % Eosinophils % % Basophils % % Neutrophils # (1.3-7.7) k/uL Lymphocytes # (1.0-4.8) k/uL Monocytes # (0-1.0) k/uL Eosinophils # (0-0.7) k/uL Basophils # (0-0.2) k/uL PT (10.0-12.5) sec INR (<1.2) APTT (22.0-30.0) sec Sodium (137-145) mmol/L Potassium (3.5-5.1) mmol/L Chloride (98-107) mmol/L Carbon Dioxide (22-30) mmol/L Anion Gap mmol/L BUN (9-20) mg/dL Creatinine (0.66-1.25) mg/dL Est GFR (CKD-EPI)AfAm (>60 ml/min/1.73 sqM) Est GFR (CKD-EPI)NonAf (>60 ml/min/1.73 sqM) Glucose (74-99) mg/dL Calcium (8.4-10.2) mg/dL Total Bilirubin (0.2-1.3) mg/dL AST (17-59) U/L ALT (4-49) U/L Alkaline Phosphatase (38-126) U/L Troponin I <0.012 (0.000-0.034) ng/mL Total Protein (6.3-8.2) g/dL Albumin (3.5-5.0) g/dL - Radiology Data Radiology results: report reviewed (Chest x-ray is negative for acute disease), image reviewed Disposition Clinical Impression: Near syncope, Dehydration, Syncope, Atrial fibrillation with rapid ventricular response Disposition: HOME SELF-CARE Condition: Fair Instructions (If sedation given, give patient instructions): Syncope (ED), A- fib (Atrial Fibrillation) (ED) Is patient prescribed a controlled substance at d/c from ED?: No Referrals: Nonstaff,Physician [Primary Care Provider] - 1-2 days Time of Disposition: 14:00
[2024-08-09] MEDS: METOPROLOL TARTRATE 5 MG/5 ML VIAL IVP STA (14:46)
[2024-08-09 14:57] VITALS: BP 118/81; PULSE 98
== END 2024-08-09 15:03 | disposition home or self-care (01) ==
LOC: EC 11:18
DX: E86.0 Dehydration (principal); R55 Syncope and collapse; I48.20 Chronic atrial fibrillation, unspecified; F17.200 Nicotine dependence, unspecified, uncomplicated
CPT/HCPCS: 36415; 71046; 80053; 84484; 85025; 85610; 85730; 93005; 96374; 99284